=== PATIENT | female | born 1945 | race American Indian/Alaskan Native ===

== ENCOUNTER 2016-10-22 12:53 | Outpatient (CLI) | payer MEDICARE ==
[2016-10-22 14:41] LABS: Anion Gap 19 mmol/L; Blood Urea Nitrogen 12 mg/dL (7-17); Calcium 8.8 mg/dL (8.4-10.2); Carbon Dioxide 29 mmol/L (22-30); Chloride 99.4 mmol/L (98-107); Cholesterol 165 mg/dL (50-199); Glucose 81 mg/dL (65-100); HDL Cholesterol 68 mg/dL (40-59); LDL Cholesterol,Direct 81 mg/dL (50-130); Potassium 3.2 mmol/L (3.6-5.0); Sodium 144 mmol/L (137-145); Triglycerides 80 mg/dL (2-149)
--- NOTE | 2016-10-22 15:31 | XRay Report ---
PA and lateral chest: The chest is rotated to the right. The aorta is slightly tortuous. The heart is normal in size. The lungs are clear. There is mild thoracic spondylosis. Compared to a prior study of July 30, 2016 no significant changes. Impression: No acute or significant cardiopulmonary pathology.
--- NOTE | 2016-10-26 08:40 | Fluoroscopy Report ---
Double contrast upper GI series. Findings: The esophagus, stomach, and duodenum are normal. There is no gastroesophageal reflux or hiatal hernia. Impression: Normal study.
== END 2016-10-22 12:54 | disposition home or self-care (01) ==
LOC: FLUORO 12:53
PROVIDERS: ATTEND Internal Medicine
DX: J30.89 Other allergic rhinitis (principal); M47.894 Other spondylosis, thoracic region; R06.02 Shortness of breath; R05 Cough
CPT/HCPCS: 36415; 71020; 74247; 80048; 80061; 82785; 84439; 84443

== ENCOUNTER 2016-11-17 15:42 | Emergency (ER) | payer MEDICARE ==
[2016-11-17] MEDS ORDERED: TYLENOL ONE (15:53)
[2016-11-17 15:59] VITALS: BP 146/77
[2016-11-17] MEDS ORDERED: TYLENOL PO ONE (16:48)
--- NOTE | 2016-11-17 17:54 | Emergency Department Report ---
Chief Complaint: Dyspnea/Respdistress Stated Complaint: SOB/FEVER/COUGHING/VOMITING Time Seen by Provider: 11/17/16 17:41 - HPI History of Present Illness: 71-year-old female presents today with shortness of breath, chest tightness, fever and productive cough. Also admits to vomiting, headache, abdominal discomfort. Denies sick contacts. Patient was diagnosed with pneumonia and acute bronchitis in July. - ROS Review of Systems: Per HPI - Exam Vital Signs: Vital Signs 11/17/16 15:57 Temperature 100.4 F H Pulse Rate 97 H Respiratory 18 Rate Blood Pressure 146/77 O2 Sat by Pulse 99 Oximetry Physical Exam: General: 71-year-old female in no acute distress. Well-developed, well- nourished. CV: Regular rate and rhythm. Lungs: Decreased breath sounds. MSE screening note: Focused history and physical exam performed. Due to findings the following was ordered: ED Disposition for MSE Condition: Stable
[2016-11-17 18:27] LABS: Basophils % (Auto) 0.6 % (0.0-1.8); Eosinophils % (Auto) 2.6 % (0.0-4.3); Hematocrit 38.1 % (30.3-42.9); Hemoglobin 12.8 gm/dl (10.1-14.3); Mean Corpuscular HGB Conc 34 % (30-34); Mean Corpuscular Volume 77 fl (79-97); Platelet Count 215 K/mm3 (140-440); Red Blood Count 4.94 M/mm3 (3.65-5.03); Red Cell Distribution Width 15.2 % (13.2-15.2)
[2016-11-17 18:32] LABS: Mean Corpuscular Hemoglobin 26 pg (28-32)
[2016-11-17 18:55] LABS: BUN/Creatinine Ratio 16.66; Blood Urea Nitrogen 10 mg/dL (7-17); Calcium 8.9 mg/dL (8.4-10.2); Carbon Dioxide 28 mmol/L (22-30); Chloride 97.5 mmol/L (98-107); Creatine Kinase 36 units/L (30-135); Glucose 111 mg/dL (65-100); Lipase 12 units/L (13-60); Potassium 3.4 mmol/L (3.6-5.0); Sodium 139 mmol/L (137-145)
[2016-11-17 19:00] LABS: Creatine Kinase MB < 1.0 ng/mL (0.0-4.0)
[2016-11-17 19:01] LABS: Anion Gap 17 mmol/L
--- NOTE | 2016-11-18 10:45 | XRay Report ---
CHEST TWO VIEWS: 11/17/16 15:42:00 CLINICAL: Dyspnea. COMPARISON: 10/22/16 FINDINGS: Normal heart and pulmonary vasculature.Aortic tortuosity. The lungs are normally expanded and clear.Degenerative change in the spine. IMPRESSION: No acute cardiopulmonary process.
--- NOTE | 2016-11-22 15:38 | ED Elopement Review ---
ED Pt Elopement review - Results review Lab results: Laboratory Tests 11/17/16 11/17/16 17:54 17:54 WBC 10.0 RBC 4.94 Hgb 12.8 Hct 38.1 MCV 77 L MCH 26 L MCHC 34 RDW 15.2 Plt Count 215 Lymph % (Auto) 6.3 L [place] % (Auto) 10.3 H Eos % (Auto) 2.6 Baso % (Auto) 0.6 Lymph # 0.6 L [place] # 1.0 H Eos # 0.3 Baso # 0.1 Seg Neutrophils % 80.2 H Seg Neutrophils # 8.0 H Sodium 139 Potassium 3.4 L Chloride 97.5 L Carbon Dioxide 28 Anion Gap 17 BUN 10 Creatinine 0.6 L Estimated GFR > 60 BUN/Creatinine Ratio 16.66 Glucose 111 H Calcium 8.9 Total Creatine Kinase 36 CK-MB (CK-2) < 1.0 CK-MB (CK-2) Rel Index 2.7 Troponin T < 0.010 Lipase 12 L - Call Back decision Pt Call Back Decision: No action required
== END 2016-11-17 17:54 | disposition left against medical advice (07) ==
LOC: ED 15:42
DX: R06.02 Shortness of breath (principal); R07.89 Other chest pain; R50.9 Fever, unspecified; R05 Cough; R11.10 Vomiting, unspecified; R51 Headache; R10.9 Unspecified abdominal pain; Z53.21 Procedure and treatment not carried out due to patient leaving prior to being seen by health care provider
CPT/HCPCS: 36415; 71020; 80048; 82550; 82553; 83690; 84484; 85025; 93005; 93010

== ENCOUNTER 2017-02-07 23:44 | Inpatient (IN) | payer MEDICARE ==
[2017-02-08] MEDS ORDERED: PROVENTIL IH ONE ×3 (00:10→02:17)
[2017-02-08] MEDS ORDERED: ATROVENT IH ONE ×3 (00:11→02:17)
--- NOTE | 2017-02-08 02:20 | Emergency Department Report ---
ED General Adult HPI - General Chief complaint: Dyspnea/Respdistress Stated complaint: DIFFICULTY IN BREATHING Time Seen by Provider: 02/08/17 02:11 Source: patient, family, RN notes reviewed, old records reviewed Mode of arrival: Ambulatory Limitations: Physical Limitation - History of Present Illness Initial comments: This is a 71-year-old female. She is previously unknown to me. Primary care doctor is at [facility]. Has a past medical history of COPD. sHe is not on home oxygen. Patient presents to the ER complaining of shortness of breath, cough, wheezing, mucus production. There is no chest pain. There is no leg pain. No recent trips greater than 4 hours. No recent hospital admissions. Patient indicates that this is similar to prior episodes of COPD exacerbations. No recent antibiotic use. Patient incidentally complains of mild global throbbing headache. Headache is not sudden or thunderclap in nature, it did not reach maximal intensity within an hour. No extremity weakness. No extremity numbness. -: Gradual Location: head Quality: aching Consistency: constant Improves with: rest Worsens with: movement Associated Symptoms: cough, loss of appetite, shortness of breath, weakness - Related Data Previous Rx's Medication Instructions Recorded Last Taken Type ALBUTEROL Inhaler [ProAir HFA 2 puff IH QID PRN #1 inhalation 02/09/17 Unknown Rx Inhaler] Benzonatate [Tessalon Perles] 100 mg PO Q8HR #15 capsule 02/09/17 Unknown Rx Budesoni/Formotero 160-4.5(Nf) 2 puff IH BID #1 inha 02/09/17 Unknown Rx [Symbicort 160-4.5 (Nf)] Levofloxacin [Levaquin TAB] 750 mg PO QDAY #6 tablet 02/09/17 Unknown Rx Prednisone [predniSONE 10 mg 10 mg PO .TAPER #1 tab.ds.pk 02/09/17 Unknown Rx (6-Day Pack, 21 Tabs)] Tiotropium [Spiriva] 18 mcg IH QDAY #1 box 02/09/17 Unknown Rx traMADol [Ultram 50 MG tab] 50 mg PO Q6HR PRN #14 tablet 02/09/17 Unknown Rx Allergies Allergy/AdvReac Type Severity Reaction Status Date / Time No Known Allergies Allergy Unverified 01/20/14 14:46 ED Review of Systems ROS: Stated complaint: DIFFICULTY IN BREATHING Other details as noted in HPI Constitutional: malaise, weakness Eyes: denies: vision change ENT: denies: epistaxis Respiratory: cough, shortness of breath, SOB with exertion, SOB at rest, wheezing Cardiovascular: dyspnea on exertion Gastrointestinal: denies: vomiting Genitourinary: as per HPI Musculoskeletal: as per HPI Skin: as per HPI Neurological: headache Psychiatric: anxiety ED Past Medical Hx - Past Medical History Previous Medical History?: Yes Hx HIV: No Additional medical history: post-menopausal bleeding, bronchitis - Surgical History Past Surgical History?: No - Social History Smoking Status: Never Smoker Substance Use Type: None - Medications Home Medications: Home Medications Medication Instructions Recorded Confirmed Last Taken Type ALBUTEROL Inhaler [ProAir HFA 2 puff IH QID PRN #1 inhalation 02/09/17 Unknown Rx Inhaler] Benzonatate [Tessalon Perles] 100 mg PO Q8HR #15 capsule 02/09/17 Unknown Rx Budesoni/Formotero 160-4.5(Nf) 2 puff IH BID #1 inha 02/09/17 Unknown Rx [Symbicort 160-4.5 (Nf)] Levofloxacin [Levaquin TAB] 750 mg PO QDAY #6 tablet 02/09/17 Unknown Rx Prednisone [predniSONE 10 mg 10 mg PO .TAPER #1 tab.ds.pk 02/09/17 Unknown Rx (6-Day Pack, 21 Tabs)] Tiotropium [Spiriva] 18 mcg IH QDAY #1 box 02/09/17 Unknown Rx traMADol [Ultram 50 MG tab] 50 mg PO Q6HR PRN #14 tablet 02/09/17 Unknown Rx ED Physical Exam - General Limitations: Physical Limitation General appearance: alert, in no apparent distress - Head Head exam: Present: atraumatic, normocephalic - Eye Eye exam: Present: normal appearance, EOMI. Absent: nystagmus - ENT ENT exam: Present: normal exam, normal orophraynx, mucous membranes moist - Neck Neck exam: Present: normal inspection, full ROM. Absent: tenderness, meningismus - Respiratory Respiratory exam: Present: respiratory distress, wheezes, rhonchi. Absent: chest wall tenderness - Cardiovascular Cardiovascular Exam: Present: normal rhythm, tachycardia, normal heart sounds. Absent: systolic murmur, diastolic murmur, rubs, gallop - GI/Abdominal GI/Abdominal exam: Present: soft, normal bowel sounds. Absent: distended, tenderness, guarding, rebound, rigid, pulsatile mass - Extremities Exam Extremities exam: Present: normal inspection, full ROM, normal capillary refill , pedal edema, other (Extraocular movements intact. Tongue midline. No facial droop. Facial sensation intact to light touch in the V1, V2, V3 distribution bilaterally. 5 and 5 strength in 4 extremities.. Sensation is intact to light touch in 4 extremities.). Absent: tenderness, calf tenderness - Back Exam Back exam: Present: normal inspection, full ROM. Absent: tenderness, CVA tenderness (R), CVA tenderness (L), muscle spasm, paraspinal tenderness, vertebral tenderness - Neurological Exam Neurological exam: Present: alert, oriented X3. Absent: motor sensory deficit - Psychiatric Psychiatric exam: Present: normal affect, normal mood - Skin Skin exam: Present: warm, dry, intact, normal color. Absent: rash ED Course Vital Signs 02/08/17 02/08/17 02/08/17 00:03 02:02 02:15 Temperature 98.5 F Pulse Rate 115 H 113 H 87 Respiratory 22 12 20 Rate Blood Pressure 195/96 Blood Pressure 147/85 [Right] O2 Sat by Pulse 93 98 93 Oximetry 02/08/17 02/08/17 02/08/17 02:31 03:00 04:05 Temperature 98.9 F Pulse Rate 105 H 105 H Respiratory 15 20 Rate Blood Pressure 147/89 141/66 Blood Pressure [Right] O2 Sat by Pulse 92 92 Oximetry 02/08/17 02/08/17 04:07 04:31 Temperature Pulse Rate 114 H Respiratory 22 Rate Blood Pressure 141/66 159/81 Blood Pressure [Right] O2 Sat by Pulse 98 Oximetry - Reevaluation(s) Reevaluation #1: 02/08/17 05:19 differential diagnosis: COPD exacerbation, bronchitis, pneumonia , elevated blood pressure, migraine headache, tension headache, cluster headache , intracranial hemorrhage Assessment and plan: 71-year-old female with probable COPD exacerbation. Afebrile, markedly hypertensive, no pulmonary embolus or DVT risk factors, low risk by well's criteria, low risk by BRUCE score, low risk by heart score. Patient received multiple rounds of albuterol, Atrovent, as well as adjunctive therapy with magnesium sulfate, and steroids. An ABG after multiple aggressive treatments shows hypoxemic respiratory failure, and the patient is not suitable for outpatient management at this time. The patient has a GCS of 15, with an NIH score of 0, headache is nonspecific, however given his advanced age , and presence of hypertension, a noncontrast CT scan of the brain is ordered, and is interpreted as negative. X-ray the chest is essentially negative, Levaquin ordered, case was discussed with the Hospital physician, Dr. Ross, who accepted the patient to his service. ED Medical Decision Making - Lab Data Result diagrams: 02/09/17 09:50 02/09/17 10:36 Vital Signs 02/08/17 02/08/17 02/08/17 00:03 02:02 02:15 Temperature 98.5 F Pulse Rate 115 H 113 H 87 Respiratory 22 12 20 Rate Blood Pressure 195/96 Blood Pressure 147/85 [Right] O2 Sat by Pulse 93 98 93 Oximetry 02/08/17 02/08/17 02/08/17 02:31 03:00 04:05 Temperature 98.9 F Pulse Rate 105 H 105 H Respiratory 15 20 Rate Blood Pressure 147/89 141/66 Blood Pressure [Right] O2 Sat by Pulse 92 92 Oximetry 02/08/17 02/08/17 04:07 04:31 Temperature Pulse Rate 114 H Respiratory 22 Rate Blood Pressure 141/66 159/81 Blood Pressure [Right] O2 Sat by Pulse 98 Oximetry Lab Results 02/08/17 02/08/17 02/08/17 Range/Units 02:32 02:32 02:32 WBC 12.5 H (4.5-11.0) K/mm3 RBC 4.96 (3.65-5.03) M/mm3 Hgb 12.4 (10.1-14.3) gm/dl Hct 39.2 (30.3-42.9) % MCV 79 (79-97) fl MCH 25 L (28-32) pg MCHC 32 (30-34) % RDW 15.7 H (13.2-15.2) % Plt Count 223 (140-440) K/mm3 Lymph % (Auto) 10.8 L (13.4-35.0) % [place] % (Auto) 6.1 (0.0-7.3) % Eos % (Auto) 6.4 H (0.0-4.3) % Baso % (Auto) 0.6 (0.0-1.8) % Lymph # 1.4 (1.2-5.4) K/mm3 [place] # 0.8 (0.0-0.8) K/mm3 Eos # 0.8 H (0.0-0.4) K/mm3 Baso # 0.1 (0.0-0.1) K/mm3 Seg Neutrophils % 76.1 H (40.0-70.0) % Seg Neutrophils # 9.5 H (1.8-7.7) K/mm3 PT 12.8 (12.2-14.9) Sec. INR 0.97 (0.87-1.13) POC ABG pH (7.35-7.45) POC ABG pCO2 (35-45) POC ABG pO2 (80-105) POC ABG HCO3 POC ABG Total CO2 POC ABG O2 Sat POC ABG Base Excess FiO2 % Sodium 144 (137-145) mmol/L Potassium 3.1 L (3.6-5.0) mmol/L Chloride 100.3 (98-107) mmol/L Carbon Dioxide 28 (22-30) mmol/L Anion Gap 19 mmol/L BUN 12 (7-17) mg/dL Creatinine 0.7 (0.7-1.2) mg/dL Estimated GFR > 60 ml/min BUN/Creatinine Ratio 17.14 % Glucose 153 H (65-100) mg/dL Calcium 9.3 (8.4-10.2) mg/dL Magnesium 2.0 (1.7-2.3) mg/dL Troponin T < 0.010 (0.00-0.029) ng/mL NT-Pro-B Natriuret Pep (0-900) pg/mL 02/08/17 02/08/17 Range/Units 02:32 03:53 WBC (4.5-11.0) K/mm3 RBC (3.65-5.03) M/mm3 Hgb (10.1-14.3) gm/dl Hct (30.3-42.9) % MCV (79-97) fl MCH (28-32) pg MCHC (30-34) % RDW (13.2-15.2) % Plt Count (140-440) K/mm3 Lymph % (Auto) (13.4-35.0) % [place] % (Auto) (0.0-7.3) % Eos % (Auto) (0.0-4.3) % Baso % (Auto) (0.0-1.8) % Lymph # (1.2-5.4) K/mm3 [place] # (0.0-0.8) K/mm3 Eos # (0.0-0.4) K/mm3 Baso # (0.0-0.1) K/mm3 Seg Neutrophils % (40.0-70.0) % Seg Neutrophils # (1.8-7.7) K/mm3 PT (12.2-14.9) Sec. INR (0.87-1.13) POC ABG pH 7.427 (7.35-7.45) POC ABG pCO2 47.3 H (35-45) POC ABG pO2 66 L (80-105) POC ABG HCO3 31.2 POC ABG Total CO2 33 POC ABG O2 Sat 93 POC ABG Base Excess 7 FiO2 21 % Sodium (137-145) mmol/L Potassium (3.6-5.0) mmol/L Chloride (98-107) mmol/L Carbon Dioxide (22-30) mmol/L Anion Gap mmol/L BUN (7-17) mg/dL Creatinine (0.7-1.2) mg/dL Estimated GFR ml/min BUN/Creatinine Ratio % Glucose (65-100) mg/dL Calcium (8.4-10.2) mg/dL Magnesium (1.7-2.3) mg/dL Troponin T (0.00-0.029) ng/mL NT-Pro-B Natriuret Pep 22.93 (0-900) pg/mL - EKG Data -: EKG Interpreted by Me Rate: tachycardia - EKG Data 02/08/17 05:21 Sinus tachycardia, 109 beats per minute, normal axis, QTC 463 ms, not consistent with STEMI, unchanged from prior EKG from October 2016. - Radiology Data Radiology results: report reviewed, image reviewed interpreted by me: X-ray of the chest is negative. Noncontrast CT scan of the brain is negative. Critical care attestation.: If time is entered above; I have spent that time in minutes in the direct care of this critically ill patient, excluding procedure time. ED Disposition Clinical Impression: Acute exacerbation of chronic obstructive pulmonary disease (COPD) Disposition: OP ADMITTED IP TO THIS HOSP Is pt being admited?: Yes Condition: Good
[2017-02-08 03:07] LABS: Anion Gap 19 mmol/L; BUN/Creatinine Ratio 17.14; Blood Urea Nitrogen 12 mg/dL (7-17); Calcium 9.3 mg/dL (8.4-10.2); Carbon Dioxide 28 mmol/L (22-30); Chloride 100.3 mmol/L (98-107); Glucose 153 mg/dL (65-100); Potassium 3.1 mmol/L (3.6-5.0); Sodium 144 mmol/L (137-145)
[2017-02-08 03:17] LABS: Basophils % (Auto) 0.6 % (0.0-1.8); Eosinophils % (Auto) 6.4 % (0.0-4.3); Hematocrit 39.2 % (30.3-42.9); Hemoglobin 12.4 gm/dl (10.1-14.3); Mean Corpuscular HGB Conc 32 % (30-34); Mean Corpuscular Volume 79 fl (79-97); Platelet Count 223 K/mm3 (140-440); Red Blood Count 4.96 M/mm3 (3.65-5.03); Red Cell Distribution Width 15.7 % (13.2-15.2); White Blood Count 12.5 K/mm3 (4.5-11.0)
[2017-02-08] MEDS ORDERED: K-DUR PO ONE (03:17)
[2017-02-08 03:27] LABS: INR 0.97 (0.87-1.13)
[2017-02-08 03:37] LABS: Mean Corpuscular Hemoglobin 25 pg (28-32)
--- NOTE | 2017-02-08 03:55 | Cat Scan Report ---
FINAL REPORT PROCEDURE: CT HEAD/BRAIN WO CON TECHNIQUE: Computerized tomography of the head was performed without contrast material. HISTORY: headache htn COMPARISON: No prior studies are available for comparison. FINDINGS: Skull and scalp: Normal. Paranasal sinuses: Normal. Ventricles and subarachnoid spaces: Normal. Cerebrum: No evidence of hemorrhage, acute infarction or mass. Minimal atrophy is noted. . Cerebellum and brainstem: No evidence of hemorrhage, acute infarction or mass. Vasculature: Normal. Comments: None. IMPRESSION: There is no evidence of an acute intracranial process.
[2017-02-08 04:01] LABS: ISTAT Base Excess 7; ISTAT HCO3 31.2; ISTAT PCO2 47.3 (35-45); ISTAT PH 7.427 (7.35-7.45); ISTAT PO2 66 (80-105); ISTAT SO2 93; ISTAT TCO2 33
[2017-02-08] MEDS ORDERED: LEVAQUIN 750MG/150ML 750 MG/150 ML BAG IV ONE (04:11)
[2017-02-08] MEDS ORDERED: AMBIEN PO PRN (04:33)
[2017-02-08] MEDS ORDERED: MILK OF MAGNESIA PO PRN (04:33)
[2017-02-08] MEDS ORDERED: ZOFRAN IV PRN (04:33)
[2017-02-08] MEDS ORDERED: D50W (25GM) IV PRN (04:33)
[2017-02-08] MEDS ORDERED: TYLENOL PO PRN (04:33)
[2017-02-08] MEDS ORDERED: DULCOLAX PR PRN (04:33)
--- NOTE | 2017-02-08 05:23 | History and Physical Report ---
History of Present Illness Date of examination: 02/08/17 Date of admission: 02/08/17 04:33 Chief complaint: Worsening shortness of breath for 2 days History of present illness: 71-year-old -[place] female no known major medical conditions except chronic bronchitis for the past 5 months seen in the emergency room for worsening shortness of breath and admitted for COPD exacerbation management. Patient is awake and alert he is mildly short of breath with the moderate wheezing she denies any history of COPD or asthma. She was diagnosed with bronchitis in August 2016 and since then she has never been the same. Also complains of cough with greenish sputum, he denies any fever or chills [place] any sore throat dysphagia nasal congestion or headaches Denies any exertional chest pain palpitations or syncope Stated above complains of for cough with green sputum and worsening shortness of breath for 2 days She denies any nausea or vomitings diarrhea or abdominal pain hematemesis or melena Denies dysuria or hematuria Past History Past Medical History: other ( diagnosed with bronchitis in August 2016). denies: CAD, COPD, diabetes, hypertension Past Surgical History: No surgical history Social history: no significant social history Family history: no significant family history Medications and Allergies Allergies Allergy/AdvReac Type Severity Reaction Status Date / Time No Known Allergies Allergy Unverified 01/20/14 14:46 Home Medications Medication Instructions Recorded Confirmed Last Taken Type ALBUTEROL Inhaler [ProAir HFA 2 puff IH QID PRN #1 inhalation 08/01/16 Unknown Rx Inhaler] Benzonatate [Tessalon Perles] 100 mg PO Q8HR #15 capsule 08/01/16 Unknown Rx Chlorpheniramine/Phenylephrine 1 each PO BID #10 tablet 08/01/16 Unknown Rx [Ed-A-Hist 4 mg-10 mg Tablet] Levofloxacin [Levaquin] 750 mg PO QDAY #6 tablet 08/01/16 Unknown Rx Prednisone [predniSONE 10 mg 10 mg PO .TAPER #1 tab.ds.pk 08/01/16 Unknown Rx (6-Day Pack, 21 Tabs)] Tiotropium [Spiriva] 18 mcg IH QDAY #1 box 08/01/16 Unknown Rx traMADol [Ultram 50 MG tab] 50 mg PO Q6HR PRN #14 tablet 08/01/16 Unknown Rx Active Meds: Active Medications Acetaminophen (Tylenol) 650 mg PO Q4H PRN PRN Reason: Pain MILD(1-3)/Fever >100.5/YODER Albuterol/Ipratropium (Duoneb 0.5 Mg-3 Mg/3 Ml Soln) 1 ampul IH Q6HRT BELEN Bisacodyl (Dulcolax) 10 mg NE QDAY PRN PRN Reason: Constipation unrelieved by MOM Dextrose (D50w (25gm)) 50 ml IV PRN PRN PRN Reason: Hypoglycemia Heparin Sodium (Porcine) (Heparin) 5,000 unit SUB-Q Q8HR BELEN Levofloxacin/Dextrose (Levaquin 750mg/150ml) 750 mg in 150 mls @ 100 mls/hr IV ONCE ONE Stop: 02/08/17 05:40 Last Admin: 02/08/17 04:30 Dose: 100 mls/hr Sodium Chloride (Nacl 0.45% 1000 Ml) 1,000 mls @ 75 mls/hr IV DIRECT BELEN Levofloxacin/Dextrose (Levaquin 750mg/150ml) 750 mg in 150 mls @ 100 mls/hr IV Q24HR BELEN PRN Reason: Protocol Insulin Aspart (Novolog) 0 units SUB-Q ACHS BELEN PRN Reason: Protocol Magnesium Hydroxide (Milk Of Magnesia) 30 ml PO Q4H PRN PRN Reason: Constipation Methylprednisolone Sodium Succinate (Solu-Medrol) 80 mg IV Q6H BELEN Ondansetron HCl (Zofran) 4 mg IV Q8H PRN PRN Reason: N/V unrelieved by Reglan Zolpidem Tartrate (Ambien) 5 mg PO QHS PRN PRN Reason: Insomnia Review of Systems All systems: negative (as stated above in the history of present illness) Exam - Constitutional Vitals: Temp Pulse Resp BP Pulse Ox 98.9 F 114 H 22 159/81 98 02/08/17 04:05 02/08/17 04:31 02/08/17 04:31 02/08/17 04:31 02/08/17 04:31 General appearance: Present: mild distress, well-nourished - EENT Eyes: Present: PERRL, EOM intact ENT: hearing intact, clear oral mucosa, no thrush - Neck Neck: Present: supple, normal ROM. Absent: masses or JVD - Respiratory Respiratory effort: normal Respiratory: bilateral: CTA - Cardiovascular Rhythm: regular Heart Sounds: Present: S1 & S2 - Extremities Extremities: No edema - Abdominal General gastrointestinal: Present: soft, non-tender, tender, non-distended. Absent: hepatomegaly, splenomegaly - Rectal Rectal Exam: deferred - Integumentary Integumentary: Present: clear - Musculoskeletal Musculoskeletal: strength equal bilaterally - Psychiatric Psychiatric: appropriate mood/affect - Neurologic Neurologic: CNII-XII intact, no focal deficits, moves all extremities Results - Labs CBC & Chem 7: 02/08/17 02:32 02/08/17 02:32 Assessment and Plan - Patient Problems (1) Acute exacerbation of chronic obstructive pulmonary disease (COPD) Current Visit: No Status: Acute Plan to address problem: Start the patient on intravenous steroids antibiotics and aggressive nebulizer treatments His EKG shows a heart rate of 109 bpm sinus tachycardia EKG shows a heart rate of 109 bpm sinus tachycardia (2) Hypokalemia Current Visit: Yes Status: Acute Plan to address problem: Potassium supplements and monitor electrolytes (3) Hyperglycemia Current Visit: Yes Status: Acute Plan to address problem: Check A1c level
[2017-02-08] MEDS: HEPARIN SUB-Q SCH ×4 (06:14→22:57)
[2017-02-08] MEDS: NACL 0.45% 1000 ML 1,000 ML IV SCH (06:16)
--- NOTE | 2017-02-08 07:50 | XRay Report ---
AP CHEST: HISTORY: Dyspnea AP view of the chest demonstrates a normal mediastinal and cardiac contour with clear lungs and normal bony and soft tissue structures. IMPRESSION: Unremarkable AP chest. No significant change since 11/17/16.
[2017-02-08] MEDS: DUONEB 0.5 MG-3 MG/3 ML SOLN IH SCH ×3 (08:11→20:27)
--- NOTE | 2017-02-08 08:48 | Admit Criteria Form ---
Admission Criteria Documentation: COPD Clinical Indications for Admission to Inpatient Care (Place 'X' for any and all applicable criteria): Admission is indicated for ANY ONE of the following (1)(2)(3): [ ]I. Acute exacerbation by high-risk comorbidity (e.g., pneumonia, dysrhythmia, heart failure, pleural effusion, pneumothorax) or severe underlying COPD (e.g., steroid dependent) [X]II. Inpatient admission required rather than observation care (see Chronic Obstructive Pulmonary Disease: Observation Care) because of ANY ONE of the following: [X]a) New or pre-existing signs or symptoms of COPD (eg, dyspnea or Tachypnea at rest or with minimal activity) that persist despite outpatient and observation care treatment [ ]b) New-onset hypoxemia (room air SaO2 less than 90%, PO2 less than 60 mm Hg (8.0 kPa)) that persists despite outpatient and observation care treatment [X]c) Worsening of pre-existing hypoxemia (eg, new or increased requirement for supplemental oxygen to maintain oxygenation at baseline level) that persists despite outpatient and observation care treatment, with oxygen treatment needs performable only in acute inpatient setting [ ]d) Hypercarbia (PCO2 greater than 40 mm Hg (5.3 kPa))-induced respiratory acidosis (pH less than 7.35) that persists despite outpatient and observation care treatment [ ]e) Supplemental oxygen or respiratory treatments for over 24 hours that are performable only in acute inpatient setting [ ]f) Chest tube placement with active evacuation (e.g., suction, drainage) (5) [ ]g) Other condition, treatment or monitoring requiring inpatient admission [ ]III. Planned invasive surgical or diagnostic procedures requiring acute- care hospitalization [X]IV. Acute respiratory failure (e.g., uncompensated hypercarbia, severe hypoxemia) [ ]V. Severe comorbid condition (e.g., severe steroid myopathy, acute vertebral fracture) that has acutely worsened pulmonary function [ ]. Confusion state, lethargy, obtundation, stupor or coma Extended stay beyond goal length of stay may be needed for (31)(32): [ ]a ) Respiratory Failure. [ ]b) Severe or persisting hypoxemia or hypercarbia [ ]c) Severe or persistent dyspnea [ ]d) Comorbidities (e.g. chronic heart failure, atrial fibrillation with rapid response, pneumonia) [ ]e) Malnutrition The original [facility] content created by [facility] has been revised. The portions of the content which have been revised are identified through the use of italic text or in bold, and [facility] has neither reviewed nor approved the modified material. All other unmodified content is copyright [facility]. Please see references footnoted in the original [facility] edition 2016 Admission Criteria Met: Yes
[2017-02-08] MEDS: NOVOLOG SUB-Q SCH ×4 (08:54→22:09)
--- NOTE | 2017-02-08 13:58 | Progress Note ---
Assessment and Plan Assessment and plan: Acute respiratory failure secondary to bronchitis/COPD - Patient is on IV antibiotics, breathing treatments, oxygen support - Patient showed some improvement Hyperglycemia - Likely steroid-induced - On sliding scale insulin DVT prophylaxis - Heparin Disposition - Likely discharge tomorrow History Interval history: Patient was seen and evaluated this morning, patient's shortness of breath is getting better but still winded. Hospitalist Physical - Physical exam Narrative exam: Not in cardiopulmonary distress. The patient is obese. Vital signs as documented. Head exam is unremarkable. No scleral icterus . Neck is without jugular venous distension, thyromegaly, or carotid bruits. Lungs wheezing all over the chest with decreased air entry on the posterior basilar lung echols bilaterally. Cardiac exam reveals regular rate and Rhythm. First and second heart sounds normal. No murmurs, rubs or gallops. Abdominal exam reveals normal bowel sounds, no masses, no organomegaly and no aortic enlargement. Extremities are nonedematous and both femoral and pedal pulses are normal. [employer]: Alert and oriented 3. No focal weakness. - Constitutional Vitals: Temp Pulse Resp BP Pulse Ox 98.3 F 18 L 98 H 178/77 99 02/08/17 07:58 02/08/17 13:22 02/08/17 13:22 02/08/17 07:58 02/08/17 07:58 General appearance: Present: mild distress, well-nourished Results - Labs CBC & Chem 7: 02/08/17 02:32 02/08/17 02:32 Labs: Laboratory Last Values WBC 12.5 K/mm3 (4.5-11.0) H 02/08/17 02:32 RBC 4.96 M/mm3 (3.65-5.03) 02/08/17 02:32 Hgb 12.4 gm/dl (10.1-14.3) 02/08/17 02:32 Hct 39.2 % (30.3-42.9) 02/08/17 02:32 MCV 79 fl (79-97) 02/08/17 02:32 MCH 25 pg (28-32) L 02/08/17 02:32 MCHC 32 % (30-34) 02/08/17 02:32 RDW 15.7 % (13.2-15.2) H 02/08/17 02:32 Plt Count 223 K/mm3 (140-440) 02/08/17 02:32 Lymph % (Auto) 10.8 % (13.4-35.0) L 02/08/17 02:32 Weber % (Auto) 6.1 % (0.0-7.3) 02/08/17 02:32 Eos % (Auto) 6.4 % (0.0-4.3) H 02/08/17 02:32 Baso % (Auto) 0.6 % (0.0-1.8) 02/08/17 02:32 Lymph # 1.4 K/mm3 (1.2-5.4) 02/08/17 02:32 Weber # 0.8 K/mm3 (0.0-0.8) 02/08/17 02:32 Eos # 0.8 K/mm3 (0.0-0.4) H 02/08/17 02:32 Baso # 0.1 K/mm3 (0.0-0.1) 02/08/17 02:32 Seg Neutrophils % 76.1 % (40.0-70.0) H 02/08/17 02:32 Seg Neutrophils # 9.5 K/mm3 (1.8-7.7) H 02/08/17 02:32 PT 12.8 Sec. (12.2-14.9) 02/08/17 02:32 INR 0.97 (0.87-1.13) 02/08/17 02:32 POC ABG pH 7.427 (7.35-7.45) 02/08/17 03:53 POC ABG pCO2 47.3 (35-45) H 02/08/17 03:53 POC ABG pO2 66 (80-105) L 02/08/17 03:53 POC ABG HCO3 31.2 02/08/17 03:53 POC ABG Total CO2 33 02/08/17 03:53 POC ABG O2 Sat 93 02/08/17 03:53 POC ABG Base Excess 7 02/08/17 03:53 FiO2 21 % 02/08/17 03:53 Sodium 144 mmol/L (137-145) 02/08/17 02:32 Potassium 3.1 mmol/L (3.6-5.0) L 02/08/17 02:32 Chloride 100.3 mmol/L (98-107) 02/08/17 02:32 Carbon Dioxide 28 mmol/L (22-30) 02/08/17 02:32 Anion Gap 19 mmol/L 02/08/17 02:32 BUN 12 mg/dL (7-17) 02/08/17 02:32 Creatinine 0.7 mg/dL (0.7-1.2) 02/08/17 02:32 Estimated GFR > 60 ml/min 02/08/17 02:32 BUN/Creatinine Ratio 17.14 % 02/08/17 02:32 Glucose 153 mg/dL (65-100) H 02/08/17 02:32 POC Glucose 238 (70-105) H 02/08/17 10:49 Hemoglobin A1c 5.6 % (4-6) 02/08/17 04:54 Calcium 9.3 mg/dL (8.4-10.2) 02/08/17 02:32 Magnesium 2.0 mg/dL (1.7-2.3) 02/08/17 02:32 Troponin T < 0.010 ng/mL (0.00-0.029) 02/08/17 02:32 NT-Pro-B Natriuret Pep 22.93 pg/mL (0-900) 02/08/17 02:32 - Imaging and Cardiology Chest x-ray: image reviewed (no acute cardiopulmonary abnormalities)
[2017-02-08] MEDS: ROBITUSSIN DM PO SCH ×3 (14:37→22:08)
[2017-02-09] MEDS: DUONEB 0.5 MG-3 MG/3 ML SOLN IH SCH ×3 (02:19→14:00)
[2017-02-09] MEDS: NACL 0.45% 1000 ML 1,000 ML IV SCH (03:03)
[2017-02-09] MEDS: ROBITUSSIN DM PO SCH ×3 (03:06→11:34)
[2017-02-09] MEDS: HEPARIN SUB-Q SCH (05:29)
[2017-02-09] MEDS ORDERED: LEVAQUIN 750MG/150ML 750 MG/150 ML BAG IV SCH (06:00)
--- NOTE | 2017-02-09 08:14 | Discharge Summary ---
Providers - Providers Date of Admission: 02/08/17 04:33 Attending physician: ELMER FLEMING MD Hospitalization Condition: Good Hospital course: 71-year-old -French female no known major medical conditions except chronic bronchitis for the past 5 months seen in the emergency room for worsening shortness of breath and admitted for COPD exacerbation management. Patient is awake and alert he is mildly short of breath with the moderate wheezing she denies any history of COPD or asthma. She was diagnosed with bronchitis in August 2016 and since then she has never been the same. Also complains of cough with greenish sputum, he denies any fever or chills. She was treated with steroids and nebulizers and oxygen supplementation, antibiotics and chest PT. Patient clinically improved. Discharge diagnoses 1. Acute respiratory failure 2. Acute exacerbation of COPD Disposition: DISCHARGED TO HOME OR SELFCARE Time spent for discharge: 35 minutes Core Measure Documentation - Palliative Care Palliative Care/ Comfort Measures: Not Applicable - Core Measures Any of the following diagnoses?: none Exam - Constitutional Vitals: Temp Pulse Resp BP Pulse Ox 98.2 F 102 H 18 154/72 96 02/08/17 23:00 02/09/17 07:50 02/09/17 07:50 02/08/17 23:00 02/09/17 07:39 General appearance: Present: no acute distress, well-nourished - EENT Eyes: Present: PERRL ENT: hearing intact, clear oral mucosa - Neck Neck: Present: supple, normal ROM - Respiratory Respiratory effort: normal Respiratory: bilateral: CTA - Cardiovascular Heart Sounds: Present: S1 & S2. Absent: rub, click - Extremities Extremities: pulses symmetrical, No edema Peripheral Pulses: within normal limits - Abdominal General gastrointestinal: Present: soft, non-tender, non-distended, normal bowel sounds Female genitourinary: Present: normal - Integumentary Integumentary: Present: clear, warm, dry - Musculoskeletal Musculoskeletal: gait normal, strength equal bilaterally - Psychiatric Psychiatric: appropriate mood/affect, intact judgment & insight - Neurologic Neurologic: CNII-XII intact, moves all extremities Plan Follow up with: AME GARCIA MD [Referring] - 3-5 Days Forms: Work/School Release Form Prescriptions: ALBUTEROL Inhaler [ProAir HFA Inhaler] 2 puff IH QID PRN #1 inhalation PRN Reason: Shortness Of Breath Benzonatate [Tessalon Perles] 100 mg PO Q8HR #15 capsule Budesoni/Formotero 160-4.5(Nf) [Symbicort 160-4.5 (Nf)] 2 puff IH BID #1 inha Levofloxacin [Levaquin TAB] 750 mg PO QDAY #6 tablet Prednisone [predniSONE 10 mg (6-Day Pack, 21 Tabs)] 10 mg PO .TAPER #1 tab.ds.pk Tiotropium [Spiriva] 18 mcg IH QDAY #1 box traMADol [Ultram 50 MG tab] 50 mg PO Q6HR PRN #14 tablet PRN Reason: Pain
[2017-02-09] MEDS: NOVOLOG SUB-Q SCH (08:26)
[2017-02-09 08:28] VITALS: BP 129/63
[2017-02-09 10:41] LABS: Mean Corpuscular HGB Conc 31 % (30-34); Mean Corpuscular Volume 83 fl (79-97); Platelet Count 109 K/mm3 (140-440); Red Blood Count 4.76 M/mm3 (3.65-5.03); White Blood Count 18.1 K/mm3 (4.5-11.0)
[2017-02-09 10:43] LABS: Hematocrit 39.3 % (30.3-42.9); Mean Corpuscular Hemoglobin 25 pg (28-32)
[2017-02-09 11:08] LABS: Anion Gap 18 mmol/L; Blood Urea Nitrogen 14 mg/dL (7-17); Calcium 9.4 mg/dL (8.4-10.2); Carbon Dioxide 25 mmol/L (22-30); Chloride 100.3 mmol/L (98-107); Glucose 239 mg/dL (65-100); Potassium 3.1 mmol/L (3.6-5.0); Sodium 140 mmol/L (137-145)
[2017-02-09 12:42] LABS: Basophils % (Manual) 0 % (0.0-1.8); Blastocytes % (Manual) 0 %; Eosinophils % (Manual) 0 % (0.0-4.3); Hypochromasia 1+
[2017-02-09 12:43] LABS: Diff Status Complete; Platelet Estimate Appears Decreased
== END 2017-02-09 13:00 | disposition home or self-care (01) | DRG 189 ==
LOC: ED 23:44 → 3A 02-08 04:33
PROVIDERS: ADMIT Internal Medicine; ATTEND Internal Medicine
PROC: 4A033R1 Measurement of Arterial Saturation, Peripheral, Percutaneous Approach (ICD-10-PCS; principal; 2017-02-08)
DX: J96.01 Acute respiratory failure with hypoxia (principal); J44.1 Chronic obstructive pulmonary disease with (acute) exacerbation; I10 Essential (primary) hypertension; E87.6 Hypokalemia; R73.9 Hyperglycemia, unspecified
CPT/HCPCS: 36415; 70450; 71010; 80048; 82803; 82962; 83036; 83735; 83880; 84484; 85007; 85025; 85610; 93005; 93010; 94640; 94760; 96374; 96375; J1644; J1815; J1956; J2920; J2930

== ENCOUNTER 2017-04-11 08:30 | Inpatient (IN) | payer MEDICARE ==
[2017-04-11] MEDS ORDERED: PROVENTIL IH ONE (08:57)
[2017-04-11] MEDS ORDERED: ATROVENT IH ONE (08:57)
[2017-04-11] MEDS ORDERED: MAGNESIUM SULFATE 2GM/50ML 2 GM/50 ML BAG IV ONE (08:57)
[2017-04-11 09:22] LABS: Basophils % (Auto) 0.9 % (0.0-1.8); Hematocrit 36.7 % (30.3-42.9); Hemoglobin 12.1 gm/dl (10.1-14.3); Mean Corpuscular HGB Conc 33 % (30-34); Mean Corpuscular Volume 78 fl (79-97); Platelet Count 216 K/mm3 (140-440); Red Blood Count 4.69 M/mm3 (3.65-5.03); Red Cell Distribution Width 15.2 % (13.2-15.2); White Blood Count 8.6 K/mm3 (4.5-11.0)
[2017-04-11 09:23] LABS: Anion Gap 16 mmol/L; BUN/Creatinine Ratio 21.42; Blood Urea Nitrogen 15 mg/dL (7-17); Calcium 8.7 mg/dL (8.4-10.2); Carbon Dioxide 30 mmol/L (22-30); Chloride 103.5 mmol/L (98-107); Glucose 106 mg/dL (65-100); Potassium 3.1 mmol/L (3.6-5.0); Sodium 146 mmol/L (137-145)
[2017-04-11 09:33] LABS: INR 0.96 (0.87-1.13)
--- NOTE | 2017-04-11 09:52 | XRay Report ---
CHEST TWO VIEWS: 04/11/17 08:30:00 CLINICAL: Shortness of breath. COMPARISON: 03/17/17 FINDINGS: The heart is normal size. Increased central vascular congestion. Mild aortic tortuosity. The lungs are normally expanded and clear. The bones and soft tissues are normal. IMPRESSION: Increased central vascular congestion but otherwise unchanged.No pulmonary edema or pneumonia.
[2017-04-11] MEDS ORDERED: K-DUR PO ONE (10:04)
[2017-04-11] MEDS ORDERED: BABY ASPIRIN PO ONE (10:09)
[2017-04-11] MEDS ORDERED: VIBRAMYCIN PO ONE (10:09)
--- NOTE | 2017-04-11 10:09 | Emergency Department Report ---
ED Shortness of Breath HPI - General Chief Complaint: Dyspnea/Respdistress Stated Complaint: CARLITOS Time Seen by Provider: 04/11/17 10:03 Source: patient, RN notes reviewed, old records reviewed Mode of arrival: Ambulatory Limitations: No Limitations - History of Present Illness Initial Comments: This is a 71-year-old female. I have evaluated her in the past. Primary care doctor at [facility]. Past medical history includes COPD, not on home oxygen. Patient has recently had multiple hospital admissions for COPD exacerbation. Patient presents to the hospital today with her typical constellation of chest tightness, shortness of breath, wheezing, cough and mucus production. Her symptoms are constant. Worse with physical exertion. That decreased with rest. There is no leg pain. There is no leg swelling. No unintentional weight gain. Mild chronic orthopnea which is not new, worsening or different. MD Complaint: shortness of breath, cough -: Gradual Consistency: intermittent Improves With: nothing, oxygen, rest, bronchodilators, upright position Worsens With: lying flat, exertion Known History Of: COPD Context: recent URI Associated Symptoms: cough - Related Data Previous Rx's Medication Instructions Recorded Last Taken Type ALBUTEROL Inhaler [ProAir HFA 2 puff IH QID PRN #1 inhalation 03/19/17 Unknown Rx Inhaler] Azithromycin [Zithromax TAB] 250 mg PO QDAY #3 tablet 03/19/17 Unknown Rx Budesoni/Formotero 160-4.5(Nf) 2 puff IH BID #1 inha 03/19/17 Unknown Rx [Symbicort 160-4.5 (Nf)] Prednisone [predniSONE 5 mg (6-Day 5 mg PO .TAPER #1 tab.ds.pk 03/19/17 Unknown Rx Pack, 21 Tabs)] Allergies Allergy/AdvReac Type Severity Reaction Status Date / Time No Known Allergies Allergy Unverified 01/20/14 14:46 ED Review of Systems ROS: Stated complaint: CARLITOS Other details as noted in HPI Constitutional: malaise. denies: fever Eyes: denies: vision change ENT: congestion Respiratory: shortness of breath, SOB with exertion, SOB at rest, wheezing Cardiovascular: dyspnea on exertion Gastrointestinal: denies: nausea, vomiting Genitourinary: as per HPI. denies: dysuria Musculoskeletal: arthralgia Skin: as per HPI Neurological: as per HPI, weakness Psychiatric: as per HPI ED Past Medical Hx - Past Medical History Previous Medical History?: Yes Hx COPD: Yes Hx HIV: No Additional medical history: post-menopausal bleeding, bronchitis - Surgical History Past Surgical History?: No - Social History Smoking Status: Never Smoker Substance Use Type: Prescribed - Medications Home Medications: Home Medications Medication Instructions Recorded Confirmed Last Taken Type ALBUTEROL Inhaler [ProAir HFA 2 puff IH QID PRN #1 inhalation 03/19/17 Unknown Rx Inhaler] Azithromycin [Zithromax TAB] 250 mg PO QDAY #3 tablet 03/19/17 Unknown Rx Budesoni/Formotero 160-4.5(Nf) 2 puff IH BID #1 inha 03/19/17 Unknown Rx [Symbicort 160-4.5 (Nf)] Prednisone [predniSONE 5 mg (6-Day 5 mg PO .TAPER #1 tab.ds.pk 03/19/17 Unknown Rx Pack, 21 Tabs)] ED Physical Exam - General Limitations: No Limitations General appearance: alert, in distress, obese - Head Head exam: Present: atraumatic, normocephalic - Eye Eye exam: Present: normal appearance, EOMI. Absent: nystagmus - ENT ENT exam: Present: normal exam, normal orophraynx, mucous membranes moist, normal external ear exam - Neck Neck exam: Present: normal inspection, full ROM. Absent: tenderness, meningismus - Respiratory Respiratory exam: Present: respiratory distress, wheezes, rhonchi - Cardiovascular Cardiovascular Exam: Present: normal rhythm, tachycardia, normal heart sounds. Absent: systolic murmur, diastolic murmur, rubs, gallop - GI/Abdominal GI/Abdominal exam: Present: soft, normal bowel sounds. Absent: distended, tenderness, guarding, rebound, rigid, pulsatile mass - Extremities Exam Extremities exam: Present: normal inspection, full ROM, normal capillary refill. Absent: tenderness, pedal edema, joint swelling, calf tenderness - Back Exam Back exam: Present: normal inspection, full ROM. Absent: tenderness, CVA tenderness (R), CVA tenderness (L), muscle spasm, paraspinal tenderness, vertebral tenderness - Neurological Exam Neurological exam: Present: alert, oriented X3, other (Extraocular movements intact. Tongue midline. No facial droop. Facial sensation intact to light touch in the V1, V2, V3 distribution bilaterally. 5 and 5 strength in 4 extremities.. Sensation is intact to light touch in 4 extremities.). Absent: motor sensory deficit - Psychiatric Psychiatric exam: Present: anxious - Skin Skin exam: Present: warm, dry, intact, normal color. Absent: rash ED Course Vital Signs 04/11/17 04/11/17 04/11/17 08:41 09:04 09:10 Temperature 98.5 F 98.2 F Pulse Rate 113 H 100 H Pulse Rate [ Anterior Bilateral Throughout] Respiratory 20 16 Rate Respiratory Rate [Anterior Bilateral Throughout] Blood Pressure 156/84 131/76 Blood Pressure 131/76 [Left] O2 Sat by Pulse 95 95 95 Oximetry 04/11/17 04/11/17 04/11/17:17 09:20 09:30 Temperature Pulse Rate 97 H 99 H Pulse Rate [ 97 H Anterior Bilateral Throughout] Respiratory 14 16 Rate Respiratory 20 Rate [Anterior Bilateral Throughout] Blood Pressure 124/63 119/65 Blood Pressure [Left] O2 Sat by Pulse 97 96 Oximetry 04/11/17 04/11/17 04/11/17 09:40 10:33 12:48 Temperature 98.0 F Pulse Rate 101 H 99 H Pulse Rate [ 105 H Anterior Bilateral Throughout] Respiratory 16 20 Rate Respiratory 20 Rate [Anterior Bilateral Throughout] Blood Pressure 119/65 Blood Pressure 153/84 [Left] O2 Sat by Pulse 94 97 Oximetry 04/11/17 13:09 Temperature Pulse Rate Pulse Rate [ Anterior Bilateral Throughout] Respiratory Rate Respiratory Rate [Anterior Bilateral Throughout] Blood Pressure Blood Pressure [Left] O2 Sat by Pulse 95 Oximetry ED Medical Decision Making - Lab Data Result diagrams: 04/11/17 08:49 04/11/17 08:49 Vital Signs 04/11/17 04/11/17 04/11/17 08:41 09:04 09:10 Temperature 98.5 F 98.2 F Pulse Rate 113 H 100 H Pulse Rate [ Anterior Bilateral Throughout] Respiratory 20 16 Rate Respiratory Rate [Anterior Bilateral Throughout] Blood Pressure 156/84 131/76 Blood Pressure 131/76 [Left] O2 Sat by Pulse 95 95 95 Oximetry 04/11/17 04/11/17 04/11/17 09:17 09:20 09:30 Temperature Pulse Rate 97 H 99 H Pulse Rate [ 97 H Anterior Bilateral Throughout] Respiratory 14 16 Rate Respiratory 20 Rate [Anterior Bilateral Throughout] Blood Pressure 124/63 119/65 Blood Pressure [Left] O2 Sat by Pulse 97 96 Oximetry 04/11/17 04/11/17 09:40 10:33 Temperature Pulse Rate 101 H Pulse Rate [ 105 H Anterior Bilateral Throughout] Respiratory 16 Rate Respiratory 20 Rate [Anterior Bilateral Throughout] Blood Pressure 119/65 Blood Pressure [Left] O2 Sat by Pulse 94 Oximetry Lab Results 04/11/17 04/11/17 04/11/17 Range/Units 08:49 08:49 08:49 WBC 8.6 (4.5-11.0) K/mm3 RBC 4.69 (3.65-5.03) M/mm3 Hgb 12.1 (10.1-14.3) gm/dl Hct 36.7 (30.3-42.9) % MCV 78 L (79-97) fl MCH 26 L (28-32) pg MCHC 33 (30-34) % RDW 15.2 (13.2-15.2) % Plt Count 216 (140-440) K/mm3 Lymph % (Auto) 16.8 (13.4-35.0) % Mcduffie % (Auto) 8.2 H (0.0-7.3) % Eos % (Auto) 11.0 H (0.0-4.3) % Baso % (Auto) 0.9 (0.0-1.8) % Lymph # 1.4 (1.2-5.4) K/mm3 Mcduffie # 0.7 (0.0-0.8) K/mm3 Eos # 0.9 H (0.0-0.4) K/mm3 Baso # 0.1 (0.0-0.1) K/mm3 Seg Neutrophils % 63.1 (40.0-70.0) % Seg Neutrophils # 5.4 (1.8-7.7) K/mm3 PT (12.2-14.9) Sec. INR (0.87-1.13) Sodium 146 H (137-145) mmol/L Potassium 3.1 L (3.6-5.0) mmol/L Chloride 103.5 (98-107) mmol/L Carbon Dioxide 30 (22-30) mmol/L Anion Gap 16 mmol/L BUN 15 (7-17) mg/dL Creatinine 0.7 (0.7-1.2) mg/dL Estimated GFR > 60 ml/min BUN/Creatinine Ratio 21.42 % Glucose 106 H (65-100) mg/dL Calcium 8.7 (8.4-10.2) mg/dL Magnesium (1.7-2.3) mg/dL Troponin T < 0.010 (0.00-0.029) ng/mL NT-Pro-B Natriuret Pep 7.00 (0-900) pg/mL 04/11/17 04/11/17 Range/Units 08:49 09:00 WBC (4.5-11.0) K/mm3 RBC (3.65-5.03) M/mm3 Hgb (10.1-14.3) gm/dl Hct (30.3-42.9) % MCV (79-97) fl MCH (28-32) pg MCHC (30-34) % RDW (13.2-15.2) % Plt Count (140-440) K/mm3 Lymph % (Auto) (13.4-35.0) % Mcduffie % (Auto) (0.0-7.3) % Eos % (Auto) (0.0-4.3) % Baso % (Auto) (0.0-1.8) % Lymph # (1.2-5.4) K/mm3 Mcduffie # (0.0-0.8) K/mm3 Eos # (0.0-0.4) K/mm3 Baso # (0.0-0.1) K/mm3 Seg Neutrophils % (40.0-70.0) % Seg Neutrophils # (1.8-7.7) K/mm3 PT 13.3 (12.2-14.9) Sec. INR 0.96 (0.87-1.13) Sodium (137-145) mmol/L Potassium (3.6-5.0) mmol/L Chloride (98-107) mmol/L Carbon Dioxide (22-30) mmol/L Anion Gap mmol/L BUN (7-17) mg/dL Creatinine (0.7-1.2) mg/dL Estimated GFR ml/min BUN/Creatinine Ratio % Glucose (65-100) mg/dL Calcium (8.4-10.2) mg/dL Magnesium 1.90 (1.7-2.3) mg/dL Troponin T (0.00-0.029) ng/mL NT-Pro-B Natriuret Pep (0-900) pg/mL - EKG Data -: EKG Interpreted by Me Rate: tachycardia - EKG Data Interpretation: unchanged when compared t 04/11/17 10:59 sinus tachycardia, 112 beats per minute, QTC 453 ms, motion artifact, not morphologically consistent with STEMI, appears unchanged when compared to prior EKG from February 2017 - Radiology Data Radiology results: report reviewed, image reviewed No pneumonia, no CHF, chronic findings noted on chest x-ray. Possible mild pulmonary vascular congestion - Medical Decision Making Differential diagnosis: COPD, bronchitis, pneumonia, acute coronary syndrome Assessment and plan: 71-year-old female with cough, wheezing, rhonchi, shortness of breath, normal troponin, EKG unchanged from prior, incidental hypokalemia. She is treated with albuterol, Atrovent, steroids, magnesium and potassium supplementation. She is still wheezing after aggressive medical therapy. She is protecting her airway, does not have any stridor or obtundation at this time. The patient will be admitted to the hospital for COPD exacerbation. The case is presented to the hospital nurse practitioner, Bennie Hancock, who accepts the patient to the medical service for COPD exacerbation. Critical care attestation.: If time is entered above; I have spent that time in minutes in the direct care of this critically ill patient, excluding procedure time. ED Disposition Clinical Impression: Acute exacerbation of chronic obstructive pulmonary disease (COPD), Hypokalemia Disposition: OP ADMIT IP TO THIS HOSP Is pt being admited?: Yes Does the pt Need Aspirin: Yes Condition: Good
[2017-04-11 10:14] LABS: Mean Corpuscular Hemoglobin 26 pg (28-32)
[2017-04-11] MEDS ORDERED: ZOFRAN IV PRN (10:20)
[2017-04-11] MEDS ORDERED: MILK OF MAGNESIA PO PRN (10:20)
[2017-04-11] MEDS ORDERED: DULCOLAX PR PRN (10:20)
--- NOTE | 2017-04-11 10:47 | History and Physical Report ---
History of Present Illness Date of examination: 04/11/17 Date of admission: 04/11/2017 Chief complaint: shortness of breath, Cough, wheezing History of present illness: Patient is a 71 years old female with multiple past medical history include COPD who presents to the Ed with complaints of shortness of breath, cough, fatigue wheezing and dyspnea with exertion, also patient complain chronic right shoulder pain. Patient complains chest tightness and an increase in heart rate when she coughs a lot and short of breath, but denies chest pain. The patient believes the fatigue and dry cough began just over one week ago.Shortly thereafter the cough became productive of vallecillo sputum and she developed a mild fever, but did not take her temperature at home. After experiencing significant shortness of breath with minor exertion from simply walking around the house; she decided it was time to come to the hospital. she recalls developing cold- like symptoms about a week prior to developing the fatigue and cough.The productivity of her cough has progressively increased over the past two days. Her shortness of breath is exacerbated by exertion and alleviated by rest. She has been using her inhalers that is prescribed for four times a day and her emergency inhaler but it is helping only minimally. She denies any known sick contacts recently. She denies any recent weight changes or lower extremity pain or swelling. She denies any recent travel. Patient is a non-smoker. Past History Past Medical History: COPD Past Surgical History: , Other (D&C X3 ) Social history: lives with family Family history: hypertension Medications and Allergies Allergies Allergy/AdvReac Type Severity Reaction Status Date / Time No Known Allergies Allergy Unverified 01/20/14 14:46 Home Medications Medication Instructions Recorded Confirmed Last Taken Type ALBUTEROL Inhaler [ProAir HFA 2 puff IH QID PRN #1 inhalation 03/19/17 Unknown Rx Inhaler] Azithromycin [Zithromax TAB] 250 mg PO QDAY #3 tablet 03/19/17 Unknown Rx Budesoni/Formotero 160-4.5(Nf) 2 puff IH BID #1 inha 03/19/17 Unknown Rx [Symbicort 160-4.5 (Nf)] Prednisone [predniSONE 5 mg (6-Day 5 mg PO .TAPER #1 tab.ds.pk 03/19/17 Unknown Rx Pack, 21 Tabs)] Active Meds: Active Medications Acetaminophen (Tylenol) 650 mg PO Q4H PRN PRN Reason: Pain MILD(1-3)/Fever >100.5/YODER Albuterol/Ipratropium (Duoneb 0.5 Mg-3 Mg/3 Ml Soln) 1 ampul IH Q6HRT [facility] Bisacodyl (Dulcolax) 10 mg TX QDAY PRN PRN Reason: Constipation unrelieved by MOM Potassium Chloride (Kcl 10meq/100ml) 10 meq in 100 mls @ 100 mls/hr IV Q1H [facility] Stop: 04/11/17 12:59 Magnesium Hydroxide (Milk Of Magnesia) 30 ml PO Q4H PRN PRN Reason: Constipation Methylprednisolone Sodium Succinate (Solu-Medrol) 40 mg IV Q4HR [facility] Ondansetron HCl (Zofran) 4 mg IV Q8H PRN PRN Reason: N/V unrelieved by Reglan Review of Systems Constitutional: no weight loss, no weight gain, no sweats, no night sweats Ears, nose, mouth and throat: no ear pain, no ear discharge, no tinnitis, no decreased hearing Breasts: normal Cardiovascular: no chest pain (chest tightness ) Respiratory: cough, cough with sputum (vallecillo sputum), excessive sputum (vallecillo), shortness of breath, wheezing Gastrointestinal: no abdominal pain, no nausea, no vomiting, no diarrhea Genitourinary Female: no dyspareunia, no dysmenorrhea, no pelvic pain, no flank pain Menstruation: no currently menstrual, no premenarcheal, no post hysterectomy, no ammenorrhea Rectal: no pain, no incontinence Musculoskeletal: no neck stiffness, no neck pain, no shooting arm pain Integumentary: no deferred, no rash, no pruritis Neurological: no head injury, no transient paralysis, no paralysis Psychiatric: no anxiety, no memory loss, no change in sleep habits Endocrine: no cold intolerance, no heat intolerance, no polyphagia Hematologic/Lymphatic: no easy bruising, no easy bleeding Exam - Constitutional Vitals: Temp Pulse Resp BP Pulse Ox 98.2 F 105 H 20 119/65 94 04/11/17 09:10 04/11/17 10:33 04/11/17 10:33 04/11/17 09:40 04/11/17 09:40 General appearance: Present: mild distress - EENT Eyes: Present: PERRL, EOM intact ENT: hearing intact, clear oral mucosa - Neck Neck: Present: normal ROM - Respiratory Respiratory effort: labored Respiratory: bilateral: rhonchi, wheezing - Cardiovascular Heart rate: 103 (tachycardia) Heart Sounds: Present: S1 & S2. Absent: rub, click - Extremities Extremities: no ischemia Peripheral Pulses: within normal limits - Abdominal General gastrointestinal: Present: soft, non-tender Female genitourinary: Present: deferred - Rectal Rectal Exam: deferred - Integumentary Integumentary: Present: clear, warm, dry - Musculoskeletal Musculoskeletal: strength equal bilaterally - Psychiatric Psychiatric: appropriate mood/affect - Neurologic Neurologic: CNII-XII intact - Allied Health Allied health notes reviewed: nursing Results - Labs CBC & Chem 7: 04/11/17 08:49 04/11/17 08:49 Labs: Laboratory Last Values WBC 8.6 K/mm3 (4.5-11.0) 04/11/17 08:49 RBC 4.69 M/mm3 (3.65-5.03) 04/11/17 08:49 Hgb 12.1 gm/dl (10.1-14.3) 04/11/17 08:49 Hct 36.7 % (30.3-42.9) 04/11/17 08:49 MCV 78 fl (79-97) L 04/11/17 08:49 MCH 26 pg (28-32) L 04/11/17 08:49 MCHC 33 % (30-34) 04/11/17 08:49 RDW 15.2 % (13.2-15.2) 04/11/17 08:49 Plt Count 216 K/mm3 (140-440) 04/11/17 08:49 Lymph % (Auto) 16.8 % (13.4-35.0) 04/11/17 08:49 [place] % (Auto) 8.2 % (0.0-7.3) H 04/11/17 08:49 Eos % (Auto) 11.0 % (0.0-4.3) H 04/11/17 08:49 Baso % (Auto) 0.9 % (0.0-1.8) 04/11/17 08:49 Lymph # 1.4 K/mm3 (1.2-5.4) 04/11/17 08:49 [place] # 0.7 K/mm3 (0.0-0.8) 04/11/17 08:49 Eos # 0.9 K/mm3 (0.0-0.4) H 04/11/17 08:49 Baso # 0.1 K/mm3 (0.0-0.1) 04/11/17 08:49 Seg Neutrophils % 63.1 % (40.0-70.0) 04/11/17 08:49 Seg Neutrophils # 5.4 K/mm3 (1.8-7.7) 04/11/17 08:49 PT 13.3 Sec. (12.2-14.9) 04/11/17 09:00 INR 0.96 (0.87-1.13) 04/11/17 09:00 Sodium 146 mmol/L (137-145) H 04/11/17 08:49 Potassium 3.1 mmol/L (3.6-5.0) L 04/11/17 08:49 Chloride 103.5 mmol/L (98-107) 04/11/17 08:49 Carbon Dioxide 30 mmol/L (22-30) 04/11/17 08:49 Anion Gap 16 mmol/L 04/11/17 08:49 BUN 15 mg/dL (7-17) 04/11/17 08:49 Creatinine 0.7 mg/dL (0.7-1.2) 04/11/17 08:49 Estimated GFR > 60 ml/min 04/11/17 08:49 BUN/Creatinine Ratio 21.42 % 04/11/17 08:49 Glucose 106 mg/dL (65-100) H 04/11/17 08:49 Calcium 8.7 mg/dL (8.4-10.2) 04/11/17 08:49 Troponin T < 0.010 ng/mL (0.00-0.029) 04/11/17 08:49 - Imaging and Cardiology Chest x-ray: image reviewed (increased centeral DrFaviola is a cough. She will 001 muscular congestion but otherwise unchanged) Assessment and Plan Assessment and plan: . 1. Acute exacerbation COPD- EKG and chest x-ray obtained in the ED resulted normal findings. Duoneb Q6hrs ordred IV steroid Solu-Medrol 40 mg every 6 hours Initiated PO antibiotic Oxygen as needed 2. Acute Hypoxic respiratory failure - Patient upon arrival low oxygen saturation 85%-88% and patient improved on 5 L nasal cannula Frequent respiratory assessment 3. Hypokalemia Potassium replaced with 40meq in the ED Closely monitor electrolytes 3. Hypernatremia- gentle hydration of D5W at 75 ml/hr x 1L ordered We will repeat BMP 4. Chronic Right shoulder pain Morphine every 4 hours as needed
[2017-04-11] MEDS ORDERED: D5W (50 ML) IV ONE (11:27)
[2017-04-11] MEDS: DUONEB 0.5 MG-3 MG/3 ML SOLN IH SCH ×2 (14:40→20:58)
[2017-04-11] MEDS: KCL 10MEQ/100ML 10 MEQ/100 ML BAG IV SCH (14:58)
[2017-04-11] MEDS: TYLENOL PO PRN (19:06)
[2017-04-11] MEDS ORDERED: PROVENTIL IH PRN (21:41)
[2017-04-11] MEDS: VIBRAMYCIN PO SCH (21:50)
[2017-04-12] MEDS: TESSALON PERLES PO PRN ×3 (00:06→20:05)
[2017-04-12] MEDS ORDERED: DUONEB 0.5 MG-3 MG/3 ML SOLN IH SCH (08:00)
[2017-04-12] MEDS: BABY ASPIRIN PO SCH (09:48)
[2017-04-12] MEDS: VIBRAMYCIN PO SCH ×2 (09:48→21:34)
[2017-04-12] MEDS ORDERED: VITAMIN B-1 PO SCH (10:00)
[2017-04-12] MEDS ORDERED: DUONEB 0.5 MG-3 MG/3 ML SOLN IH ONE (10:21)
[2017-04-12] MEDS: DUONEB 0.5 MG-3 MG/3 ML SOLN IH SCH ×3 (10:25→22:00)
--- NOTE | 2017-04-12 14:18 | Admit Criteria Form ---
Admission Criteria Documentation: COPD Clinical Indications for Admission to Inpatient Care (Place 'X' for any and all applicable criteria): Admission is indicated for ANY ONE of the following (1)(2)(3): [ ]I. Acute exacerbation by high-risk comorbidity (e.g., pneumonia, dysrhythmia, heart failure, pleural effusion, pneumothorax) or severe underlying COPD (e.g., steroid dependent) [X]II. Inpatient admission required rather than observation care (see Chronic Obstructive Pulmonary Disease: Observation Care) because of ANY ONE of the following: [X]a) New or pre-existing signs or symptoms of COPD (eg, dyspnea or Tachypnea at rest or with minimal activity) that persist despite outpatient and observation care treatment [ ]b) New-onset hypoxemia (room air SaO2 less than 90%, PO2 less than 60 mm Hg (8.0 kPa)) that persists despite outpatient and observation care treatment [ ]c) Worsening of pre-existing hypoxemia (eg, new or increased requirement for supplemental oxygen to maintain oxygenation at baseline level) that persists despite outpatient and observation care treatment, with oxygen treatment needs performable only in acute inpatient setting [ ]d) Hypercarbia (PCO2 greater than 40 mm Hg (5.3 kPa))-induced respiratory acidosis (pH less than 7.35) that persists despite outpatient and observation care treatment [ ]e) Supplemental oxygen or respiratory treatments for over 24 hours that are performable only in acute inpatient setting [ ]f) Chest tube placement with active evacuation (e.g., suction, drainage) (5) [ ]g) Other condition, treatment or monitoring requiring inpatient admission [ ]III. Planned invasive surgical or diagnostic procedures requiring acute- care hospitalization [ ]IV. Acute respiratory failure (e.g., uncompensated hypercarbia, severe hypoxemia) [ ]V. Severe comorbid condition (e.g., severe steroid myopathy, acute vertebral fracture) that has acutely worsened pulmonary function [ ]. Confusion state, lethargy, obtundation, stupor or coma Extended stay beyond goal length of stay may be needed for (31)(32): [ ]a ) Respiratory Failure. [ ]b) Severe or persisting hypoxemia or hypercarbia [ ]c) Severe or persistent dyspnea [ ]d) Comorbidities (e.g. chronic heart failure, atrial fibrillation with rapid response, pneumonia) [ ]e) Malnutrition The original [facility] content created by [facility] has been revised. The portions of the content which have been revised are identified through the use of italic text or in bold, and [facility] has neither reviewed nor approved the modified material. All other unmodified content is copyright [facility]. Please see references footnoted in the original [facility] edition 2016 Admission Criteria Met: Yes
--- NOTE | 2017-04-12 17:10 | Progress Note ---
Assessment and Plan Assessment and plan: 1. Acute exacerbation COPD- EKG and chest x-ray obtained in the ED resulted normal findings. Duoneb Q6hrs ordred continue IV steroid Solu-Medrol 60 mg every 8 hours Started on empiric PO antibiotic Oxygen as needed 2. Acute Hypoxic respiratory failure - Patient upon arrival low oxygen saturation 85%-88% and patient improved, currently on 2 L nasal cannula Frequent respiratory assessment 3. Hypokalemia Potassium replaced with 40meq in the ED, awaiting on BMP labs Closely monitor electrolytes 3. Hypernatremia- gentle hydration of D5W at 75 ml/hr x 1L ordered We will repeat BMP 4. Chronic Right shoulder pain tylenol prn 5. Sleep Apnea spoke with case management about getting CPAP for home 6. noncompliance Discussed with the patient the importance of adherence to treatment and plan patient agreed up with course of action. History Interval history: Patient alert oriented and eventful overnight, patient verbalized feeling better. Hospitalist Physical - Constitutional Vitals: Temp Pulse Resp BP Pulse Ox 97.8 F 74 16 139/66 100 04/12/17 10:00 04/12/17 10:33 04/12/17 10:33 04/12/17 10:00 04/12/17 10:28 General appearance: Present: mild distress - EENT Eyes: Present: PERRL ENT: hearing intact - Respiratory Respiratory: bilateral: wheezing - Cardiovascular Heart rate: 74 Rhythm: regular - Extremities Extremities: no ischemia Peripheral Pulses: within normal limits - Abdominal General gastrointestinal: soft, non-tender - Integumentary Integumentary: Present: clear, warm, dry - Psychiatric Psychiatric: appropriate mood/affect - Neurologic Neurologic: CNII-XII intact - Allied Health Allied health notes reviewed: nursing Results - Labs CBC & Chem 7: 04/11/17 08:49 04/11/17 08:49 Labs: Laboratory Last Values WBC 8.6 K/mm3 (4.5-11.0) 04/11/17 08:49 RBC 4.69 M/mm3 (3.65-5.03) 04/11/17 08:49 Hgb 12.1 gm/dl (10.1-14.3) 04/11/17 08:49 Hct 36.7 % (30.3-42.9) 04/11/17 08:49 MCV 78 fl (79-97) L 04/11/17 08:49 MCH 26 pg (28-32) L 04/11/17 08:49 MCHC 33 % (30-34) 04/11/17 08:49 RDW 15.2 % (13.2-15.2) 04/11/17 08:49 Plt Count 216 K/mm3 (140-440) 04/11/17 08:49 Lymph % (Auto) 16.8 % (13.4-35.0) 04/11/17 08:49 [place] % (Auto) 8.2 % (0.0-7.3) H 04/11/17 08:49 Eos % (Auto) 11.0 % (0.0-4.3) H 04/11/17 08:49 Baso % (Auto) 0.9 % (0.0-1.8) 04/11/17 08:49 Lymph # 1.4 K/mm3 (1.2-5.4) 04/11/17 08:49 [place] # 0.7 K/mm3 (0.0-0.8) 04/11/17 08:49 Eos # 0.9 K/mm3 (0.0-0.4) H 04/11/17 08:49 Baso # 0.1 K/mm3 (0.0-0.1) 04/11/17 08:49 Seg Neutrophils % 63.1 % (40.0-70.0) 04/11/17 08:49 Seg Neutrophils # 5.4 K/mm3 (1.8-7.7) 04/11/17 08:49 PT 13.3 Sec. (12.2-14.9) 04/11/17 09:00 INR 0.96 (0.87-1.13) 04/11/17 09:00 Sodium 146 mmol/L (137-145) H 04/11/17 08:49 Potassium 3.1 mmol/L (3.6-5.0) L 04/11/17 08:49 Chloride 103.5 mmol/L (98-107) 04/11/17 08:49 Carbon Dioxide 30 mmol/L (22-30) 04/11/17 08:49 Anion Gap 16 mmol/L 04/11/17 08:49 BUN 15 mg/dL (7-17) 04/11/17 08:49 Creatinine 0.7 mg/dL (0.7-1.2) 04/11/17 08:49 Estimated GFR > 60 ml/min 04/11/17 08:49 BUN/Creatinine Ratio 21.42 % 04/11/17 08:49 Glucose 106 mg/dL (65-100) H 04/11/17 08:49 Calcium 8.7 mg/dL (8.4-10.2) 04/11/17 08:49 Magnesium 1.90 mg/dL (1.7-2.3) 04/11/17 08:49 Troponin T < 0.010 ng/mL (0.00-0.029) 04/11/17 08:49 NT-Pro-B Natriuret Pep 7.00 pg/mL (0-900) 04/11/17 08:49
[2017-04-12] MEDS: TYLENOL PO PRN (17:25)
[2017-04-12 20:27] LABS: Anion Gap 18 mmol/L; BUN/Creatinine Ratio 25.71; Blood Urea Nitrogen 18 mg/dL (7-17); Calcium 9.3 mg/dL (8.4-10.2); Carbon Dioxide 25 mmol/L (22-30); Chloride 100.7 mmol/L (98-107); Glucose 223 mg/dL (65-100); Potassium 3.3 mmol/L (3.6-5.0); Sodium 140 mmol/L (137-145)
[2017-04-13] MEDS: DUONEB 0.5 MG-3 MG/3 ML SOLN IH SCH ×3 (03:46→13:47)
[2017-04-13] MEDS: VIBRAMYCIN PO SCH (09:39)
[2017-04-13] MEDS: BABY ASPIRIN PO SCH (09:39)
[2017-04-13 10:35] VITALS: BP 134/66
--- NOTE | 2017-04-13 10:54 | Discharge Summary ---
Providers - Providers Date of Admission: 04/11/17 11:21 Attending physician: ELMER FLEMING MD Primary care physician: TAB BUILDER Hospitalization Condition: Good Hospital course: 1. Acute exacerbation COPD- recurrent copd exacerbation due to non adherence with maintenance medications, EKG and chest x-ray obtained in the ED resulted normal findings. Duoneb Q6hrs ordred continue IV steroid Solu-Medrol 60 mg every 8 hours Started on empiric PO antibiotic Oxygen as needed 2. Acute Hypoxic respiratory failure - Patient upon arrival low oxygen saturation 85%-88% and patient improved, currently on 2 L nasal cannula Frequent respiratory assessment 3. Hypokalemia Potassium replaced with 40meq in the ED, awaiting on BMP labs Closely monitor electrolytes 3. Hypernatremia- gentle hydration of D5W at 75 ml/hr x 1L ordered We will repeat BMP 4. Chronic Right shoulder pain tylenol prn 5. Obstructive Sleep Apnea spoke with case management about getting CPAP for home 6. noncompliance Discussed with the patient the importance of adherence to treatment and plan patient agreed up with course of action. Disposition: DC-01 TO HOME OR SELFCARE Time spent for discharge: 32 minutes Core Measure Documentation - Palliative Care Palliative Care/ Comfort Measures: Not Applicable - Core Measures Any of the following diagnoses?: none Exam - Constitutional Vitals: Temp Pulse Resp BP Pulse Ox 97.9 F 69 20 134/66 97 04/13/17 10:00 04/13/17 10:00 04/13/17 10:00 04/13/17 10:00 04/13/17 10:00 General appearance: Present: no acute distress, well-nourished - EENT Eyes: Present: PERRL ENT: hearing intact, clear oral mucosa - Neck Neck: Present: supple, normal ROM - Respiratory Respiratory effort: normal Respiratory: bilateral: CTA - Cardiovascular Heart Sounds: Present: S1 & S2. Absent: rub, click - Extremities Extremities: pulses symmetrical, No edema Peripheral Pulses: within normal limits - Abdominal General gastrointestinal: Present: soft, non-tender, non-distended, normal bowel sounds Female genitourinary: Present: normal - Integumentary Integumentary: Present: clear, warm, dry - Musculoskeletal Musculoskeletal: gait normal, strength equal bilaterally - Psychiatric Psychiatric: appropriate mood/affect, intact judgment & insight - Neurologic Neurologic: CNII-XII intact, moves all extremities Plan Follow up with: PRIMARY CARE,MD [Primary Care Provider] - 3-5 Days Prescriptions: ALBUTEROL Inhaler [ProAir HFA Inhaler] 2 puff IH QID PRN #1 inhalation PRN Reason: Shortness Of Breath Budesoni/Formotero 160-4.5(Nf) [Symbicort 160-4.5 (Nf)] 2 puff IH BID #1 inha Doxycycline [Vibramycin CAP] 100 mg PO BID #10 capsule Ipratropium/Albuterol Sulfate [Duoneb 0.5 mg-3 mg/3 ml Soln] 1 ampul IH Q4HR # 180 ampul.neb Prednisone [predniSONE 10 mg (6-Day Pack, 21 Tabs)] 10 mg PO .TAPER #1 tab.ds.pk
[2017-04-13] MEDS ORDERED: K-DUR PO NR (11:00)
== END 2017-04-13 16:15 | disposition home or self-care (01) | DRG 189 ==
LOC: ED 08:30 → CC2 11:21
PROVIDERS: ADMIT Internal Medicine; ATTEND Internal Medicine
DX: J96.01 Acute respiratory failure with hypoxia (principal); J44.1 Chronic obstructive pulmonary disease with (acute) exacerbation; E87.0 Hyperosmolality and hypernatremia; E87.6 Hypokalemia; M25.511 Pain in right shoulder; G89.29 Other chronic pain; G47.30 Sleep apnea, unspecified; Z82.49 Family history of ischemic heart disease and other diseases of the circulatory system; Z91.19 Patient's noncompliance with other medical treatment and regimen
CPT/HCPCS: 36415; 71020; 80048; 83735; 83880; 84484; 85025; 85610; 93005; 93010; 94640; 94644; 96365; 96375; J2920; J2930; J3475; J3480

== ENCOUNTER 2017-06-20 10:39 | Emergency (ER) | payer MEDICARE ==
[2017-06-20] MEDS ORDERED: TORADOL IV ONE (11:15)
[2017-06-20] MEDS ORDERED: TESSALON PERLES PO ONE (11:15)
[2017-06-20] MEDS ORDERED: ZITHROMAX PO ONE (11:15)
[2017-06-20] MEDS ORDERED: ATROVENT IH ONE (11:15)
[2017-06-20] MEDS ORDERED: MAGNESIUM SULFATE 2GM/50ML 2 GM/50 ML BAG IV ONE (11:15)
[2017-06-20] MEDS ORDERED: PROVENTIL IH ONE ×2 (11:15→14:04)
--- NOTE | 2017-06-20 11:36 | XRay Report ---
ROUTINE CHEST, TWO VIEWS: HISTORY: Shortness of breath. The trachea, heart, mediastinal contour, lung echols and bony thorax are unremarkable. IMPRESSION: Unremarkable chest x-ray.
[2017-06-20 11:39] LABS: Basophils % (Auto) 0.8 % (0.0-1.8); Eosinophils % (Auto) 8.7 % (0.0-4.3); Hemoglobin 12.8 gm/dl (10.1-14.3); Mean Corpuscular HGB Conc 34 % (30-34); Mean Corpuscular Hemoglobin 26 pg (28-32); Mean Corpuscular Volume 78 fl (79-97); Platelet Count 240 K/mm3 (140-440); Red Cell Distribution Width 15.2 % (13.2-15.2); White Blood Count 10.9 K/mm3 (4.5-11.0)
[2017-06-20 11:49] LABS: Anion Gap 17 mmol/L; Blood Urea Nitrogen 9 mg/dL (7-17); Carbon Dioxide 30 mmol/L (22-30); Chloride 101.1 mmol/L (98-107); Glucose 100 mg/dL (65-100); Potassium 3.2 mmol/L (3.6-5.0); Sodium 145 mmol/L (137-145)
[2017-06-20] MEDS ORDERED: K-DUR PO ONE (12:52)
--- NOTE | 2017-06-20 13:22 | Emergency Department Report ---
ED Shortness of Breath HPI - General Chief Complaint: Dyspnea/Respdistress Stated Complaint: CARLITOS Time Seen by Provider: 06/20/17 11:09 Source: patient Mode of arrival: Ambulatory Limitations: No Limitations - History of Present Illness Initial Comments: 2-year-old female with a past medical history of COPD presents to the hospital with complaints of cough, wheezing, and shortness breath 3 days. Cough productive of white and brown sputum. Patient states she has never smoked cigarettes. No home oxygen use or previous intubation reported. Patient uses CPAP at night. She denies chest pain, nausea, vomiting, Tenderness or edema. No tactile afebrile but patient states she is having intermittent sweating episodes. D [facility]. The patient also has a auto service representative but can't recall the name. Patient complains of chronic ongoing right shoulder pain she has not told her doctor - Related Data Previous Rx's Medication Instructions Recorded Last Taken Type ALBUTEROL Inhaler [ProAir HFA 2 puff IH QID PRN #1 inhalation 04/13/17 Unknown Rx Inhaler] Budesoni/Formotero 160-4.5(Nf) 2 puff IH BID #1 inha 04/13/17 Unknown Rx [Symbicort 160-4.5 (Nf)] Doxycycline [Vibramycin CAP] 100 mg PO BID #10 capsule 04/13/17 Unknown Rx Ipratropium/Albuterol Sulfate 1 ampul IH Q4HR #180 ampul.neb 04/13/17 Unknown Rx [Duoneb 0.5 mg-3 mg/3 ml Soln] Potassium Chloride [K-Dur] 20 meq PO QDAY #7 tablet 04/13/17 Unknown Rx Tiotropium [place] [Spiriva 4 gm IH DAILY #1 mist.inhal 04/13/17 Unknown Rx Respimat] Azithromycin [Zithromax Z-TIFFANIE] 1 dose PO DAILY 5 Days 06/20/17 Unknown Rx Benzonatate [Tessalon Perles] 100 mg PO Q8HR PRN #30 capsule 06/20/17 Unknown Rx Prednisone [predniSONE 10 mg 10 mg PO .TAPER #1 tab.ds.pk 06/20/17 Unknown Rx (6-Day Pack, 21 Tabs)] Allergies Allergy/AdvReac Type Severity Reaction Status Date / Time No Known Allergies Allergy Unverified 01/20/14 14:46 ED Review of Systems ROS: Stated complaint: CARLITOS Other details as noted in HPI Comment: All other systems reviewed and negative Other: Constitutional: As per HPI Eyes: No eye pain visual changes ENT: No ear pain or throat pain Neck: Denies pain Respiratory: As per HPI Cardiovascular: Denies chest pain, palpitations, syncope GI: Denies abdominal pain, nausea, vomiting, diarrhea : Denies dysuria Musculoskeletal: As per HPI Skin: Denies rash, lesions, erythema Neurologic: Denies headache, numbness, weakness Psychiatric: Denies suicidal ideation, hallucinations ED Past Medical Hx - Past Medical History Previous Medical History?: Yes Hx COPD: Yes Hx HIV: No Additional medical history: post-menopausal bleeding, bronchitis - Surgical History Past Surgical History?: No - Social History Smoking Status: Never Smoker Substance Use Type: None - Medications Home Medications: Home Medications Medication Instructions Recorded Confirmed Last Taken Type ALBUTEROL Inhaler [ProAir HFA 2 puff IH QID PRN #1 inhalation 04/13/17 Unknown Rx Inhaler] Budesoni/Formotero 160-4.5(Nf) 2 puff IH BID #1 inha 04/13/17 Unknown Rx [Symbicort 160-4.5 (Nf)] Doxycycline [Vibramycin CAP] 100 mg PO BID #10 capsule 04/13/17 Unknown Rx Ipratropium/Albuterol Sulfate 1 ampul IH Q4HR #180 ampul.neb 04/13/17 Unknown Rx [Duoneb 0.5 mg-3 mg/3 ml Soln] Potassium Chloride [K-Dur] 20 meq PO QDAY #7 tablet 04/13/17 Unknown Rx Tiotropium [place] [Spiriva 4 gm IH DAILY #1 mist.inhal 04/13/17 Unknown Rx Respimat] Azithromycin [Zithromax Z-TIFFANIE] 1 dose PO DAILY 5 Days 06/20/17 Unknown Rx Benzonatate [Tessalon Perles] 100 mg PO Q8HR PRN #30 capsule 06/20/17 Unknown Rx Prednisone [predniSONE 10 mg 10 mg PO .TAPER #1 tab.ds.pk 06/20/17 Unknown Rx (6-Day Pack, 21 Tabs)] ED Physical Exam - General Limitations: No Limitations - Other Other exam information: General: No limitations, patient is alert in no acute distress Head exam: Atraumatic, normocephalic Eyes exam: Normal appearance ENT: Moist mucous membrane, normal oropharynx Neck exam: Normal inspection, full range of motion Respiratory exam: Bilateral expiratory wheezing, coarse breath sounds, mild tachypnea and no accessory mostly Cardiovascular: Tachycardic regular rhythm Abdomen: Soft, nondistended, and nontender, with normal bowel sounds, no rebound, or guarding Extremity: Full range of motion normal inspection no deformity Back: Normal Inspection, full range of motion, no tenderness Neurologic: Alert, oriented x3, cranial nerves intact, no motor or sensory deficit Psychiatric: normal affect, normal mood Skin: Warm, dry, intact ED Course Vital Signs 06/20/17 06/20/17 06/20/17 10:45 11:29 11:49 Temperature 98.1 F Pulse Rate 109 H Pulse Rate [ 85 Anterior Bilateral Throughout] Respiratory 20 22 Rate Respiratory 15 Rate [Anterior Bilateral Throughout] Blood Pressure 158/101 Blood Pressure [Left] O2 Sat by Pulse 94 96 Oximetry 06/20/17 06/20/17 06/20/17 14:33 14:34 15:20 Temperature 98.5 F Pulse Rate 100 H Pulse Rate [ 82 82 Anterior Bilateral Throughout] Respiratory 17 Rate Respiratory 18 20 Rate [Anterior Bilateral Throughout] Blood Pressure Blood Pressure 128/51 [Left] O2 Sat by Pulse 95 Oximetry 06/20/17 16:29 Temperature Pulse Rate 98 H Pulse Rate [ Anterior Bilateral Throughout] Respiratory 18 Rate Respiratory Rate [Anterior Bilateral Throughout] Blood Pressure Blood Pressure [Left] O2 Sat by Pulse 98 Oximetry - Reevaluation(s) Reevaluation #1: 06/20/17 13:21 meds: Albuterol, Atrovent, saline measure, magnesium, po potassium. Azithromycin for bronchitis. Tessalon Perles for cough, Toradol for pain Reevaluation #2: 06/20/17 17:32 Patient required a second round of albuterol. Positive significant improvement. Only faint end expiratory wheezing. Patient tolerating exertion without difficulty. Stable for discharge ED Medical Decision Making - Lab Data Result diagrams: 06/20/17 10:59 06/20/17 10:59 Lab Results 06/20/17 06/20/17 06/20/17 Range/Units 10:59 10:59 11:15 WBC 10.9 (4.5-11.0) K/mm3 RBC 4.90 (3.65-5.03) M/mm3 Hgb 12.8 (10.1-14.3) gm/dl Hct 38.0 (30.3-42.9) % MCV 78 L (79-97) fl MCH 26 L (28-32) pg MCHC 34 (30-34) % RDW 15.2 (13.2-15.2) % Plt Count 240 (140-440) K/mm3 Lymph % (Auto) 14.6 (13.4-35.0) % Phelps % (Auto) 8.0 H (0.0-7.3) % Eos % (Auto) 8.7 H (0.0-4.3) % Baso % (Auto) 0.8 (0.0-1.8) % Lymph # 1.6 (1.2-5.4) K/mm3 Phelps # 0.9 H (0.0-0.8) K/mm3 Eos # 1.0 H (0.0-0.4) K/mm3 Baso # 0.1 (0.0-0.1) K/mm3 Seg Neutrophils % 67.9 (40.0-70.0) % Seg Neutrophils # 7.4 (1.8-7.7) K/mm3 Sodium 145 (137-145) mmol/L Potassium 3.2 L (3.6-5.0) mmol/L Chloride 101.1 (98-107) mmol/L Carbon Dioxide 30 (22-30) mmol/L Anion Gap 17 mmol/L BUN 9 (7-17) mg/dL Creatinine 0.5 L (0.7-1.2) mg/dL Estimated GFR > 60 ml/min BUN/Creatinine Ratio 18.00 % Glucose 100 (65-100) mg/dL Calcium 9.0 (8.4-10.2) mg/dL Troponin T < 0.010 (0.00-0.029) ng/mL NT-Pro-B Natriuret Pep 41.52 (0-900) pg/mL - EKG Data -: EKG Interpreted by Me (sinus rhythm rate [address] and T-wave abnormalities) - EKG Data When compared to previous EKG there are: no significant change (compared to ) - Medical Decision Making Patient be discharged home since respiratory symptoms have greatly improved. Previous treatment for acute bronchitis will be provided. - Differential Diagnosis COPD, asthma, pneumonia, bronchitis Critical Care Time: No Critical care attestation.: If time is entered above; I have spent that time in minutes in the direct care of this critically ill patient, excluding procedure time. ED Disposition Clinical Impression: Acute exacerbation of chronic obstructive pulmonary disease (COPD), Hypokalemia , Bronchitis Disposition: TO HOME OR SELFCARE Is pt being admited?: No Does the pt Need Aspirin: No Condition: Stable Instructions: Chronic Obstructive Pulmonary Disease (ED), Hypokalemia (ED) Additional Instructions: Take the Medication as prescribed. Return if symptoms worsen. Follow-up with your doctor and auto service representative. Prescriptions: Azithromycin [Zithromax Z-TIFFANIE] 1 dose PO DAILY 5 Days Benzonatate [Tessalon Perles] 100 mg PO Q8HR PRN #30 capsule PRN Reason: Cough Prednisone [predniSONE 10 mg (6-Day Pack, 21 Tabs)] 10 mg PO .TAPER #1 tab.ds.pk Referrals: PRIMARY CARE, [Primary Care Provider] - 3-5 Days Time of Disposition: 17:35
[2017-06-20 18:07] VITALS: BP 146/64
== END 2017-06-20 18:08 | disposition home or self-care (01) ==
LOC: ED 10:39
DX: J44.1 Chronic obstructive pulmonary disease with (acute) exacerbation (principal); E87.6 Hypokalemia; J40 Bronchitis, not specified as acute or chronic
CPT/HCPCS: 36415; 71020; 80048; 83880; 84484; 85025; 93005; 93010; 94640; 96365; 96375; 99284; J1885; J2930; J3475

== ENCOUNTER 2017-09-10 23:31 | Emergency (ER) | payer MEDICARE ==
[2017-09-10 23:38] VITALS: BP 128/92
[2017-09-10] MEDS ORDERED: PROVENTIL IH ONE ×2 (23:42→23:44)
[2017-09-11] MEDS ORDERED: ATROVENT IH ONE (00:22)
[2017-09-11] MEDS ORDERED: PROVENTIL IH ONE (00:22)
[2017-09-11] MEDS ORDERED: DECADRON 20 MG in NACL 0.9% 50 ML IV ONE (00:23)
--- NOTE | 2017-09-11 00:28 | Emergency Department Report ---
ED Shortness of Breath HPI - General Chief Complaint: Dyspnea/Respdistress Stated Complaint: CARLITOS Time Seen by Provider: 09/11/17 00:21 Source: patient Mode of arrival: Ambulatory Limitations: No Limitations - History of Present Illness Initial Comments: 73 YO FEMALE WITH H/O COPD/BRONCHITIS HAS BEEN SOB FOR 3 DAYS. SHE HAS A NEBULIZER AT HOME AND TRIED GIVING HERSELF BREATHING TREATMENTS BUT THESE DID NOT IMPROVE HER SOB. SHE IS WHEEZING AND COUGHING. MD Complaint: shortness of breath, cough, "asthma attack" -: days(s) (FEW) Pain Scale: 0 Known History Of: COPD, asthma Associated Symptoms: denies other symptoms Treatments Prior to Arrival: bronchodilator - Related Data Home Oxygen Therapy: No Previous Rx's Medication Instructions Recorded Last Taken Type Budesoni/Formotero 160-4.5(Nf) 2 puff IH BID #1 inha MDD 07/31/17 Unknown Rx [Symbicort 160-4.5 (Nf)] Budesoni/Formotero 80-4.5(Nf) Levofloxacin [Levaquin] 750 mg PO QDAY #6 tablet 07/31/17 Unknown Rx Prednisone [predniSONE 10 mg 10 mg PO .TAPER #1 tab.ds.pk 07/31/17 Unknown Rx (6-Day Pack, 21 Tabs)] guaiFENesin DM [Robitussin Dm] 20 ml PO Q6HR #1 bottle 07/31/17 Unknown Rx Ipratropium/Albuterol Sulfate 1 ampul IH Q4HR #180 ampul.neb 08/21/17 Unknown Rx [DUONEB *Not for PRN Use*] predniSONE [Deltasone] 20 mg PO QDAY #10 tab 08/21/17 Unknown Rx ALBUTEROL Inhaler [ProAir HFA 2 puff IH QID PRN #1 inhalation 09/11/17 Unknown Rx Inhaler] ALBUTEROL NEB's [Proventil 0.083% 2.5 mg IH Q4HRT PRN #60 nebu 09/11/17 Unknown Rx NEBS] Dexamethasone [Decadron] 20 mg PO ONCE #1 tablet 09/11/17 Unknown Rx Allergies Allergy/AdvReac Type Severity Reaction Status Date / Time No Known Allergies Allergy Verified 08/21/17 10:38 ED Review of Systems ROS: Stated complaint: CARLITOS Other details as noted in HPI Constitutional: denies: chills, fever Eyes: denies: eye pain, eye discharge, vision change ENT: denies: ear pain, throat pain Respiratory: cough, shortness of breath, SOB at rest. denies: wheezing Cardiovascular: denies: chest pain, palpitations Endocrine: no symptoms reported Gastrointestinal: denies: abdominal pain, nausea, diarrhea Genitourinary: denies: urgency, dysuria, discharge Musculoskeletal: denies: back pain, joint swelling, arthralgia Skin: denies: rash, lesions Neurological: denies: headache, weakness, paresthesias Psychiatric: denies: anxiety, depression Hematological/Lymphatic: denies: easy bleeding, easy bruising ED Past Medical Hx - Past Medical History Previous Medical History?: Yes Hx Asthma: No Hx COPD: Yes Hx HIV: No Additional medical history: post-menopausal bleeding, bronchitis - Surgical History Past Surgical History?: No - Social History Smoking Status: Never Smoker Substance Use Type: None - Medications Home Medications: Home Medications Medication Instructions Recorded Confirmed Last Taken Type Budesoni/Formotero 160-4.5(Nf) 2 puff IH BID #1 inha MDD 07/31/17 Unknown Rx [Symbicort 160-4.5 (Nf)] Budesoni/Formotero 80-4.5(Nf) Levofloxacin [Levaquin] 750 mg PO QDAY #6 tablet 07/31/17 Unknown Rx Prednisone [predniSONE 10 mg 10 mg PO .TAPER #1 tab.ds.pk 07/31/17 Unknown Rx (6-Day Pack, 21 Tabs)] guaiFENesin DM [Robitussin Dm] 20 ml PO Q6HR #1 bottle 07/31/17 Unknown Rx Ipratropium/Albuterol Sulfate 1 ampul IH Q4HR #180 ampul.neb 08/21/17 Unknown Rx [DUONEB *Not for PRN Use*] predniSONE [Deltasone] 20 mg PO QDAY #10 tab 08/21/17 Unknown Rx ALBUTEROL Inhaler [ProAir HFA 2 puff IH QID PRN #1 inhalation 09/11/17 Unknown Rx Inhaler] ALBUTEROL NEB's [Proventil 0.083% 2.5 mg IH Q4HRT PRN #60 nebu 09/11/17 Unknown Rx NEBS] Dexamethasone [Decadron] 20 mg PO ONCE #1 tablet 09/11/17 Unknown Rx ED Physical Exam - General Limitations: No Limitations General appearance: alert, in distress, obese - Head Head exam: Present: atraumatic, normocephalic - Eye Eye exam: Present: normal appearance, EOMI. Absent: scleral icterus - ENT ENT exam: Present: mucous membranes moist - Neck Neck exam: Present: normal inspection, full ROM - Respiratory Respiratory exam: Present: normal lung sounds bilaterally, wheezes, rhonchi. Absent: respiratory distress - Cardiovascular Cardiovascular Exam: Present: normal rhythm, tachycardia. Absent: systolic murmur, diastolic murmur, rubs, gallop - GI/Abdominal GI/Abdominal exam: Present: soft, normal bowel sounds. Absent: distended, tenderness - Rectal Rectal exam: Present: deferred - Extremities Exam Extremities exam: Present: normal inspection, full ROM - Back Exam Back exam: Present: normal inspection, full ROM - Neurological Exam Neurological exam: Present: alert, oriented X3, CN II-XII intact - Psychiatric Psychiatric exam: Present: normal affect, normal mood - Skin Skin exam: Present: warm, dry, intact, normal color. Absent: rash ED Course Vital Signs 09/10/17 09/10/17 09/11/17 23:33 23:46 00:07 Temperature 98.2 F Pulse Rate 110 H Pulse Rate [ 96 H 99 H Anterior Bilateral Throughout] Respiratory 22 Rate Respiratory 20 20 Rate [Anterior Bilateral Throughout] Blood Pressure 128/92 O2 Sat by Pulse 97 Oximetry 09/11/17 09/11/17 09/11/17 00:50 01:46 03:05 Temperature Pulse Rate Pulse Rate [ 98 H 113 H Anterior Bilateral Throughout] Respiratory 24 Rate Respiratory 20 22 Rate [Anterior Bilateral Throughout] Blood Pressure O2 Sat by Pulse 98 Oximetry - Reevaluation(s) Reevaluation #1: 09/11/17 04:28 PT NOT SOB, MILD RHONCHI IN CHEST BUT NO WHEEZING. ED Medical Decision Making - Lab Data Result diagrams: 09/11/17 00:21 09/11/17 00:21 Critical care attestation.: If time is entered above; I have spent that time in minutes in the direct care of this critically ill patient, excluding procedure time. ED Disposition Clinical Impression: COPD with exacerbation Disposition: DC-01 TO HOME OR SELFCARE Is pt being admited?: No Does the pt Need Aspirin: No Condition: Stable Instructions: Chronic Bronchitis (ED), Acute Bronchitis (ED), Chronic Obstructive Pulmonary Disease (ED) Prescriptions: ALBUTEROL Inhaler [ProAir HFA Inhaler] 2 puff IH QID PRN #1 inhalation PRN Reason: Shortness Of Breath ALBUTEROL NEB's [Proventil 0.083% NEBS] 2.5 mg IH Q4HRT PRN #60 nebu PRN Reason: Shortness Of Breath Dexamethasone [Decadron] 20 mg PO ONCE #1 tablet Referrals: PRIMARY CARE, [Primary Care Provider] - 3-5 Days [facility] [Outside] - 3-5 Days Time of Disposition: 04:29
[2017-09-11 00:40] LABS: Basophils % (Auto) 0.8 % (0.0-1.8); Hematocrit 39.4 % (30.3-42.9); Hemoglobin 12.7 gm/dl (10.1-14.3); Mean Corpuscular HGB Conc 32 % (30-34); Mean Corpuscular Volume 80 fl (79-97); Platelet Count 221 K/mm3 (140-440); Red Blood Count 4.92 M/mm3 (3.65-5.03); Red Cell Distribution Width 16.3 % (13.2-15.2); White Blood Count 11.6 K/mm3 (4.5-11.0)
[2017-09-11 00:45] LABS: Mean Corpuscular Hemoglobin 26 pg (28-32)
[2017-09-11 00:48] LABS: Anion Gap 14 mmol/L; BUN/Creatinine Ratio 16; Blood Urea Nitrogen 13 mg/dL (7-17); Calcium 9.3 mg/dL (8.4-10.2); Carbon Dioxide 30 mmol/L (22-30); Glucose 107 mg/dL (65-100); Sodium 144 mmol/L (137-145)
[2017-09-11 01:03] LABS: Creatine Kinase MB 1.3 ng/mL (0.0-4.0)
--- NOTE | 2017-09-11 01:18 | XRay Report ---
FINAL REPORT EXAM: XR CHEST ROUTINE 2V HISTORY: Shortness of breath TECHNIQUE: PA and lateral views of the chest were submitted. FINDINGS: Heart size and mediastinum appear normal. The lungs are clear. Pleural fluid is not seen. There is no evidence of congestion. 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 IMPRESSION: No active chest disease.
[2017-09-11 03:10] LABS: ISTAT Base Excess 7; ISTAT HCO3 31.3; ISTAT PCO2 45.2 (35-45); ISTAT PH 7.448 (7.35-7.45); ISTAT PO2 110 (80-105); ISTAT SO2 98; ISTAT TCO2 33
== END 2017-09-11 05:19 | disposition home or self-care (01) ==
LOC: ED 23:31
DX: J44.1 Chronic obstructive pulmonary disease with (acute) exacerbation (principal)
CPT/HCPCS: 36415; 71020; 80048; 82550; 82553; 82803; 83880; 84484; 85025; 93005; 93010; 94640; 96365; 99284; J1100

== ENCOUNTER 2017-09-17 10:25 | Inpatient (IN) | payer MEDICARE ==
[2017-09-17 11:14] LABS: Basophils % (Auto) 0.5 % (0.0-1.8); Eosinophils % (Auto) 8.6 % (0.0-4.3); Hematocrit 39.8 % (30.3-42.9); Hemoglobin 12.7 gm/dl (10.1-14.3); Mean Corpuscular HGB Conc 32 % (30-34); Mean Corpuscular Volume 80 fl (79-97); Platelet Count 228 K/mm3 (140-440); Red Blood Count 5.01 M/mm3 (3.65-5.03); Red Cell Distribution Width 16.8 % (13.2-15.2); White Blood Count 14.3 K/mm3 (4.5-11.0)
--- NOTE | 2017-09-17 11:17 | XRay Report ---
ROUTINE CHEST, TWO VIEWS: HISTORY: Shortness of breath. The trachea, heart, mediastinal contour, lung echols and bony thorax are unremarkable. IMPRESSION: Unremarkable chest x-ray.
[2017-09-17 11:18] LABS: Mean Corpuscular Hemoglobin 25 pg (28-32)
[2017-09-17 11:31] LABS: Anion Gap 16 mmol/L; BUN/Creatinine Ratio 26; Blood Urea Nitrogen 13 mg/dL (7-17); Calcium 8.7 mg/dL (8.4-10.2); Carbon Dioxide 28 mmol/L (22-30); Chloride 101.1 mmol/L (98-107); Glucose 128 mg/dL (65-100); Potassium 3.5 mmol/L (3.6-5.0); Sodium 142 mmol/L (137-145)
[2017-09-17] MEDS ORDERED: DUONEB *Not for PRN Use IH ONE ×2 (11:35→14:25)
[2017-09-17 14:17] LABS: ISTAT Base Excess 5; ISTAT DEVICE 0; ISTAT HCO3 29.6; ISTAT PCO2 43.9 (35-45); ISTAT PH 7.437 (7.35-7.45); ISTAT PO2 65 (80-105); ISTAT SO2 93; ISTAT TCO2 31
[2017-09-17] MEDS ORDERED: BABY ASPIRIN PO ONE (14:58)
--- NOTE | 2017-09-17 14:58 | Emergency Department Report ---
HPI - General Chief Complaint: Dyspnea/Respdistress Time Seen by Provider: 09/17/17 11:34 - HPI HPI: The patient is a 72-year-old female who presents for evaluation of dyspnea. Patient has history COPD. The patient reports constant and severe wheezing for the past one to 2 days, exacerbated with exertion or activity, improved by uyjhbreathing treatment. The patient denies fever, trauma to the chest, syncope , chest pain, hemoptysis, unilateral leg swelling, oral contraceptive use, recent immobilization, history of DVT or PE. ED Past Medical Hx - Past Medical History Previous Medical History?: Yes Hx Asthma: No Hx COPD: Yes Hx HIV: No Additional medical history: post-menopausal bleeding, bronchitis - Surgical History Past Surgical History?: No - Social History Smoking Status: Never Smoker Substance Use Type: None - Medications Home Medications: Home Medications Medication Instructions Recorded Confirmed Last Taken Type Budesoni/Formotero 160-4.5(Nf) 2 puff IH BID #1 inha MDD 07/31/17 Unknown Rx [Symbicort 160-4.5 (Nf)] Budesoni/Formotero 80-4.5(Nf) Levofloxacin [Levaquin] 750 mg PO QDAY #6 tablet 07/31/17 Unknown Rx Prednisone [predniSONE 10 mg 10 mg PO .TAPER #1 tab.ds.pk 07/31/17 Unknown Rx (6-Day Pack, 21 Tabs)] guaiFENesin DM [Robitussin Dm] 20 ml PO Q6HR #1 bottle 07/31/17 Unknown Rx Ipratropium/Albuterol Sulfate 1 ampul IH Q4HR #180 ampul.neb 08/21/17 Unknown Rx [DUONEB *Not for PRN Use*] predniSONE [Deltasone] 20 mg PO QDAY #10 tab 08/21/17 Unknown Rx ALBUTEROL Inhaler [ProAir HFA 2 puff IH QID PRN #1 inhalation 09/11/17 Unknown Rx Inhaler] ALBUTEROL NEB's [Proventil 0.083% 2.5 mg IH Q4HRT PRN #60 nebu 09/11/17 Unknown Rx NEBS] Dexamethasone [Decadron] 20 mg PO ONCE #1 tablet 09/11/17 Unknown Rx ED Review of Systems ROS: Stated complaint: CARLITOS Other details as noted in HPI Constitutional: denies: fever ENT: denies: throat or neck pain Respiratory: reports cough, shortness of breath Cardiovascular: denies: chest pain Endocrine: denies unexplained weight loss or gain Gastrointestinal: denies: abdominal pain, nausea Genitourinary: denies: dysuria Musculoskeletal: denies: leg swelling Skin: denies: rash Neurological: denies: headache Hematological/Lymphatic: denies: easy bleeding or easy bruising Psych: denies sadness or hopelessness Physical Exam - Physical Exam Vital Signs: Vital Signs 09/17/17 09/17/17 09/17/17 10:44 10:45 12:01 Pulse Rate 95 H 100 H Respiratory 23 22 Rate Blood Pressure O2 Sat by Pulse 100 100 94 Oximetry 09/17/17 09/17/17 09/17/17 12:15 12:45 13:01 Pulse Rate Respiratory Rate Blood Pressure 149/85 162/73 154/61 O2 Sat by Pulse 99 98 99 Oximetry Physical Exam: General: well-nourished, well-developed, no acute distress Head: Normocephalic, atraumatic Eyes: normal sclera ENT: Mucous membranes are pink and moist Neck: trachea midline, neck supple, No neck stiffness, no cervical adenopathy Respiratory: Diminished breath sounds and diffuse inspiratory and expiratory wheezing present, intercostal retractions are present, mild respiratory distress Cardio: S1 and S2 present, no murmurs, rubs, gallops, capillary refill is brisk Abdomen: Normoactive bowel sounds, soft abdomen, no rigidity, no guarding or rebound tenderness Chest WALL/Back: No tenderness to palpation of the chest wall, no CVA tenderness with percussion Musc: No pitting edema Skin: No rash Neuro: no facial drooping, normal speech Psych: Normal affect ED Course Vital Signs 09/17/17 09/17/17 09/17/17 10:44 10:45 12:01 Pulse Rate 95 H 100 H Respiratory 23 22 Rate Blood Pressure O2 Sat by Pulse 100 100 94 Oximetry 09/17/17 09/17/17 12 12:15 12:45 13:01 Pulse Rate Respiratory Rate Blood Pressure 149/85 162/73 154/61 O2 Sat by Pulse 99 98 99 Oximetry ED Medical Decision Making - Lab Data Result diagrams: 09/17/17 10:39 09/17/17 10:39 - Medical Decision Making The patient was seen and examined by myself. The patient is placed on a bus driver/monitor and continuous pulse ox. On initial evaluation, the patient was found to be in no distress. Evaluation orders were placed. The patient is given a breathing treatment and steroids for txt of COPD in route via EMS. On arrival the patient remains with wheezing and diminishment of breath sounds. She is given additional breathing treatments. Chest x-ray negative for focal consolidation, pleural effusions, pulmonary congestion, pneumothorax, or other acute cardio pulmonary disease process. Lab results are grossly not concerning.The patient was reevaluated and reported that their symptoms persisted. On reexamination she remains with significant wheezing and increased work of breathing. The on-call hospitalist service was contacted. They agreed to admit the patient for further treatment and close monitoring. The ED admit order was placed. The patient was admitted in guarded condition. Critical care attestation.: If time is entered above; I have spent that time in minutes in the direct care of this critically ill patient, excluding procedure time. ED Disposition Clinical Impression: Acute exacerbation of chronic obstructive pulmonary disease (COPD), Acute hypoxemic respiratory failure Disposition: -09 OP ADMIT IP TO THIS HOSP Is pt being admited?: Yes Does the pt Need Aspirin: Yes Condition: Serious Instructions: Chronic Obstructive Pulmonary Disease (ED) Referrals: PRIMARY CAREMD [Primary Care Provider] - 3-5 Days Time of Disposition: 14:57
[2017-09-17] MEDS ORDERED: PROAIR IH PRN (19:31)
--- NOTE | 2017-09-17 19:31 | History and Physical Report ---
History of Present Illness Date of examination: 09/17/17 Date of admission: 09/17/17 Chief complaint: CC Increasing SOB for 2 days. History of present illness: [place]:72 y/o AAF with Pmh of COPD on Neb treatments at home comes in for increasing Sob and wheezing for last 48 hrs.Cough productive of mucoid sputum.Not relieved by home Neb treatments.No fever/chills.No exacerbating factors except second hand smoke.Relieved to some extent by Neb treatments.No chest pain.No diaphoresis.No recent travel. Follows with Dr Gerald alvarenga. Past History Past Medical History: COPD, hypertension Past Surgical History: No surgical history Social history: lives with family, smoking (in the past), full code Family history: hypertension Medications and Allergies Allergies Allergy/AdvReac Type Severity Reaction Status Date / Time No Known Allergies Allergy Verified 08/21/17 10:38 Home Medications Medication Instructions Recorded Confirmed Last Taken Type Budesoni/Formotero 160-4.5(Nf) 2 puff IH BID #1 inha MDD 07/31/17 09/17/17 Unknown Rx [Symbicort 160-4.5 (Nf)] Budesoni/Formotero 80-4.5(Nf) Ipratropium/Albuterol Sulfate 1 ampul IH Q4HR #180 ampul.neb 08/21/17 09/17/17 Unknown Rx [DUONEB *Not for PRN Use*] ALBUTEROL Inhaler [ProAir HFA 2 puff IH QID PRN #1 inhalation 09/11/17 09/17/17 Unknown Rx Inhaler] Review of Systems All systems: negative Constitutional: no weight loss, no weight gain, no fever, no chills, no sweats, no night sweats Ears, nose, mouth and throat: no dysphagia, no hoarseness, no sore throat, no swelling in mouth Breasts: deferred Cardiovascular: shortness of breath, dyspnea on exertion, no chest pain, no orthopnea, no palpitations, no rapid/irregular heart beat, no edema, no syncope , no lightheadedness Respiratory: cough with sputum, shortness of breath, dyspnea on exertion, congestion, wheezing Gastrointestinal: no abdominal pain, no nausea, no vomiting, no diarrhea, no constipation, no change in bowel habits, no hematemesis, no coffee ground emesis Genitourinary Female: no pelvic pain, no flank pain, no menorrhagia, no dysuria , no urinary frequency, no urgency Menstruation: ammenorrhea Musculoskeletal: no neck stiffness, no neck pain, no shooting arm pain, no arm numbness/tingling, no low back pain Integumentary: no rash, no pruritis, no redness, no sores, no wounds Neurological: no head injury, no transient paralysis, no paralysis, no weakness , no parathesias, no seizures, no syncope Psychiatric: no anxiety, no memory loss, no change in sleep habits, no sleep disturbances, no insomnia, no hypersomnia, no change in appetite, no change in libido Endocrine: no cold intolerance, no heat intolerance, no polyphagia, no excessive thirst, no polydipsia, no polyuria, no nocturia, no excessive sweating , no flushing, no weight change Hematologic/Lymphatic: no easy bruising, no easy bleeding Allergic/Immunologic: wheezing, no urticaria, no allergic rhinitis Exam - Constitutional Vitals: Temp Pulse Resp BP Pulse Ox 82 20 154/70 98 09/17/17 18:07 09/17/17 18:07 09/17/17 18:15 09/17/17 18:15 General appearance: Present: severe distress, well-nourished - EENT Eyes: Present: PERRL ENT: hearing intact, clear oral mucosa - Neck Neck: Present: supple, normal ROM - Respiratory Respiratory effort: normal Respiratory: bilateral: diminished, rhonchi, wheezing - Cardiovascular Heart rate: 80 Rhythm: regular Heart Sounds: Present: S1 & S2. Absent: rub, click - Extremities Extremities: pulses symmetrical, No edema Peripheral Pulses: within normal limits - Abdominal General gastrointestinal: Present: soft, non-tender, non-distended, normal bowel sounds Female genitourinary: Present: normal - Rectal Rectal Exam: deferred - Integumentary Integumentary: Present: clear, warm, dry - Musculoskeletal Musculoskeletal: gait normal, strength equal bilaterally - Psychiatric Psychiatric: appropriate mood/affect, intact judgment & insight - Neurologic Neurologic: CNII-XII intact, moves all extremities - Allied Health Allied health notes reviewed: nursing, case management Results - Labs CBC & Chem 7: 09/18/17 05:07 09/18/17 05:07 Labs: Laboratory Last Values WBC 14.3 K/mm3 (4.5-11.0) H 09/17/17 10:39 RBC 5.01 M/mm3 (3.65-5.03) 09/17/17 10:39 Hgb 12.7 gm/dl (10.1-14.3) 09/17/17 10:39 Hct 39.8 % (30.3-42.9) 09/17/17 10:39 MCV 80 fl (79-97) 09/17/17 10:39 MCH 25 pg (28-32) L 09/17/17 10:39 MCHC 32 % (30-34) 09/17/17 10:39 RDW 16.8 % (13.2-15.2) H 09/17/17 10:39 Plt Count 228 K/mm3 (140-440) 09/17/17 10:39 Lymph % (Auto) 13.4 % (13.4-35.0) 09/17/17 10:39 [place] % (Auto) 4.6 % (0.0-7.3) 09/17/17 10:39 Eos % (Auto) 8.6 % (0.0-4.3) H 09/17/17 10:39 Baso % (Auto) 0.5 % (0.0-1.8) 09/17/17 10:39 Lymph # 1.9 K/mm3 (1.2-5.4) 09/17/17 10:39 [place] # 0.7 K/mm3 (0.0-0.8) 09/17/17 10:39 Eos # 1.2 K/mm3 (0.0-0.4) H 09/17/17 10:39 Baso # 0.1 K/mm3 (0.0-0.1) 09/17/17 10:39 Seg Neutrophils % 72.9 % (40.0-70.0) H 09/17/17 10:39 Seg Neutrophils # 10.4 K/mm3 (1.8-7.7) H 09/17/17 10:39 POC ABG pH 7.437 (7.35-7.45) 09/17/17 14:17 POC ABG pCO2 43.9 (35-45) 09/17/17 14:17 POC ABG pO2 65 (80-105) L 09/17/17 14:17 POC ABG HCO3 29.6 09/17/17 14:17 POC ABG Total CO2 31 09/17/17 14:17 POC ABG O2 Sat 93 09/17/17 14:17 POC ABG Base Excess 5 09/17/17 14:17 FiO2 21 % 09/17/17 14:17 Sodium 142 mmol/L (137-145) 09/17/17 10:39 Potassium 3.5 mmol/L (3.6-5.0) L 09/17/17 10:39 Chloride 101.1 mmol/L (98-107) 09/17/17 10:39 Carbon Dioxide 28 mmol/L (22-30) 09/17/17 10:39 Anion Gap 16 mmol/L 09/17/17 10:39 BUN 13 mg/dL (7-17) 09/17/17 10:39 Creatinine 0.5 mg/dL (0.7-1.2) L 09/17/17 10:39 Estimated GFR > 60 ml/min 09/17/17 10:39 BUN/Creatinine Ratio 26 % 09/17/17 10:39 Glucose 128 mg/dL (65-100) H 09/17/17 10:39 Calcium 8.7 mg/dL (8.4-10.2) 09/17/17 10:39 Troponin T < 0.010 ng/mL (0.00-0.029) 09/17/17 12:49 NT-Pro-B Natriuret Pep 22.43 pg/mL (0-900) 09/17/17 12:49 Short CBC 09/17/17 09/18/17 Range/Units 10:39 05:07 WBC 14.3 H 16.7 H (4.5-11.0) K/mm3 Hgb 12.7 12.6 (10.1-14.3) gm/dl Hct 39.8 38.0 (30.3-42.9) % Plt Count 228 257 (140-440) K/mm3 BMP 09/17/17 09/18/17 10:39 05:07 Sodium 142 141 Potassium 3.5 L 3.8 Chloride 101.1 101.0 Carbon Dioxide 28 27 BUN 13 15 Creatinine 0.5 L 0.5 L Glucose 128 H 134 H Calcium 8.7 8.8 Cardiac Enzymes 09/17/17 09/17/17 Range/Units 10:39 12:49 Troponin T < 0.010 < 0.010 (0.00-0.029) ng/mL Liver Function 09/18/17 Range/Units 05:07 Total Bilirubin 0.30 (0.1-1.2) mg/dL AST 12 (5-40) units/L ALT 11 (7-56) units/L Alkaline Phosphatase 84 (35-129) units/L Albumin 3.7 L (3.9-5) g/dL - Imaging and Cardiology EKG: report reviewed (NSR ) Chest x-ray: report reviewed (NAF) Assessment and Plan Assessment and plan: Full code Advance Directives: Yes VTE prophylaxis?: Chemical Plan of care discussed with patient/family: Yes - Patient Problems (1) Acute hypoxemic respiratory failure Current Visit: Yes Status: Acute Plan to address problem: Her sats were in 89 initially.On ABG Po2 65 Neb treatments SOlumedrol and iv Abx.Bipap as necessary.Patient improved to some extent n ER.Intubation if necessary (2) Acute exacerbation of chronic obstructive pulmonary disease (COPD) Current Visit: No Status: Acute Plan to address problem: Iv solu medrol Iv abx and Nebulizer treatments. (3) HTN (hypertension) Current Visit: Yes Status: Chronic Qualifiers: Hypertension type: essential hypertension Qualified Code(s): I10 - Essential (primary) hypertension Plan to address problem: Borderline Initiate antihypertensives if necessary (4) Malnutrition compromising bodily function Current Visit: Yes Status: Chronic Plan to address problem: Sec to morbid obesity Counselled (5) DVT prophylaxis Current Visit: Yes Status: Acute Plan to address problem: ON Lovenox
[2017-09-17] MEDS ORDERED: ZOFRAN IV PRN (19:32)
[2017-09-17] MEDS ORDERED: DULCOLAX PR PRN (19:32)
[2017-09-17] MEDS ORDERED: TYLENOL PO PRN (19:32)
[2017-09-17] MEDS ORDERED: MILK OF MAGNESIA PO PRN (19:32)
[2017-09-17] MEDS ORDERED: PERCOCET 5/325 PO PRN (19:32)
[2017-09-17] MEDS ORDERED: MORPHINE IV PRN (19:32)
[2017-09-17] MEDS ORDERED: PROVENTIL IH PRN (19:39)
[2017-09-17] MEDS ORDERED: DUONEB *Not for PRN Use IH SCH (19:45)
[2017-09-17] MEDS ORDERED: ZITHROMAX 500 MG in NACL 0.9% 250ML 250 ML IV SCH (20:00)
[2017-09-17] MEDS ORDERED: ROCEPHIN/NS 2 GM/100 ML 2 GM/100 ML BAG IV SCH (20:00)
[2017-09-17] MEDS ORDERED: cefTRIAXone 2 GM in NACL 0.9% 20 ML IV SCH (20:00)
[2017-09-17] MEDS: BROVANA NEBU IH SCH (21:16)
[2017-09-17] MEDS: PULMICORT IH SCH (21:16)
[2017-09-17] MEDS: DUONEB *Not for PRN Use IH SCH (21:17)
[2017-09-17] MEDS ORDERED: NON-FORMULARY (Budesoni/Formotero 160-4.5(Nf) 2 PUFF) IH SCH (22:00)
[2017-09-18] MEDS: DUONEB *Not for PRN Use IH SCH ×4 (01:39→20:01)
[2017-09-18 05:35] LABS: Basophils % (Auto) 0.2 % (0.0-1.8); Hemoglobin 12.6 gm/dl (10.1-14.3); Mean Corpuscular HGB Conc 33 % (30-34); Mean Corpuscular Hemoglobin 26 pg (28-32); Mean Corpuscular Volume 79 fl (79-97); Platelet Count 257 K/mm3 (140-440); Red Blood Count 4.82 M/mm3 (3.65-5.03); Red Cell Distribution Width 16.3 % (13.2-15.2); White Blood Count 16.7 K/mm3 (4.5-11.0)
[2017-09-18 06:01] LABS: Alanine Aminotransferase 11 units/L (7-56); Albumin 3.7 g/dL (3.9-5); Albumin/Globulin Ratio 1.3 %; Alkaline Phosphatase 84 units/L (35-129); Anion Gap 17 mmol/L; BUN/Creatinine Ratio 30; Blood Urea Nitrogen 15 mg/dL (7-17); Calcium 8.8 mg/dL (8.4-10.2); Carbon Dioxide 27 mmol/L (22-30); Glucose 134 mg/dL (65-100); Potassium 3.8 mmol/L (3.6-5.0); Sodium 141 mmol/L (137-145); Total Protein 6.5 g/dL (6.3-8.2)
--- NOTE | 2017-09-18 08:08 | Progress Note ---
Assessment and Plan Assessment and plan: Patient is a 72 y/o AAF with Pmh of COPD, Asthma, Chronic Hypoxia on Home O2 and ?PETER on Neb treatments at home comes in for increasing Sob and wheezing for last 48 hrs. Patient reports Cough productive of mucoid sputum. Not relieved by home Neb treatments. No fever/chills. No exacerbating factors except second hand smoke. Relieved to some extent by Neb treatments. No chest pain. No diaphoresis. No recent travel. She was recently admitted for COPD exacerbation in July. Acute on Chronic Hypoxic Respiratory failure * Possible Underlying Bronchitis vs Bronchiectasis * Pulmonary consult * Continue steroid taper * Will change to Levaquin To also cover incase slient Aspiration Pneumonitis exisit SIRS- At this time. Secondary to non infectious etiology * Continue abx as described above COPD exacerbation * Continue nebulizer treatment as noted above, to steroids. Hypokalemia * Resolved Possible PETER- Per hx. * CPAP qhs. Morbid Obesity- BMI 46.8 * Weight loss counselling discussed in detail 15 mins. DVT/GI prophy Plan of care discussed with the patient in detail. History Interval history: Patient seen and examined this morning reports some improvement but still with wheezing and some mild shortness of breath with exertion. She denies any chest pain, fever, nausea, vomiting, diarrhea. She denies any musculoskeletal skeletal pain. She reports that she has not been using her Symbicort daily and unfortunately could not afford oral medications due to insurance issues. Hospitalist Physical - Physical exam Narrative exam: VITAL SIGNS: Reviewed. GENERAL: The patient appeared well nourished and normally developed. Vital signs as documented. HEAD: No signs of head trauma. EYES: Pupils are equal. Extraocular motions intact. EARS: Hearing grossly intact. MOUTH: Oropharynx is normal except some missing dentition. NECK: No adenopathy, no JVD. CHEST: Chest with exertional wheeze breath sounds bilaterally. No rales, or rhonchi. CARDIAC: Regular rate and rhythm. S1 and S2, without murmurs, gallops, or rubs. VASCULAR: No Edema. Peripheral pulses normal and equal in all extremities. ABDOMEN: Soft, without detectable tenderness. No sign of distention. No rebound or guarding, and no masses palpated. Bowel Sounds normal. MUSCULOSKELETAL: Good range of motion of all major joints. Extremities without clubbing, cyanosis or edema. NEUROLOGIC EXAM: Alert and oriented x 3. No focal sensory or strength deficits. Speech normal. Follows commands. PSYCHIATRIC: Mood normal. SKIN: No rash or lesions. - Constitutional Vitals: Temp Pulse Resp BP Pulse Ox 97.5 F L 87 20 143/68 96 09/17/17 21:56 09/17/17 21:56 09/18/17 05:40 09/17/17 21:56 09/17/17 21:57 General appearance: Present: severe distress, well-nourished Results - Labs CBC & Chem 7: 09/18/17 05:07 09/18/17 05:07 Labs: Laboratory Last Values WBC 16.7 K/mm3 (4.5-11.0) H 09/18/17 05:07 RBC 4.82 M/mm3 (3.65-5.03) 09/18/17 05:07 Hgb 12.6 gm/dl (10.1-14.3) 09/18/17 05:07 Hct 38.0 % (30.3-42.9) 09/18/17 05:07 MCV 79 fl (79-97) 09/18/17 05:07 MCH 26 pg (28-32) L 09/18/17 05:07 MCHC 33 % (30-34) 09/18/17 05:07 RDW 16.3 % (13.2-15.2) H 09/18/17 05:07 Plt Count 257 K/mm3 (140-440) 09/18/17 05:07 Lymph % (Auto) 7.3 % (13.4-35.0) L 09/18/17 05:07 [place] % (Auto) 3.2 % (0.0-7.3) 09/18/17 05:07 Eos % (Auto) 0.0 % (0.0-4.3) 09/18/17 05:07 Baso % (Auto) 0.2 % (0.0-1.8) 09/18/17 05:07 Lymph # 1.2 K/mm3 (1.2-5.4) 09/18/17 05:07 [place] # 0.5 K/mm3 (0.0-0.8) 09/18/17 05:07 Eos # 0.0 K/mm3 (0.0-0.4) 09/18/17 05:07 Baso # 0.0 K/mm3 (0.0-0.1) 09/18/17 05:07 Seg Neutrophils % 89.3 % (40.0-70.0) H 09/18/17 05:07 Seg Neutrophils # 14.9 K/mm3 (1.8-7.7) H 09/18/17 05:07 POC ABG pH 7.437 (7.35-7.45) 09/17/17 14:17 POC ABG pCO2 43.9 (35-45) 09/17/17 14:17 POC ABG pO2 65 (80-105) L 09/17/17 14:17 POC ABG HCO3 29.6 09/17/17 14: POC ABG Total CO2 31 09/17/17 14:17 POC ABG O2 Sat 93 09/17/17 14:17 POC ABG Base Excess 5 09/17/17 14:17 FiO2 21 % 09/17/17 14:17 Sodium 141 mmol/L (137-145) 09/18/17 05:07 Potassium 3.8 mmol/L (3.6-5.0) 09/18/17 05:07 Chloride 101.0 mmol/L (98-107) 09/18/17 05:07 Carbon Dioxide 27 mmol/L (22-30) 09/18/17 05:07 Anion Gap 17 mmol/L 09/18/17 05:07 BUN 15 mg/dL (7-17) 09/18/17 05:07 Creatinine 0.5 mg/dL (0.7-1.2) L 09/18/17 05:07 Estimated GFR > 60 ml/min 09/18/17 05:07 BUN/Creatinine Ratio 30 % 09/18/17 05:07 Glucose 134 mg/dL (65-100) H 09/18/17 05:07 Hemoglobin A1c 6.1 % (4-6) H 09/17/17 19:40 Calcium 8.8 mg/dL (8.4-10.2) 09/18/17 05:07 Total Bilirubin 0.30 mg/dL (0.1-1.2) 09/18/17 05:07 AST 12 units/L (5-40) 09/18/17 05:07 ALT 11 units/L (7-56) 09/18/17 05:07 Alkaline Phosphatase 84 units/L (35-129) 09/18/17 05:07 Troponin T < 0.010 ng/mL (0.00-0.029) 09/17/17 12:49 NT-Pro-B Natriuret Pep 22.43 pg/mL (0-900) 09/17/17 12:49 Total Protein 6.5 g/dL (6.3-8.2) 09/18/17 05:07 Albumin 3.7 g/dL (3.9-5) L 09/18/17 05:07 Albumin/Globulin Ratio 1.3 % 09/18/17 05:07 - Imaging and Cardiology Chest x-ray: image reviewed (no acute pathology noted)
[2017-09-18] MEDS: BROVANA NEBU IH SCH ×2 (09:52→20:01)
[2017-09-18] MEDS: PULMICORT IH SCH ×2 (09:56→20:01)
[2017-09-18] MEDS ORDERED: LOVENOX SUB-Q SCH (10:00)
[2017-09-18] MEDS ORDERED: LEVAQUIN 750MG/150ML 750 MG/150 ML BAG IV SCH (10:00)
[2017-09-18] MEDS: LEVAQUIN PO SCH (10:27)
[2017-09-18] MEDS: DELTASONE PO SCH (10:27)
[2017-09-18] MEDS: LOVENOX SUB-Q SCH (10:27)
--- NOTE | 2017-09-18 11:47 | Consultation ---
History of Present Illness Reason for consult: dyspnea, cough, COPD History of present illness: this is a female with copd, she id=s unable to afford her meds so she has been using neb tx only. She abegan having increase in sob and worsening wheezing and sob w minimal excertion which prompting her to come to the er. She recd multipletreatment w improvement. She is feeling better today but still sob w excertion Past History Past Medical History: COPD, hypertension Past Surgical History: No surgical history Social history: lives with family, smoking (in the past), full code Family history: hypertension Medications and Allergies Allergies Allergy/AdvReac Type Severity Reaction Status Date / Time No Known Allergies Allergy Verified 08/21/17 10:38 Home Medications Medication Instructions Recorded Confirmed Last Taken Type Budesoni/Formotero 160-4.5(Nf) 2 puff IH BID #1 inha MDD 07/31/17 09/17/17 Unknown Rx [Symbicort 160-4.5 (Nf)] Budesoni/Formotero 80-4.5(Nf) Ipratropium/Albuterol Sulfate 1 ampul IH Q4HR #180 ampul.neb 08/21/17 09/17/17 Unknown Rx [DUONEB *Not for PRN Use*] ALBUTEROL Inhaler [ProAir HFA 2 puff IH QID PRN #1 inhalation 09/11/17 09/17/17 Unknown Rx Inhaler] Active Meds: Active Medications Acetaminophen (Tylenol) 650 mg PO Q4H PRN PRN Reason: Pain MILD(1-3)/Fever >100.5/YODER Albuterol (Proventil) 2.5 mg IH Q4HRT PRN PRN Reason: Shortness Of Breath Albuterol/Ipratropium (Duoneb *Not For Prn Use*) 1 ampul IH Q6HRT [facility] Last Admin: 09/18/17 09:51 Dose: 1 ampul Arformoterol Tartrate (Brovana Nebu) 15 mcg IH Q12HRT [facility] Last Admin: 09/18/17 09:52 Dose: 15 mcg Bisacodyl (Dulcolax) 10 mg HI QDAY PRN PRN Reason: Constipation unrelieved by MOM Budesonide (Pulmicort) 1 mg IH Q12HRT [facility] Last Admin: 09/18/17 09:56 Dose: 0.5 mg Enoxaparin Sodium (Lovenox) 40 mg SUB-Q QDAY@1000 [facility] Last Admin: 09/18/17 10:27 Dose: Not Given Levofloxacin (Levaquin) 750 mg PO Q24HR [facility] Last Admin: 09/18/17 10:27 Dose: 750 mg Magnesium Hydroxide (Milk Of Magnesia) 30 ml PO Q4H PRN PRN Reason: Constipation Morphine Sulfate (Morphine) 2 mg IV Q4H PRN PRN Reason: Pain, Moderate (4-6) Ondansetron HCl (Zofran) 4 mg IV Q8H PRN PRN Reason: N/V unrelieved by Reglan Oxycodone/Acetaminophen (Percocet 5/325) 1 tab PO Q6H PRN PRN Reason: Pain, Moderate (4-6) Prednisone (Deltasone) 40 mg PO QDAY [facility] Last Admin: 09/18/17 10:27 Dose: 40 mg Review of Systems Constitutional: weakness, chronic pain Ears, nose, mouth and throat: nasal congestion, post-nasal drip Breasts: deferred Respiratory: cough with sputum, shortness of breath, dyspnea on exertion, wheezing, respiratory infections Musculoskeletal: morning stiffness Psychiatric: anxiety Physical Examination Vital signs: Vital Signs Pulse Resp Pulse Ox 95 H 23 100 09/17/17 10:44 09/17/17 10:44 09/17/17 10:44 General appearance: alert, other (mild distress) Eyes: non-icteric ENT: oropharynx moist Neck: supple Effort: mildly labored Ascultation: Bilateral: wheezes Percussion: Bilateral: not dull Tactile fremitus: Bilateral: normal Cardiovascular: regular rate and rhythm Gastrointestinal: normoactive bowel sounds Integumentary: normal Extremities: no cyanosis, no edema Musculoskeletal: no deformities normal mental status mood appropriate, affect normal Results - Laboratory Findings CBC and BMP: 09/18/17 05:07 09/18/17 05:07 ABG POC ABG pH 7.437 (7.35-7.45) 09/17/17 14: POC ABG pCO2 43.9 (35-45) 09/17/17 14: POC ABG pO2 65 (80-105) L 09/17/17 14: POC ABG HCO3 29.6 09/17/17 14:17 POC ABG Total CO2 31 09/17/17 14:17 POC ABG O2 Sat 93 09/17/17 14:17 Abnormal lab findings: Abnormal Labs 09/17/17 09/17/17 09/17/17 10:39 10:39 14:17 WBC 14.3 H MCH 25 L RDW 16.8 H Lymph % (Auto) Eos % (Auto) 8.6 H Eos # 1.2 H Seg Neutrophils % 72.9 H Seg Neutrophils # 10.4 H POC ABG pO2 65 L Potassium 3.5 L Creatinine 0.5 L Glucose 128 H Hemoglobin A1c Albumin 09/17/17 09/18/17 09/18/17 19:40 05:07 05:07 WBC 16.7 H MCH 26 L RDW 16.3 H Lymph % (Auto) 7.3 L Eos % (Auto) Eos # Seg Neutrophils % 89.3 H Seg Neutrophils # 14.9 H POC ABG pO2 Potassium Creatinine 0.5 L Glucose 134 H Hemoglobin A1c 6.1 H Albumin 3.7 L - Diagnostic Findings Chest x-ray: report reviewed, image reviewed Assessment and Plan - Patient Problems (1) Acute hypoxemic respiratory failure Current Visit: Yes Status: Acute (2) HTN (hypertension) Current Visit: Yes Status: Chronic Qualifiers: Hypertension type: essential hypertension Qualified Code(s): I10 - Essential (primary) hypertension (3) Acute exacerbation of chronic obstructive pulmonary disease (COPD) Current Visit: No Status: Acute (4) Bronchitis Current Visit: No Status: Acute (5) COPD (chronic obstructive pulmonary disease) Current Visit: No Status: Acute Qualifiers: COPD type: unspecified COPD Qualified Code(s): J44.9 - Chronic obstructive pulmonary disease, unspecified (6) Wheezing Current Visit: No Status: Acute
[2017-09-19] MEDS: DUONEB *Not for PRN Use IH SCH ×4 (02:29→20:41)
[2017-09-19] MEDS: PULMICORT IH SCH ×2 (07:09→20:41)
[2017-09-19] MEDS: BROVANA NEBU IH SCH ×2 (07:09→20:41)
[2017-09-19] MEDS: DELTASONE PO SCH (09:24)
[2017-09-19] MEDS: LEVAQUIN PO SCH (09:24)
[2017-09-19] MEDS: LOVENOX SUB-Q SCH (09:24)
--- NOTE | 2017-09-19 14:16 | Progress Note ---
Assessment and Plan - Patient Problems (1) Acute hypoxemic respiratory failure Current Visit: Yes Status: Acute (2) HTN (hypertension) Current Visit: Yes Status: Chronic Qualifiers: Hypertension type: essential hypertension Qualified Code(s): I10 - Essential (primary) hypertension (3) Acute exacerbation of chronic obstructive pulmonary disease (COPD) Current Visit: No Status: Acute (4) Bronchitis Current Visit: No Status: Acute (5) COPD (chronic obstructive pulmonary disease) Current Visit: No Status: Acute Qualifiers: COPD type: unspecified COPD Qualified Code(s): J44.9 - Chronic obstructive pulmonary disease, unspecified (6) Wheezing Current Visit: No Status: Acute Subjective Interval history: feels better Objective Vital Signs - 12hr 09/19/17 09/19/17 09/19/17 02:40 07:09 07:15 Temperature 98.1 F Pulse Rate 74 Pulse Rate [ 105 H 83 Anterior Bilateral Throughout] Respiratory 16 Rate Respiratory 19 18 Rate [Anterior Bilateral Throughout] Blood Pressure 135/63 [Right] O2 Sat by Pulse 97 96 Oximetry 09/19/17 07:19 Temperature Pulse Rate Pulse Rate [ 74 Anterior Bilateral Throughout] Respiratory Rate Respiratory 20 Rate [Anterior Bilateral Throughout] Blood Pressure [Right] O2 Sat by Pulse Oximetry Constitutional: alert, other (mild distress) Eyes: non-icteric ENT: oropharynx moist Neck: supple Effort: mildly labored Ascultation: Bilateral: clear Percussion: Bilateral: not dull Tactile fremitus: Bilateral: normal Cardiovascular: regular rate and rhythm Gastrointestinal: normoactive bowel sounds Integumentary: normal Extremities: no cyanosis, no edema Neurologic: normal mental status Psychiatric: mood appropriate, affect normal CBC and BMP: 09/18/17 05:07 09/18/17 05:07 ABG, PT/INR, D-dimer: ABG POC ABG pH 7.437 (7.35-7.45) 09/17/17 14:17 POC ABG pCO2 43.9 (35-45) 09/17/17 14:17 POC ABG pO2 65 (80-105) L 09/17/17 14:17 POC ABG HCO3 29.6 09/17/17 14:17 POC ABG Total CO2 31 09/17/17 14:17 POC ABG O2 Sat 93 09/17/17 14:17 Abnormal lab findings: Abnormal Labs 09/17/17 09/17/17 09/17/17 10:39 10:39 14:17 WBC 14.3 H MCH 25 L RDW 16.8 H Lymph % (Auto) Eos % (Auto) 8.6 H Eos # 1.2 H Seg Neutrophils % 72.9 H Seg Neutrophils # 10.4 H POC ABG pO2 65 L Potassium 3.5 L Creatinine 0.5 L Glucose 128 H Hemoglobin A1c Albumin 09/17/17 09/18/17 09/18/17 19:40 05:07 05:07 WBC 16.7 H MCH 26 L RDW 16.3 H Lymph % (Auto) 7.3 L Eos % (Auto) Eos # Seg Neutrophils % 89.3 H Seg Neutrophils # 14.9 H POC ABG pO2 Potassium Creatinine 0.5 L Glucose 134 H Hemoglobin A1c 6.1 H Albumin 3.7 L
[2017-09-19 17:57] VITALS: BP 150/67
--- NOTE | 2017-09-19 18:23 | Progress Note ---
Assessment and Plan Full code - Patient Problems (1) Acute hypoxemic respiratory failure Current Visit: Yes Status: Acute Plan to address problem: Her sats were in 89 initially.On ABG Po2 65 Neb treatments SOlumedrol and iv Abx.Bipap as necessary.Patient improved to some extent n ER.Intubation if necessary (2) Acute exacerbation of chronic obstructive pulmonary disease (COPD) Current Visit: No Status: Acute Plan to address problem: Iv solu medrol Iv abx and Nebulizer treatments. (3) HTN (hypertension) Current Visit: Yes Status: Chronic Qualifiers: Hypertension type: essential hypertension Qualified Code(s): I10 - Essential (primary) hypertension Plan to address problem: Borderline Initiate antihypertensives if necessary (4) Malnutrition compromising bodily function Current Visit: Yes Status: Chronic Plan to address problem: Sec to morbid obesity Counselled (5) DVT prophylaxis Current Visit: Yes Status: Acute Plan to address problem: ON Lovenox Subjective Date of service: 09/19/17 Principal diagnosis: Resp failure Copd exacerbation Interval history: Improved Objective - Constitutional Vitals: Vital Signs - 12hr 09/19/17 09/19/17 09/19/17 07:09 07:15 07:19 Temperature 98.1 F Pulse Rate 74 Pulse Rate [ 83 74 Anterior Bilateral Throughout] Respiratory 16 Rate Respiratory 18 20 Rate [Anterior Bilateral Throughout] Blood Pressure 135/63 [Right] O2 Sat by Pulse 97 96 Oximetry 09/19/17 09/19/17 09/19/17 13:08 13:18 17:10 Temperature 97.5 F L Pulse Rate 78 Pulse Rate [ 76 79 Anterior Bilateral Throughout] Respiratory 16 Rate Respiratory 18 18 Rate [Anterior Bilateral Throughout] Blood Pressure 150/67 [Right] O2 Sat by Pulse 96 Oximetry General appearance: Present: no acute distress, well-nourished - EENT Eyes: PERRL, EOM intact ENT: hearing intact, clear oral mucosa Ears: bilateral: normal - Neck Neck: supple, normal ROM - Respiratory Respiratory effort: normal Respiratory: bilateral: CTA, rhonchi, wheezing - Breasts Breasts: normal - Cardiovascular Heart rate: 70 Rhythm: regular Heart Sounds: Present: S1 & S2. Absent: gallop, rub Extremities: no ischemia, pulses intact, No edema, normal color, Full ROM - Gastrointestinal General gastrointestinal: Present: soft, non-tender, non-distended, normal bowel sounds - Genitourinary Female genitourinary: normal - Integumentary Integumentary: clear, warm, dry - Musculoskeletal Musculoskeletal: 1, strength equal bilaterally - Neurologic Neurologic: CNII-XII intact, moves all extremities - Psychiatric Psychiatric: memory intact, appropriate mood/affect, intact judgment & insight - Allied health notes Allied health notes reviewed: nursing, case management - Labs CBC & Chem 7: 09/18/17 05:07 09/18/17 05:07
--- NOTE | 2017-09-19 19:00 | Discharge Summary ---
Providers - Providers Date of Admission: 09/17/17 19:32 Date of discharge: 09/19/17 Attending physician: JCARLOS GAN MD 09/17/17 19:48 Consult to Physician [CONS] Routine Consulting Provider: TOMMIE TIM Reason For Exam: Ac Resp failure Place consult to:: Office Notified:: yes Phone number called:: [phone] Was contact made?: Yes If yes, spoke with:: Majrorie(answering service) Time called:: 09:00 Primary care physician: DEVIL DOG Hospitalization Condition: Serious Procedures: (1) Acute hypoxemic respiratory failure Current Visit: Yes Status: Acute Plan to address problem: Her sats were in 89 initially.On ABG Po2 65 Neb treatments SOlumedrol and iv Abx.Bipap as necessary.Patient improved (2) Acute exacerbation of chronic obstructive pulmonary disease (COPD) Current Visit: No Status: Acute Plan to address problem: Iv solu medrol Iv abx and Nebulizer treatments. Improved (3) HTN (hypertension) Current Visit: Yes Status: Chronic Qualifiers: Hypertension type: essential hypertension Qualified Code(s): I10 - Essential (primary) hypertension Plan to address problem: Borderline (4) Malnutrition compromising bodily function Current Visit: Yes Status: Chronic Plan to address problem: Sec to morbid obesity Counselled (5) DVT prophylaxis Current Visit: Yes Status: Acute Plan to address problem: ON Lovenox Disposition: DC-01 TO HOME OR SELFCARE Time spent for discharge: 33 minutes - Discharge Diagnoses (1) Acute hypoxemic respiratory failure Status: Acute (2) Acute exacerbation of chronic obstructive pulmonary disease (COPD) Status: Acute (3) HTN (hypertension) Status: Chronic Qualifiers: Hypertension type: essential hypertension Qualified Code(s): I10 - Essential (primary) hypertension (4) Malnutrition compromising bodily function Status: Chronic (5) DVT prophylaxis Status: Acute Core Measure Documentation - Palliative Care Palliative Care/ Comfort Measures: Not Applicable - Core Measures Any of the following diagnoses?: none Exam - Constitutional Vitals: Temp Pulse Resp BP Pulse Ox 97.5 F L 78 16 150/67 96 09/19/17 17:10 09/19/17 17:10 09/19/17 17:10 09/19/17 17:10 09/19/17 17:10 General appearance: Present: no acute distress, well-nourished - EENT Eyes: Present: PERRL ENT: hearing intact, clear oral mucosa - Neck Neck: Present: supple, normal ROM - Respiratory Respiratory effort: normal Respiratory: bilateral: CTA - Cardiovascular Heart rate: 70 Rhythm: regular Heart Sounds: Present: S1 & S2. Absent: rub, click - Extremities Extremities: no ischemia, pulses intact, pulses symmetrical, No edema Peripheral Pulses: within normal limits - Abdominal General gastrointestinal: Present: soft, non-tender, non-distended, normal bowel sounds Female genitourinary: Present: normal - Integumentary Integumentary: Present: clear, warm, dry - Musculoskeletal Musculoskeletal: gait normal, strength equal bilaterally - Psychiatric Psychiatric: appropriate mood/affect, intact judgment & insight - Neurologic Neurologic: CNII-XII intact, moves all extremities - Allied Health Allied health notes reviewed: nursing, case management Plan Activity: no restrictions Diet: low cholesterol, low salt, low carbohydrate Follow up with: PRIMARY CARE, [Primary Care Provider] - 3-5 Days
== END 2017-09-19 21:10 | disposition home or self-care (01) | DRG 189 ==
LOC: ED 10:25 → 3A 19:32
PROVIDERS: ADMIT Internal Medicine; ATTEND Internal Medicine
PROC: 4A033R1 Measurement of Arterial Saturation, Peripheral, Percutaneous Approach (ICD-10-PCS; principal; 2017-09-17)
DX: J96.01 Acute respiratory failure with hypoxia (principal); J44.1 Chronic obstructive pulmonary disease with (acute) exacerbation; E46 Unspecified protein-calorie malnutrition; R65.10 Systemic inflammatory response syndrome (SIRS) of non-infectious origin without acute organ dysfunction; Z68.42 Body mass index [BMI] 45.0-49.9, adult; I10 Essential (primary) hypertension; E87.6 Hypokalemia; J40 Bronchitis, not specified as acute or chronic; E66.01 Morbid (severe) obesity due to excess calories; Z71.3 Dietary counseling and surveillance; Z79.899 Other long term (current) drug therapy; Z82.49 Family history of ischemic heart disease and other diseases of the circulatory system; Z99.81 Dependence on supplemental oxygen; Z86.718 Personal history of other venous thrombosis and embolism
CPT/HCPCS: 36415; 71020; 80048; 80053; 82803; 83036; 83880; 84484; 85025; 93005; 93010; 94640; 96374; 96375; J0456; J0696; J1650; J2920; J7050; J7512

== ENCOUNTER 2017-10-07 02:30 | Inpatient (IN) | payer MEDICARE ==
[2017-10-07] MEDS ORDERED: DUONEB *Not for PRN Use IH ONE ×3 (03:11→08:44)
--- NOTE | 2017-10-07 03:22 | XRay Report ---
FINAL REPORT EXAM: XR CHEST ROUTINE 2V HISTORY: Shortness of breath COMPARISON: None available. FINDINGS:: Frontal and lateral views of the chest obtained. Heart normal in size. Stable prominence of the main pulmonary arteries. Minimal prominence of the interstitium which may relate to mild atelectasis or edema. No dense consolidation or effusion. No pneumothorax. IMPRESSION:: Mild prominence of the interstitium which may relate to mild atelectasis or edema. No dense consolidation or effusion.
[2017-10-07 03:26] LABS: Basophils % (Auto) 0.4 % (0.0-1.8); Eosinophils % (Auto) 9.5 % (0.0-4.3); Hematocrit 38.7 % (30.3-42.9); Hemoglobin 12.5 gm/dl (10.1-14.3); Mean Corpuscular HGB Conc 32 % (30-34); Mean Corpuscular Hemoglobin 26 pg (28-32); Mean Corpuscular Volume 82 fl (79-97); Platelet Count 169 K/mm3 (140-440); Red Blood Count 4.75 M/mm3 (3.65-5.03); Red Cell Distribution Width 15.5 % (13.2-15.2)
[2017-10-07 03:56] LABS: Alanine Aminotransferase 14 units/L (7-56); Albumin 3.1 g/dL (3.9-5); Albumin/Globulin Ratio 0.9 %; Alkaline Phosphatase 79 units/L (35-129); Anion Gap 22 mmol/L; BUN/Creatinine Ratio 30; Blood Urea Nitrogen 18 mg/dL (7-17); Calcium 8.9 mg/dL (8.4-10.2); Carbon Dioxide 20 mmol/L (22-30); Chloride 100.6 mmol/L (98-107); Glucose 138 mg/dL (65-100); Potassium 3.6 mmol/L (3.6-5.0); Sodium 139 mmol/L (137-145); Total Protein 6.5 g/dL (6.3-8.2)
[2017-10-07] MEDS ORDERED: XOPENEX IH ONE (04:11)
[2017-10-07] MEDS ORDERED: ATROVENT IH ONE (04:11)
[2017-10-07] MEDS ORDERED: MAGNESIUM SULFATE 2GM/50ML 2 GM/50 ML BAG IV ONE (04:11)
[2017-10-07] MEDS ORDERED: ZITHROMAX 500 MG in NACL 0.9% 250ML 250 ML IV ONE (04:12)
--- NOTE | 2017-10-07 05:07 | Emergency Department Report ---
ED Shortness of Breath HPI - General Chief Complaint: Dyspnea/Respdistress Stated Complaint: SOB Time Seen by Provider: 10/07/17 03:42 Source: patient Mode of arrival: Ambulatory Limitations: No Limitations - History of Present Illness Initial Comments: 72-year-old female with a past medical history of COPD (no previous intubations ) presents to the hospital with complaints of shortness of breath with cough 2 days. Cough productive of green and brown sputum. She denies pain or fever. Using home nebs without improvement. Patient does not use home oxygen. - Related Data Previous Rx's Medication Instructions Recorded Last Taken Type ALBUTEROL Inhaler [ProAir HFA 2 puff IH QID PRN #1 inhalation 09/19/17 Unknown Rx Inhaler] Budesoni/Formotero 160-4.5(Nf) 2 puff IH BID #1 inha MDD 09/19/17 Unknown Rx [Symbicort 160-4.5 (Nf)] Budesoni/Formotero 80-4.5(Nf) Ipratropium/Albuterol Sulfate 1 ampul IH Q4HR 30 Days #100 09/19/17 Unknown Rx [DUONEB *Not for PRN Use*] ampul.neb Levofloxacin [Levaquin TAB] 750 mg PO Q24HR #7 tablet 09/19/17 Unknown Rx oxyCODONE /ACETAMINOPHEN [Percocet 1 tab PO Q6H PRN #40 tablet 09/19/17 Unknown Rx 5/325 mg] predniSONE [Deltasone] 20 mg PO QDAY #6 tablet 09/19/17 Unknown Rx Allergies Allergy/AdvReac Type Severity Reaction Status Date / Time No Known Allergies Allergy Verified 08/21/17 10:38 ED Review of Systems ROS: Stated complaint: SOB Other details as noted in HPI Comment: All other systems reviewed and negative Other: Constitutional: No fevers chills Eyes: No eye pain visual changes ENT: No ear pain or throat pain Neck: Denies pain Respiratory: As per HPI Cardiovascular: Denies chest pain, palpitations, syncope GI: Denies abdominal pain, nausea, vomiting, diarrhea : Denies dysuria Musculoskeletal: Denies back pain Skin: Denies rash, lesions, erythema Neurologic: Denies headache, numbness, weakness Psychiatric: Denies suicidal ideation, hallucinations ED Past Medical Hx - Past Medical History Previous Medical History?: Yes Hx Asthma: No Hx COPD: Yes Hx HIV: No Additional medical history: post-menopausal bleeding, bronchitis. Obesity - Surgical History Past Surgical History?: No - Social History Smoking Status: Never Smoker Substance Use Type: None - Medications Home Medications: Home Medications Medication Instructions Recorded Confirmed Last Taken Type ALBUTEROL Inhaler [ProAir HFA 2 puff IH QID PRN #1 inhalation 09/19/17 Unknown Rx Inhaler] Budesoni/Formotero 160-4.5(Nf) 2 puff IH BID #1 inha MDD 09/19/17 Unknown Rx [Symbicort 160-4.5 (Nf)] Budesoni/Formotero 80-4.5(Nf) Ipratropium/Albuterol Sulfate 1 ampul IH Q4HR 30 Days #100 09/19/17 Unknown Rx [DUONEB *Not for PRN Use*] ampul.neb Levofloxacin [Levaquin TAB] 750 mg PO Q24HR #7 tablet 09/19/17 Unknown Rx oxyCODONE /ACETAMINOPHEN [Percocet 1 tab PO Q6H PRN #40 tablet 09/19/17 Unknown Rx 5/325 mg] predniSONE [Deltasone] 20 mg PO QDAY #6 tablet 09/19/17 Unknown Rx ED Physical Exam - General Limitations: No Limitations - Other Other exam information: General: No limitations, patient is alert in no acute distress Head exam: Atraumatic, normocephalic Eyes exam: Normal appearance ENT: Moist mucous membrane, normal oropharynx Neck exam: Normal inspection, full range of motion, no meningismus nontender Respiratory exam: Accessory muscle use, pursed lip breathing, wheezing, tachypnea Cardiovascular: Tachycardia regular rhythm Abdomen: Soft, nondistended, and nontender, with normal bowel sounds, no rebound, or guarding Extremity: Full range of motion normal inspection no deformity Back: Normal Inspection, full range of motion, no tenderness Neurologic: Alert, oriented x3, cranial nerves intact, no motor or sensory deficit Psychiatric: normal affect, normal mood Skin: Warm, dry, intact ED Course Vital Signs 10/07/17 10/07/17 10/07/17 02:37 04:20 04:40 Temperature 98.3 F Pulse Rate 120 H Pulse Rate [ 126 H 135 H Anterior Bilateral Throughout] Respiratory 26 H Rate Respiratory 24 29 H Rate [Anterior Bilateral Throughout] Blood Pressure Blood Pressure 131/66 [Right] O2 Sat by Pulse 96 Oximetry 10/07/17 04:45 Temperature Pulse Rate 126 H Pulse Rate [ Anterior Bilateral Throughout] Respiratory 24 Rate Respiratory Rate [Anterior Bilateral Throughout] Blood Pressure 148/70 Blood Pressure [Right] O2 Sat by Pulse 100 Oximetry - Reevaluation(s) Reevaluation #1: 10/07/17 05:33 Patient received a DuoNeb without improvement. Will receive a second nebulized treatment and has been continued to have some respiratory distress therefore BiPAP initiated ED Medical Decision Making - Lab Data Result diagrams: 10/07/17 02:53 10/07/17 02:53 Lab Results 10/07/17 10/07/17 10/07/17 Range/Units 02:53 02:53 02:53 WBC 11.0 (4.5-11.0) K/mm3 RBC 4.75 (3.65-5.03) M/mm3 Hgb 12.5 (10.1-14.3) gm/dl Hct 38.7 (30.3-42.9) % MCV 82 (79-97) fl MCH 26 L (28-32) pg MCHC 32 (30-34) % RDW 15.5 H (13.2-15.2) % Plt Count 169 (140-440) K/mm3 Lymph % (Auto) 8.6 L (13.4-35.0) % [place] % (Auto) 5.1 (0.0-7.3) % Eos % (Auto) 9.5 H (0.0-4.3) % Baso % (Auto) 0.4 (0.0-1.8) % Lymph # 0.9 L (1.2-5.4) K/mm3 [place] # 0.6 (0.0-0.8) K/mm3 Eos # 1.0 H (0.0-0.4) K/mm3 Baso # 0.0 (0.0-0.1) K/mm3 Seg Neutrophils % 76.4 H (40.0-70.0) % Seg Neutrophils # 8.4 H (1.8-7.7) K/mm3 VBG pH (7.320-7.420) Sodium (137-145) mmol/L Potassium (3.6-5.0) mmol/L Chloride (98-107) mmol/L Carbon Dioxide (22-30) mmol/L Anion Gap mmol/L BUN (7-17) mg/dL Creatinine (0.7-1.2) mg/dL Estimated GFR ml/min BUN/Creatinine Ratio % Glucose (65-100) mg/dL Lactic Acid 1.30 (0.7-2.0) mmol/L Calcium (8.4-10.2) mg/dL Total Bilirubin (0.1-1.2) mg/dL AST (5-40) units/L ALT (7-56) units/L Alkaline Phosphatase (35-129) units/L Troponin T < 0.010 (0.00-0.029) ng/mL NT-Pro-B Natriuret Pep (0-900) pg/mL Total Protein (6.3-8.2) g/dL Albumin (3.9-5) g/dL Albumin/Globulin Ratio % 10/07/17 10/07/17 10/07/17 Range/Units 02:53 02:53 04:09 WBC (4.5-11.0) K/mm3 RBC (3.65-5.03) M/mm3 Hgb (10.1-14.3) gm/dl Hct (30.3-42.9) % MCV (79-97) fl MCH (28-32) pg MCHC (30-34) % RDW (13.2-15.2) % Plt Count (140-440) K/mm3 Lymph % (Auto) (13.4-35.0) % [place] % (Auto) (0.0-7.3) % Eos % (Auto) (0.0-4.3) % Baso % (Auto) (0.0-1.8) % Lymph # (1.2-5.4) K/mm3 [place] # (0.0-0.8) K/mm3 Eos # (0.0-0.4) K/mm3 Baso # (0.0-0.1) K/mm3 Seg Neutrophils % (40.0-70.0) % Seg Neutrophils # (1.8-7.7) K/mm3 VBG pH 7.337 (7.320-7.420) Sodium 139 (137-145) mmol/L Potassium 3.6 (3.6-5.0) mmol/L Chloride 100.6 (98-107) mmol/L Carbon Dioxide 20 L (22-30) mmol/L Anion Gap 22 mmol/L BUN 18 H (7-17) mg/dL Creatinine 0.6 L (0.7-1.2) mg/dL Estimated GFR > 60 ml/min BUN/Creatinine Ratio 30 % Glucose 138 H (65-100) mg/dL Lactic Acid (0.7-2.0) mmol/L Calcium 8.9 (8.4-10.2) mg/dL Total Bilirubin 0.60 (0.1-1.2) mg/dL AST 15 (5-40) units/L ALT 14 (7-56) units/L Alkaline Phosphatase 79 (35-129) units/L Troponin T (0.00-0.029) ng/mL NT-Pro-B Natriuret Pep 12.66 (0-900) pg/mL Total Protein 6.5 (6.3-8.2) g/dL Albumin 3.1 L (3.9-5) g/dL Albumin/Globulin Ratio 0.9 % - EKG Data -: EKG Interpreted by Ar EKG shows normal: sinus rhythm, axis (5), QRS complexes (83), ST-T waves (no stemi/t inv) Rate: tachycardia (117) - EKG Data When compared to previous EKG there are: no significant change (compared to 09/17) - Radiology Data Radiology results: report reviewed Chest x-ray: Mild prominence of the interstitium which may be mild atelectasis or edema. No consolidation or effusion - Medical Decision Making BiPAP was initiated due to continued respiratory distress. Nebulized treatments , Solu-Medrol, and magnesium provided. Azithromycin also provided to cover for atypical pneumonia - Differential Diagnosis CHF, bronchitis, asthma, pneumonia Critical Care Time: No Critical care attestation.: If time is entered above; I have spent that time in minutes in the direct care of this critically ill patient, excluding procedure time. ED Disposition Clinical Impression: Acute exacerbation of chronic obstructive pulmonary disease (COPD) Disposition: OP ADMIT IP TO THIS HOSP Is pt being admited?: Yes Condition: Stable Time of Disposition: 05:07 (Dr barrow/hosp)
[2017-10-07] MEDS ORDERED: TYLENOL PO PRN (05:41)
[2017-10-07] MEDS ORDERED: ZOFRAN IV PRN (05:41)
[2017-10-07] MEDS ORDERED: DULCOLAX PR PRN (05:41)
[2017-10-07] MEDS ORDERED: MILK OF MAGNESIA PO PRN (05:41)
--- NOTE | 2017-10-07 05:43 | History and Physical Report ---
History of Present Illness Date of examination: 10/07/17 History of present illness: 72-year-old woman with a history of COPD comes emergency room with complaints of worsening shortness of breath for 4 days, not relieved with nebulizer treatments. She also complained of cough productive of green-brown phlegm, no fever, chills. BiPAP was started in the emergency room Review Of Systems: Constitutional: no weight loss Ears, eyes, nose, mouth and throat: no nasal congestion, no nasal discharge, no sinus pressure, blurry vision, diplopia Neck: No neck pain or rigidity. Cardiovascular: chest pain, orthopnea, palpitations Respiratory: + shortness of breath, cough Gastrointestinal: abdominal pain, hematochezia Genitourinary : no dysuria, frequency , hematuria Musculoskeletal: no muscle ache Integumentary: no rash, no pruritis Neurological: no parathesias, focal weakness Endocrine: no cold or heat intolerance, no polyuria or polydipsia Hematologic/Lymphatic: no easy bruising, no easy bleeding, no gland swelling Allergic/Immunologic: no urticaria, no angioedema. PAST MEDICAL HISTORY:COPD PAST SURGICAL HISTORY:none FAMILY HISTORY: Hypertension SOCIAL HISTORY: Denies alcohol, tobacco, drugs Medications and Allergies Allergies Allergy/AdvReac Type Severity Reaction Status Date / Time No Known Allergies Allergy Verified 08/21/17 10:38 Home Medications Medication Instructions Recorded Confirmed Last Taken Type ALBUTEROL Inhaler [ProAir HFA 2 puff IH QID PRN #1 inhalation 09/19/17 Unknown Rx Inhaler] Budesoni/Formotero 160-4.5(Nf) 2 puff IH BID #1 inha MDD 09/19/17 Unknown Rx [Symbicort 160-4.5 (Nf)] Budesoni/Formotero 80-4.5(Nf) Ipratropium/Albuterol Sulfate 1 ampul IH Q4HR 30 Days #100 09/19/17 Unknown Rx [DUONEB *Not for PRN Use*] ampul.neb Levofloxacin [Levaquin TAB] 750 mg PO Q24HR #7 tablet 09/19/17 Unknown Rx oxyCODONE /ACETAMINOPHEN [Percocet 1 tab PO Q6H PRN #40 tablet 09/19/17 Unknown Rx 5/325 mg] predniSONE [Deltasone] 20 mg PO QDAY #6 tablet 09/19/17 Unknown Rx Exam - Physical Exam Narrative exam: Gen. appearance: Patient lying in bed in no acute distress HEENT: Normocephalic/atraumatic, pupils equal round reactive to light, extra alkaline movement intact, no scleral icterus, no JVD or thyromegaly or nodule, neck is supple, mucous membrane moist, no erythema or exudate Heart: S1-S2, regular rate and rhythm Lungs: Diffuse wheezing, decrease air entry bilateral breathing comfortable Abdomen: Positive bowel sounds, nontender, nondistended, no organomegaly Extremities: No edema, cyanosis, clubbing Neuro:: Oriented 3 , cranial nerves II-12 intact, speech, motor intact Skin: No rash, nodules, warm dry - Constitutional Vitals: Temp Pulse Resp BP Pulse Ox 98.3 F 126 H 24 148/70 100 10/07/17 02:37 10/07/17 04:45 10/07/17 04:45 10/07/17 04:45 10/07/17 04:45 Results - Labs CBC & Chem 7: 10/07/17 02:53 10/07/17 02:53 Labs: Abnormal lab results 10/07/17 10/07/17 Range/Units 02:53 02:53 MCH 26 L (28-32) pg RDW 15.5 H (13.2-15.2) % Lymph % (Auto) 8.6 L (13.4-35.0) % Eos % (Auto) 9.5 H (0.0-4.3) % Lymph # 0.9 L (1.2-5.4) K/mm3 Eos # 1.0 H (0.0-0.4) K/mm3 Seg Neutrophils % 76.4 H (40.0-70.0) % Seg Neutrophils # 8.4 H (1.8-7.7) K/mm3 Carbon Dioxide 20 L (22-30) mmol/L BUN 18 H (7-17) mg/dL Creatinine 0.6 L (0.7-1.2) mg/dL Glucose 138 H (65-100) mg/dL Albumin 3.1 L (3.9-5) g/dL Assessment and Plan Assessment Acute respiratory failure, hypoxic Acute COPD exacerbation with bronchitis Plan Admit to medicine Start high-dose IV steroids, nebulizer treatments, antibiotics Continue BiPAP, DVT prophylaxis
[2017-10-07] MEDS: DUONEB *Not for PRN Use IH SCH ×3 (09:19→20:44)
[2017-10-07] MEDS: LOVENOX SUB-Q SCH (10:34)
--- NOTE | 2017-10-07 15:08 | Event Note ---
Date: 10/07/17 Pt seen and examined. Was admitted today with a history of acute respiratory failure from COPD exerceation. On Bronchiodilator and iv solumedtol. Will continue with the same treatment regimen and f/u with ordered laboratory test.
[2017-10-07 23:26] LABS: Bilirubin,Urine NEG (Negative); Blood,Urine MOD (Negative); Ketones,Urine NEG (Negative); Leukocyte Esterase,Urine NEG (Negative); Mucus,Urine FEW /HPF; Nitrite,Urine NEG (Negative); Protein,Urine <15 mg/dL mg/dL (Negative); Urobilinogen,Urine < 2.0 mg/dL (<2.0)
[2017-10-08] MEDS: DUONEB *Not for PRN Use IH SCH ×4 (01:54→20:49)
[2017-10-08 05:53] LABS: Hematocrit 35.4 % (30.3-42.9); Hemoglobin 11.6 gm/dl (10.1-14.3); Mean Corpuscular HGB Conc 33 % (30-34); Mean Corpuscular Hemoglobin 26 pg (28-32); Mean Corpuscular Volume 80 fl (79-97); Platelet Count 191 K/mm3 (140-440); Red Blood Count 4.43 M/mm3 (3.65-5.03); Red Cell Distribution Width 15.3 % (13.2-15.2); White Blood Count 12.4 K/mm3 (4.5-11.0)
[2017-10-08] MEDS ORDERED: ZITHROMAX 500 MG in NACL 0.9% 250ML 250 ML IV SCH (06:00)
[2017-10-08 06:09] LABS: Anion Gap 17 mmol/L; BUN/Creatinine Ratio 32; Blood Urea Nitrogen 16 mg/dL (7-17); Carbon Dioxide 25 mmol/L (22-30); Chloride 101.9 mmol/L (98-107); Glucose 207 mg/dL (65-100); Potassium 3.5 mmol/L (3.6-5.0); Sodium 140 mmol/L (137-145)
[2017-10-08 09:05] LABS: Basophils % (Manual) 0 % (0.0-1.8); Blastocytes % (Manual) 0 %; Eosinophils % (Manual) 0 % (0.0-4.3)
[2017-10-08 09:06] LABS: Diff Status Complete; RBC Morphology Normal
[2017-10-08] MEDS ORDERED: PROVENTIL IH PRN (09:24)
[2017-10-08] MEDS: LOVENOX SUB-Q SCH (10:46)
--- NOTE | 2017-10-08 14:48 | Progress Note ---
Assessment and Plan Assessment and plan: Acute hypoxic respiratory failure COPD exacerbation Pneumonitis Obesity Hypertension - Patient is on IV Solu-Medrol, nebulizer, IV Levaquin - CTA ordered - Blood pressure is well controlled - Patient is counseled about weight loss DVT prophylaxis - Lovenox Disposition - Continue inpatient care. Possible discharge tomorrow. History Interval history: Patient was seen and evaluated this morning, she still complains wheezing and shortness of breath. Hospitalist Physical - Physical exam Narrative exam: Not in cardiopulmonary distress. The patient is morbidly obese. Vital signs as documented. Head exam is unremarkable. No scleral icterus . Neck is without jugular venous distension, thyromegaly, or carotid bruits. Lungs wheezing all over the chest. Cardiac exam reveals regular rate and Rhythm. First and second heart sounds normal. No murmurs, rubs or gallops. Abdominal exam reveals normal bowel sounds, no masses, no organomegaly and no aortic enlargement. Extremities are nonedematous and both femoral and pedal pulses are normal. AUDIO TAPE LIBRARIAN: Alert and oriented 3. No focal weakness. - Constitutional Vitals: Temp Pulse Resp BP Pulse Ox 97.7 F 90 20 123/52 100 10/08/17 13:01 10/08/17 14:36 10/08/17 14:36 10/08/17 13:01 10/08/17 14:18 Results - Labs CBC & Chem 7: 10/08/17 05:12 10/08/17 05:12 Labs: Laboratory Last Values WBC 12.4 K/mm3 (4.5-11.0) H 10/08/17 05:12 RBC 4.43 M/mm3 (3.65-5.03) 10/08/17 05:12 Hgb 11.6 gm/dl (10.1-14.3) 10/08/17 05:12 Hct 35.4 % (30.3-42.9) 10/08/17 05:12 MCV 80 fl (79-97) 10/08/17 05:12 MCH 26 pg (28-32) L 10/08/17 05:12 MCHC 33 % (30-34) 10/08/17 05:12 RDW 15.3 % (13.2-15.2) H 10/08/17 05:12 Plt Count 191 K/mm3 (140-440) 10/08/17 05:12 Lymph % (Auto) 8.6 % (13.4-35.0) L 10/07/17 02:53 [place] % (Auto) 5.1 % (0.0-7.3) 10/07/17 02:53 Eos % (Auto) 9.5 % (0.0-4.3) H 10/07/17 02:53 Baso % (Auto) 0.4 % (0.0-1.8) 10/07/17 02:53 Lymph # 0.9 K/mm3 (1.2-5.4) L 10/07/17 02:53 [place] # 0.6 K/mm3 (0.0-0.8) 10/07/17 02:53 Eos # 1.0 K/mm3 (0.0-0.4) H 10/07/17 02:53 Baso # 0.0 K/mm3 (0.0-0.1) 10/07/17 02:53 Add Manual Diff Complete 10/08/17 05:12 Total Counted 100 10/08/17 05:12 Seg Neutrophils % Asbestos Microscopist 10/08/17 05:12 Seg Neuts % (Manual) 88.0 % (40.0-70.0) H 10/08/17 05:12 Band Neutrophils % 6.0 % 10/08/17 05:12 Lymphocytes % (Manual) 3.0 % (13.4-35.0) L 10/08/17 05:12 Reactive Lymphs % (Man) 0 % 10/08/17 05:12 Monocytes % (Manual) 3.0 % (0.0-7.3) 10/08/17 05:12 Eosinophils % (Manual) 0 % (0.0-4.3) 10/08/17 05:12 Basophils % (Manual) 0 % (0.0-1.8) 10/08/17 05:12 Metamyelocytes % 0 % 10/08/17 05:12 Myelocytes % 0 % 10/08/17 05:12 Promyelocytes % 0 % 10/08/17 05:12 Blast Cells % 0 % 10/08/17 05:12 Nucleated RBC % Not Reportable 10/08/17 05:12 Seg Neutrophils # 8.4 K/mm3 (1.8-7.7) H 10/07/17 02:53 Seg Neutrophils # Man 10.9 K/mm3 (1.8-7.7) H 10/08/17 05:12 Band Neutrophils # 0.7 K/mm3 10/08/17 05:12 Lymphocytes # (Manual) 0.4 K/mm3 (1.2-5.4) L 10/08/17 05:12 Abs React Lymphs (Man) 0.0 K/mm3 10/08/17 05:12 Monocytes # (Manual) 0.4 K/mm3 (0.0-0.8) 10/08/17 05:12 Eosinophils # (Manual) 0.0 K/mm3 (0.0-0.4) 10/08/17 05:12 Basophils # (Manual) 0.0 K/mm3 (0.0-0.1) 10/08/17 05:12 Metamyelocytes # 0.0 K/mm3 10/08/17 05:12 Myelocytes # 0.0 K/mm3 10/08/17 05:12 Promyelocytes # 0.0 K/mm3 10/08/17 05:12 Blast Cells # 0.0 K/mm3 10/08/17 05:12 WBC Morphology Not Reportable 10/08/17 05:12 Hypersegmented Neuts Not Reportable 10/08/17 05:12 Hyposegmented Neuts Not Reportable 10/08/17 05:12 Hypogranular Neuts Not Reportable 10/08/17 05:12 Smudge Cells Not Reportable 10/08/17 05:12 Toxic Granulation Not Reportable 10/08/17 05:12 Toxic Vacuolation Not Reportable 10/08/17 05:12 Dohle Bodies Not Reportable 10/08/17 05:12 Pelger-Huet Anomaly Not Reportable 10/08/17 05:12 Christopher Rods Not Reportable 10/08/17 05:12 Platelet Estimate Not Reportable 10/08/17 05:12 Clumped Platelets Not Reportable 10/08/17 05:12 Plt Clumps, EDTA Not Reportable 10/08/17 05:12 Large Platelets Not Reportable 10/08/17 05:12 Giant Platelets Not Reportable 10/08/17 05:12 Platelet Satelliting Not Reportable 10/08/17 05:12 Plt Morphology Comment Not Reportable 10/08/17 05:12 RBC Morphology Normal 10/08/17 05:12 Dimorphic RBCs Not Reportable 10/08/17 05:12 Polychromasia Not Reportable 10/08/17 05:12 Hypochromasia Not Reportable 10/08/17 05:12 Poikilocytosis Not Reportable 10/08/17 05:12 Anisocytosis Not Reportable 10/08/17 05:12 Microcytosis Not Reportable 10/08/17 05:12 Macrocytosis Not Reportable 10/08/17 05:12 Spherocytes Not Reportable 10/08/17 05:12 Pappenheimer Bodies Not Reportable 10/08/17 05:12 Sickle Cells Not Reportable 10/08/17 05:12 Target Cells Not Reportable 10/08/17 05:12 Tear Drop Cells Not Reportable 10/08/17 05:12 Ovalocytes Not Reportable 10/08/17 05:12 Helmet Cells Not Reportable 10/08/17 05:12 Simms-Jennings Bodies Not Reportable 10/08/17 05:12 [place] Rings Not Reportable 10/08/17 05:12 Tomás Cells Not Reportable 10/08/17 05:12 Bite Cells Not Reportable 10/08/17 05:12 Crenated Cell Not Reportable 10/08/17 05:12 Elliptocytes Not Reportable 10/08/17 05:12 Acanthocytes (Spur) Not Reportable 10/08/17 05:12 Rouleaux Not Reportable 10/08/17 05:12 Hemoglobin C Crystals Not Reportable 10/08/17 05:12 Schistocytes Not Reportable 10/08/17 05:12 Malaria parasites Not Reportable 10/08/17 05:12 Abdias Bodies Not Reportable 10/08/17 05:12 Hem Pathologist Commnt No 10/08/17 05:12 VBG pH 7.337 (7.320-7.420) 10/07/17 02:53 Sodium 140 mmol/L (137-145) 10/08/17 05:12 Potassium 3.5 mmol/L (3.6-5.0) L 10/08/17 05:12 Chloride 101.9 mmol/L (98-107) 10/08/17 05:12 Carbon Dioxide 25 mmol/L (22-30) 10/08/17 05:12 Anion Gap 17 mmol/L 10/08/17 05:12 BUN 16 mg/dL (7-17) 10/08/17 05:12 Creatinine 0.5 mg/dL (0.7-1.2) L 10/08/17 05:12 Estimated GFR > 60 ml/min 10/08/17 05:12 BUN/Creatinine Ratio 32 % 10/08/17 05:12 Glucose 207 mg/dL (65-100) H 10/08/17 05:12 Lactic Acid 1.30 mmol/L (0.7-2.0) 10/07/17 02:53 Calcium 9.0 mg/dL (8.4-10.2) 10/08/17 05:12 Total Bilirubin 0.60 mg/dL (0.1-1.2) 10/07/17 02:53 AST 15 units/L (5-40) 10/07/17 02:53 ALT 14 units/L (7-56) 10/07/17 02:53 Alkaline Phosphatase 79 units/L (35-129) 10/07/17 02:53 Troponin T < 0.010 ng/mL (0.00-0.029) 10/07/17 02:53 NT-Pro-B Natriuret Pep 12.66 pg/mL (0-900) 10/07/17 04:09 Total Protein 6.5 g/dL (6.3-8.2) 10/07/17 02:53 Albumin 3.1 g/dL (3.9-5) L 10/07/17 02:53 Albumin/Globulin Ratio 0.9 % 10/07/17 02:53 Urine Color Yellow (Yellow) 10/07/17 Unknown Urine Turbidity Clear (Clear) 10/07/17 Unknown Urine pH 5.0 (5.0-7.0) 10/07/17 Unknown Ur Specific [place] 1.027 (1.003-1.030) 10/07/17 Unknown Urine Protein <15 mg/dl mg/dL (Negative) 10/07/17 Unknown Urine Glucose (UA) >=500 mg/dL (Negative) 10/07/17 Unknown Urine Ketones Neg mg/dL (Negative) 10/07/17 Unknown Urine Blood Mod (Negative) 10/07/17 Unknown Urine Nitrite Neg (Negative) 10/07/17 Unknown Urine Bilirubin Neg (Negative) 10/07/17 Unknown Urine Urobilinogen < 2.0 mg/dL (<2.0) 10/07/17 Unknown Ur Leukocyte Esterase Neg (Negative) 10/07/17 Unknown Urine WBC (Auto) 1.0 /HPF (0.0-6.0) 10/07/17 Unknown Urine RBC (Auto) 3.0 /HPF (0.0-6.0) 10/07/17 Unknown U Epithel Cells (Auto) < 1.0 /HPF (0-13.0) 10/07/17 Unknown Hyaline Casts 1 /LPF 10/07/17 Unknown Urine Mucus Few /HPF 10/07/17 Unknown
[2017-10-08] MEDS ORDERED: NACL ONE ×2 (14:53→21:13)
[2017-10-08] MEDS: LEVAQUIN 750MG/150ML 750 MG/150 ML BAG IV SCH (17:20)
[2017-10-08] MEDS: GUAIFENESIN DM SYRUP PO PRN (17:21)
[2017-10-08] MEDS: PULMICORT IH SCH (20:48)
--- NOTE | 2017-10-08 22:54 | Cat Scan Report ---
FINAL REPORT PROCEDURE: CT ANGIO CHEST TECHNIQUE: Computerized tomographic angiography of the chest was performed after the IV injection of iodinated nonionic contrast including image processing. The image data was postprocessed using 2-dimensional multiplanar reformatted (MPR) and 3-dimensional (MIP and/or volume rendered) techniques. HISTORY: sob COMPARISON: No prior studies are available for comparison. FINDINGS: Thyroid: Heterogeneous thyroid gland with low attenuated lesions in the left greater than right lobe may warrant further workup with thyroid ultrasound. Heart and pericardium: Normal. Thoracic aorta: Mild atherosclerosis Pulmonary vasculature: No large or central PE seen. Main pulmonary artery trunk right left main pulmonary arteries opacified. There is some attenuation of distal branch vessels at the secondary tertiary branches including the lower lungs and right upper lobe area likely phase of IV contrast flow. Attenuation pulmonary artery 170 HU and aorta 190 HU Lymph nodes: Pretracheal adenopathy in the 1 x 1.5 centimeter range with 1.5 x 1.5 centimeter and 1 centimeter lymph nodes AP window periaortic area 1 x 1 centimeter in the right greater than left hilar areas Lungs: Normal. Mild diffuse pulmonary emphysema with spiculated scar-like densities in the upper lung zones right greater than left apices slight patchy atelectasis in the anterior sulcus lower lung zones right greater than left Musculoskeletal: Diffuse degenerative changes of the thoracic spine with prominent flowing anterior osteophytes Upper abdomen: Low attenuated lesion anterior pole of the spleen measuring 3.2 centimeters possible cyst or hemangioma indeterminate. Fatty infiltration of enlarged liver. Mildly heterogeneous gallbladder. Consider ultrasound. Small cyst suspected in the right posterior kidney IMPRESSION: No evidence of large or central PE seen. Scattered mild adenopathy Details above Followup advised as warranted
[2017-10-09] MEDS: DUONEB *Not for PRN Use IH SCH ×5 (01:34→20:01)
[2017-10-09] MEDS: GUAIFENESIN DM SYRUP PO PRN ×4 (01:55→21:48)
[2017-10-09] MEDS: LEVAQUIN 750MG/150ML 750 MG/150 ML BAG IV SCH (09:14)
[2017-10-09] MEDS: LOVENOX SUB-Q SCH ×2 (09:15→09:19)
[2017-10-09] MEDS: PULMICORT IH SCH ×2 (10:36→20:01)
[2017-10-09] MEDS ORDERED: K-DUR PO ONE (13:27)
--- NOTE | 2017-10-09 13:29 | Progress Note ---
Assessment and Plan Assessment and plan: Acute hypoxic respiratory failure COPD exacerbation Pneumonitis Obesity Hypertension - Patient is on IV Solu-Medrol, nebulizer, IV Levaquin - CTA is negative for PE - Blood pressure is well controlled - Patient is counseled about weight loss DVT prophylaxis - Lovenox Disposition - Continue inpatient care. Possible discharge tomorrow. History Interval history: Patient was seen and evaluated this morning, she still complains wheezing and shortness of breath. Hospitalist Physical - Physical exam Narrative exam: Not in cardiopulmonary distress. The patient is morbidly obese. Vital signs as documented. Head exam is unremarkable. No scleral icterus . Neck is without jugular venous distension, thyromegaly, or carotid bruits. Lungs wheezing all over the chest. Cardiac exam reveals regular rate and Rhythm. First and second heart sounds normal. No murmurs, rubs or gallops. Abdominal exam reveals normal bowel sounds, no masses, no organomegaly and no aortic enlargement. Extremities are nonedematous and both femoral and pedal pulses are normal. SOFTWARE ENGINEERING SPECIALIST: Alert and oriented 3. No focal weakness. - Constitutional Vitals: Temp Pulse Resp BP Pulse Ox 97.8 F 100 H 20 147/65 100 10/09/17 11:22 10/09/17 11:22 10/09/17 11:22 10/09/17 11:22 10/09/17 11:22 Results - Labs CBC & Chem 7: 10/08/17 05:12 10/08/17 05:12 Labs: Laboratory Last Values WBC 12.4 K/mm3 (4.5-11.0) H 10/08/17 05:12 RBC 4.43 M/mm3 (3.65-5.03) 10/08/17 05:12 Hgb 11.6 gm/dl (10.1-14.3) 10/08/17 05:12 Hct 35.4 % (30.3-42.9) 10/08/17 05:12 MCV 80 fl (79-97) 10/08/17 05:12 MCH 26 pg (28-32) L 10/08/17 05:12 MCHC 33 % (30-34) 10/08/17 05:12 RDW 15.3 % (13.2-15.2) H 10/08/17 05:12 Plt Count 191 K/mm3 (140-440) 10/08/17 05:12 Lymph % (Auto) 8.6 % (13.4-35.0) L 10/07/17 02:53 [place] % (Auto) 5.1 % (0.0-7.3) 10/07/17 02:53 Eos % (Auto) 9.5 % (0.0-4.3) H 10/07/17 02:53 Baso % (Auto) 0.4 % (0.0-1.8) 10/07/17 02:53 Lymph # 0.9 K/mm3 (1.2-5.4) L 10/07/17 02:53 [place] # 0.6 K/mm3 (0.0-0.8) 10/07/17 02:53 Eos # 1.0 K/mm3 (0.0-0.4) H 10/07/17 02:53 Baso # 0.0 K/mm3 (0.0-0.1) 10/07/17 02:53 Add Manual Diff Complete 10/08/17 05:12 Total Counted 100 10/08/17 05:12 Seg Neutrophils % [place] 10/08/17 05:12 Seg Neuts % (Manual) 88.0 % (40.0-70.0) H 10/08/17 05:12 Band Neutrophils % 6.0 % 10/08/17 05:12 Lymphocytes % (Manual) 3.0 % (13.4-35.0) L 10/08/17 05:12 Reactive Lymphs % (Man) 0 % 10/08/17 05:12 Monocytes % (Manual) 3.0 % (0.0-7.3) 10/08/17 05:12 Eosinophils % (Manual) 0 % (0.0-4.3) 10/08/17 05:12 Basophils % (Manual) 0 % (0.0-1.8) 10/08/17 05:12 Metamyelocytes % 0 % 10/08/17 05:12 Myelocytes % 0 % 10/08/17 05:12 Promyelocytes % 0 % 10/08/17 05:12 Blast Cells % 0 % 10/08/17 05:12 Nucleated RBC % Not Reportable 10/08/17 05:12 Seg Neutrophils # 8.4 K/mm3 (1.8-7.7) H 10/07/17 02:53 Seg Neutrophils # Man 10.9 K/mm3 (1.8-7.7) H 10/08/17 05:12 Band Neutrophils # 0.7 K/mm3 10/08/17 05:12 Lymphocytes # (Manual) 0.4 K/mm3 (1.2-5.4) L 10/08/17 05:12 Abs React Lymphs (Man) 0.0 K/mm3 10/08/17 05:12 Monocytes # (Manual) 0.4 K/mm3 (0.0-0.8) 10/08/17 05:12 Eosinophils # (Manual) 0.0 K/mm3 (0.0-0.4) 10/08/17 05:12 Basophils # (Manual) 0.0 K/mm3 (0.0-0.1) 10/08/17 05:12 Metamyelocytes # 0.0 K/mm3 10/08/17 05:12 Myelocytes # 0.0 K/mm3 10/08/17 05:12 Promyelocytes # 0.0 K/mm3 10/08/17 05:12 Blast Cells # 0.0 K/mm3 10/08/17 05:12 WBC Morphology Not Reportable 10/08/17 05:12 Hypersegmented Neuts Not Reportable 10/08/17 05:12 Hyposegmented Neuts Not Reportable 10/08/17 05:12 Hypogranular Neuts Not Reportable 10/08/17 05:12 Smudge Cells Not Reportable 10/08/17 05:12 Toxic Granulation Not Reportable 10/08/17 05:12 Toxic Vacuolation Not Reportable 10/08/17 05:12 Dohle Bodies Not Reportable 10/08/17 05:12 Pelger-Huet Anomaly Not Reportable 10/08/17 05:12 Christopher Rods Not Reportable 10/08/17 05:12 Platelet Estimate Not Reportable 10/08/17 05:12 Clumped Platelets Not Reportable 10/08/17 05:12 Plt Clumps, EDTA Not Reportable 10/08/17 05:12 Large Platelets Not Reportable 10/08/17 05:12 Giant Platelets Not Reportable 10/08/17 05:12 Platelet Satelliting Not Reportable 10/08/17 05:12 Plt Morphology Comment Not Reportable 10/08/17 05:12 RBC Morphology Normal 10/08/17 05:12 Dimorphic RBCs Not Reportable 10/08/17 05:12 Polychromasia Not Reportable 10/08/17 05:12 Hypochromasia Not Reportable 10/08/17 05:12 Poikilocytosis Not Reportable 10/08/17 05:12 Anisocytosis Not Reportable 10/08/17 05:12 Microcytosis Not Reportable 10/08/17 05:12 Macrocytosis Not Reportable 10/08/17 05:12 Spherocytes Not Reportable 10/08/17 05:12 Pappenheimer Bodies Not Reportable 10/08/17 05:12 Sickle Cells Not Reportable 10/08/17 05:12 Target Cells Not Reportable 10/08/17 05:12 Tear Drop Cells Not Reportable 10/08/17 05:12 Ovalocytes Not Reportable 10/08/17 05:12 Helmet Cells Not Reportable 10/08/17 05:12 [place] Bodies Not Reportable 10/08/17 05:12 Peak Rings Not Reportable 10/08/17 05:12 [place] Cells Not Reportable 10/08/17 05:12 Bite Cells Not Reportable 10/08/17 05:12 Crenated Cell Not Reportable 10/08/17 05:12 Elliptocytes Not Reportable 10/08/17 05:12 Acanthocytes (Spur) Not Reportable 10/08/17 05:12 Rouleaux Not Reportable 10/08/17 05:12 Hemoglobin C Crystals Not Reportable 10/08/17 05:12 Schistocytes Not Reportable 10/08/17 05:12 Malaria parasites Not Reportable 10/08/17 05:12 Abdias Bodies Not Reportable 10/08/17 05:12 Hem Pathologist Commnt No 10/08/17 05:12 VBG pH 7.337 (7.320-7.420) 10/07/17 02:53 Sodium 140 mmol/L (137-145) 10/08/17 05:12 Potassium 3.5 mmol/L (3.6-5.0) L 10/08/17 05:12 Chloride 101.9 mmol/L (98-107) 10/08/17 05:12 Carbon Dioxide 25 mmol/L (22-30) 10/08/17 05:12 Anion Gap 17 mmol/L 10/08/17 05:12 BUN 16 mg/dL (7-17) 10/08/17 05:12 Creatinine 0.5 mg/dL (0.7-1.2) L 10/08/17 05:12 Estimated GFR > 60 ml/min 10/08/17 05:12 BUN/Creatinine Ratio 32 % 10/08/17 05:12 Glucose 207 mg/dL (65-100) H 10/08/17 05:12 POC Glucose 196 (70-105) H 10/09/17 08:13 Lactic Acid 1.30 mmol/L (0.7-2.0) 10/07/17 02:53 Calcium 9.0 mg/dL (8.4-10.2) 10/08/17 05:12 Total Bilirubin 0.60 mg/dL (0.1-1.2) 10/07/17 02:53 AST 15 units/L (5-40) 10/07/17 02:53 ALT 14 units/L (7-56) 10/07/17 02:53 Alkaline Phosphatase 79 units/L (35-129) 10/07/17 02:53 Troponin T < 0.010 ng/mL (0.00-0.029) 10/07/17 02:53 NT-Pro-B Natriuret Pep 12.66 pg/mL (0-900) 10/07/17 04:09 Total Protein 6.5 g/dL (6.3-8.2) 10/07/17 02:53 Albumin 3.1 g/dL (3.9-5) L 10/07/17 02:53 Albumin/Globulin Ratio 0.9 % 10/07/17 02:53 Urine Color Yellow (Yellow) 10/07/17 Unknown Urine Turbidity Clear (Clear) 10/07/17 Unknown Urine pH 5.0 (5.0-7.0) 10/07/17 Unknown Ur Specific [place] 1.027 (1.003-1.030) 10/07/17 Unknown Urine Protein <15 mg/dl mg/dL (Negative) 10/07/17 Unknown Urine Glucose (UA) >=500 mg/dL (Negative) 10/07/17 Unknown Urine Ketones Neg mg/dL (Negative) 10/07/17 Unknown Urine Blood Mod (Negative) 10/07/17 Unknown Urine Nitrite Neg (Negative) 10/07/17 Unknown Urine Bilirubin Neg (Negative) 10/07/17 Unknown Urine Urobilinogen < 2.0 mg/dL (<2.0) 10/07/17 Unknown Ur Leukocyte Esterase Neg (Negative) 10/07/17 Unknown Urine WBC (Auto) 1.0 /HPF (0.0-6.0) 10/07/17 Unknown Urine RBC (Auto) 3.0 /HPF (0.0-6.0) 10/07/17 Unknown U Epithel Cells (Auto) < 1.0 /HPF (0-13.0) 10/07/17 Unknown Hyaline Casts 1 /LPF 10/07/17 Unknown Urine Mucus Few /HPF 10/07/17 Unknown
[2017-10-09 15:55] LABS: Hematocrit 35.6 % (30.3-42.9); Hemoglobin 11.3 gm/dl (10.1-14.3); Mean Corpuscular HGB Conc 32 % (30-34); Mean Corpuscular Volume 80 fl (79-97); Platelet Count 231 K/mm3 (140-440); Red Blood Count 4.43 M/mm3 (3.65-5.03); Red Cell Distribution Width 15.7 % (13.2-15.2); White Blood Count 17.3 K/mm3 (4.5-11.0)
[2017-10-09 15:59] LABS: Anion Gap 18 mmol/L; BUN/Creatinine Ratio 30; Blood Urea Nitrogen 21 mg/dL (7-17); Calcium 9.2 mg/dL (8.4-10.2); Carbon Dioxide 27 mmol/L (22-30); Chloride 101.7 mmol/L (98-107); Glucose 248 mg/dL (65-100); Potassium 3.7 mmol/L (3.6-5.0); Sodium 143 mmol/L (137-145)
[2017-10-09 16:10] LABS: Mean Corpuscular Hemoglobin 26 pg (28-32)
[2017-10-09 17:15] LABS: Basophils % (Manual) 0 % (0.0-1.8); Blastocytes % (Manual) 0 %; Eosinophils % (Manual) 0 % (0.0-4.3)
[2017-10-09 17:16] LABS: Giant Platelets Few; Hypochromasia 1+; Ovalocytes Few
[2017-10-09 17:17] LABS: Diff Status Complete
[2017-10-10] MEDS: DUONEB *Not for PRN Use IH SCH ×3 (02:28→13:39)
[2017-10-10 04:14] VITALS: BP 100/73
[2017-10-10] MEDS: PULMICORT IH SCH (07:15)
[2017-10-10] MEDS: LEVAQUIN 750MG/150ML 750 MG/150 ML BAG IV SCH (09:22)
[2017-10-10] MEDS: LOVENOX SUB-Q SCH ×2 (09:22→09:31)
--- NOTE | 2017-10-10 11:55 | Discharge Summary ---
Providers - Providers Date of Admission: 10/07/17 05:41 Attending physician: JCARLOS GAN MD 10/09/17 13:41 Consult to Dietitian/Nutrition [CONS] Routine Physician Instructions: Reason For Exam: Reason for Consult: Malnutrition Primary care physician: NATASHA ARIAS Hospitalization Reason for admission: acute respiratory failure Condition: Stable Hospital course: Patient is a 72-year-old female who presented to the hospital with known history of COPD presented to wish subjective breath 4 days and resolving with nebulizer. Images studies were unremarkable except for possible pneumonitis leading to exacerbation of COPD. A CTA did not reveal any pulmonary embolism but did reveal scattered small adenopathy for which I discussed with the patient personally about follow-up with primary care physician for repeat study. The patient verbalized understanding she was treated with steroids which led to much normalization and increased leukocytosis. Blood sugar was mildly elevated but this improved. Patient currently today stable for discharge and will continue nebulizer treatment and complete antibiotic therapy condition stable. Consult was provided on malnutrition patient verbalized understanding. Discharge Diagnosis Acute hypoxic respiratory failure COPD exacerbation with acute exacerbation Pneumonitis Obesity Hypertension Malnutrition Scattered mild adenopathy in the chest by radiologist-patient reviewed noted were reported. - Disposition: DC-01 TO HOME OR SELFCARE Time spent for discharge: 35 mins Core Measure Documentation - Palliative Care Palliative Care/ Comfort Measures: Not Applicable - Core Measures Any of the following diagnoses?: none - VTE Discharge Requirements Deep Vein Thrombosis/Pulmonary Embolism Present on Admission: No Exam - Physical Exam Narrative exam: VITAL SIGNS: Reviewed. GENERAL: The patient appeared well nourished and normally developed. Vital signs as documented. HEAD: No signs of head trauma. EYES: Pupils are equal. Extraocular motions intact. EARS: Hearing grossly intact. MOUTH: Oropharynx is normal. NECK: No adenopathy, no JVD. CHEST: Chest with clear breath sounds bilaterally. No wheezes, rales, or rhonchi. CARDIAC: Regular rate and rhythm. S1 and S2, without murmurs, gallops, or rubs. VASCULAR: No Edema. Peripheral pulses normal and equal in all extremities. ABDOMEN: Soft, without detectable tenderness. No sign of distention. No rebound or guarding, and no masses palpated. Bowel Sounds normal. MUSCULOSKELETAL: Good range of motion of all major joints. Extremities without clubbing, cyanosis or edema. NEUROLOGIC EXAM: Alert and oriented x 3. No focal sensory or strength deficits. Speech normal. Follows commands. PSYCHIATRIC: Mood normal. SKIN: No rash or lesions. - Constitutional Vitals: Temp Pulse Resp BP Pulse Ox 97.9 F 77 20 100/73 98 10/10/17 04:10 10/10/17 07:25 10/10/17 10:00 10/10/17 04:10 10/10/17 07:15 Plan Activity: advance as tolerated, fall precautions Diet: low cholesterol, low salt Special Instructions: record daily BP diary, follow up in rehab (pulmonary rehab ) Durable Medical Equipment Needed Upon Discharge: Oxygen (continue with home cpap ), other (incentive spirometer, flutter valve) Follow up with: NATASHA ARIAS MD [Primary Care Provider] - 3-5 Days TOMMIE TIM MD [Staff Physician] - 7 Days Forms: Work/School Release Form Prescriptions: Budesoni/Formotero 160-4.5(Nf) [Symbicort 160-4.5 (Nf)] 2 puff IH BID #1 inha MDD Budesoni/Formotero 80-4.5(Nf) guaiFENesin DM [Guaifenesin Dm Syrup] 10 ml PO Q4H PRN #14 oral.liqd PRN Reason: Cough Hydrocodone Bit/Homatrop Me-Br [Hydrocodone-Homatropine Syrup] 473 ml PO Q8HR PRN 12 Days syrup PRN Reason: Cough Levofloxacin [Levaquin] 750 mg PO QDAY #5 tablet Prednisone [predniSONE 10 mg (6-Day Pack, 21 Tabs)] 10 mg PO .TAPER #1 tab.ds.pk
== END 2017-10-10 14:54 | disposition home or self-care (01) | DRG 193 ==
LOC: ED 02:30 → SUATTDRO 02:30 → 4A 05:41
PROVIDERS: ADMIT Internal Medicine; ATTEND Internal Medicine
PROC: 5A09357 Assistance with Respiratory Ventilation, Less than 24 Consecutive Hours, Continuous Positive Airway Pressure (ICD-10-PCS; principal; 2017-10-07)
PROC: 5A09357 Assistance with Respiratory Ventilation, Less than 24 Consecutive Hours, Continuous Positive Airway Pressure (ICD-10-PCS; 2017-10-08)
PROC: 5A09357 Assistance with Respiratory Ventilation, Less than 24 Consecutive Hours, Continuous Positive Airway Pressure (ICD-10-PCS; 2017-10-09)
DX: J18.9 Pneumonia, unspecified organism (principal); J96.01 Acute respiratory failure with hypoxia; J44.1 Chronic obstructive pulmonary disease with (acute) exacerbation; J44.0 Chronic obstructive pulmonary disease with (acute) lower respiratory infection; E46 Unspecified protein-calorie malnutrition; Z68.42 Body mass index [BMI] 45.0-49.9, adult; J20.9 Acute bronchitis, unspecified; I10 Essential (primary) hypertension; E66.9 Obesity, unspecified; Z82.49 Family history of ischemic heart disease and other diseases of the circulatory system
CPT/HCPCS: 36415; 71020; 71275; 80048; 80053; 81001; 82140; 82805; 82962; 83880; 84484; 85007; 85025; 93005; 93010; 94640; 94660; 94760; 96365; 96366; 96368; 96375; J0456; J1650; J1956; J2930; J3475; J7050; Q9967

== ENCOUNTER 2018-04-01 12:39 | Emergency (ER) | payer MEDICARE ==
[2018-04-01 13:41] LABS: Basophils # (Auto) 0.1 K/mm3 (0.0-0.1); Basophils % (Auto) 0.8 % (0.0-1.8); Eosinophils # (Auto) 1.1 K/mm3 (0.0-0.4); Hematocrit 38.8 % (30.3-42.9); Hemoglobin 12.3 gm/dl (10.1-14.3); Lymphocytes # (Auto) 1.9 K/mm3 (1.2-5.4); Lymphocytes % (Auto) 13.1 % (13.4-35.0); Mean Corpuscular HGB Conc 32 % (30-34); Mean Corpuscular Volume 79 fl (79-97); Monocytes # (Auto) 0.9 K/mm3 (0.0-0.8); Monocytes % (Auto) 6.5 % (0.0-7.3); Platelet Count 271 K/mm3 (140-440); Red Blood Count 4.89 M/mm3 (3.65-5.03); Red Cell Distribution Width 15.7 % (13.2-15.2)
[2018-04-01 13:42] LABS: Mean Corpuscular Hemoglobin 25 pg (28-32)
--- NOTE | 2018-04-01 13:46 | XRay Report ---
ROUTINE CHEST, TWO VIEWS: HISTORY: Shortness of breath. The trachea, heart, mediastinal contour, lung echols and bony thorax are unremarkable. No significant change since 02/12/18. IMPRESSION: Unremarkable chest x-ray.
[2018-04-01 13:55] LABS: BUN/Creatinine Ratio 20; Blood Urea Nitrogen 14 mg/dL (7-17); Calcium 9.2 mg/dL (8.4-10.2); Hemolysis Index 16
[2018-04-01] MEDS ORDERED: DUONEB *Not for PRN Use IH ONE (20:53)
--- NOTE | 2018-04-01 21:09 | Emergency Department Report ---
ED Shortness of Breath HPI - General Chief Complaint: Dyspnea/Respdistress Stated Complaint: COPD WHEEZING Time Seen by Provider: 04/01/18 20:55 Source: patient Mode of arrival: Ambulatory Limitations: Physical Limitation - History of Present Illness Initial Comments: Patient with 3-4 day history progressive shortness of breath, wheezing, as well as some swelling of extremities, even after completing course of antibiotics Augmentin over the past week. She's had a modest amount of sputum, which he notices to be thick. Patient has COPD, apparently recently diagnosed in the past several months, but she is also hypertensive, has sleep apnea. She has been using home nebulizers twice daily, but has had to increased use over the past few days, as well as Spiriva, but she is not currently taken prednisone, which she takes when she has exacerbations, latest being end of January 2018. Echocardiogram in December 2017 shows normal ejection fraction of 60-65%, but impaired relaxation of left ventricular function, few other significant abnormalities. MD Complaint: shortness of breath Onset/Timin -: Gradual, days(s) Pain Scale: 0 Improves With: oxygen Worsens With: exertion, movement, coughing Known History Of: COPD Context: recent URI Associated Symptoms: denies other symptoms Treatments Prior to Arrival: bronchodilator - Related Data Home Oxygen Therapy: No Previous Rx's Medication Instructions Recorded Last Taken Type ALBUTEROL Inhaler [ProAir HFA 2 puff IH QID PRN #1 inhalation 01/25/18 02/12/18 Rx Inhaler] Budesoni/Formotero 160-4.5(Nf) 2 puff IH BID #1 inha MDD 01/25/18 02/11/18 Rx [Symbicort 160-4.5 (Nf)] Budesoni/Formotero 80-4.5(Nf) Inhaler, Assist Devices [Space 1 each MC PRN #1 spacer 01/25/18 02/12/18 Rx Chamber Plus] Ipratropium/Albuterol Sulfate 1 ampul IH Q4HR PRN 30 Days #100 01/25/18 Rx [DUONEB *Not for PRN Use*] ampul.neb amLODIPine [Norvasc] 10 mg PO QDAY #30 tablet 01/25/18 02/11/18 Rx Levofloxacin [Levaquin TAB] 500 mg PO QDAY #5 tablet 02/13/18 Unknown Rx Prednisone [predniSONE 10 mg 10 mg PO .TAPER #1 tab.ds.pk 02/13/18 Unknown Rx (6-Day Pack, 21 Tabs)] Levofloxacin [Levaquin TAB] 500 mg PO QDAY #7 tablet 04/01/18 Unknown Rx predniSONE [Deltasone] 10 mg PO .TAPER #15 tab 04/01/18 Unknown Rx Allergies Allergy/AdvReac Type Severity Reaction Status Date / Time No Known Allergies Allergy Verified 01/21/18 13:59 ED Review of Systems ROS: Stated complaint: COPD WHEEZING Other details as noted in HPI Comment: All other systems reviewed and negative Constitutional: weakness. denies: chills, diaphoresis, fever ENT: denies: throat pain Respiratory: cough, shortness of breath, SOB at rest, wheezing Cardiovascular: edema. denies: chest pain Endocrine: no symptoms reported Gastrointestinal: denies: abdominal pain, nausea, diarrhea Genitourinary: denies: urgency, dysuria, discharge Musculoskeletal: other (pedal edema, both lower extremities) Skin: denies: rash, lesions Neurological: denies: headache, weakness, paresthesias Psychiatric: denies: anxiety, depression Hematological/Lymphatic: denies: easy bleeding, easy bruising ED Past Medical Hx - Past Medical History Hx Hypertension: Yes Hx Heart Attack/AMI: No Hx Congestive Heart Failure: No Hx Deep Vein Thrombosis: No Hx Pulmonary Embolism: No Hx Sickle Cell Disease: No Hx Asthma: Yes Hx COPD: Yes Hx Tuberculosis: No Hx HIV: No Additional medical history: post-menopausal bleeding, bronchitis 12/05. Obesity - Surgical History Hx Coronary Stent: No Hx Pacemaker: No Hx Internal Defibrillator: No - Social History Smoking Status: Never Smoker Substance Use Type: None - Medications Home Medications: Home Medications Medication Instructions Recorded Confirmed Last Taken Type ALBUTEROL Inhaler [ProAir HFA 2 puff IH QID PRN #1 inhalation 01/25/18 04/01/18 02/12/18 Rx Inhaler] Budesoni/Formotero 160-4.5(Nf) 2 puff IH BID #1 inha MDD 01/25/18 04/01/1802/11 Rx [Symbicort 160-4.5 (Nf)] Budesoni/Formotero 80-4.5(Nf) Inhaler, Assist Devices [Space 1 each MC PRN #1 spacer 01/25/18 04/01/18 Rx Chamber Plus] Ipratropium/Albuterol Sulfate 1 ampul IH Q4HR PRN 30 Days #100 01/25/1802/12/18 Rx [DUONEB *Not for PRN Use*] ampul.neb amLODIPine [Norvasc] 10 mg PO QDAY #30 tablet 01/25/18 04/01/18 02/11/18 Rx Levofloxacin [Levaquin TAB] 500 mg PO QDAY #5 tablet 02/13/18 04/01/18 Unknown Rx Prednisone [predniSONE 10 mg 10 mg PO .TAPER #1 tab.ds.pk 02/13/18 04/01/18 Unknown Rx (6-Day Pack, 21 Tabs)] Levofloxacin [Levaquin TAB] 500 mg PO QDAY #7 tablet 04/01/18 Unknown Rx predniSONE [Deltasone] 10 mg PO .TAPER #15 tab 04/01/18 Unknown Rx ED Physical Exam - General Limitations: Physical Limitation General appearance: alert, in distress (moderate difficulty breathing, but able to speak short sentences fairly easily) - Head Head exam: Present: atraumatic - Eye Eye exam: Present: PERRL - ENT ENT exam: Present: normal exam - Neck Neck exam: Present: normal inspection, other (no JVD) - Respiratory Respiratory exam: Present: respiratory distress (moderate, 100% oxygenation on 4 L oxygen), wheezes - Cardiovascular Cardiovascular Exam: Present: regular rate, normal heart sounds - GI/Abdominal GI/Abdominal exam: Present: soft, normal bowel sounds, other (obese). Absent: tenderness - Rectal Rectal exam: Present: deferred - Extremities Exam Extremities exam: Present: pedal edema (2+, bilateral, nontender, no open wounds ) - Neurological Exam Neurological exam: Present: alert, oriented X3, CN II-XII intact. Absent: motor sensory deficit - Psychiatric Psychiatric exam: Present: normal affect, normal mood - Skin Skin exam: Present: warm, dry ED Course Vital Signs 04/01/18 04/01/18 04/01/18 12:58 21:05 21:15 Temperature 36.6 C Pulse Rate 97 H Pulse Rate [ 88 93 H Anterior Bilateral Throughout] Respiratory 24 Rate Respiratory 22 18 Rate [Anterior Bilateral Throughout] Blood Pressure 132/113 Blood Pressure [Left] O2 Sat by Pulse 97 Oximetry 04/01/18 21:47 Temperature Pulse Rate 101 H Pulse Rate [ Anterior Bilateral Throughout] Respiratory 16 Rate Respiratory Rate [Anterior Bilateral Throughout] Blood Pressure Blood Pressure 153/79 [Left] O2 Sat by Pulse 97 Oximetry - Reevaluation(s) Reevaluation #1: 04/01/18 22:44 Patient significantly improved after a single DuoNeb breathing treatment by nebulization, with lungs much clearer, although still with faint end expiratory wheezes only, and speaks much more easily and is clearly more comfortable overall. She feels improved enough that she wishes to go home, and can follow with her physician next week, including her aircraft engine specialist. We will treat her with oral steroids, accelerate her nebulizer treatments at home every 4 hours while she is symptomatic, and we'll cover her with Levaquin, with initial dose given in the emergency department. ED Medical Decision Making - Lab Data Result diagrams: 04/01/18 13:34 04/01/18 13:34 - Medical Decision Making . obese chronically ill elderly woman with COPD, has had an acute exacerbation over the past week, which clearly appears to be infectious, but has had significant improvement with treatment in the emergency department, and is stable and desires to go home. Arterial blood gas shows stable laboratory, with no acidosis, no CO2 retention, and a PO2 of 70 mmHg on room air. She has adequate medication at home, will only need a short course of broad-spectrum antibiotic, and we will treat with Levaquin, and also put her on a short course of prednisone as well. She is to have follow-up with her aircraft engine specialist or primary care physician in the coming week. She still has 2+ pedal edema, but she has negative BMP levels, negative troponin levels, and has very good ejection fraction on echocardiogram from just 2 months ago. Cause of pedal edema, may be subclinical right heart failure, possibly brought on by her obesity, but this will be treated by her primary care physician, and she is also hypokalemic, which we will also treat today. - Differential Diagnosis COPD exacerbation, pneumonia, heart failure, and STEMI Critical Care Time: No Critical care attestation.: If time is entered above; I have spent that time in minutes in the direct care of this critically ill patient, excluding procedure time. ED Disposition Clinical Impression: COPD with acute exacerbation, COPD (chronic obstructive pulmonary disease) with acute bronchitis, Hypokalemia due to loss of potassium Disposition: DC-01 TO HOME OR SELFCARE Is pt being admited?: No Does the pt Need Aspirin: No Condition: Stable Instructions: Chronic Obstructive Pulmonary Disease (ED), Acute Bronchitis (ED) Additional Instructions: We are prescribing an additional antibiotic, levofloxacin, 500 mg, to be taken once daily, next dose is to start tomorrow, on Wednesday. We are restarting steroids, prednisone, which is an anti-inflammatory, to decrease inflammation and mucus, which is causing swelling in the airway and makes breathing more difficult. This is a declining dose, and we want to take 2 tablets for 5 days, then decrease to 1 tablet daily for 5 days as well. Increase usage of DuoNeb nebulizers at home, using her nebulizer every 4 hours while you're having any difficulty breathing, and for at least 2 days, then decrease only when you're feeling normally, and at that time you can decrease to your twice daily usual regimen. Have rechecks by your doctor during the coming week, and return to the emergency department if you're feeling worse. We also recommend weight loss, as this decreases the effort of breathing, and will help you to breathe more normally. Prescriptions: Levofloxacin [Levaquin TAB] 500 mg PO QDAY #7 tablet predniSONE [Deltasone] 10 mg PO .TAPER #15 tab Referrals: PRIMARY CARE, [Primary Care Provider] - 3-5 Days Time of Disposition: 22:56
[2018-04-01] MEDS ORDERED: LASIX IV ONE (21:18)
[2018-04-01] MEDS ORDERED: K-DUR PO ONE (21:19)
[2018-04-01 21:49] VITALS: BP 153/79
[2018-04-01] MEDS ORDERED: PROVENTIL IH ONE (22:41)
[2018-04-01] MEDS ORDERED: LEVAQUIN PO ONE (22:42)
== END 2018-04-01 23:10 | disposition home or self-care (01) ==
LOC: ED 12:39
DX: R06.2 Wheezing (principal); J44.1 Chronic obstructive pulmonary disease with (acute) exacerbation; J20.9 Acute bronchitis, unspecified; E87.6 Hypokalemia; I10 Essential (primary) hypertension
CPT/HCPCS: 36415; 71046; 80048; 82140; 82803; 83880; 84484; 85025; 87040; 94640; 96374; 96375; 99284; J1940; J2920

== ENCOUNTER 2018-07-14 13:10 | Inpatient (IN) | payer MEDICARE ==
[2018-07-14] MEDS ORDERED: SOLU-Medrol IV ONE (13:32)
[2018-07-14] MEDS ORDERED: ATROVENT IH ONE ×2 (13:36→13:59)
[2018-07-14] MEDS ORDERED: PROVENTIL IH ONE ×3 (13:37→18:47)
--- NOTE | 2018-07-14 13:52 | XRay Report ---
ROUTINE CHEST, TWO VIEWS: HISTORY: Shortness of breath. The trachea, heart, mediastinal contour, lung echols and bony thorax are unremarkable. IMPRESSION: Unremarkable chest x-ray. No significant change since 06/09/18.
[2018-07-14 14:00] LABS: Basophils # (Auto) 0.1 K/mm3 (0.0-0.1); Basophils % (Auto) 0.9 % (0.0-1.8); Eosinophils # (Auto) 0.7 K/mm3 (0.0-0.4); Hematocrit 38.4 % (30.3-42.9); Hemoglobin 12.5 gm/dl (10.1-14.3); Lymphocytes # (Auto) 1.6 K/mm3 (1.2-5.4); Lymphocytes % (Auto) 15.5 % (13.4-35.0); Mean Corpuscular HGB Conc 33 % (30-34); Mean Corpuscular Hemoglobin 25 pg (28-32); Mean Corpuscular Volume 77 fl (79-97); Monocytes # (Auto) 0.7 K/mm3 (0.0-0.8); Monocytes % (Auto) 6.5 % (0.0-7.3); Platelet Count 295 K/mm3 (140-440); Red Blood Count 4.98 M/mm3 (3.65-5.03)
--- NOTE | 2018-07-14 14:02 | Emergency Department Report ---
ED Shortness of Breath HPI - General Chief Complaint: Dyspnea/Respdistress Stated Complaint: SOB COPD Time Seen by Provider: 07/14/18 13:27 Source: patient, old records reviewed Mode of arrival: Ambulatory Limitations: No Limitations - History of Present Illness Initial Comments: 73 yo female with a past medical history of COPD and hypertension presents to the hospital with complaints of wheezing, shortness of breath and productive cough 2 days. Patient using home nebs without improvement. Cough is productive of brown sputum. She complains of chest pressure and tightness. She denies fever. She has progressively worsening distal leg and pedal edema for the past 3 weeks. She denies home oxygen use or previous intubations. Business Law Teacher: Dr. Norwood. Upon previous medical record review patient admitted here in the end of May for COPD exacerbation. MD Complaint: shortness of breath - Related Data Home Medications Medication Instructions Recorded Confirmed Last Taken Ergocalciferol [Vitamin D2] 1 cap PO QWEEK 04/26/18 06/10/18 Unknown Previous Rx's Medication Instructions Recorded Last Taken Type ALBUTEROL Inhaler (OR & NICU) 2 puff IH QID PRN #1 inhalation 01/25/18 02/12/18 Rx [ProAir HFA Inhaler] Ipratropium/Albuterol Sulfate 1 ampul IH Q4HR PRN 30 Days #100 01/25/18 Rx [DUONEB *Not for PRN Use*] ampul.neb ALBUTEROL NEB's [Proventil 0.083% 2.5 mg IH Q3HRT PRN #90 nebu 04/28/18 Unknown Rx NEBS] Arformoterol Nebu [Brovana Nebu] 15 mcg IH Q12HRT #60 ml 04/28/18 Unknown Rx Budesoni/Formotero 160-4.5(Nf) 2 puff IH BID #1 inha MDD 04/28/18 Unknown Rx [Symbicort 160-4.5 (Nf)] Budesoni/Formotero 80-4.5(Nf) Budesonide [Pulmicort Respules] 1 mg IH Q12HRT #60 nebu 04/28/18 Unknown Rx Ipratropium/Albuterol Sulfate 1 ampul IH QIDRT #100 ampul.neb 04/28/18 Unknown Rx [DUONEB *Not for PRN Use*] Metformin HCl [Glucophage] 500 mg PO BID #60 tablet 04/28/18 Unknown Rx Potassium Chloride [K-Dur] 10 meq PO BID #20 tablet 04/28/18 Unknown Rx amLODIPine [Norvasc] 10 mg PO QDAY #30 tablet 04/28/18 Unknown Rx Prednisone [predniSONE 10 mg 10 mg PO .TAPER #1 tab.ds.pk 06/12/18 Unknown Rx (6-Day Pack, 21 Tabs)] levoFLOXacin [Levaquin TAB] 750 mg PO Q24HR #3 tablet 06/12/18 Unknown Rx Allergies Allergy/AdvReac Type Severity Reaction Status Date / Time No Known Allergies Allergy Verified 01/21/18 13:59 ED Review of Systems ROS: Stated complaint: SOB COPD Other details as noted in HPI Comment: All other systems reviewed and negative ED Past Medical Hx - Past Medical History Hx Hypertension: Yes Hx Heart Attack/AMI: No Hx Congestive Heart Failure: No Hx Diabetes: Yes Hx Deep Vein Thrombosis: No Hx Pulmonary Embolism: No Hx Sickle Cell Disease: No Hx Asthma: Yes Hx COPD: Yes Hx Tuberculosis: No Hx HIV: No Additional medical history: post-menopausal bleeding, bronchitis 12/05. Obesity - Surgical History Hx Coronary Stent: No Hx Pacemaker: No Hx Internal Defibrillator: No - Social History Smoking Status: Never Smoker Substance Use Type: None - Medications Home Medications: Home Medications Medication Instructions Recorded Confirmed Last Taken Type ALBUTEROL Inhaler (OR & NICU) 2 puff IH QID PRN #1 inhalation 01/25/18 06/10/18 02/12/18 Rx [ProAir HFA Inhaler] Ipratropium/Albuterol Sulfate 1 ampul IH Q4HR PRN 30 Days #100 01/25/1802/12/18 Rx [DUONEB *Not for PRN Use*] ampul.neb Ergocalciferol [Vitamin D2] 1 cap PO QWEEK 04/26/18 06/10/18 Unknown History ALBUTEROL NEB's [Proventil 0.083% 2.5 mg IH Q3HRT PRN #90 nebu 04/28/18 Unknown Rx NEBS] Arformoterol Nebu [Brovana Nebu] 15 mcg IH Q12HRT #60 ml 04/28/18 06/10/18 Unknown Rx Budesoni/Formotero 160-4.5(Nf) 2 puff IH BID #1 inha MDD 04/28/18 06/10/18 Unknown Rx [Symbicort 160-4.5 (Nf)] Budesoni/Formotero 80-4.5(Nf) Budesonide [Pulmicort Respules] 1 mg IH Q12HRT #60 nebu 04/28/18 06/10/18 Unknown Rx Ipratropium/Albuterol Sulfate 1 ampul IH QIDRT #100 ampul.neb 04/28/18 06/10/18 Unknown Rx [DUONEB *Not for PRN Use*] Metformin HCl [Glucophage] 500 mg PO BID #60 tablet 04/28/18 06/10/18 Unknown Rx Potassium Chloride [K-Dur] 10 meq PO BID #20 tablet 04/28/18 06/10/18 Unknown Rx amLODIPine [Norvasc] 10 mg PO QDAY #30 tablet 04/28/18 06/10/18 Unknown Rx Prednisone [predniSONE 10 mg 10 mg PO .TAPER #1 tab.ds.pk 06/12/18 Unknown Rx (6-Day Pack, 21 Tabs)] levoFLOXacin [Levaquin TAB] 750 mg PO Q24HR #3 tablet 06/12/18 Unknown Rx ED Physical Exam - General Limitations: No Limitations - Other Other exam information: General: No limitations, patient is alert in no acute distress Head exam: Atraumatic, normocephalic Eyes exam: Normal appearance, pupils equal reactive to light, extraocular movements intact ENT: Moist mucous membrane Neck exam: Normal inspection, full range of motion, no meningismus nontender Respiratory exam: Tachypnea, bilateral significant expiratory wheezing Cardiovascular: Mild tachycardia Abdomen: Soft, nondistended, and nontender, with normal bowel sounds, no rebound, or guarding Extremity: Full range of motion, 2+ pedal edema with 1+ lower extremity edema. No Tenderness or leg asymmetry Back: Normal Inspection, full range of motion, no tenderness Neurologic: Alert, oriented x3, cranial nerves intact, no motor or sensory deficit Psychiatric: normal affect, normal mood Skin: Warm, dry, intact ED Course Vital Signs 07/14/18 07/14/18 13:18 19:05 Temperature 97.8 F Pulse Rate 105 H Pulse Rate [ 101 H Anterior Bilateral Throughout] Respiratory 22 Rate Respiratory 18 Rate [Anterior Bilateral Throughout] Blood Pressure 136/83 O2 Sat by Pulse 89 Oximetry ED Medical Decision Making - Lab Data Result diagrams: 07/14/18 13:48 07/14/18 13:48 Lab Results 07/14/18 07/14/18 Range/Units 13:48 13:48 WBC 10.4 (4.5-11.0) K/mm3 RBC 4.98 (3.65-5.03) M/mm3 Hgb 12.5 (10.1-14.3) gm/dl Hct 38.4 (30.3-42.9) % MCV 77 L (79-97) fl MCH 25 L (28-32) pg MCHC 33 (30-34) % RDW 16.0 H (13.2-15.2) % Plt Count 295 (140-440) K/mm3 Lymph % (Auto) 15.5 (13.4-35.0) % [place] % (Auto) 6.5 (0.0-7.3) % Eos % (Auto) 7.0 H (0.0-4.3) % Baso % (Auto) 0.9 (0.0-1.8) % Lymph # 1.6 (1.2-5.4) K/mm3 [place] # 0.7 (0.0-0.8) K/mm3 Eos # 0.7 H (0.0-0.4) K/mm3 Baso # 0.1 (0.0-0.1) K/mm3 Seg Neutrophils % 70.1 H (40.0-70.0) % Seg Neutrophils # 7.3 (1.8-7.7) K/mm3 Sodium 139 (137-145) mmol/L Potassium 4.2 (3.6-5.0) mmol/L Chloride 100.9 (98-107) mmol/L Carbon Dioxide 28 (22-30) mmol/L Anion Gap 14 mmol/L BUN 12 (7-17) mg/dL Creatinine 0.6 L (0.7-1.2) mg/dL Estimated GFR > 60 ml/min BUN/Creatinine Ratio 20 % Glucose 95 (65-100) mg/dL Calcium 9.0 (8.4-10.2) mg/dL Troponin T < 0.010 (0.00-0.029) ng/mL NT-Pro-B Natriuret Pep 21.74 (0-900) pg/mL - EKG Data -: EKG Interpreted by Me EKG shows normal: sinus rhythm, axis (qrs 1), QRS complexes (qrsd 95), ST-T waves (no ) Rate: normal (89) - Radiology Data Radiology results: report reviewed ROUTINE CHEST, TWO VIEWS: HISTORY: Shortness of breath. The trachea, heart, mediastinal contour, lung echols and bony thorax are unremarkable. IMPRESSION: Unremarkable chest x-ray. No significant change since 06/09/18. - Medical Decision Making Despite nebs, magnesium, and Solu-Medrol patient attempted to have significant wheezing or shortness of breath. She is showing some improvement. She'll be admitted to the hospital for further management of COPD exacerbation. - Differential Diagnosis COPD, pneumonia, bronchitis Critical Care Time: No Critical care attestation.: If time is entered above; I have spent that time in minutes in the direct care of this critically ill patient, excluding procedure time. ED Disposition Clinical Impression: Acute exacerbation of chronic obstructive pulmonary disease (COPD) Disposition: OP ADMIT IP TO THIS HOSP Is pt being admited?: Yes Condition: Stable Time of Disposition: 19:18 (Dr james/hosp)
[2018-07-14 14:25] LABS: BUN/Creatinine Ratio 20; Blood Urea Nitrogen 12 mg/dL (7-17); Hemolysis Index 305
[2018-07-14] MEDS ORDERED: ZITHROMAX 500 MG in NACL 0.9% 250ML 250 ML IV ONE (14:30)
[2018-07-14] MEDS ORDERED: MAGNESIUM SULFATE 2GM/50ML 2 GM/50 ML BAG IV ONE (14:30)
[2018-07-14] MEDS ORDERED: TESSALON PERLES PO ONE ×2 (20:20→21:03)
[2018-07-14] MEDS ORDERED: SODIUM CHLORIDE FLUSH SYRINGE 10 ML IV PRN (22:34)
[2018-07-14] MEDS ORDERED: MORPHINE IV PRN (22:34)
[2018-07-14] MEDS ORDERED: ZOFRAN IV PRN (22:34)
[2018-07-14] MEDS ORDERED: PERCOCET 5/325 PO PRN ×2 (22:34→22:35)
[2018-07-14] MEDS ORDERED: TYLENOL PO PRN (22:34)
[2018-07-14] MEDS ORDERED: PROVENTIL IH PRN (22:36)
[2018-07-14] MEDS ORDERED: PROAIR IH PRN (22:36)
--- NOTE | 2018-07-14 22:39 | History and Physical Report ---
History of Present Illness Date of examination: 07/14/18 Date of admission: 07/14/18 19:48 Chief complaint: Increasing shortness of breath and wheezing for 2 days History of present illness: History of Present Illness: 73-year-old female with history of COPD diabetes and hypertension comes in for increasing shortness of breath and cough productive of yellow sputum for the last 2 days. No fever. Increasing wheezing and unable to sleep. Patient had multiple episodes of exacerbation in the past. Patient on BiPAP in the emergency room. No fever or chills. No exacerbating or relieving factors. Past Medical History Hx Hypertension: Yes Hx Heart Attack/AMI: No Hx Congestive Heart Failure: No Hx Diabetes: Yes Hx Asthma: Yes Hx COPD: Yes Additional medical history: post-menopausal bleeding, bronchitis 12/05. Obesity Surgical History Hx Coronary Stent: No Hx Pacemaker: No Hx Internal Defibrillator: No - Social History Smoking Status: Never Smoker Substance Use Type: None Family history: Htn - Medications Home Medications: Home Medications Medication Instructions Recorded Confirmed Last Taken Type ALBUTEROL Inhaler (OR & NICU) 2 puff IH QID PRN #1 inhalation 01/25/18 06/10/18 02/12/18 Rx [ProAir HFA Inhaler] Ipratropium/Albuterol Sulfate 1 ampul IH Q4HR PRN 30 Days #100 01/25/1802/12/18 Rx [DUONEB *Not for PRN Use*] ampul.neb Ergocalciferol [Vitamin D2] 1 cap PO QWEEK 04/26/18 06/10/18 Unknown History ALBUTEROL NEB's [Proventil 0.083% 2.5 mg IH Q3HRT PRN #90 nebu 04/28/18 Unknown Rx NEBS] Arformoterol Nebu [Brovana Nebu] 15 mcg IH Q12HRT #60 ml 04/28/18 06/10/18 Unknown Rx Budesoni/Formotero 160-4.5(Nf) 2 puff IH BID #1 inha MDD 04/28/18 06/10/18 Unknown Rx [Symbicort 160-4.5 (Nf)] Budesoni/Formotero 80-4.5(Nf) Budesonide [Pulmicort Respules] 1 mg IH Q12HRT #60 nebu 04/28/18 06/10/18 Unknown Rx Ipratropium/Albuterol Sulfate 1 ampul IH QIDRT #100 ampul.neb 04/28/18 06/10/18 Unknown Rx [DUONEB *Not for PRN Use*] Metformin HCl [Glucophage] 500 mg PO BID #60 tablet 04/28/18 06/10/18 Unknown Rx Potassium Chloride [K-Dur] 10 meq PO BID #20 tablet 04/28/18 06/10/18 Unknown Rx amLODIPine [Norvasc] 10 mg PO QDAY #30 tablet 04/28/18 06/10/18 Unknown Rx Prednisone [predniSONE 10 mg 10 mg PO .TAPER #1 tab.ds.pk 06/12/18 Unknown Rx (6-Day Pack, 21 Tabs)] levoFLOXacin [Levaquin TAB] 750 mg PO Q24HR #3 tablet 06/12/18 Unknown Rx Review of Systems ROS: Stated complaint: SOB COPD Other details as noted in HPI Comment: All other systems reviewed and negative Medications and Allergies Allergies Allergy/AdvReac Type Severity Reaction Status Date / Time No Known Allergies Allergy Verified 01/21/18 13:59 Home Medications Medication Instructions Recorded Confirmed Last Taken Type ALBUTEROL Inhaler (OR & NICU) 2 puff IH QID PRN #1 inhalation 01/25/18 06/10/18 02/12/18 Rx [ProAir HFA Inhaler] Ipratropium/Albuterol Sulfate 1 ampul IH Q4HR PRN 30 Days #100 01/25/1802/12/18 Rx [DUONEB *Not for PRN Use*] ampul.neb Ergocalciferol [Vitamin D2] 1 cap PO QWEEK 04/26/18 06/10/18 Unknown History ALBUTEROL NEB's [Proventil 0.083% 2.5 mg IH Q3HRT PRN #90 nebu 04/28/18 Unknown Rx NEBS] Arformoterol Nebu [Brovana Nebu] 15 mcg IH Q12HRT #60 ml 04/28/18 06/10/18 Unknown Rx Budesoni/Formotero 160-4.5(Nf) 2 puff IH BID #1 inha MDD 04/28/18 06/10/18 Unknown Rx [Symbicort 160-4.5 (Nf)] Budesoni/Formotero 80-4.5(Nf) Budesonide [Pulmicort Respules] 1 mg IH Q12HRT #60 nebu 04/28/18 06/10/18 Unknown Rx Ipratropium/Albuterol Sulfate 1 ampul IH QIDRT #100 ampul.neb 04/28/18 06/10/18 Unknown Rx [DUONEB *Not for PRN Use*] Metformin HCl [Glucophage] 500 mg PO BID #60 tablet 04/28/18 06/10/18 Unknown Rx Potassium Chloride [K-Dur] 10 meq PO BID #20 tablet 04/28/18 06/10/18 Unknown Rx amLODIPine [Norvasc] 10 mg PO QDAY #30 tablet 04/28/18 06/10/18 Unknown Rx Prednisone [predniSONE 10 mg 10 mg PO .TAPER #1 tab.ds.pk 06/12/18 Unknown Rx (6-Day Pack, 21 Tabs)] levoFLOXacin [Levaquin TAB] 750 mg PO Q24HR #3 tablet 06/12/18 Unknown Rx Active Meds: Active Medications Acetaminophen (Tylenol) 650 mg PO Q4H PRN PRN Reason: Pain MILD(1-3)/Fever >100.5/YODER Albuterol (Proair) 2 puff IH QID PRN PRN Reason: Shortness Of Breath Albuterol (Proventil) 2.5 mg IH Q3HRT PRN PRN Reason: Wheezing Albuterol/Ipratropium (Duoneb *Not For Prn Use*) 1 ampul IH QIDRT [facility] Amlodipine Besylate (Norvasc) 10 mg PO QDAY [facility] Arformoterol Tartrate (Brovana Nebu) 15 mcg IH Q12HRT [facility] Budesonide (Pulmicort) 1 mg IH Q12HRT BELEN Famotidine (Pepcid) 20 mg IV BID BELEN Levofloxacin/Dextrose (Levaquin 750mg/150ml) 750 mg in 150 mls @ 100 mls/hr IV Q24HR [facility]; Protocol Metformin HCl (Glucophage) 500 mg PO BID BELEN Methylprednisolone Sodium Succinate (Solu-Medrol) 125 mg IV Q8HR [facility] Miscellaneous Medication (Budesoni/Formotero 160-4.5(Nf)) 2 puff IH BID BELEN Morphine Sulfate (Morphine) 2 mg IV Q4H PRN PRN Reason: Pain, Moderate (4-6) Ondansetron HCl (Zofran) 4 mg IV Q8H PRN PRN Reason: Nausea And Vomiting Oxycodone/Acetaminophen (Percocet 5/325) 1 tab PO Q6H PRN PRN Reason: Pain, Moderate (4-6) Oxycodone/Acetaminophen (Percocet 5/325) 1 tab PO Q6H PRN PRN Reason: Pain, Moderate (4-6) Potassium Chloride (K-Dur) 10 meq PO BID BELEN Sodium Chloride (Sodium Chloride Flush Syringe 10 Ml) 10 ml IV BID BELEN Sodium Chloride (Sodium Chloride Flush Syringe 10 Ml) 10 ml IV PRN PRN PRN Reason: LINE FLUSH Exam - Physical Exam Narrative exam: Lying in bed in discomfort - Constitutional Vitals: Temp Pulse Resp BP Pulse Ox 98.7 F 109 H 20 144/77 94 07/14/18 21:38 07/14/18 21:38 07/14/18 21:38 07/14/18 21:38 07/14/18 21:38 General appearance: Present: severe distress, well-nourished - EENT Eyes: Present: PERRL ENT: hearing intact, clear oral mucosa - Neck Neck: Present: supple, normal ROM - Respiratory Respiratory effort: normal Respiratory: bilateral: CTA, diminished, rhonchi - Cardiovascular Heart rate: 86 Rhythm: regular Heart Sounds: Present: S1 & S2. Absent: rub, click - Extremities Extremities: no ischemia, pulses intact, pulses symmetrical, No edema Peripheral Pulses: within normal limits - Abdominal General gastrointestinal: Present: soft, non-tender, non-distended, normal bowel sounds Female genitourinary: Present: normal - Integumentary Integumentary: Present: clear, warm, dry - Musculoskeletal Musculoskeletal: gait normal, strength equal bilaterally - Psychiatric Psychiatric: appropriate mood/affect, intact judgment & insight - Neurologic Neurologic: CNII-XII intact, moves all extremities - Allied Health Allied health notes reviewed: nursing, case management Results - Labs CBC & Chem 7: 07/14/18 13:48 07/14/18 13:48 Labs: Laboratory Last Values WBC 10.4 K/mm3 (4.5-11.0) 07/14/18 13:48 RBC 4.98 M/mm3 (3.65-5.03) 07/14/18 13:48 Hgb 12.5 gm/dl (10.1-14.3) 07/14/18 13:48 Hct 38.4 % (30.3-42.9) 07/14/18 13:48 MCV 77 fl (79-97) L 07/14/18 13:48 MCH 25 pg (28-32) L 07/14/18 13:48 MCHC 33 % (30-34) 07/14/18 13:48 RDW 16.0 % (13.2-15.2) H 07/14/18 13:48 Plt Count 295 K/mm3 (140-440) 07/14/18 13:48 Lymph % (Auto) 15.5 % (13.4-35.0) 07/14/18 13:48 [place] % (Auto) 6.5 % (0.0-7.3) 07/14/18 13:48 Eos % (Auto) 7.0 % (0.0-4.3) H 07/14/18 13:48 Baso % (Auto) 0.9 % (0.0-1.8) 07/14/18 13:48 Lymph # 1.6 K/mm3 (1.2-5.4) 07/14/18 13:48 [place] # 0.7 K/mm3 (0.0-0.8) 07/14/18 13:48 Eos # 0.7 K/mm3 (0.0-0.4) H 07/14/18 13:48 Baso # 0.1 K/mm3 (0.0-0.1) 07/14/18 13:48 Seg Neutrophils % 70.1 % (40.0-70.0) H 07/14/18 13:48 Seg Neutrophils # 7.3 K/mm3 (1.8-7.7) 07/14/18 13:48 Sodium 139 mmol/L (137-145) 07/14/18 13:48 Potassium 4.2 mmol/L (3.6-5.0) 07/14/18 13:48 Chloride 100.9 mmol/L (98-107) 07/14/18 13:48 Carbon Dioxide 28 mmol/L (22-30) 07/14/18 13:48 Anion Gap 14 mmol/L 07/14/18 13:48 BUN 12 mg/dL (7-17) 07/14/18 13:48 Creatinine 0.6 mg/dL (0.7-1.2) L 07/14/18 13:48 Estimated GFR > 60 ml/min 07/14/18 13:48 BUN/Creatinine Ratio 20 % 07/14/18 13:48 Glucose 95 mg/dL (65-100) 07/14/18 13:48 Calcium 9.0 mg/dL (8.4-10.2) 07/14/18 13:48 Troponin T < 0.010 ng/mL (0.00-0.029) 07/14/18 13:48 NT-Pro-B Natriuret Pep 21.74 pg/mL (0-900) 07/14/18 13:48 - Imaging and Cardiology EKG: report reviewed (normal sinus rhythm) Imaging and Cardiology: Chest x-ray IMPRESSION: Unremarkable chest x-ray. No significant change since 06/09/18. Assessment and Plan Advance Directives: Yes (full code) VTE prophylaxis?: Chemical Plan of care discussed with patient/family: Yes - Patient Problems (1) Acute hypoxemic respiratory failure Current Visit: No Status: Acute Plan to address problem: Patient in acute respiratory failure Patient initiated on IV Levaquin IV Solu-Medrol and DuoNeb along with Pulmicort and Symbicort. Pulmonary consult requested BiPAP if necessary Intubation if necessary (2) Acute exacerbation of chronic obstructive pulmonary disease (COPD) Current Visit: No Status: Acute Plan to address problem: Same as above (3) Hypertension Current Visit: Yes Status: Chronic Qualifiers: Hypertension type: essential hypertension Qualified Code(s): I10 - Essential (primary) hypertension Plan to address problem: Continue antihypertensives (4) T2DM (type 2 diabetes mellitus) Current Visit: Yes Status: Chronic Qualifiers: Diabetes mellitus fdc insulin use: without fdc use Plan to address problem: Continue metformin and coverage Check hemoglobin A1c (5) DVT prophylaxis Current Visit: Yes Status: Acute Plan to address problem: on Lovenox and GI prophylaxis
[2018-07-14] MEDS ORDERED: NON-FORMULARY (Budesoni/Formotero 160-4.5(Nf) 2 PUFF) IH SCH (22:45)
--- NOTE | 2018-07-14 23:37 | Consultation ---
History of Present Illness Consult date: 07/14/18 Reason for consult: COPD History of present illness: PULMONARY CONSULTATION DR. ALVAREZ THANK YOU FOR ASKING ME TO PARTICIPATE IN THE CARE OF THIS PATIENT. 73-year-old female with history of COPD diabetes and hypertension comes in for increasing shortness of breath and cough productive of yellow sputum for the last 2 days. No fever. Increasing wheezing and unable to sleep. Patient had multiple episodes of exacerbation in the past. Patient on BiPAP in the emergency room. No fever or chills. No exacerbating or relieving factors.Patient denies any history of smoking, alcohol or drug abuse. 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 Patient and has 6 children.Denies allergies to the medications.Patient likely has late onset asthma rather than COPD. Patients eosinophil count high. Past History Past Medical History: other (Could be late onset asthma.Bronchitis.) Medications and Allergies Allergies Allergy/AdvReac Type Severity Reaction Status Date / Time No Known Allergies Allergy Verified 01/21/18 13:59 Home Medications Medication Instructions Recorded Confirmed Last Taken Type ALBUTEROL Inhaler (OR & NICU) 2 puff IH QID PRN #1 inhalation 01/25/18 06/10/18 02/12/18 Rx [ProAir HFA Inhaler] Ipratropium/Albuterol Sulfate 1 ampul IH Q4HR PRN 30 Days #100 01/25/1802/12/18 Rx [DUONEB *Not for PRN Use*] ampul.neb Ergocalciferol [Vitamin D2] 1 cap PO QWEEK 04/26/18 06/10/18 Unknown History ALBUTEROL NEB's [Proventil 0.083% 2.5 mg IH Q3HRT PRN #90 nebu 04/28/18 Unknown Rx NEBS] Arformoterol Nebu [Brovana Nebu] 15 mcg IH Q12HRT #60 ml 04/28/18 06/10/18 Unknown Rx Budesoni/Formotero 160-4.5(Nf) 2 puff IH BID #1 inha MDD 04/28/18 06/10/18 Unknown Rx [Symbicort 160-4.5 (Nf)] Budesoni/Formotero 80-4.5(Nf) Budesonide [Pulmicort Respules] 1 mg IH Q12HRT #60 nebu 04/28/18 06/10/18 Unknown Rx Ipratropium/Albuterol Sulfate 1 ampul IH QIDRT #100 ampul.neb 04/28/18 06/10/18 Unknown Rx [DUONEB *Not for PRN Use*] Metformin HCl [Glucophage] 500 mg PO BID #60 tablet 04/28/18 06/10/18 Unknown Rx Potassium Chloride [K-Dur] 10 meq PO BID #20 tablet 04/28/18 06/10/18 Unknown Rx amLODIPine [Norvasc] 10 mg PO QDAY #30 tablet 04/28/18 06/10/18 Unknown Rx Prednisone [predniSONE 10 mg 10 mg PO .TAPER #1 tab.ds.pk 06/12/18 Unknown Rx (6-Day Pack, 21 Tabs)] levoFLOXacin [Levaquin TAB] 750 mg PO Q24HR #3 tablet 06/12/18 Unknown Rx Active Meds: Active Medications Acetaminophen (Tylenol) 650 mg PO Q4H PRN PRN Reason: Pain MILD(1-3)/Fever >100.5/YODER Albuterol (Proventil) 2.5 mg IH Q3HRT PRN PRN Reason: Wheezing Albuterol/Ipratropium (Duoneb *Not For Prn Use*) 1 ampul IH QIDRT [facility] Amlodipine Besylate (Norvasc) 10 mg PO QDAY [facility] Arformoterol Tartrate (Brovana Nebu) 15 mcg IH Q12HRT [facility] Budesonide (Pulmicort) 1 mg IH Q12HRT [facility] Famotidine (Pepcid) 20 mg IV BID [facility] Levofloxacin/Dextrose (Levaquin 750mg/150ml) 750 mg in 150 mls @ 100 mls/hr IV Q24HR BEL[facility]; Protocol Insulin Human Lispro (Humalog) 0 unit SUB-Q ACHS BELEN; Protocol Metformin HCl (Glucophage) 500 mg PO BIDDIAB [facility] Methylprednisolone Sodium Succinate (Solu-Medrol) 125 mg IV Q8HR [facility] Morphine Sulfate (Morphine) 2 mg IV Q4H PRN PRN Reason: Pain, Moderate (4-6) Ondansetron HCl (Zofran) 4 mg IV Q8H PRN PRN Reason: Nausea And Vomiting Oxycodone/Acetaminophen (Percocet 5/325) 1 tab PO Q6H PRN PRN Reason: Pain, Moderate (4-6) Potassium Chloride (K-Dur) 10 meq PO BID BELEN Sodium Chloride (Sodium Chloride Flush Syringe 10 Ml) 10 ml IV BID [facility]EN Sodium Chloride (Sodium Chloride Flush Syringe 10 Ml) 10 ml IV PRN PRN PRN Reason: LINE FLUSH Review of Systems All systems: negative Physical Examination Vital signs: Vital Signs Temp Pulse Resp BP Pulse Ox 97.8 F 105 H 22 136/83 89 07/14/18 13:18 07/14/18 13:18 07/14/18 13:18 07/14/18 13:18 07/14/18 13:18 General appearance: no acute distress, alert Eyes: non-icteric ENT: oropharynx moist Neck: supple, no JVD Ascultation: Bilateral: diminished breath sounds Cardiovascular: regular rate and rhythm Gastrointestinal: normoactive bowel sounds, soft, non-tender Integumentary: normal Extremities: no cyanosis, no edema Musculoskeletal: no deformities Gait: normal gait normal mental status, non-focal exam, pupils equal and round, CN II-XII normal mood appropriate Results - Laboratory Findings CBC and BMP: 07/14/18 13:48 07/14/18 13:48 Abnormal lab findings: Abnormal Labs 07/14/18 07/14/18 13:48 13:48 MCV 77 L MCH 25 L RDW 16.0 H Eos % (Auto) 7.0 H Eos # 0.7 H Seg Neutrophils % 70.1 H Creatinine 0.6 L - Diagnostic Findings Chest x-ray: report reviewed (rEPORTED UN REMARKABLE.), image reviewed Assessment and Plan - Patient Problems (1) Hypertension Current Visit: Yes Status: Chronic Qualifiers: Hypertension type: essential hypertension Qualified Code(s): I10 - Essential (primary) hypertension (2) T2DM (type 2 diabetes mellitus) Current Visit: Yes Status: Chronic Qualifiers: Diabetes mellitus fdc insulin use: without manager intermediate use (3) Acute hypoxemic respiratory failure Current Visit: No Status: Acute Plan to address problem: Recommend O2 2 litres via nasal canula. (4) Late onset asthma with acute exacerbation Current Visit: Yes Status: Acute Plan to address problem: O2 2 litres via nasal canula. Albuterol/atrovent aerosol treatments q 6 hours. Continue I/V solumedral Continue Levaquin Recommend s/c Lovenox for DVT prophylaxis Continue famotidine Recommend RAST test and serum IGE.
[2018-07-15] MEDS: SOLU-Medrol IV SCH ×2 (01:01→06:34)
[2018-07-15 06:02] LABS: Hemoglobin 12.4 gm/dl (10.1-14.3); Mean Corpuscular HGB Conc 33 % (30-34); Mean Corpuscular Volume 78 fl (79-97); Platelet Count 268 K/mm3 (140-440); Red Cell Distribution Width 16.1 % (13.2-15.2)
[2018-07-15 06:13] LABS: Mean Corpuscular Hemoglobin 25 pg (28-32)
[2018-07-15 06:17] LABS: Alanine Aminotransferase 29 units/L (7-56); Albumin 4.1 g/dL (3.9-5); BUN/Creatinine Ratio 20; Blood Urea Nitrogen 12 mg/dL (7-17); Hemolysis Index 0
[2018-07-15 07:52] LABS: Basophils % (Manual) 0 % (0.0-1.8); Total Cells Counted 100
[2018-07-15 07:53] LABS: Anisocytosis 1+
[2018-07-15] MEDS ORDERED: GLUCOPHAGE PO SCH (08:00)
[2018-07-15] MEDS ORDERED: DUONEB *Not for PRN Use IH SCH (08:00)
--- NOTE | 2018-07-15 08:00 | Progress Note ---
Assessment and Plan Assessment and plan: 73-year-old female with history of COPD diabetes and hypertension comes in for increasing shortness of breath and cough productive of yellow sputum for the last 2 days. No fever. Increasing wheezing and unable to sleep. Patient had multiple episodes of exacerbation in the past. Patient on BiPAP in the emergency room. No fever or chills. No exacerbating or relieving factors. COPD exacerbation - Changes on IV Solu-Medrol, duo nebs, oxygen support, Symbicort - Pulmonary consult appreciated Diabetes mellitus 2 - Patient is on metformin and use sliding-scale insulin Hypertension - Continue amlodipine Hypokalemia - Repleted Leukocytosis; steroid induced DVT prophylaxis - On Lovenox Disposition - Continue inpatient care History Interval history: Patient was seen and evaluated this morning, patient is still complaining some SOB. Hospitalist Physical - Physical exam Narrative exam: Not in cardiopulmonary distress. The patient is morbidly obese. Vital signs as documented. Head exam is unremarkable. No scleral icterus . Neck is without jugular venous distension, thyromegaly, or carotid bruits. Lungs significant for wheezing. Cardiac exam reveals regular rate and Rhythm. First and second heart sounds normal. No murmurs, rubs or gallops. Abdominal exam reveals normal bowel sounds, no masses, no organomegaly and no aortic enlargement. Extremities are nonedematous and both femoral and pedal pulses are normal. MANAGER SQL: Alert and oriented 3. No focal weakness. - Constitutional Vitals: Temp Pulse Resp BP Pulse Ox 97.5 F L 91 H 20 160/78 98 07/15/18 03:17 07/15/18 03:17 07/15/18 03:17 07/15/18 03:17 07/15/18 03:17 General appearance: Present: severe distress, well-nourished Results - Labs CBC & Chem 7: 07/15/18 05:41 07/15/18 05:41 Labs: Laboratory Last Values WBC 13.5 K/mm3 (4.5-11.0) H 07/15/18 05:41 RBC 4.90 M/mm3 (3.65-5.03) 07/15/18 05:41 Hgb 12.4 gm/dl (10.1-14.3) 07/15/18 05:41 Hct 38.0 % (30.3-42.9) 07/15/18 05:41 MCV 78 fl (79-97) L 07/15/18 05:41 MCH 25 pg (28-32) L 07/15/18 05:41 MCHC 33 % (30-34) 07/15/18 05:41 RDW 16.1 % (13.2-15.2) H 07/15/18 05:41 Plt Count 268 K/mm3 (140-440) 07/15/18 05:41 Lymph % (Auto) 15.5 % (13.4-35.0) 07/14/18 13:48 [place] % (Auto) 6.5 % (0.0-7.3) 07/14/18 13:48 Eos % (Auto) 7.0 % (0.0-4.3) H 07/14/18 13:48 Baso % (Auto) 0.9 % (0.0-1.8) 07/14/18 13:48 Lymph # 1.6 K/mm3 (1.2-5.4) 07/14/18 13:48 [place] # 0.7 K/mm3 (0.0-0.8) 07/14/18 13:48 Eos # 0.7 K/mm3 (0.0-0.4) H 07/14/18 13:48 Baso # 0.1 K/mm3 (0.0-0.1) 07/14/18 13:48 Add Manual Diff Complete 07/15/18 05:41 Total Counted 100 07/15/18 05:41 Seg Neutrophils % Jockey Room Custodian 07/15/18 05:41 Seg Neuts % (Manual) 94.0 % (40.0-70.0) H 07/15/18 05:41 Band Neutrophils % 0 % 07/15/18 05:41 Lymphocytes % (Manual) 4.0 % (13.4-35.0) L 07/15/18 05:41 Reactive Lymphs % (Man) 0 % 07/15/18 05:41 Monocytes % (Manual) 1.0 % (0.0-7.3) 07/15/18 05:41 Eosinophils % (Manual) 1.0 % (0.0-4.3) 07/15/18 05:41 Basophils % (Manual) 0 % (0.0-1.8) 07/15/18 05:41 Metamyelocytes % 0 % 07/15/18 05:41 Myelocytes % 0 % 07/15/18 05:41 Promyelocytes % 0 % 07/15/18 05:41 Blast Cells % 0 % 07/15/18 05:41 Nucleated RBC % Not Reportable 07/15/18 05:41 Seg Neutrophils # 7.3 K/mm3 (1.8-7.7) 07/14/18 13:48 Seg Neutrophils # Man 12.7 K/mm3 (1.8-7.7) H 07/15/18 05:41 Band Neutrophils # 0.0 K/mm3 07/15/18 05:41 Lymphocytes # (Manual) 0.5 K/mm3 (1.2-5.4) L 07/15/18 05:41 Abs React Lymphs (Man) 0.0 K/mm3 07/15/18 05:41 Monocytes # (Manual) 0.1 K/mm3 (0.0-0.8) 07/15/18 05:41 Eosinophils # (Manual) 0.1 K/mm3 (0.0-0.4) 07/15/18 05:41 Basophils # (Manual) 0.0 K/mm3 (0.0-0.1) 07/15/18 05:41 Metamyelocytes # 0.0 K/mm3 07/15/18 05:41 Myelocytes # 0.0 K/mm3 07/15/18 05:41 Promyelocytes # 0.0 K/mm3 07/15/18 05:41 Blast Cells # 0.0 K/mm3 07/15/18 05:41 WBC Morphology Not Reportable 07/15/18 05:41 Hypersegmented Neuts Not Reportable 07/15/18 05:41 Hyposegmented Neuts Not Reportable 07/15/18 05:41 Hypogranular Neuts Not Reportable 07/15/18 05:41 Smudge Cells Not Reportable 07/15/18 05:41 Toxic Granulation Not Reportable 07/15/18 05:41 Toxic Vacuolation Not Reportable 07/15/18 05:41 Dohle Bodies Not Reportable 07/15/18 05:41 Pelger-Huet Anomaly Not Reportable 07/15/18 05:41 Christopher Rods Not Reportable 07/15/18 05:41 Platelet Estimate Appears normal 07/15/18 05:41 Clumped Platelets Not Reportable 07/15/18 05:41 Plt Clumps, EDTA Not Reportable 07/15/18 05:41 Large Platelets Not Reportable 07/15/18 05:41 Giant Platelets Not Reportable 07/15/18 05:41 Platelet Satelliting Not Reportable 07/15/18 05:41 Plt Morphology Comment Not Reportable 07/15/18 05:41 RBC Morphology Not Reportable 07/15/18 05:41 Dimorphic RBCs Not Reportable 07/15/18 05:41 Polychromasia Not Reportable 07/15/18 05:41 Hypochromasia Not Reportable 07/15/18 05:41 Poikilocytosis Not Reportable 07/15/18 05:41 Anisocytosis 1+ 07/15/18 05:41 Microcytosis Few 07/15/18 05:41 Macrocytosis Not Reportable 07/15/18 05:41 Spherocytes Not Reportable 07/15/18 05:41 Pappenheimer Bodies Not Reportable 07/15/18 05:41 Sickle Cells Not Reportable 07/15/18 05:41 Target Cells Not Reportable 07/15/18 05:41 Tear Drop Cells Not Reportable 07/15/18 05:41 Ovalocytes Not Reportable 07/15/18 05:41 Helmet Cells Not Reportable 07/15/18 05:41 Simms-[place] Green Bodies Not Reportable 07/15/18 05:41 [place] Rings Not Reportable 07/15/18 05:41 Tomás Cells Not Reportable 07/15/18 05:41 Bite Cells Not Reportable 07/15/18 05:41 Crenated Cell Not Reportable 07/15/18 05:41 Elliptocytes Not Reportable 07/15/18 05:41 Acanthocytes (Spur) Not Reportable 07/15/18 05:41 Rouleaux Not Reportable 07/15/18 05:41 Hemoglobin C Crystals Not Reportable 07/15/18 05:41 Schistocytes Not Reportable 07/15/18 05:41 Malaria parasites Not Reportable 07/15/18 05:41 Abdias Bodies Not Reportable 07/15/18 05:41 Hem Pathologist Commnt No 07/15/18 05:41 Sodium 144 mmol/L (137-145) 07/15/18 05:41 Potassium 3.4 mmol/L (3.6-5.0) L 07/15/18 05:41 Chloride 101.7 mmol/L (98-107) 07/15/18 05:41 Carbon Dioxide 31 mmol/L (22-30) H 07/15/18 05:41 Anion Gap 15 mmol/L 07/15/18 05:41 BUN 12 mg/dL (7-17) 07/15/18 05:41 Creatinine 0.6 mg/dL (0.7-1.2) L 07/15/18 05:41 Estimated GFR > 60 ml/min 07/15/18 05:41 BUN/Creatinine Ratio 20 % 07/15/18 05:41 Glucose 207 mg/dL (65-100) H 07/15/18 05:41 POC Glucose 175 (70-105) H 07/15/18 07:32 Hemoglobin A1c 6.8 % (4-6) H 07/14/18 23:25 Calcium 9.0 mg/dL (8.4-10.2) 07/15/18 05:41 Total Bilirubin 0.30 mg/dL (0.1-1.2) 07/15/18 05:41 AST 26 units/L (5-40) 07/15/18 05:41 ALT 29 units/L (7-56) 07/15/18 05:41 Alkaline Phosphatase 91 units/L (35-129) 07/15/18 05:41 Troponin T < 0.010 ng/mL (0.00-0.029) 07/14/18 13:48 NT-Pro-B Natriuret Pep 21.74 pg/mL (0-900) 07/14/18 13:48 Total Protein 6.9 g/dL (6.3-8.2) 07/15/18 05:41 Albumin 4.1 g/dL (3.9-5) 07/15/18 05:41 Albumin/Globulin Ratio 1.5 % 07/15/18 05:41
[2018-07-15] MEDS: HumaLOG SUB-Q SCH ×2 (08:12→11:45)
[2018-07-15] MEDS: PULMICORT IH SCH ×2 (09:11)
[2018-07-15] MEDS: BROVANA NEBU IH SCH ×2 (09:12)
[2018-07-15] MEDS ORDERED: PEPCID IV SCH (10:00)
[2018-07-15] MEDS ORDERED: NORVASC PO SCH (10:00)
[2018-07-15] MEDS ORDERED: K-DUR PO SCH (10:00)
[2018-07-15] MEDS ORDERED: SODIUM CHLORIDE FLUSH SYRINGE 10 ML IV SCH (10:00)
[2018-07-15] MEDS ORDERED: LEVAQUIN 750MG/150ML 750 MG/150 ML BAG IV SCH (10:00)
--- NOTE | 2018-07-15 11:35 | Discharge Summary ---
Providers - Providers Date of Admission: 07/14/18 19:48 Attending physician: PHUONG HERRING MD 07/14/18 22:34 Consult to Physician [CONS] Routine Comment: spoke to dr. esquivel/ michi Consulting Provider: VERONICA LOREDO Physician Instructions: Reason For Exam: COPD exacerbation Primary care physician: CARE DIRECTOR RN Hospitalization Reason for admission: COPD exacerbation, morbid obesity Condition: Stable Pertinent studies: CXR unremarkable. Hospital course: 73-year-old female with history of COPD diabetes and hypertension comes in for increasing shortness of breath and cough productive of yellow sputum for the last 2 days. No fever. Increasing wheezing and unable to sleep. Patient had multiple episodes of exacerbation in the past. Patient on BiPAP in the emergency room. No fever or chills. No exacerbating or relieving factors. Patient was admitted appropriately according to COPD exacerbation protocol and next morning patient was presenting with on room air. patient was comfortable and discharged home in a stable condition. Appropriate home medications were given. Patient's questions and concerns were addressed at bedside. Disposition: DC-01 TO HOME OR SELFCARE Time spent for discharge: 32 minutes - Discharge Diagnoses (1) Late onset asthma with acute exacerbation Status: Acute (2) Acute exacerbation of chronic obstructive pulmonary disease (COPD) Status: Acute (3) Bronchitis Status: Acute Core Measure Documentation - Palliative Care Palliative Care/ Comfort Measures: Not Applicable - Core Measures Any of the following diagnoses?: none Exam - Physical Exam Narrative exam: Not in cardiopulmonary distress. The patient is morbidly obese. Vital signs as documented. Head exam is unremarkable. No scleral icterus . Neck is without jugular venous distension, thyromegaly, or carotid bruits. Lungs CTAB. Cardiac exam reveals regular rate and Rhythm. First and second heart sounds normal. No murmurs, rubs or gallops. Abdominal exam reveals normal bowel sounds, no masses, no organomegaly and no aortic enlargement. Extremities are nonedematous and both femoral and pedal pulses are normal. MEDIA TRAFFIC MANAGER: Alert and oriented 3. No focal weakness. - Constitutional Vitals: Temp Pulse Resp BP Pulse Ox 98.0 F 100 H 18 153/82 95 07/15/18 08:55 07/15/18 09:29 07/15/18 09:20 07/15/18 09:29 07/15/18 08:55 Plan Activity: no restrictions Weight Bearing Status: Full Weight Bearing Diet: low fat, low salt, diabetic Additional Instructions: F/U at [facility] in 1-2 weeks. Follow up with: PRIMARY CARE, [Primary Care Provider] - 3-5 Days Prescriptions: Arformoterol Nebu [Brovana Nebu] 15 mcg IH Q12HRT #120 ml Budesoni/Formotero 160-4.5(Nf) [Symbicort 160-4.5 (Nf)] 2 puff IH BID #60 inha MDD Budesoni/Formotero 80-4.5(Nf) levoFLOXacin [Levaquin TAB] 750 mg PO Q24HR #5 tablet Prednisone [predniSONE 10 mg (6-Day Pack, 21 Tabs)] 10 mg PO .TAPER #1 tab.ds.pk
[2018-07-15] MEDS ORDERED: SOLU-Medrol IV SCH (14:00)
[2018-07-15 14:34] VITALS: BP 155/82
[2018-07-15] MEDS ORDERED: LOVENOX SUB-Q SCH (22:00)
== END 2018-07-15 14:35 | disposition home or self-care (01) | DRG 189 ==
LOC: ED 13:10 → 2B-ACE 19:48
PROVIDERS: ADMIT Internal Medicine; ATTEND Internal Medicine
PROC: 5A09357 Assistance with Respiratory Ventilation, Less than 24 Consecutive Hours, Continuous Positive Airway Pressure (ICD-10-PCS; principal; 2018-07-15)
DX: J96.01 Acute respiratory failure with hypoxia (principal); J44.1 Chronic obstructive pulmonary disease with (acute) exacerbation; J45.901 Unspecified asthma with (acute) exacerbation; Z68.42 Body mass index [BMI] 45.0-49.9, adult; E11.9 Type 2 diabetes mellitus without complications; I10 Essential (primary) hypertension; E66.01 Morbid (severe) obesity due to excess calories; Z82.49 Family history of ischemic heart disease and other diseases of the circulatory system; Z79.51 Long term (current) use of inhaled steroids; Z79.899 Other long term (current) drug therapy; Z79.84 Long term (current) use of oral hypoglycemic drugs
CPT/HCPCS: 36415; 71046; 80048; 80053; 82962; 83036; 83880; 84484; 85007; 85025; 93005; 93010; 94640; 94660; 96365; 96367; 96375; J0456; J1815; J1956; J2930; J3475; J7050

== ENCOUNTER 2018-10-13 20:22 | Emergency (ER) | payer MEDICARE ==
[2018-10-13] MEDS ORDERED: DUONEB *Not for PRN Use IH ONE (21:34)
[2018-10-13] MEDS ORDERED: PROVENTIL IH ONE (21:35)
[2018-10-13 21:52] LABS: Hematocrit 37.5 % (30.3-42.9); Mean Corpuscular HGB Conc 32 % (30-34); Mean Corpuscular Volume 79 fl (79-97); Platelet Count 229 K/mm3 (140-440); Red Blood Count 4.77 M/mm3 (3.65-5.03); Red Cell Distribution Width 16.6 % (13.2-15.2)
[2018-10-13 22:06] LABS: BUN/Creatinine Ratio 18; Blood Urea Nitrogen 11 mg/dL (7-17); Calcium 9.3 mg/dL (8.4-10.2); Hemolysis Index 2
[2018-10-13 22:26] LABS: RBC Morphology Normal; Total Cells Counted 100
--- NOTE | 2018-10-13 23:27 | XRay Report ---
FINAL REPORT EXAM: XR CHEST ROUTINE 2V HISTORY: Shortness of breath TECHNIQUE: 2 views of the chest. PRIORS: 09/20/2018 FINDINGS: The cardiomediastinal silhouette appears normal. The lungs are clear. There is multilevel thoracic sp ondylosis. IMPRESSION: No evidence of acute cardiopulmonary disease
--- NOTE | 2018-10-14 00:15 | Emergency Department Report ---
ED Shortness of Breath HPI - General Chief Complaint: Dyspnea/Respdistress Stated Complaint: CARLITOS Time Seen by Provider: 10/14/18 00:15 Source: patient Mode of arrival: Ambulatory Limitations: No Limitations - History of Present Illness MD Complaint: shortness of breath -: Sudden Severity: moderate Pain Scale: 4 Improves With: oxygen Worsens With: nothing Known History Of: COPD Context: recent URI Associated Symptoms: cough Treatments Prior to Arrival: oxygen - Related Data Home Oxygen Therapy: No Home Medications Medication Instructions Recorded Confirmed Last Taken Ergocalciferol [Vitamin D2] 1 cap PO QWEEK 04/26/18 08/16/18 07/14/18 Previous Rx's Medication Instructions Recorded Last Taken Type Metformin HCl [Glucophage] 500 mg PO BID #60 tablet 04/28/18 07/14/18 Rx ALBUTEROL Inhaler (OR & NICU) 2 puff IH QID PRN #1 inhalation 08/16/18 Unknown Rx [ProAir HFA Inhaler] Acetaminophen [Acetaminophen TAB] 650 mg PO Q4H PRN #15 tablet 08/16/18 Unknown Rx Budesoni/Formotero 160-4.5(Nf) 2 puff IH BID #60 inha MDD 08/16/18 Unknown Rx [Symbicort 160-4.5 (Nf)] Budesoni/Formotero 80-4.5(Nf) Ipratropium/Albuterol Sulfate 1 ampul IH Q4HR PRN 30 Days #100 08/16/18 Unknown Rx [DUONEB *Not for PRN Use*] ampul.neb Potassium Chloride [K-Dur] 10 meq PO BID tablet 08/16/18 Unknown Rx Prednisone [predniSONE 10 mg 10 mg PO .TAPER #1 tab.ds.pk 08/16/18 Unknown Rx (6-Day Pack, 21 Tabs)] amLODIPine [Norvasc] 10 mg PO QDAY #30 tablet 08/16/18 Unknown Rx levoFLOXacin [Levaquin TAB] 750 mg PO Q24HR #5 tablet 08/16/18 Unknown Rx Prednisone [predniSONE 10 mg 10 mg PO .TAPER #1 tab.ds.pk 09/21/18 Unknown Rx (6-Day Pack, 21 Tabs)] levoFLOXacin [Levaquin TAB] 500 mg PO QDAY #7 tablet 09/21/18 Unknown Rx ALBUTEROL Inhaler(NF) [VENTOLIN 2 puff IH Q4HR PRN #1 inha 10/14/18 Unknown Rx Inhaler(NF)] Amoxicillin/Potassium Clav 1 each PO BID #20 tablet 10/14/18 Unknown Rx [Augmentin 875-125 Tablet] Azithromycin [Zithromax Tri-Tyrese] 500 mg PO DAILY #5 tablet 10/14/18 Unknown Rx Tiotropium [Spiriva] 18 mcg IH QDAY #1 box 10/14/18 Unknown Rx predniSONE [Deltasone] 50 mg PO QDAY #5 tab 10/14/18 Unknown Rx Allergies Allergy/AdvReac Type Severity Reaction Status Date / Time No Known Allergies Allergy Verified 01/21/18 13:59 ED Review of Systems ROS: Stated complaint: CARLITOS Other details as noted in HPI Comment: All other systems reviewed and negative Constitutional: denies: chills, fever Eyes: denies: eye pain, eye discharge, vision change ENT: denies: ear pain, throat pain Respiratory: cough, shortness of breath, wheezing Cardiovascular: denies: chest pain, palpitations Endocrine: no symptoms reported Gastrointestinal: denies: abdominal pain, nausea, diarrhea Genitourinary: denies: urgency, dysuria, discharge Musculoskeletal: denies: back pain, joint swelling, arthralgia Skin: denies: rash, lesions Neurological: denies: headache, weakness, paresthesias Psychiatric: denies: anxiety, depression Hematological/Lymphatic: denies: easy bleeding, easy bruising ED Past Medical Hx - Past Medical History Previous Medical History?: Yes Hx Hypertension: Yes Hx Heart Attack/AMI: No Hx Congestive Heart Failure: No Hx Diabetes: No (steroid elevated BS per pt) Hx Deep Vein Thrombosis: No Hx Pulmonary Embolism: No Hx Sickle Cell Disease: No Hx Asthma: Yes Hx COPD: Yes Hx Tuberculosis: No Hx HIV: No Additional medical history: post-menopausal bleeding, bronchitis 12/05. Obesity - Surgical History Hx Coronary Stent: No Hx Pacemaker: No Hx Internal Defibrillator: No - Social History Smoking Status: Never Smoker Substance Use Type: None - Medications Home Medications: Home Medications Medication Instructions Recorded Confirmed Last Taken Type Ergocalciferol [Vitamin D2] 1 cap PO QWEEK 04/26/18 08/16/18 07/14/18 History Metformin HCl [Glucophage] 500 mg PO BID #60 tablet 07/10/0408/16/18 07/14/18 Rx ALBUTEROL Inhaler (OR & NICU) 2 puff IH QID PRN #1 inhalation 08/16/18 Unknown Rx [ProAir HFA Inhaler] Acetaminophen [Acetaminophen TAB] 650 mg PO Q4H PRN #15 tablet 08/16/18 Unknown Rx Budesoni/Formotero 160-4.5(Nf) 2 puff IH BID #60 inha MDD 08/16/18 Unknown Rx [Symbicort 160-4.5 (Nf)] Budesoni/Formotero 80-4.5(Nf) Ipratropium/Albuterol Sulfate 1 ampul IH Q4HR PRN 30 Days #100 08/16/18 Unknown Rx [DUONEB *Not for PRN Use*] ampul.neb Potassium Chloride [K-Dur] 10 meq PO BID tablet 08/16/18 Unknown Rx Prednisone [predniSONE 10 mg 10 mg PO .TAPER #1 tab.ds.pk 08/16/18 Unknown Rx (6-Day Pack, 21 Tabs)] amLODIPine [Norvasc] 10 mg PO QDAY #30 tablet 08/16/18 Unknown Rx levoFLOXacin [Levaquin TAB] 750 mg PO Q24HR #5 tablet 08/16/18 Unknown Rx Prednisone [predniSONE 10 mg 10 mg PO .TAPER #1 tab.ds.pk 09/21/18 Unknown Rx (6-Day Pack, 21 Tabs)] levoFLOXacin [Levaquin TAB] 500 mg PO QDAY #7 tablet 09/21/18 Unknown Rx ALBUTEROL Inhaler(NF) [VENTOLIN 2 puff IH Q4HR PRN #1 inha 10/14/18 Unknown Rx Inhaler(NF)] Amoxicillin/Potassium Clav 1 each PO BID #20 tablet 10/14/18 Unknown Rx [Augmentin 875-125 Tablet] Azithromycin [Zithromax Tri-Tyrese] 500 mg PO DAILY #5 tablet 10/14/18 Unknown Rx Tiotropium [Spiriva] 18 mcg IH QDAY #1 box 10/14/18 Unknown Rx predniSONE [Deltasone] 50 mg PO QDAY #5 tab 10/14/18 Unknown Rx ED Physical Exam - General Limitations: No Limitations General appearance: alert, in no apparent distress - Head Head exam: Present: atraumatic, normocephalic - Eye Eye exam: Present: normal appearance - ENT ENT exam: Present: mucous membranes moist - Neck Neck exam: Present: normal inspection - Respiratory Respiratory exam: Present: respiratory distress, wheezes, rhonchi - Cardiovascular Cardiovascular Exam: Present: regular rate, normal rhythm. Absent: systolic murmur, diastolic murmur, rubs, gallop - GI/Abdominal GI/Abdominal exam: Present: soft, normal bowel sounds - Extremities Exam Extremities exam: Present: normal inspection - Back Exam Back exam: Present: normal inspection - Neurological Exam Neurological exam: Present: alert, oriented X3 - Psychiatric Psychiatric exam: Present: normal affect, normal mood - Skin Skin exam: Present: warm, dry, intact, normal color. Absent: rash ED Course Vital Signs 10/13/18 10/13/18 10/13/18 20:42 21:28 23:34 Temperature 98.6 F 98.6 F Pulse Rate 118 H 118 H Pulse Rate [ Anterior Bilateral Throughout] Respiratory 24 28 H 22 Rate Respiratory Rate [Anterior Bilateral Throughout] Blood Pressure 151/93 151/93 O2 Sat by Pulse 92 92 95 Oximetry 10/14/18 10/14/18 00:10 00:35 Temperature Pulse Rate Pulse Rate [ 91 H 95 H Anterior Bilateral Throughout] Respiratory Rate Respiratory 16 17 Rate [Anterior Bilateral Throughout] Blood Pressure O2 Sat by Pulse Oximetry ED Medical Decision Making - Lab Data Result diagrams: 10/13/18 21:41 10/13/18 21:41 Lab Results 10/13/18 10/13/18 Range/Units 21:41 21:41 WBC 11.3 H (4.5-11.0) K/mm3 RBC 4.77 (3.65-5.03) M/mm3 Hgb 12.0 (10.1-14.3) gm/dl Hct 37.5 (30.3-42.9) % MCV 79 (79-97) fl MCH 25 L (28-32) pg MCHC 32 (30-34) % RDW 16.6 H (13.2-15.2) % Plt Count 229 (140-440) K/mm3 Add Manual Diff Complete Total Counted 100 Seg Neutrophils % Food Service Cashier Seg Neuts % (Manual) 88.0 H (40.0-70.0) % Band Neutrophils % 0 % Lymphocytes % (Manual) 6.0 L (13.4-35.0) % Reactive Lymphs % (Man) 0 % Monocytes % (Manual) 3.0 (0.0-7.3) % Eosinophils % (Manual) 2.0 (0.0-4.3) % Basophils % (Manual) 1.0 (0.0-1.8) % Metamyelocytes % 0 % Myelocytes % 0 % Promyelocytes % 0 % Blast Cells % 0 % Nucleated RBC % Not Reportable Seg Neutrophils # Man 9.9 H (1.8-7.7) K/mm3 Band Neutrophils # 0.0 K/mm3 Lymphocytes # (Manual) 0.7 L (1.2-5.4) K/mm3 Abs React Lymphs (Man) 0.0 K/mm3 Monocytes # (Manual) 0.3 (0.0-0.8) K/mm3 Eosinophils # (Manual) 0.2 (0.0-0.4) K/mm3 Basophils # (Manual) 0.1 (0.0-0.1) K/mm3 Metamyelocytes # 0.0 K/mm3 Myelocytes # 0.0 K/mm3 Promyelocytes # 0.0 K/mm3 Blast Cells # 0.0 K/mm3 WBC Morphology Not Reportable Hypersegmented Neuts Not Reportable Hyposegmented Neuts Not Reportable Hypogranular Neuts Not Reportable Smudge Cells Not Reportable Toxic Granulation Not Reportable Toxic Vacuolation Not Reportable Dohle Bodies Not Reportable Pelger-Huet Anomaly Not Reportable Christopher Rods Not Reportable Platelet Estimate Not Reportable Clumped Platelets Not Reportable Plt Clumps, EDTA Not Reportable Large Platelets Not Reportable Giant Platelets Not Reportable Platelet Satelliting Not Reportable Plt Morphology Comment Not Reportable RBC Morphology Normal Dimorphic RBCs Not Reportable Polychromasia Not Reportable Hypochromasia Not Reportable Poikilocytosis Not Reportable Anisocytosis Not Reportable Microcytosis Not Reportable Macrocytosis Not Reportable Spherocytes Not Reportable Pappenheimer Bodies Not Reportable Sickle Cells Not Reportable Target Cells Not Reportable Tear Drop Cells Not Reportable Ovalocytes Not Reportable Helmet Cells Not Reportable Simms-[place] Bodies Not Reportable [place] Rings Not Reportable [place] Cells Not Reportable Bite Cells Not Reportable Crenated Cell Not Reportable Elliptocytes Not Reportable Acanthocytes (Spur) Not Reportable Rouleaux Not Reportable Hemoglobin C Crystals Not Reportable Schistocytes Not Reportable Malaria parasites Not Reportable Abdias Bodies Not Reportable Hem Pathologist Commnt No Sodium 143 (137-145) mmol/L Potassium 3.4 L (3.6-5.0) mmol/L Chloride 100.4 (98-107) mmol/L Carbon Dioxide 29 (22-30) mmol/L Anion Gap 17 mmol/L BUN 11 (7-17) mg/dL Creatinine 0.6 L (0.7-1.2) mg/dL Estimated GFR > 60 ml/min BUN/Creatinine Ratio 18 % Glucose 174 H (65-100) mg/dL Calcium 9.3 (8.4-10.2) mg/dL - EKG Data -: EKG Interpreted by Me EKG shows normal: sinus rhythm Rate: tachycardia (114) - EKG Data When compared to previous EKG there are: previous EKG unavailable 10/14/18 00:19 No STEMI. - Radiology Data Radiology results: report reviewed, image reviewed CXR is negative. Critical care attestation.: If time is entered above; I have spent that time in minutes in the direct care of this critically ill patient, excluding procedure time. ED Disposition Clinical Impression: Bronchitis, SOB (shortness of breath) COPD (chronic obstructive pulmonary disease) Qualifiers: COPD type: unspecified COPD Qualified Code(s): J44.9 - Chronic obstructive p ulmonary disease, unspecified Disposition: DC-01 TO HOME OR SELFCARE Is pt being admited?: No Does the pt Need Aspirin: No Condition: Stable Instructions: Chronic Bronchitis (ED), Chronic Obstructive Pulmonary Disease (ED) Additional Instructions: Please follow up with your regular doctor within the next 24 hours. Return to the ED if your condition worsens. Prescriptions: ALBUTEROL Inhaler(NF) [VENTOLIN Inhaler(NF)] 2 puff IH Q4HR PRN #1 inha PRN Reason: Shortness Of Breath Amoxicillin/Potassium Clav [Augmentin 875-125 Tablet] 1 each PO BID #20 tablet Azithromycin [Zithromax Tri-Tyrese] 500 mg PO DAILY #5 tablet predniSONE [Deltasone] 50 mg PO QDAY #5 tab Tiotropium [Spiriva] 18 mcg IH QDAY #1 box Referrals: PRIMARY CARE, [Primary Care Provider] - 3-5 Days Time of Disposition: 04:46
[2018-10-14] MEDS ORDERED: SOLU-Medrol IV ONE (00:16)
[2018-10-14] MEDS ORDERED: LEVAQUIN 750MG/150ML 750 MG/150 ML BAG IV ONE (00:17)
[2018-10-14] MEDS ORDERED: DUONEB *Not for PRN Use IH ONE (00:17)
[2018-10-14] MEDS ORDERED: NACL 0.9% 1000 ML 1,000 ML IV ONE (02:00)
[2018-10-14] MEDS ORDERED: ATROVENT IH ONE (03:28)
[2018-10-14] MEDS ORDERED: PROVENTIL IH ONE (03:28)
[2018-10-14 06:02] VITALS: BP 126/57
== END 2018-10-14 05:30 | disposition home or self-care (01) ==
LOC: ED 20:22
DX: J40 Bronchitis, not specified as acute or chronic (principal); J44.9 Chronic obstructive pulmonary disease, unspecified; I10 Essential (primary) hypertension
CPT/HCPCS: 36415; 71046; 80048; 82803; 83880; 85007; 85025; 93005; 93010; 94640; 96365; 96366; 96375; 99285; J1956; J2930; J7030

== ENCOUNTER 2018-10-30 10:01 | Emergency (ER) | payer MEDICARE ==
[2018-10-30 10:07] VITALS: BP 148/82
[2018-10-30] MEDS ORDERED: PROVENTIL IH ONE (10:14)
[2018-10-30] MEDS ORDERED: ATROVENT IH ONE (10:14)
[2018-10-30] MEDS ORDERED: DECADRON IM ONE (10:14)
--- NOTE | 2018-10-30 11:14 | Emergency Department Report ---
ED Asthma HPI - General Chief Complaint: Upper Respiratory Infection Stated Complaint: CARLITOS/COPD Time Seen by Provider: 10/30/18 10:12 Source: patient Mode of arrival: Ambulatory Limitations: No Limitations - History of Present Illness Initial Comments: This is a 73-year-old female nontoxic, well nourished in appearance, no acute signs of distress presents to the ED with c/o of shortness of breathe and wheezing. Patient stated that she has taken medications that was prescribed to her with no relief. Patient denies any cough. Patient denies any sick contact. Patient denies any recent travels, long car, recent hospital stays. Patient denies any calf pain or calf tenderness. Patient denies any chest pain, short of breath, fever, chills, nausea, vomiting, hemoptysis, numbness, tingling, headache or stiff neck. Past medical history includes asthma. MD Complaint: shortness of breath, wheezing -: days(s) (1) Asthma History: childhood onset, history of prior ED visit Severity: mild Context: none known Associated Symptoms: none Treatments Prior to Arrival: inhaled bronchodilator - Related Data Current Asthma Therapy: inhaled bronchodilator Home Medications Medication Instructions Recorded Confirmed Last Taken Ergocalciferol [Vitamin D2] 1 cap PO QWEEK 04/26/18 08/16/18 07/14/18 Previous Rx's Medication Instructions Recorded Last Taken Type Metformin HCl [Glucophage] 500 mg PO BID #60 tablet 04/28/18 07/14/18 Rx ALBUTEROL Inhaler (OR & NICU) 2 puff IH QID PRN #1 inhalation 08/16/18 Unknown Rx [ProAir HFA Inhaler] Acetaminophen [Acetaminophen TAB] 650 mg PO Q4H PRN #15 tablet 08/16/18 Unknown Rx Budesoni/Formotero 160-4.5(Nf) 2 puff IH BID #60 inha MDD 08/16/18 Unknown Rx [Symbicort 160-4.5 (Nf)] Budesoni/Formotero 80-4.5(Nf) Ipratropium/Albuterol Sulfate 1 ampul IH Q4HR PRN 30 Days #100 08/16/18 Unknown Rx [DUONEB *Not for PRN Use*] ampul.neb Potassium Chloride [K-Dur] 10 meq PO BID tablet 08/16/18 Unknown Rx Prednisone [predniSONE 10 mg 10 mg PO .TAPER #1 tab.ds.pk 08/16/18 Unknown Rx (6-Day Pack, 21 Tabs)] amLODIPine [Norvasc] 10 mg PO QDAY #30 tablet 08/16/18 Unknown Rx levoFLOXacin [Levaquin TAB] 750 mg PO Q24HR #5 tablet 08/16/18 Unknown Rx Prednisone [predniSONE 10 mg 10 mg PO .TAPER #1 tab.ds.pk 09/21/18 Unknown Rx (6-Day Pack, 21 Tabs)] levoFLOXacin [Levaquin TAB] 500 mg PO QDAY #7 tablet 09/21/18 Unknown Rx ALBUTEROL Inhaler(NF) [VENTOLIN 2 puff IH Q4HR PRN #1 inha 10/14/18 Unknown Rx Inhaler(NF)] Amoxicillin/Potassium Clav 1 each PO BID #20 tablet 10/14/18 Unknown Rx [Augmentin 875-125 Tablet] Azithromycin [Zithromax Tri-Tyrese] 500 mg PO DAILY #5 tablet 10/14/18 Unknown Rx Tiotropium [Spiriva] 18 mcg IH QDAY #1 box 10/14/18 Unknown Rx predniSONE [Deltasone] 50 mg PO QDAY #5 tab 10/14/18 Unknown Rx ALBUTEROL Inhaler(NF) [VENTOLIN 2 puff IH Q4-6H PRN #1 inha 10/30/18 Unknown Rx Inhaler(NF)] Prednisone [predniSONE 10 mg 10 mg PO .TAPER #1 tab.ds.pk 10/30/18 Unknown Rx (6-Day Pack, 21 Tabs)] Allergies Allergy/AdvReac Type Severity Reaction Status Date / Time No Known Allergies Allergy Verified 01/21/18 13:59 ED Review of Systems ROS: Stated complaint: CARLITOS/COPD Other details as noted in HPI Constitutional: denies: chills, fever Eyes: denies: eye pain, eye discharge, vision change ENT: denies: ear pain, throat pain Respiratory: shortness of breath, wheezing. denies: cough Cardiovascular: denies: chest pain, palpitations Endocrine: no symptoms reported Gastrointestinal: denies: abdominal pain, nausea, diarrhea Genitourinary: denies: urgency, dysuria, discharge Musculoskeletal: denies: back pain, joint swelling, arthralgia Skin: denies: rash, lesions Neurological: denies: headache, weakness, paresthesias Psychiatric: denies: anxiety, depression Hematological/Lymphatic: denies: easy bleeding, easy bruising ED Past Medical Hx - Past Medical History Hx Hypertension: Yes Hx Heart Attack/AMI: No Hx Congestive Heart Failure: No Hx Diabetes: No (steroid elevated BS per pt) Hx Deep Vein Thrombosis: No Hx Pulmonary Embolism: No Hx Sickle Cell Disease: No Hx Asthma: Yes Hx COPD: Yes Hx Tuberculosis: No Hx HIV: No Additional medical history: post-menopausal bleeding, bronchitis 12/05. Obesity - Surgical History Past Surgical History?: No Hx Coronary Stent: No Hx Pacemaker: No Hx Internal Defibrillator: No - Social History Smoking Status: Never Smoker Substance Use Type: None - Medications Home Medications: Home Medications Medication Instructions Recorded Confirmed Last Taken Type Ergocalciferol [Vitamin D2] 1 cap PO QWEEK 04/26/18 08/16/18 07/14/18 History Metformin HCl [Glucophage] 500 mg PO BID #60 tablet 04/28/18 08/16/18 07/14/18 Rx ALBUTEROL Inhaler (OR & NICU) 2 puff IH QID PRN #1 inhalation 08/16/18 Unknown Rx [ProAir HFA Inhaler] Acetaminophen [Acetaminophen TAB] 650 mg PO Q4H PRN #15 tablet 08/16/18 Unknown Rx Budesoni/Formotero 160-4.5(Nf) 2 puff IH BID #60 inha MDD 08/16/18 Unknown Rx [Symbicort 160-4.5 (Nf)] Budesoni/Formotero 80-4.5(Nf) Ipratropium/Albuterol Sulfate 1 ampul IH Q4HR PRN 30 Days #100 08/16/18 Unknown Rx [DUONEB *Not for PRN Use*] ampul.neb Potassium Chloride [K-Dur] 10 meq PO BID tablet 08/16/18 Unknown Rx Prednisone [predniSONE 10 mg 10 mg PO .TAPER #1 tab.ds.pk 08/16/18 Unknown Rx (6-Day Pack, 21 Tabs)] amLODIPine [Norvasc] 10 mg PO QDAY #30 tablet 08/16/18 Unknown Rx levoFLOXacin [Levaquin TAB] 750 mg PO Q24HR #5 tablet 08/16/18 Unknown Rx Prednisone [predniSONE 10 mg 10 mg PO .TAPER #1 tab.ds.pk 09/21/18 Unknown Rx (6-Day Pack, 21 Tabs)] levoFLOXacin [Levaquin TAB] 500 mg PO QDAY #7 tablet 09/21/18 Unknown Rx ALBUTEROL Inhaler(NF) [VENTOLIN 2 puff IH Q4HR PRN #1 inha 10/14/18 Unknown Rx Inhaler(NF)] Amoxicillin/Potassium Clav 1 each PO BID #20 tablet 10/14/18 Unknown Rx [Augmentin 875-125 Tablet] Azithromycin [Zithromax Tri-Tyrese] 500 mg PO DAILY #5 tablet 10/14/18 Unknown Rx Tiotropium [Spiriva] 18 mcg IH QDAY #1 box 10/14/18 Unknown Rx predniSONE [Deltasone] 50 mg PO QDAY #5 tab 10/14/18 Unknown Rx ALBUTEROL Inhaler(NF) [VENTOLIN 2 puff IH Q4-6H PRN #1 inha 10/30/18 Unknown Rx Inhaler(NF)] Prednisone [predniSONE 10 mg 10 mg PO .TAPER #1 tab.ds.pk 10/30/18 Unknown Rx (6-Day Pack, 21 Tabs)] ED Physical Exam - General Limitations: No Limitations General appearance: alert, in no apparent distress - Head Head exam: Present: atraumatic, normocephalic - Eye Eye exam: Present: normal appearance - Neck Neck exam: Present: normal inspection, full ROM - Respiratory Respiratory exam: Present: normal lung sounds bilaterally, wheezes (bilateral upper and lower lobes), rales. Absent: respiratory distress, rhonchi, stridor, chest wall tenderness, accessory muscle use, decreased breath sounds, prolonged expiratory - Cardiovascular Cardiovascular Exam: Present: regular rate, normal rhythm, tachycardia, normal heart sounds. Absent: irregular rhythm, systolic murmur, diastolic murmur, rubs, gallop - Extremities Exam Extremities exam: Present: normal inspection, full ROM, normal capillary refill - Back Exam Back exam: Present: normal inspection, full ROM - Neurological Exam Neurological exam: Present: alert, oriented X3 - Psychiatric Psychiatric exam: Present: normal affect, normal mood - Skin Skin exam: Present: warm, dry, intact, normal color. Absent: rash ED Course Vital Signs 10/30/18 10/30/18 10/30/18 10:03 10:53 10:55 Temperature 98.8 F Pulse Rate 112 H Pulse Rate [ 88 Anterior Bilateral Throughout] Respiratory 24 20 Rate Respiratory 22 Rate [Anterior Bilateral Throughout] Blood Pressure 148/82 O2 Sat by Pulse 94 96 Oximetry 10/30/18 11:14 Temperature Pulse Rate Pulse Rate [ 90 Anterior Bilateral Throughout] Respiratory Rate Respiratory 20 Rate [Anterior Bilateral Throughout] Blood Pressure O2 Sat by Pulse Oximetry - Reevaluation(s) Reevaluation #1: 10/30/18 11:16 Patient is speaking in full sentences with no signs of distress noted. ED Medical Decision Making - Medical Decision Making This is a 73-year-old female that presents with asthma exacerbation. Patient is stable and was examined by me. Chest x-ray has been obtained and dictated by the radiologist within normal limits. Patient is notified of the x-ray report with no questions noted by the patient. Patient did receive DuoNeb and steroids in the ED which patient the symptoms has resolved and subsided. Posttreatment and there is no wheezing upon auscultation. Patient is discharged with albuterol and prednisone. Patient was referred to Follow-up with a primary care doctor in 3-5 days or if symptoms worsen and continue return to emergency room as soon as possible. At time of discharge, the patient does not seem toxic or ill in appearance. No acute signs of distress noted. Patient agrees to discharge treatment plan of care. No further questions noted by the patient. This chart is dictated with using [employer] Dictation Program Critical care attestation.: If time is entered above; I have spent that time in minutes in the direct care of this critically ill patient, excluding procedure time. ED Disposition Clinical Impression: COPD exacerbation, Bronchitis Asthma exacerbation Qualifiers: Asthma severity: mild Asthma persistence: intermittent Qualified Code(s): J45.21 - Mild intermittent asthma with (acute) exacerbation Disposition: - TO HOME OR SELFCARE Is pt being admited?: No Does the pt Need Aspirin: No Condition: Stable Instructions: Chronic Obstructive Pulmonary Disease (ED), Chronic Bronchitis (ED), Asthma (ED) Additional Instructions: Follow-up with a primary care/invoicing specialist doctor in 3-5 days or if symptoms worsen and continue return to emergency room as soon as possible. Prescriptions: ALBUTEROL Inhaler(NF) [VENTOLIN Inhaler(NF)] 2 puff IH Q4-6H PRN #1 inha PRN Reason: Wheezing Prednisone [predniSONE 10 mg (6-Day Pack, 21 Tabs)] 10 mg PO .TAPER #1 tab.ds.pk Referrals: PRIMARY CARE, [Primary Care Provider] - 3-5 Days MONICA SHELBY MD [Staff Physician] - 3-5 Days [facility] [Outside] - 3-5 Days [facility] [Outside] - 3-5 Days Forms: Work/School Release Form(ED)
--- NOTE | 2018-10-30 11:25 | XRay Report ---
FINAL REPORT EXAM: XR CHEST ROUTINE 2V HISTORY: wheezing TECHNIQUE: Chest, two views PRIORS: None. FINDINGS: The heart size is normal. Mediastinal contours are normal. Pulmonary vasculature is not congested. The lungs are clear. There are no pleural effusion seen. There is no evidence of pneumothorax. IMPRESSION: There is no acute abnormality identified.
== END 2018-10-30 12:43 | disposition home or self-care (01) ==
LOC: ED 10:01
DX: J44.1 Chronic obstructive pulmonary disease with (acute) exacerbation (principal)
CPT/HCPCS: 71046; 94640; 96372; 99283; J1100

== ENCOUNTER 2018-11-19 11:19 | Inpatient (IN) | payer MEDICARE ==
[2018-11-19] MEDS ORDERED: DUONEB *Not for PRN Use IH ONE (11:34)
[2018-11-19] MEDS ORDERED: MAGNESIUM SULFATE 2GM/50ML 2 GM/50 ML BAG IV ONE (11:37)
[2018-11-19] MEDS ORDERED: SOLU-Medrol IV ONE (11:37)
--- NOTE | 2018-11-19 11:50 | Emergency Department Report ---
ED Shortness of Breath HPI - General Chief Complaint: Dyspnea/Respdistress Stated Complaint: CARLITOS/SOB Time Seen by Provider: 11/19/18 11:31 Source: patient Mode of arrival: Wheelchair Limitations: No Limitations - History of Present Illness Initial Comments: 73-year-old female states that COPD has been worsening for the last 2-3 days. She gave herself 2 tabs at home this morning which did not suffice. She is not on home O2. She does wear CPAP at night. She states that she has had some brown sputum and a bit of leg swelling. She has not seen any hemoptysis. She does not complain of chest pain. She denies fever or chills. MD Complaint: shortness of breath, cough -: days(s) Consistency: constant (wheezing) Improves With: nothing Known History Of: COPD Context: recent URI (perhaps) Associated Symptoms: denies other symptoms (except), cough - Related Data Home Medications Medication Instructions Recorded Confirmed Last Taken Ergocalciferol [Vitamin D2] 1 cap PO QWEEK 04/26/18 08/16/18 07/14/18 Previous Rx's Medication Instructions Recorded Last Taken Type Metformin HCl [Glucophage] 500 mg PO BID #60 tablet 04/28/18 07/14/18 Rx ALBUTEROL Inhaler (OR & NICU) 2 puff IH QID PRN #1 inhalation 08/16/18 Unknown Rx [ProAir HFA Inhaler] Acetaminophen [Acetaminophen TAB] 650 mg PO Q4H PRN #15 tablet 08/16/18 Unknown Rx Budesoni/Formotero 160-4.5(Nf) 2 puff IH BID #60 inha MDD 08/16/18 Unknown Rx [Symbicort 160-4.5 (Nf)] Budesoni/Formotero 80-4.5(Nf) Ipratropium/Albuterol Sulfate 1 ampul IH Q4HR PRN 30 Days #100 08/16/18 Unknown Rx [DUONEB *Not for PRN Use*] ampul.neb Potassium Chloride [K-Dur] 10 meq PO BID tablet 08/16/18 Unknown Rx Prednisone [predniSONE 10 mg 10 mg PO .TAPER #1 tab.ds.pk 08/16/18 Unknown Rx (6-Day Pack, 21 Tabs)] amLODIPine [Norvasc] 10 mg PO QDAY #30 tablet 08/16/18 Unknown Rx levoFLOXacin [Levaquin TAB] 750 mg PO Q24HR #5 tablet 08/16/18 Unknown Rx Prednisone [predniSONE 10 mg 10 mg PO .TAPER #1 tab.ds.pk 09/21/18 Unknown Rx (6-Day Pack, 21 Tabs)] levoFLOXacin [Levaquin TAB] 500 mg PO QDAY #7 tablet 09/21/18 Unknown Rx ALBUTEROL Inhaler(NF) [VENTOLIN 2 puff IH Q4HR PRN #1 inha 10/14/18 Unknown Rx Inhaler(NF)] Amoxicillin/Potassium Clav 1 each PO BID #20 tablet 10/14/18 Unknown Rx [Augmentin 875-125 Tablet] Azithromycin [Zithromax Tri-Tyrese] 500 mg PO DAILY #5 tablet 10/14/18 Unknown Rx Tiotropium [Spiriva] 18 mcg IH QDAY #1 box 10/14/18 Unknown Rx predniSONE [Deltasone] 50 mg PO QDAY #5 tab 10/14/18 Unknown Rx ALBUTEROL Inhaler(NF) [VENTOLIN 2 puff IH Q4-6H PRN #1 inha 10/30/18 Unknown Rx Inhaler(NF)] Prednisone [predniSONE 10 mg 10 mg PO .TAPER #1 tab.ds.pk 10/30/18 Unknown Rx (6-Day Pack, 21 Tabs)] Allergies Allergy/AdvReac Type Severity Reaction Status Date / Time No Known Allergies Allergy Verified 11/19/18 11:24 ED Review of Systems ROS: Stated complaint: CARLITOS/SOB Other details as noted in HPI Constitutional: denies: chills, fever Eyes: denies: eye pain, eye discharge, vision change ENT: denies: ear pain, throat pain Respiratory: cough, shortness of breath, wheezing Cardiovascular: denies: chest pain, palpitations Endocrine: no symptoms reported Gastrointestinal: denies: abdominal pain, nausea, diarrhea Genitourinary: denies: urgency, dysuria, discharge Musculoskeletal: denies: back pain, joint swelling, arthralgia Skin: denies: rash, lesions Neurological: denies: headache, weakness, paresthesias Psychiatric: denies: anxiety, depression Hematological/Lymphatic: denies: easy bleeding, easy bruising ED Past Medical Hx - Past Medical History Previous Medical History?: Yes Hx Hypertension: Yes Hx Heart Attack/AMI: No Hx Congestive Heart Failure: No Hx Diabetes: No (steroid elevated BS per pt) Hx Deep Vein Thrombosis: No Hx Pulmonary Embolism: No Hx Sickle Cell Disease: No Hx Asthma: Yes Hx COPD: Yes Hx Tuberculosis: No Hx HIV: No Additional medical history: post-menopausal bleeding, bronchitis 12/05. Obesity - Surgical History Past Surgical History?: No Hx Coronary Stent: No Hx Pacemaker: No Hx Internal Defibrillator: No - Social History Smoking Status: Never Smoker Substance Use Type: None - Medications Home Medications: Home Medications Medication Instructions Recorded Confirmed Last Taken Type Ergocalciferol [Vitamin D2] 1 cap PO QWEEK 04/26/18 08/16/18 07/14/18 History Metformin HCl [Glucophage] 500 mg PO BID #60 tablet 04/28/18 08/16/18 07/14/18 Rx ALBUTEROL Inhaler (OR & NICU) 2 puff IH QID PRN #1 inhalation 08/16/18 Unknown Rx [ProAir HFA Inhaler] Acetaminophen [Acetaminophen TAB] 650 mg PO Q4H PRN #15 tablet 08/16/18 Unknown Rx Budesoni/Formotero 160-4.5(Nf) 2 puff IH BID #60 inha MDD 08/16/18 Unknown Rx [Symbicort 160-4.5 (Nf)] Budesoni/Formotero 80-4.5(Nf) Ipratropium/Albuterol Sulfate 1 ampul IH Q4HR PRN 30 Days #100 08/16/18 Unknown Rx [DUONEB *Not for PRN Use*] ampul.neb Potassium Chloride [K-Dur] 10 meq PO BID tablet 08/16/18 Unknown Rx Prednisone [predniSONE 10 mg 10 mg PO .TAPER #1 tab.ds.pk 08/16/18 Unknown Rx (6-Day Pack, 21 Tabs)] amLODIPine [Norvasc] 10 mg PO QDAY #30 tablet 08/16/18 Unknown Rx levoFLOXacin [Levaquin TAB] 750 mg PO Q24HR #5 tablet 08/16/18 Unknown Rx Prednisone [predniSONE 10 mg 10 mg PO .TAPER #1 tab.ds.pk 09/21/18 Unknown Rx (6-Day Pack, 21 Tabs)] levoFLOXacin [Levaquin TAB] 500 mg PO QDAY #7 tablet 09/21/18 Unknown Rx ALBUTEROL Inhaler(NF) [VENTOLIN 2 puff IH Q4HR PRN #1 inha 10/14/18 Unknown Rx Inhaler(NF)] Amoxicillin/Potassium Clav 1 each PO BID #20 tablet 10/14/18 Unknown Rx [Augmentin 875-125 Tablet] Azithromycin [Zithromax Tri-Tyrese] 500 mg PO DAILY #5 tablet 10/14/18 Unknown Rx Tiotropium [Spiriva] 18 mcg IH QDAY #1 box 10/14/18 Unknown Rx predniSONE [Deltasone] 50 mg PO QDAY #5 tab 10/14/18 Unknown Rx ALBUTEROL Inhaler(NF) [VENTOLIN 2 puff IH Q4-6H PRN #1 inha 10/30/18 Unknown Rx Inhaler(NF)] Prednisone [predniSONE 10 mg 10 mg PO .TAPER #1 tab.ds.pk 10/30/18 Unknown Rx (6-Day Pack, 21 Tabs)] ED Physical Exam - General Limitations: No Limitations General appearance: obese - Head Head exam: Present: atraumatic - Eye Eye exam: Present: normal appearance. Absent: scleral icterus - ENT ENT exam: Present: normal exam (on inspection) - Neck Neck exam: Present: normal inspection. Absent: tenderness, meningismus - Respiratory Respiratory exam: Present: respiratory distress (mild), wheezes, accessory muscle use - Cardiovascular Cardiovascular Exam: Present: regular rate, tachycardia, normal heart sounds - GI/Abdominal GI/Abdominal exam: Present: soft. Absent: distended, tenderness, guarding, rebound, rigid - Extremities Exam Extremities exam: Present: other (mild pretibial edema). Absent: calf tenderness - Back Exam Back exam: Present: normal inspection - Neurological Exam Neurological exam: Present: alert, oriented X3, CN II-XII intact (as tested). Absent: motor sensory deficit - Psychiatric Psychiatric exam: Present: normal affect, normal mood - Skin Skin exam: Present: warm, dry, intact, normal color. Absent: rash ED Course Vital Signs 11/19/18 11/19/18 11/19/18 11:24 11:36 11:40 Temperature 98.4 F Pulse Rate 116 H 115 H Pulse Rate [ 111 H Throughout] Respiratory 26 H 27 H Rate Respiratory 24 Rate [ Throughout] Blood Pressure 186/83 O2 Sat by Pulse 92 Oximetry 11/19/18 11/19/18 11/19/18 12:37 12:44 12:45 Temperature Pulse Rate 109 H 107 H Pulse Rate [ Throughout] Respiratory 22 19 19 Rate Respiratory Rate [ Throughout] Blood Pressure 183/85 143/51 O2 Sat by Pulse 99 98 99 Oximetry 11/19/18 12:50 Temperature Pulse Rate Pulse Rate [ 107 H Throughout] Respiratory Rate Respiratory 20 Rate [ Throughout] Blood Pressure O2 Sat by Pulse Oximetry - Reevaluation(s) Reevaluation #1: Pulse oximetry noted to be 90-91. This point it has improved after nebs. She was some residual wheezes. She is admitted by Dr. Cadet to the [facility] for further care and evaluation. 11/19/18 14:04 ED Medical Decision Making - Lab Data Result diagrams: 11/19/18 11:54 11/19/18 11:54 Laboratory Results - last 24 hr 11/19/18 11/19/18 11/19/18 11:54 11:54 11:54 WBC 10.6 RBC 4.88 Hgb 12.4 Hct 39.2 MCV 80 MCH 25 L MCHC 32 RDW 16.5 H Plt Count 223 Lymph % (Auto) 11.2 L Bullock % (Auto) 5.6 Eos % (Auto) 4.8 H Baso % (Auto) 0.6 Lymph # 1.2 Bullock # 0.6 Eos # 0.5 H Baso # 0.1 Seg Neutrophils % 77.8 H Seg Neutrophils # 8.3 H PT 12.4 INR 0.89 APTT 24.4 Sodium 141 Potassium 3.6 Chloride 100.0 Carbon Dioxide 28 Anion Gap 17 BUN 11 Creatinine 0.5 L Estimated GFR > 60 BUN/Creatinine Ratio 22 Glucose 107 H Lactic Acid Calcium 9.2 Magnesium 1.90 Total Bilirubin 0.40 Direct Bilirubin < 0.2 Indirect Bilirubin 0.2 AST 16 ALT 18 Alkaline Phosphatase 90 Troponin T < 0.010 NT-Pro-B Natriuret Pep 32.92 Total Protein 6.8 Albumin 3.8 L Albumin/Globulin Ratio 1.3 11/19/18 11/19/18 11:54 11:54 WBC RBC Hgb Hct MCV MCH MCHC RDW Plt Count Lymph % (Auto) Bullock % (Auto) Eos % (Auto) Baso % (Auto) Lymph # Bullock # Eos # Baso # Seg Neutrophils % Seg Neutrophils # PT INR APTT Sodium Potassium Chloride Carbon Dioxide Anion Gap BUN Creatinine Estimated GFR BUN/Creatinine Ratio Glucose Lactic Acid 1.80 Calcium Magnesium Total Bilirubin Direct Bilirubin Indirect Bilirubin AST ALT Alkaline Phosphatase Troponin T NT-Pro-B Natriuret Pep 31.87 Total Protein Albumin Albumin/Globulin Ratio - Radiology Data Radiology results: report reviewed (no acute process) Critical care attestation.: If time is entered above; I have spent that time in minutes in the direct care of this critically ill patient, excluding procedure time. ED Disposition Clinical Impression: COPD with acute exacerbation, Hypoxia Disposition: DC OP ADMIT IP TO THIS HOSP Is pt being admited?: Yes Does the pt Need Aspirin: Yes Condition: Stable Instructions: Chronic Obstructive Pulmonary Disease (ED) Time of Disposition: 14:06
[2018-11-19 12:11] LABS: Basophils # (Auto) 0.1 K/mm3 (0.0-0.1); Basophils % (Auto) 0.6 % (0.0-1.8); Eosinophils # (Auto) 0.5 K/mm3 (0.0-0.4); Eosinophils % (Auto) 4.8 % (0.0-4.3); Hematocrit 39.2 % (30.3-42.9); Hemoglobin 12.4 gm/dl (10.1-14.3); Lymphocytes # (Auto) 1.2 K/mm3 (1.2-5.4); Lymphocytes % (Auto) 11.2 % (13.4-35.0); Mean Corpuscular HGB Conc 32 % (30-34); Mean Corpuscular Volume 80 fl (79-97); Monocytes # (Auto) 0.6 K/mm3 (0.0-0.8); Monocytes % (Auto) 5.6 % (0.0-7.3); Platelet Count 223 K/mm3 (140-440); Red Blood Count 4.88 M/mm3 (3.65-5.03); Red Cell Distribution Width 16.5 % (13.2-15.2)
[2018-11-19 12:31] LABS: Alanine Aminotransferase 18 units/L (7-56); Albumin 3.8 g/dL (3.9-5); BUN/Creatinine Ratio 22; Blood Urea Nitrogen 11 mg/dL (7-17); Calcium 9.2 mg/dL (8.4-10.2); Hemolysis Index 30
[2018-11-19 12:40] LABS: Bilirubin,Direct < 0.2 mg/dL (0-0.2)
[2018-11-19 12:58] LABS: INR 0.89 (0.87-1.13); Partial Thromboplastin Time 24.4 Sec. (24.2-36.6)
--- NOTE | 2018-11-19 13:06 | XRay Report ---
FINAL REPORT EXAM: XR CHEST 1V AP HISTORY: hypertension COMPARISON: None. TECHNIQUE: Single frontal view of the chest FINDINGS: The cardiomediastinal silhouette is normal in appearance. The lungs are clear without focal consolidation. There is no pleural effusion or pneumothorax. There is no acute soft tissue or osseous abnormality. IMPRESSION: No acute cardiopulmonary disease.
[2018-11-19] MEDS ORDERED: SODIUM CHLORIDE FLUSH SYRINGE 10 ML IV PRN (13:29)
[2018-11-19] MEDS ORDERED: ZOFRAN IV PRN (13:29)
[2018-11-19] MEDS ORDERED: TYLENOL PO PRN ×2 (13:29→21:35)
--- NOTE | 2018-11-19 13:29 | History and Physical Report ---
History of Present Illness Date of examination: 11/19/18 Date of admission: 2018 Chief complaint: Increasing shortness of breath and wheezing for 3 days. History of present illness: 73-year-old -[place] female with history of COPD type 2 diabetes and h ypertension comes in for increasing shortness of breath of 3 days' duration. Increased wheezing. Cough productive of mucoid sputum. No hemoptysis. No fever or chills. Patient wears CPAP at night. Patient follows with Dr. Norwood. No exacerbating or relieving factors. Doesn't smoke. Patient is using a nebulizer machine but no relief. Very short of breath Past Medical History Previous Medical History?: Yes Hypertension: Yes Diabetes: No (steroid elevated BS per pt) Asthma: Yes COPD: Yes Additional medical history: post-menopausal bleeding, bronchitis 12/05. Obesity Surgical History Past Surgical History?: No Social History Smoking Status: Never Smoker Substance Use Type: None Family history Htn Review of Systems ROS: Stated complaint: CARLITOS/SOB Other details as noted in HPI Constitutional: denies: chills, fever Eyes: denies: eye pain, eye discharge, vision change ENT: denies: ear pain, throat pain Respiratory: cough, shortness of breath, wheezing Cardiovascular: denies: chest pain, palpitations Endocrine: no symptoms reported Gastrointestinal: denies: abdominal pain, nausea, diarrhea Genitourinary: denies: urgency, dysuria, discharge Musculoskeletal: denies: back pain, joint swelling, arthralgia Skin: denies: rash, lesions Neurological: denies: headache, weakness, paresthesias Psychiatric: denies: anxiety, depression Hematological/Lymphatic: denies: easy bleeding, easy bruising Medications and Allergies Allergies Allergy/AdvReac Type Severity Reaction Status Date / Time No Known Allergies Allergy Verified 11/19/18 11:24 Home Medications Medication Instructions Recorded Confirmed Last Taken Type Ergocalciferol [Vitamin D2] 1 cap PO QWEEK 04/26/18 08/16/18 11/13/18 08:00 History Metformin HCl [Glucophage] 500 mg PO BID #60 tablet 04/28/18 08/16/18 11/18/18 08:00 Rx ALBUTEROL Inhaler (OR & NICU) 2 puff IH QID PRN #1 inhalation 08/16/18 11/18/18 21:00 Rx [ProAir HFA Inhaler] Acetaminophen [Acetaminophen TAB] 650 mg PO Q4H PRN #15 tablet 08/16/18 Unknown Rx Budesoni/Formotero 160-4.5(Nf) 2 puff IH BID #60 inha MDD 08/16/18 11/19/18 08:00 Rx [Symbicort 160-4.5 (Nf)] Budesoni/Formotero 80-4.5(Nf) Ipratropium/Albuterol Sulfate 1 ampul IH Q4HR PRN 30 Days #100 08/16/18 11/19/18 08:00 Rx [DUONEB *Not for PRN Use*] ampul.neb Potassium Chloride [K-Dur] 10 meq PO BID tablet 08/16/18 11/17/18 08:00 Rx amLODIPine [Norvasc] 10 mg PO QDAY #30 tablet 08/16/18 11/18/18 08:00 Rx ALBUTEROL Inhaler(NF) [VENTOLIN 2 puff IH Q4HR PRN #1 inha 10/14/18 11/19/18 11:00 Rx Inhaler(NF)] Amoxicillin/Potassium Clav 1 each PO BID #20 tablet 10/14/18 11/17/18 08:00 Rx [Augmentin 875-125 Tablet] Tiotropium [Spiriva] 18 mcg IH QDAY #1 box 10/14/18 11/19/18 08:00 Rx ALBUTEROL Inhaler(NF) [VENTOLIN 2 puff IH Q4-6H PRN #1 inha 10/30/18 11/19/18 08:00 Rx Inhaler(NF)] Exam - Constitutional Vitals: Temp Pulse Resp BP Pulse Ox 98.4 F 107 H 20 143/51 99 11/19/18 11:24 11/19/18 12:50 11/19/18 12:50 11/19/18 12:45 11/19/18 12:45 General appearance: Present: severe distress, well-nourished - EENT Eyes: Present: PERRL ENT: hearing intact, clear oral mucosa - Neck Neck: Present: supple, normal ROM - Respiratory Respiratory effort: normal Respiratory: bilateral: diminished, rhonchi, wheezing (accessory muscles of respiration are prominent) - Cardiovascular Heart rate: 90 Rhythm: regular Heart Sounds: Present: S1 & S2. Absent: rub, click - Extremities Extremities: no ischemia, pulses intact, pulses symmetrical, No edema Extremity abnormal: edema (2+) Peripheral Pulses: within normal limits - Abdominal General gastrointestinal: Present: soft, non-tender, non-distended, normal bowel sounds Female genitourinary: Present: normal - Integumentary Integumentary: Present: clear, warm, dry - Musculoskeletal Musculoskeletal: gait normal, strength equal bilaterally - Psychiatric Psychiatric: appropriate mood/affect, intact judgment & insight - Neurologic Neurologic: CNII-XII intact, moves all extremities - Allied Health Allied health notes reviewed: nursing, case management Results - Labs CBC & Chem 7: 11/19/18 11:54 11/19/18 11:54 Labs: Laboratory Last Values WBC 10.6 K/mm3 (4.5-11.0) 11/19/18 11:54 RBC 4.88 M/mm3 (3.65-5.03) 11/19/18 11:54 Hgb 12.4 gm/dl (10.1-14.3) 11/19/18 11:54 Hct 39.2 % (30.3-42.9) 11/19/18 11:54 MCV 80 fl (79-97) 11/19/18 11:54 MCH 25 pg (28-32) L 11/19/18 11:54 MCHC 32 % (30-34) 11/19/18 11:54 RDW 16.5 % (13.2-15.2) H 11/19/18 11:54 Plt Count 223 K/mm3 (140-440) 11/19/18 11:54 Lymph % (Auto) 11.2 % (13.4-35.0) L 11/19/18 11:54 [place] % (Auto) 5.6 % (0.0-7.3) 11/19/18 11:54 Eos % (Auto) 4.8 % (0.0-4.3) H 11/19/18 11:54 Baso % (Auto) 0.6 % (0.0-1.8) 11/19/18 11:54 Lymph # 1.2 K/mm3 (1.2-5.4) 11/19/18 11:54 [place] # 0.6 K/mm3 (0.0-0.8) 11/19/18 11:54 Eos # 0.5 K/mm3 (0.0-0.4) H 11/19/18 11:54 Baso # 0.1 K/mm3 (0.0-0.1) 11/19/18 11:54 Seg Neutrophils % 77.8 % (40.0-70.0) H 11/19/18 11:54 Seg Neutrophils # 8.3 K/mm3 (1.8-7.7) H 11/19/18 11:54 PT 12.4 Sec. (12.2-14.9) 11/19/18 11:54 INR 0.89 (0.87-1.13) 11/19/18 11:54 APTT 24.4 Sec. (24.2-36.6) 11/19/18 11:54 Sodium 141 mmol/L (137-145) 11/19/18 11:54 Potassium 3.6 mmol/L (3.6-5.0) 11/19/18 11:54 Chloride 100.0 mmol/L (98-107) 11/19/18 11:54 Carbon Dioxide 28 mmol/L (22-30) 11/19/18 11:54 Anion Gap 17 mmol/L 11/19/18 11:54 BUN 11 mg/dL (7-17) 11/19/18 11:54 Creatinine 0.5 mg/dL (0.7-1.2) L 11/19/18 11:54 Estimated GFR > 60 ml/min 11/19/18 11:54 BUN/Creatinine Ratio 22 % 11/19/18 11:54 Glucose 107 mg/dL (65-100) H 11/19/18 11:54 Lactic Acid 1.80 mmol/L (0.7-2.0) 11/19/18 11:54 Calcium 9.2 mg/dL (8.4-10.2) 11/19/18 11:54 Magnesium 1.90 mg/dL (1.7-2.3) 11/19/18 11:54 Total Bilirubin 0.40 mg/dL (0.1-1.2) 11/19/18 11:54 Direct Bilirubin < 0.2 mg/dL (0-0.2) 11/19/18 11:54 Indirect Bilirubin 0.2 mg/dL 11/19/18 11:54 AST 16 units/L (5-40) 11/19/18 11:54 ALT 18 units/L (7-56) 11/19/18 11:54 Alkaline Phosphatase 90 units/L (35-129) 11/19/18 11:54 Troponin T < 0.010 ng/mL (0.00-0.029) 11/19/18 11:54 NT-Pro-B Natriuret Pep 31.87 pg/mL (0-900) 11/19/18 11:54 Total Protein 6.8 g/dL (6.3-8.2) 11/19/18 11:54 Albumin 3.8 g/dL (3.9-5) L 11/19/18 11:54 Albumin/Globulin Ratio 1.3 % 11/19/18 11:54 - Imaging and Cardiology Chest x-ray: report reviewed (no acute findings) Assessment and Plan Advance Directives: Yes (full code) VTE prophylaxis?: Chemical Plan of care discussed with patient/family: Yes - Patient Problems (1) Acute respiratory failure with hypoxia Current Visit: No Status: Acute Plan to address problem: Patient initiated on BiPAP and nebulizer treatments and IV Solu-Medrol and IV antibiotics. Intubation if necessary ABG pending (2) COPD with acute exacerbation Current Visit: Yes Status: Acute Plan to address problem: Patient to get nebulizer treatments [id number] and when necessary IV Solu- Medrol and IV antibiotics. 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
[2018-11-19] MEDS ORDERED: PERCOCET 5/325 PO PRN (13:32)
[2018-11-19] MEDS ORDERED: DILAUDID IV PRN (13:32)
[2018-11-19] MEDS ORDERED: PROVENTIL IH PRN (13:35)
[2018-11-19] MEDS ORDERED: NACL 0.9% 1000 ML 1,000 ML IV SCH (14:00)
[2018-11-19] MEDS ORDERED: BABY ASPIRIN PO ONE (14:08)
[2018-11-19] MEDS ORDERED: DILAUDID ONE (14:33)
[2018-11-19] MEDS: LEVAQUIN 750MG/150ML 750 MG/150 ML BAG IV SCH (15:00)
[2018-11-19] MEDS ORDERED: LOVENOX SUB-Q SCH (15:00)
[2018-11-19] MEDS ORDERED: LEVAQUIN ONE (15:10)
[2018-11-19] MEDS ORDERED: BABY ASPIRIN ONE (15:10)
[2018-11-19] MEDS ORDERED: LEVAQUIN 750MG/150ML 750 MG/150 ML BAG IV ONE (15:15)
[2018-11-19] MEDS: DUONEB *Not for PRN Use IH SCH ×2 (18:03→22:32)
[2018-11-19] MEDS: SOLU-Medrol IV SCH (21:00)
[2018-11-19] MEDS ORDERED: PROAIR IH PRN (21:35)
[2018-11-19] MEDS: NORVASC PO SCH (21:53)
[2018-11-19] MEDS: K-DUR PO SCH (21:53)
[2018-11-19] MEDS ORDERED: NON-FORMULARY (Budesoni/Formotero 160-4.5(Nf) 2 PUFF) IH SCH (22:00)
[2018-11-19] MEDS ORDERED: SODIUM CHLORIDE FLUSH SYRINGE 10 ML IV SCH (22:00)
[2018-11-19] MEDS: HumaLOG SUB-Q SCH (22:36)
[2018-11-19] MEDS: BROVANA NEBU IH SCH (22:46)
[2018-11-19] MEDS: PULMICORT IH SCH (22:47)
[2018-11-19] MEDS: GLUCOPHAGE PO SCH (22:56)
--- NOTE | 2018-11-19 23:41 | Consultation ---
History of Present Illness Consult date: 11/19/18 Reason for consult: dyspnea, cough, obstructive sleep apnea History of present illness: PULMONARY CONSULTATION DR. ALVAREZ THANK YOU FOR ASKING US TO PARTICIPATE IN THE CARE OF THIS PATIENT. 73-year-old -English female with history of Asthma, type 2 diabetes and hypertension comes in for increasing shortness of breath of 3 days' duration. Increased wheezing. Cough productive of mucoid sputum. No hemoptysis. No fever or chills. Patient wears CPAP at night. No exacerbating or relieving factors. Doesn't smoke. Patient is using a nebulizer machine but no relief. Very short of breath. Patient started on I/V solumedrol and aerosolized broncho dilators. Patient says feeling some what better. Past History Past Medical History: other (sLEEP APNEA, ASTHMA.) Medications and Allergies Allergies Allergy/AdvReac Type Severity Reaction Status Date / Time No Known Allergies Allergy Verified 11/19/18 11:24 Home Medications Medication Instructions Recorded Confirmed Last Taken Type RX: Ergocalciferol [Vitamin D2] 1 cap PO QWEEK 04/26/18 11/19/18 11/13/18 08:00 History RX: Metformin HCl [Glucophage] 500 mg PO BID #60 tablet 04/28/18 11/19/18 11/18/18 08:00 Rx RX: ALBUTEROL Inhaler (OR & NICU) 2 puff IH QID PRN #1 inhalation 08/16/18 11/19/18 11/18/18 21:00 Rx [ProAir HFA Inhaler] RX: Acetaminophen [Acetaminophen 650 mg PO Q4H PRN #15 tablet 08/16/18 11/19/18 Unknown Rx TAB] RX: Budesoni/Formotero 160-4.5(Nf) 2 puff IH BID #60 inha MDD 08/16/18 11/19/18 11/19/18 08:00 Rx [Symbicort 160-4.5 (Nf)] Budesoni/Formotero 80-4.5(Nf) RX: Ipratropium/Albuterol Sulfate 1 ampul IH Q4HR PRN 30 Days #100 08/16/18 11/19/18 11/19/18 08:00 Rx [DUONEB *Not for PRN Use*] ampul.neb RX: Potassium Chloride [K-Dur] 10 meq PO BID tablet 08/16/18 11/19/18 11/17/18 08:00 Rx RX: amLODIPine [Norvasc] 10 mg PO QDAY #30 tablet 08/16/18 11/19/18 11/18/18 08:00 Rx RX: ALBUTEROL Inhaler(NF) 2 puff IH Q4HR PRN #1 inha 10/14/18 11/19/18 11/19/18 11:00 Rx [VENTOLIN Inhaler(NF)] RX: Amoxicillin/Potassium Clav 1 each PO BID #20 tablet 10/14/18 11/19/18 Unknown Rx [Augmentin 875-125 Tablet] RX: Tiotropium [Spiriva] 18 mcg IH QDAY #1 box 10/14/18 11/19/18 11/19/18 08:00 Rx RX: ALBUTEROL Inhaler(NF) 2 puff IH Q4-6H PRN #1 inha 10/30/18 11/19/18 11/19/18 08:00 Rx [VENTOLIN Inhaler(NF)] Prednisone [predniSONE 5 mg (6-Day 5 mg PO .TAPER #1 tab.ds.pk 11/20/18 Unknown Rx Pack, 21 Tabs)] Active Meds: Active Medications Acetaminophen (Tylenol) 650 mg PO Q4H PRN PRN Reason: Pain MILD(1-3)/Fever >100.5/YODER Albuterol (Proventil) 2.5 mg IH Q4H PRN PRN Reason: Shortness Of Breath Albuterol/Ipratropium (Duoneb *Not For Prn Use*) 1 ampul IH QIDRT [facility] Last Admin: 11/19/18 22:32 Dose: 1 ampul Documented by: Amlodipine Besylate (Norvasc) 10 mg PO QDAY [facility] Last Admin: 11/19/18 21:53 Dose: 10 mg Documented by: Arformoterol Tartrate (Brovana Nebu) 15 mcg IH Q12HRT [facility] Last Admin: 11/19/18 22:46 Dose: Not Given Documented by: Budesonide (Pulmicort) 1 mg IH Q12HRT [facility] Last Admin: 11/19/18 22:47 Dose: Not Given Documented by: Enoxaparin Sodium (Lovenox) 40 mg SUB-Q Q24H [facility] Last Admin: 11/19/18 18:39 Dose: 40 mg Documented by: Hydromorphone HCl (Dilaudid) 0.5 mg IV Q3H PRN PRN Reason: Pain , Severe (7-10) Levofloxacin/Dextrose (Levaquin 750mg/150ml) 750 mg in 150 mls @ 100 mls/hr IV Q24H [facility]; Protocol Last Infusion: 11/19/18 16:30 Dose: Infused Documented by: Sodium Chloride (Nacl 0.9% 1000 Ml) 1,000 mls @ 42 mls/hr IV DIRECT BELEN Stop: 11/20/18 06:00 Insulin Human Lispro (Humalog) 0 unit SUB-Q ACHS [facility]; Protocol Last Admin: 11/19/18 22:36 Dose: 2 unit Documented by: Metformin HCl (Glucophage) 500 mg PO BIDDIAB [facility] Last Admin: 11/19/18 22:56 Dose: 500 mg Documented by: Methylprednisolone Sodium Succinate (Solu-Medrol) 60 mg IV Q8H [facility] Last Admin: 11/19/18 21:00 Dose: 60 mg Documented by: Ondansetron HCl (Zofran) 4 mg IV Q8H PRN PRN Reason: Nausea And Vomiting Oxycodone/Acetaminophen (Percocet 5/325) 1 tab PO Q6H PRN PRN Reason: Pain, Moderate (4-6) Potassium Chloride (K-Dur) 10 meq PO BID [facility] Last Admin: 11/19/18 21:53 Dose: 10 meq Documented by: Sodium Chloride (Sodium Chloride Flush Syringe 10 Ml) 10 ml IV BID [facility] Last Admin: 11/19/18 21:17 Dose: 10 ml Documented by: Sodium Chloride (Sodium Chloride Flush Syringe 10 Ml) 10 ml IV PRN PRN PRN Reason: LINE FLUSH Review of Systems All systems: negative Physical Examination Vital signs: Vital Signs Temp Pulse Resp BP Pulse Ox 98.4 F 116 H 26 H 186/83 92 11/19/18 11:24 11/19/18 11:24 11/19/18 11:24 11/19/18 11:24 11/19/18 11:24 General appearance: no acute distress, alert Eyes: non-icteric ENT: oropharynx moist Neck: supple, no lymphadenopathy Ascultation: Bilateral: wheezes Cardiovascular: regular rate and rhythm Gastrointestinal: normoactive bowel sounds, soft Integumentary: normal Extremities: no cyanosis, no edema Musculoskeletal: no deformities normal mental status, non-focal exam, pupils equal and round, CN II-XII normal mood appropriate Results - Laboratory Findings CBC and BMP: 11/19/18 11:54 11/19/18 11:54 PT/INR, D-dimer PT 12.4 Sec. (12.2-14.9) 11/19/18 11:54 INR 0.89 (0.87-1.13) 11/19/18 11:54 Abnormal lab findings: Abnormal Labs 11/19/18 11/19/18 11/19/18 11:54 11:54 11:54 MCH 25 L RDW 16.5 H Lymph % (Auto) 11.2 L Eos % (Auto) 4.8 H Eos # 0.5 H Seg Neutrophils % 77.8 H Seg Neutrophils # 8.3 H Creatinine 0.5 L Glucose 107 H POC Glucose Hemoglobin A1c 6.3 H Albumin 3.8 L 11/19/18 11/19/18 16:38 22:31 MCH RDW Lymph % (Auto) Eos % (Auto) Eos # Seg Neutrophils % Seg Neutrophils # Creatinine Glucose POC Glucose 182 H 187 H Hemoglobin A1c Albumin - Diagnostic Findings Chest x-ray: report reviewed (rEPORTED NO ACUTE CARDIOPULMONARY DISEASE.), image reviewed Assessment and Plan 73-year-old -English female with history of Asthma, type 2 diabetes and hypertension comes in for increasing shortness of breath of 3 days' duration. Increased wheezing. Cough productive of mucoid sputum. No hemoptysis. No fever or chills. Patient wears CPAP at night. No exacerbating or relieving factors. Doesn't smoke. Patient is using a nebulizer machine but no relief. Very short of breath. Patient started on I/V solumedrol and aerosolized broncho dilators. Patient says feeling some what better. Patient at the end of the examination, she told me she follows with Dr. Norwood. Recommend to follow with Dr. Norwood. - Patient Problems (1) Acute severe exacerbation of asthma Status: Acute Plan to address problem: O2 supplementation. Albuterol/atrovent aerosol treatments. Continue I/V solumedrol. Continue Levaquin Continue Lovenox. Recommend GI prophylaxis. (2) Acute respiratory failure with hypoxia Status: Acute Plan to address problem: O2 supplementation. Albuterol/atrovent aerosol treatments. Continue I/V solumedrol. Continue Levaquin Continue Lovenox. Recommend GI prophylaxis (3) Hypertension Status: Chronic Qualifiers: Hypertension type: essential hypertension Qualified Code(s): I10 - Essential (primary) hypertension Plan to address problem: Management as per primary care. (4) Obstructive sleep apnea Status: Chronic Plan to address problem: Continue CPAP as she is using at home. Recommend to loose weight. Explained sleep hygeine.
[2018-11-20] MEDS: SOLU-Medrol IV SCH ×2 (03:54→13:00)
[2018-11-20] MEDS: HumaLOG SUB-Q SCH ×2 (08:00→12:00)
[2018-11-20] MEDS: GLUCOPHAGE PO SCH (08:20)
[2018-11-20] MEDS: BROVANA NEBU IH SCH (08:25)
[2018-11-20] MEDS: PULMICORT IH SCH (08:30)
[2018-11-20] MEDS: DUONEB *Not for PRN Use IH SCH ×2 (08:40→14:28)
[2018-11-20] MEDS ORDERED: SPIRIVA IH SCH (10:00)
--- NOTE | 2018-11-20 10:27 | Progress Note ---
Assessment and Plan Assessment and plan: 73-year-old woman who presented to the emergency room shortness of breath 2 days. Associated with cough productive of scant brown sputums COPD exacerbation Steroids nebulizers and antibiotics Management per pulmonology Acute hypoxic respiratory failure Continue supplemental oxygen HTN cont home meds DM, well controlled SSI given steroid administration, a1c 6.3 History Interval history: Review of systems Constitutional: No fevers, no malaise, no joint pains CVS: No chest pain, no orthopnea, no dyspnea on exertion, no pedal edema GI: No abdominal pain, no diarrhea, no vomiting, no constipation Respiratory: c/o sob, wheezing and cough productive of scant sputum Hospitalist Physical - Physical exam Narrative exam: General.: Appears well, no distress, nontoxic HEENT: Moist mucous membranes, extraocular muscles intact, no lymphadenopathy Neck: supple Cardiac: S1-S2 heard Lungs: decreased air entry and wheezing Abdomen: soft , nontender, nondistended, bowel sounds positive Extremities: no edema clubbing or cyanosis Skin: no rash or lesions Neurologic: no gross focal deficits Psych: calm, and cooperative - Constitutional Vitals: Temp Pulse Resp BP Pulse Ox 97.5 F L 100 H 20 156/69 91 11/20/18 01:31 11/20/18 01:31 11/20/18 01:31 11/20/18 01:31 11/20/18 01:31 General appearance: Present: well-nourished Results - Labs CBC & Chem 7: 11/19/18 11:54 11/19/18 11:54 Labs: Laboratory Last Values WBC 10.6 K/mm3 (4.5-11.0) 11/19/18 11:54 RBC 4.88 M/mm3 (3.65-5.03) 11/19/18 11:54 Hgb 12.4 gm/dl (10.1-14.3) 11/19/18 11:54 Hct 39.2 % (30.3-42.9) 11/19/18 11:54 MCV 80 fl (79-97) 11/19/18 11:54 MCH 25 pg (28-32) L 11/19/18 11:54 MCHC 32 % (30-34) 11/19/18 11:54 RDW 16.5 % (13.2-15.2) H 11/19/18 11:54 Plt Count 223 K/mm3 (140-440) 11/19/18 11:54 Lymph % (Auto) 11.2 % (13.4-35.0) L 11/19/18 11:54 [place] % (Auto) 5.6 % (0.0-7.3) 11/19/18 11:54 Eos % (Auto) 4.8 % (0.0-4.3) H 11/19/18 11:54 Baso % (Auto) 0.6 % (0.0-1.8) 11/19/18 11:54 Lymph # 1.2 K/mm3 (1.2-5.4) 11/19/18 11:54 [place] # 0.6 K/mm3 (0.0-0.8) 11/19/18 11:54 Eos # 0.5 K/mm3 (0.0-0.4) H 11/19/18 11:54 Baso # 0.1 K/mm3 (0.0-0.1) 11/19/18 11:54 Seg Neutrophils % 77.8 % (40.0-70.0) H 11/19/18 11:54 Seg Neutrophils # 8.3 K/mm3 (1.8-7.7) H 11/19/18 11:54 PT 12.4 Sec. (12.2-14.9) 11/19/18 11:54 INR 0.89 (0.87-1.13) 11/19/18 11:54 APTT 24.4 Sec. (24.2-36.6) 11/19/18 11:54 Sodium 141 mmol/L (137-145) 11/19/18 11:54 Potassium 3.6 mmol/L (3.6-5.0) 11/19/18 11:54 Chloride 100.0 mmol/L (98-107) 11/19/18 11:54 Carbon Dioxide 28 mmol/L (22-30) 11/19/18 11:54 Anion Gap 17 mmol/L 11/19/18 11:54 BUN 11 mg/dL (7-17) 11/19/18 11:54 Creatinine 0.5 mg/dL (0.7-1.2) L 11/19/18 11:54 Estimated GFR > 60 ml/min 11/19/18 11:54 BUN/Creatinine Ratio 22 % 11/19/18 11:54 Glucose 107 mg/dL (65-100) H 11/19/18 11:54 POC Glucose 187 (70-105) H 11/19/18 22:31 Hemoglobin A1c 6.3 % (4-6) H 11/19/18 11:54 Lactic Acid 1.80 mmol/L (0.7-2.0) 11/19/18 11:54 Calcium 9.2 mg/dL (8.4-10.2) 11/19/18 11:54 Magnesium 1.90 mg/dL (1.7-2.3) 11/19/18 11:54 Total Bilirubin 0.40 mg/dL (0.1-1.2) 11/19/18 11:54 Direct Bilirubin < 0.2 mg/dL (0-0.2) 11/19/18 11:54 Indirect Bilirubin 0.2 mg/dL 11/19/18 11:54 AST 16 units/L (5-40) 11/19/18 11:54 ALT 18 units/L (7-56) 11/19/18 11:54 Alkaline Phosphatase 90 units/L (35-129) 11/19/18 11:54 Troponin T < 0.010 ng/mL (0.00-0.029) 11/19/18 11:54 NT-Pro-B Natriuret Pep 31.87 pg/mL (0-900) 11/19/18 11:54 Total Protein 6.8 g/dL (6.3-8.2) 11/19/18 11:54 Albumin 3.8 g/dL (3.9-5) L 11/19/18 11:54 Albumin/Globulin Ratio 1.3 % 11/19/18 11:54
[2018-11-20] MEDS: NORVASC PO SCH (10:33)
[2018-11-20] MEDS: K-DUR PO SCH (10:33)
--- NOTE | 2018-11-20 13:12 | Discharge Summary ---
Providers - Providers Date of Admission: 11/19/18 14:18 Attending physician: ELMER FLEMING MD Primary care physician: APOLLO HARDY MD Hospitalization Condition: Stable Hospital course: 73-year-old woman who presented to the emergency room shortness of breath 2 days. Associated with cough shortness of breath. Past medical history significant for COPD. She was admitted for COPD exacerbation. She received medical treatment which included steroids and nebulizers as she is very therapy treatments. She received antibiotics, CXR was negative. Her electrolytes were repleted, she rec eived supplemental oxygen. She clinically improved and was subsequently discharged Diagnoses COPD exacerbation Acute hypoxic respiratory failure Disposition: DC TO HOME OR SELFCARE Time spent for discharge: 33 mins Core Measure Documentation - Palliative Care Palliative Care/ Comfort Measures: Not Applicable - Core Measures Any of the following diagnoses?: none Exam - Constitutional Vitals: Temp Pulse Resp BP Pulse Ox 97.5 F L 97 H 20 135/76 91 11/20/18 01:31 11/20/18 10:33 11/20/18 10:00 11/20/18 10:33 11/20/18 01:31 General appearance: Present: no acute distress, well-nourished - EENT Eyes: Present: PERRL ENT: hearing intact, clear oral mucosa - Neck Neck: Present: supple, normal ROM - Respiratory Respiratory effort: normal Respiratory: bilateral: CTA - Cardiovascular Heart Sounds: Present: S1 & S2. Absent: rub, click - Extremities Extremities: pulses symmetrical, No edema Peripheral Pulses: within normal limits - Abdominal General gastrointestinal: Present: soft, non-tender, non-distended, normal bowel sounds Female genitourinary: Present: normal - Integumentary Integumentary: Present: clear, warm, dry - Musculoskeletal Musculoskeletal: gait normal, strength equal bilaterally - Psychiatric Psychiatric: appropriate mood/affect, intact judgment & insight - Neurologic Neurologic: CNII-XII intact, moves all extremities Plan Follow up with: PRIMARY CARE, [Primary Care Provider] - 7 Days Prescriptions: Prednisone [predniSONE 5 mg (6-Day Pack, 21 Tabs)] 5 mg PO .TAPER #1 tab.ds.pk
[2018-11-20 13:57] VITALS: BP 135/76
[2018-11-20] MEDS: LEVAQUIN 750MG/150ML 750 MG/150 ML BAG IV SCH (14:42)
== END 2018-11-20 14:50 | disposition home or self-care (01) | DRG 189 ==
LOC: ED 11:19 → 2B-ACE 14:18
PROVIDERS: ADMIT Internal Medicine; ATTEND Internal Medicine
PROC: 4A033R1 Measurement of Arterial Saturation, Peripheral, Percutaneous Approach (ICD-10-PCS; principal; 2018-11-19)
DX: J96.01 Acute respiratory failure with hypoxia (principal); J44.1 Chronic obstructive pulmonary disease with (acute) exacerbation; J45.901 Unspecified asthma with (acute) exacerbation; I10 Essential (primary) hypertension; Z79.84 Long term (current) use of oral hypoglycemic drugs; E11.9 Type 2 diabetes mellitus without complications; G47.33 Obstructive sleep apnea (adult) (pediatric); Z79.899 Other long term (current) drug therapy
CPT/HCPCS: 36415; 71045; 80048; 80076; 82140; 82962; 83036; 83735; 83880; 84484; 85025; 85610; 85730; 87040; 87086; 93005; 93010; 94640; G0378; J1170; J1815; J1956; J2930; J3475; J7030

== ENCOUNTER 2019-03-25 05:08 | Inpatient (IN) | payer MEDICARE ==
[2019-03-25] MEDS ORDERED: ATROVENT IH ONE ×2 (05:41→05:46)
[2019-03-25] MEDS ORDERED: SOLU-Medrol IV ONE ×2 (05:41→05:46)
[2019-03-25] MEDS ORDERED: PROVENTIL IH ONE ×2 (05:41→05:46)
[2019-03-25] MEDS ORDERED: MAGNESIUM SULFATE 2GM/50ML 2 GM/50 ML BAG IV ONE (05:50)
--- NOTE | 2019-03-25 06:05 | XRay Report ---
PROCEDURE: XR CHEST 1V AP TECHNIQUE: Chest radiograph single view. HISTORY: CARLITOS COMPARISONS: 11/19/2018 . FINDINGS: Heart: Normal. Mediastinum/Vessels: Normal. Lungs/Pleural space: There are no acute infiltrates or effusions.. Bony thorax: No acute osseous abnormality. Life support devices: None. IMPRESSION: No acute cardiopulmonary abnormality. This document is electronically signed by Zachary Watts MD., March 25 2019 06:03:46 AM ET
[2019-03-25 06:06] LABS: Basophils % (Auto) 0.6 % (0.0-1.8); Eosinophils # (Auto) 0.1 K/mm3 (0.0-0.4); Eosinophils % (Auto) 0.8 % (0.0-4.3); Hemoglobin 12.2 gm/dl (10.1-14.3); Lymphocytes # (Auto) 1.1 K/mm3 (1.2-5.4); Lymphocytes % (Auto) 12.4 % (13.4-35.0); Mean Corpuscular HGB Conc 33 % (30-34); Mean Corpuscular Volume 77 fl (79-97); Monocytes # (Auto) 0.7 K/mm3 (0.0-0.8); Monocytes % (Auto) 7.9 % (0.0-7.3); Platelet Count 246 K/mm3 (140-440); Red Cell Distribution Width 15.8 % (13.2-15.2)
[2019-03-25 06:31] LABS: BUN/Creatinine Ratio 15; Blood Urea Nitrogen 12 mg/dL (7-17); Calcium 9.2 mg/dL (8.4-10.2); Hemolysis Index 262
--- NOTE | 2019-03-25 07:10 | Emergency Department Report ---
ED General Adult HPI - General Chief complaint: Dyspnea/Respdistress Stated complaint: CARLITOS Time Seen by Provider: 03/25/19 06:30 Source: patient Mode of arrival: Ambulatory Limitations: No Limitations - History of Present Illness Initial comments: This is a 73-year-old female with a history of COPD. She states that she is not on home O2. Multiple previous admissions at this facility for the same. She states she has no history of congestive heart failure. Over the last week she has had increased problems with her pulmonary status with wheezing and some cough productive of white sputum. She reports no hemoptysis. She denies chest pain. The patient was given Solu-Medrol and magnesium prior to my arrival. She is currently having a breathing treatment. Consistency: constant Improves with: none Worsens with: none Associated Symptoms: denies other symptoms, cough, shortness of breath. denies: confusion, chest pain, diaphoresis, fever/chills, headaches, loss of appetite, malaise, nausea/vomiting, rash, seizure Treatments Prior to Arrival: other (neb) - Related Data Home Medications Medication Instructions Recorded Confirmed Last Taken Ergocalciferol [Vitamin D2] 1 cap PO QWEEK 04/26/18 02/03/19 11/13/18 08:00 Previous Rx's Medication Instructions Recorded Last Taken Type ALBUTEROL Inhaler (OR & NICU) 2 puff IH QID PRN #1 inhalation 08/16/18 11/18/18 21:00 Rx [ProAir HFA Inhaler] Acetaminophen [Acetaminophen TAB] 650 mg PO Q4H PRN #15 tablet 08/16/18 Unknown Rx Potassium Chloride [K-Dur] 10 meq PO BID tablet 08/16/18 11/17/18 08:00 Rx amLODIPine [Norvasc] 10 mg PO QDAY #30 tablet 08/16/18 11/18/18 08:00 Rx ALBUTEROL Inhaler(NF) [VENTOLIN 2 puff IH Q4HR PRN #1 inha 10/14/18 11/19/18 11:00 Rx Inhaler(NF)] Tiotropium [Spiriva] 18 mcg IH QDAY #1 box 10/14/18 11/19/18 08:00 Rx Azithromycin [Zithromax TAB] 500 mg PO QDAY #5 tablet 02/05/19 Unknown Rx Budesoni/Formotero 160-4.5(Nf) 2 puff IH BID #60 inha MDD 02/05/19 Unknown Rx [Symbicort 160-4.5 (Nf)] Budesoni/Formotero 80-4.5(Nf) Fluticasone (Nf) [Flovent Hfa(Nf)] 2 puff IH BID 30 Days puff 02/05/19 Unknown Rx Ipratropium/Albuterol Sulfate 1 ampul IH Q4HR PRN 30 Days #100 02/05/19 Unknown Rx [DUONEB *Not for PRN Use*] ampul.neb Metformin HCl [Glucophage] 500 mg PO BID #60 tablet 02/05/19 Unknown Rx Prednisone [predniSONE 10 mg 10 mg PO .TAPER #1 tab.ds.pk 02/05/19 Unknown Rx (6-Day Pack, 21 Tabs)] Triamcinolone 0.5% [Kenalog 0.5% 1 applic TP BID #1 tube 02/05/19 Unknown Rx CREAM] Allergies Allergy/AdvReac Type Severity Reaction Status Date / Time No Known Allergies Allergy Verified 11/19/18 11:24 ED Review of Systems ROS: Stated complaint: CARLITOS Other details as noted in HPI Constitutional: denies: chills, fever Eyes: denies: eye pain, eye discharge, vision change ENT: denies: ear pain, throat pain Respiratory: cough, shortness of breath, wheezing Cardiovascular: denies: chest pain, palpitations Endocrine: no symptoms reported Gastrointestinal: denies: abdominal pain, nausea, diarrhea Genitourinary: denies: urgency, dysuria, discharge Musculoskeletal: denies: back pain, joint swelling, arthralgia Skin: denies: rash, lesions Neurological: denies: headache, weakness, paresthesias Psychiatric: denies: anxiety, depression Hematological/Lymphatic: denies: easy bleeding, easy bruising ED Past Medical Hx - Past Medical History Previous Medical History?: Yes Hx Hypertension: Yes Hx Heart Attack/AMI: No Hx Congestive Heart Failure: No Hx Diabetes: No (steroid elevated BS per pt) Hx Deep Vein Thrombosis: No Hx Pulmonary Embolism: No Hx Sickle Cell Disease: No Hx Asthma: Yes Hx COPD: Yes Hx Tuberculosis: No Hx HIV: No Additional medical history: post-menopausal bleeding, bronchitis 218. Obesity - Surgical History Past Surgical History?: No Hx Coronary Stent: No Hx Pacemaker: No Hx Internal Defibrillator: No - Social History Smoking Status: Never Smoker Substance Use Type: None - Medications Home Medications: Home Medications Medication Instructions Recorded Confirmed Last Taken Type Ergocalciferol [Vitamin D2] 1 cap PO QWEEK 04/26/18 02/03/19 11/13/18 08:00 History ALBUTEROL Inhaler (OR & NICU) 2 puff IH QID PRN #1 inhalation 08/16/18 02/03/19 11/18/18 21:00 Rx [ProAir HFA Inhaler] Acetaminophen [Acetaminophen TAB] 650 mg PO Q4H PRN #15 tablet 08/16/18 02/03/19 Unknown Rx Potassium Chloride [K-Dur] 10 meq PO BID tablet 08/16/18 02/03/19 11/17/18 08:00 Rx amLODIPine [Norvasc] 10 mg PO QDAY #30 tablet 08/16/18 02/03/19 11/18/18 08:00 Rx ALBUTEROL Inhaler(NF) [VENTOLIN 2 puff IH Q4HR PRN #1 inha 10/14/18 02/03/19 11/19/18 11:00 Rx Inhaler(NF)] Tiotropium [Spiriva] 18 mcg IH QDAY #1 box 10/14/18 02/03/19 11/19/18 08:00 Rx Azithromycin [Zithromax TAB] 500 mg PO QDAY #5 tablet 02/05/19 Unknown Rx Budesoni/Formotero 160-4.5(Nf) 2 puff IH BID #60 inha MDD 02/05/19 Unknown Rx [Symbicort 160-4.5 (Nf)] Budesoni/Formotero 80-4.5(Nf) Fluticasone (Nf) [Flovent Hfa(Nf)] 2 puff IH BID 30 Days puff 02/05/19 Unknown Rx Ipratropium/Albuterol Sulfate 1 ampul IH Q4HR PRN 30 Days #100 02/05/19 Unknown Rx [DUONEB *Not for PRN Use*] ampul.neb Metformin HCl [Glucophage] 500 mg PO BID #60 tablet 02/05/19 Unknown Rx Prednisone [predniSONE 10 mg 10 mg PO .TAPER #1 tab.ds.pk 02/05/19 Unknown Rx (6-Day Pack, 21 Tabs)] Triamcinolone 0.5% [Kenalog 0.5% 1 applic TP BID #1 tube 02/05/19 Unknown Rx CREAM] ED Physical Exam - General Limitations: No Limitations General appearance: alert, in no apparent distress, obese - Head Head exam: Present: atraumatic, normocephalic - Eye Eye exam: Present: normal appearance. Absent: scleral icterus - ENT ENT exam: Present: mucous membranes moist - Neck Neck exam: Present: normal inspection. Absent: tenderness, meningismus - Respiratory Respiratory exam: Present: wheezes (bilateral). Absent: normal lung sounds bilaterally, respiratory distress, accessory muscle use (ample air exchange) - Cardiovascular Cardiovascular Exam: Present: regular rate, normal rhythm. Absent: systolic murmur, diastolic murmur, rubs, gallop - GI/Abdominal GI/Abdominal exam: Present: soft, normal bowel sounds. Absent: distended, tenderness, guarding, rebound - Extremities Exam Extremities exam: Present: normal inspection, normal capillary refill, pedal edema. Absent: calf tenderness - Back Exam Back exam: Present: normal inspection - Neurological Exam Neurological exam: Present: alert, oriented X3, CN II-XII intact. Absent: motor sensory deficit - Psychiatric Psychiatric exam: Present: normal affect, normal mood - Skin Skin exam: Present: warm, dry, intact, normal color. Absent: rash ED Course Vital Signs 03/25/19 03/25/19 03/25/19 05:16 06:00 06:04 Temperature 97.7 F Pulse Rate 118 H 113 H Pulse Rate [ Anterior Bilateral Throughout] Respiratory 22 19 21 Rate Respiratory Rate [Anterior Bilateral Throughout] Blood Pressure 128/69 145/86 O2 Sat by Pulse 97 97 99 Oximetry 03/25/19 03/25/19 03/25/19 06:18 06:30 07:00 Temperature Pulse Rate 100 H 102 H Pulse Rate [ 18 L Anterior Bilateral Throughout] Respiratory 19 18 Rate Respiratory 20 Rate [Anterior Bilateral Throughout] Blood Pressure 159/77 156/78 O2 Sat by Pulse 100 100 Oximetry - Reevaluation(s) Reevaluation #1: Persistent wheezing but no respiratory distress. Patient is admitted to the hospitalist service for further care and evaluation. 03/25/19 08:36 ED Medical Decision Making - Lab Data Result diagrams: 03/25/19 05:50 03/25/19 05:50 Laboratory Results - last 24 hr 03/25/19 03/25/19 03/25/19 05:50 05:50 05:59 WBC 8.6 RBC 4.80 Hgb 12.2 Hct 37.0 MCV 77 L MCH 26 L MCHC 33 RDW 15.8 H Plt Count 246 Lymph % (Auto) 12.4 L [place] % (Auto) 7.9 H Eos % (Auto) 0.8 Baso % (Auto) 0.6 Lymph # 1.1 L [place] # 0.7 Eos # 0.1 Baso # 0.0 Seg Neutrophils % 78.3 H Seg Neutrophils # 6.7 POC ABG pH 7.378 POC ABG pCO2 54.3 H POC ABG pO2 POC ABG HCO3 32.0 POC ABG Total CO2 34 POC ABG O2 Sat 39 POC ABG Base Excess 7 FiO2 21 Sodium 144 Chloride 101.0 Carbon Dioxide 27 BUN 12 Creatinine 0.8 Estimated GFR > 60 BUN/Creatinine Ratio 15 Glucose 134 H Calcium 9.2 03/25/19 06:12 WBC RBC Hgb Hct MCV MCH MCHC RDW Plt Count Lymph % (Auto) [place] % (Auto) Eos % (Auto) Baso % (Auto) Lymph # [place] # Eos # Baso # Seg Neutrophils % Seg Neutrophils # POC ABG pH 7.426 POC ABG pCO2 45.5 H POC ABG pO2 66 L POC ABG HCO3 29.9 POC ABG Total CO2 31 POC ABG O2 Sat 93 POC ABG Base Excess 6 FiO2 21 Sodium Chloride Carbon Dioxide BUN Creatinine Estimated GFR BUN/Creatinine Ratio Glucose Calcium Called lab potassium is yet pending - EKG Data -: EKG Interpreted by Fl EKG shows normal: sinus rhythm, axis, intervals, QRS complexes Rate: tachycardia - EKG Data Interpretation: nonspecific ST-T wave blair - Radiology Data Radiology results: report reviewed Chest x-ray no acute process Critical care attestation.: If time is entered above; I have spent that time in minutes in the direct care of this critically ill patient, excluding procedure time. ED Disposition Clinical Impression: COPD exacerbation Disposition: OP ADMIT IP TO THIS HOSP Is pt being admited?: Yes Does the pt Need Aspirin: Yes Condition: Stable Instructions: Chronic Obstructive Pulmonary Disease (ED) [facility] Care [facility] - 3-5 Days Time of Disposition: 08:38
--- NOTE | 2019-03-25 08:15 | History and Physical Report ---
History of Present Illness Date of examination: 03/25/19 Date of admission: 03/25/19 Chief complaint: Worsening shortness of breath and cough for the last 1 week worse since yesterday History of present illness: A pleasant obese 73-year-old -[place] female patient with significant history of COPD well known to us,presented to the emergency room with worsening shortness of breath of one week worse since yesterday. Patient received home nebulizers with no improvement. The patient was given high-dose IV steroids and nebulizer treatment and oxygen with mild improvement of symptoms Cough nonproductive, denies fever, nausea vomiting or abdominal pain Chest x-ray no acute abnormalities noted, ABG revealed hypoxia with PO2 of 66 The patient follows with mexican food maker Dr. Norwood, claims compliance with medications and diet Past History Past Medical History: COPD, hypertension, hyperlipidemia Past Surgical History: No surgical history Social history: lives with family. denies: smoking, alcohol abuse, prescription drug abuse Family history: hypertension Medications and Allergies Allergies Allergy/AdvReac Type Severity Reaction Status Date / Time No Known Allergies Allergy Verified 11/19/18 11:24 Home Medications Medication Instructions Recorded Confirmed Last Taken Type Ergocalciferol [Vitamin D2] 1 cap PO QWEEK 04/26/18 03/25/19 11/13/18 08:00 History ALBUTEROL Inhaler (OR & NICU) 2 puff IH QID PRN #1 inhalation 08/16/18 03/25/19 11/18/18 21:00 Rx [ProAir HFA Inhaler] Acetaminophen [Acetaminophen TAB] 650 mg PO Q4H PRN #15 tablet 08/16/18 03/25/19 Unknown Rx Potassium Chloride [K-Dur] 10 meq PO BID tablet 08/16/18 03/25/19 11/17/18 08:00 Rx amLODIPine [Norvasc] 10 mg PO QDAY #30 tablet 08/16/18 03/25/19 11/18/18 08:00 Rx ALBUTEROL Inhaler(NF) [VENTOLIN 2 puff IH Q4HR PRN #1 inha 10/14/18 03/25/19 11/19/18 11:00 Rx Inhaler(NF)] Azithromycin [Zithromax TAB] 500 mg PO QDAY #5 tablet 02/05/19 03/25/19 Unknown Rx Budesoni/Formotero 160-4.5(Nf) 2 puff IH BID #60 inha MDD 02/05/19 03/25/19 Unkn own Rx [Symbicort 160-4.5 (Nf)] Budesoni/Formotero 80-4.5(Nf) Fluticasone (Nf) [Flovent Hfa(Nf)] 2 puff IH BID 30 Days puff 02/05/19 03/25/19 Unknown Rx Ipratropium/Albuterol Sulfate 1 ampul IH Q4HR PRN 30 Days #100 02/05/19 03/25/19 Unknown Rx [DUONEB *Not for PRN Use*] ampul.neb Metformin HCl [Glucophage] 500 mg PO BID #60 tablet 02/05/19 03/25/19 Unknown Rx Triamcinolone 0.5% [Kenalog 0.5% 1 applic TP BID #1 tube 02/05/19 03/25/19 Unknown Rx CREAM] Review of Systems Constitutional: fatigue, weakness, no weight loss, no weight gain Ears, nose, mouth and throat: no nasal congestion, no nasal discharge Cardiovascular: shortness of breath, no chest pain Respiratory: cough (nonproductive), shortness of breath, wheezing Gastrointestinal: no nausea, no vomiting, no diarrhea Genitourinary Female: no flank pain, no dysuria Musculoskeletal: no myalgias, no arthritis Integumentary: no rash, no lesions Neurological: weakness, no seizures, no syncope Psychiatric: no anxiety, no depression Endocrine: no cold intolerance, no heat intolerance, no polydipsia, no polyuria Hematologic/Lymphatic: no easy bruising, no easy bleeding Allergic/Immunologic: no urticaria, no allergic rhinitis Exam - Constitutional Vitals: Temp Pulse Resp BP Pulse Ox 97.7 F 102 H 18 156/78 100 03/25/19 05:16 03/25/19 07:00 03/25/19 07:00 03/25/19 07:00 03/25/19 07:00 General appearance: Present: mild distress, obese (morbidly obese) - EENT Eyes: Present: PERRL, EOM intact - Neck Neck: Present: supple, normal ROM - Respiratory Respiratory effort: normal Respiratory: bilateral: diminished, wheezing, negative: rales, rhonchi - Cardiovascular Rhythm: regular Heart Sounds: Present: S1 & S2 - Extremities Extremities: no ischemia Extremity abnormal: edema - Abdominal General gastrointestinal: Present: soft, non-tender, non-distended, normal bowel sounds - Integumentary Integumentary: Present: clear, warm - Musculoskeletal Musculoskeletal: strength equal bilaterally - Psychiatric Psychiatric: appropriate mood/affect, cooperative - Neurologic Neurologic: moves all extremities Results - Labs CBC & Chem 7: 03/25/19 05:50 03/25/19 05:50 Labs: Abnormal lab results 03/25/19 03/25/19 03/25/19 Range/Units 05:50 05:50 05:59 MCV 77 L (79-97) fl MCH 26 L (28-32) pg RDW 15.8 H (13.2-15.2) % Lymph % (Auto) 12.4 L (13.4-35.0) % [place] % (Auto) 7.9 H (0.0-7.3) % Lymph # 1.1 L (1.2-5.4) K/mm3 Seg Neutrophils % 78.3 H (40.0-70.0) % POC ABG pCO2 54.3 H (35-45) POC ABG pO2 (80-105) Glucose 134 H (65-100) mg/dL 03/25/19 Range/Units 06:12 MCV (79-97) fl MCH (28-32) pg RDW (13.2-15.2) % Lymph % (Auto) (13.4-35.0) % [place] % (Auto) (0.0-7.3) % Lymph # (1.2-5.4) K/mm3 Seg Neutrophils % (40.0-70.0) % POC ABG pCO2 45.5 H (35-45) POC ABG pO2 66 L (80-105) Glucose (65-100) mg/dL Assessment and Plan --Acute hypoxic respiratory failure; secondary to COPD exacerbation Oxygen titrate O2 sats to more than 90%, nebulizers and IV steroids supportive care --Acute exacerbation of COPD with bronchitis Nebulizers IV steroids and IV antibiotics inhalation steroids Supportive care pulmonary evaluation as needed --Hypertension; moderate control Resume all antihypertensives and when necessary medications --2 diabetes mellitus; well controlled Accu-Chek sliding scale coverage and ADA diet and oral hypoglycemics A1c 6.3 in November 2018 --Morbid obesity; BMI 48, advised weight reduction when medically stable --DVT prophylaxis; Lovenox --Full CODE STATUS Monitor closely and adjust the management as needed
[2019-03-25] MEDS ORDERED: TYLENOL PO PRN (08:21)
[2019-03-25] MEDS ORDERED: ASPIRIN PO ONE (08:39)
[2019-03-25] MEDS ORDERED: NON-FORMULARY (Budesoni/Formotero 160-4.5(Nf) 2 PUFF) IH SCH (10:00)
[2019-03-25] MEDS ORDERED: SPIRIVA IH SCH ×3 (10:00)
[2019-03-25] MEDS ORDERED: PULMICORT IH SCH (10:00)
[2019-03-25] MEDS: NORVASC PO SCH (12:04)
[2019-03-25] MEDS: LEVAQUIN 500MG/100ML 500 MG/100 ML BAG IV SCH (12:04)
[2019-03-25] MEDS: GLUCOPHAGE PO SCH ×2 (12:04→16:53)
[2019-03-25] MEDS: BROVANA NEBU IH SCH ×2 (12:15→20:59)
[2019-03-25] MEDS: DUONEB *Not for PRN Use IH SCH ×3 (12:27→20:59)
[2019-03-25] MEDS: SOLU-Medrol IV SCH ×2 (13:50→21:54)
[2019-03-25] MEDS: PULMICORT IH SCH (20:59)
[2019-03-25] MEDS: KENALOG TP SCH (21:54)
[2019-03-26] MEDS: SOLU-Medrol IV SCH (06:22)
[2019-03-26] MEDS: GLUCOPHAGE PO SCH (07:51)
[2019-03-26] MEDS: BROVANA NEBU IH SCH (07:59)
[2019-03-26] MEDS: DUONEB *Not for PRN Use IH SCH ×2 (07:59→15:41)
[2019-03-26] MEDS: PULMICORT IH SCH (07:59)
[2019-03-26] MEDS: LEVAQUIN 500MG/100ML 500 MG/100 ML BAG IV SCH (09:27)
[2019-03-26] MEDS: NORVASC PO SCH (09:27)
[2019-03-26 09:28] VITALS: BP 150/66
--- NOTE | 2019-03-26 12:32 | Discharge Summary ---
Providers - Providers Date of Admission: 03/25/19 08:10 Date of discharge: 03/26/19 Attending physician: JASON PELAEZ Primary care physician: [facility] Hospitalization Reason for admission: worsening shortness of breath Condition: Stable Pertinent studies: Chest x-ray no acute abnormalities noted, ABG revealed hypoxia with PO2 of 66 Hospital course: A pleasant obese 73-year-old -[place] female patient with significant history of COPD well known to us was admitted through the emergency room with worsening shortness of breath of one week worse since yesterday. Patient received home nebulizers with no improvement. The patient was given high-dose IV steroids and nebulizer treatment and oxygen with mild improvement of symptoms, Cough nonproductive, denies fever, nausea vomiting or abdominal pain Chest x-ray no acute abnormalities noted, ABG revealed hypoxia with PO2 of 66 The patient follows with heel buffer Dr. Norwood, claims compliance with medications and diet and ambulating symptomatically managed with Oxygen nebulizers and steroids antibiotics inhalation steroids and supportive care, Patient symptoms gradually but significantly improved Today patient is comfortable in no new complaints, Vital signs stable physical examination unremarkable Discharge and oral antibiotics, tapering dose of steroids, and advised to continue her nebulizers and inhalers and home medications as before Also advised to follow up with private heel buffer within 1 week Patient verbalized understanding, Hemodynamically and clinically stable at discharge Discharge Diagnosis: --Acute hypoxic respiratory failure; secondary to COPD exacerbation Oxygen titrate O2 sats to more than 90%, nebulizers and IV steroids supportive care --Acute exacerbation of COPD with bronchitis Nebulizers IV steroids and IV antibiotics inhalation steroids Supportive care pulmonary evaluation as needed --Hypertension; moderate control Resume all antihypertensives and when necessary medications --2 diabetes mellitus; well controlled Accu-Chek sliding scale coverage and ADA diet and oral hypoglycemics A1c 6.3 in November 2018 --Morbid obesity; BMI 48, advised weight reduction when medically stable Disposition: -01 TO HOME OR SELFCARE Time spent for discharge: 32 min Core Measure Documentation - Palliative Care Palliative Care/ Comfort Measures: Not Applicable - Core Measures Any of the following diagnoses?: none Exam - Constitutional Vitals: Temp Pulse Resp BP Pulse Ox 98.5 F 93 H 18 150/66 93 03/26/19 02:08 03/26/19 09:27 03/26/19 08:15 03/26/19 09:27 03/26/19 09:52 General appearance: Present: no acute distress, well-nourished - EENT Eyes: Present: PERRL, EOM intact - Neck Neck: Present: supple, normal ROM - Respiratory Respiratory effort: normal Respiratory: bilateral: diminished, rhonchi, negative: rales, wheezing - Cardiovascular Rhythm: regular Heart Sounds: Present: S1 & S2 - Extremities Extremities: no ischemia, No edema - Abdominal General gastrointestinal: Present: soft, non-tender, non-distended, normal bowel sounds - Integumentary Integumentary: Present: clear, warm - Musculoskeletal Musculoskeletal: strength equal bilaterally - Psychiatric Psychiatric: appropriate mood/affect, cooperative - Neurologic Neurologic: CNII-XII intact, moves all extremities Plan Activity: advance as tolerated, fall precautions Diet: diabetic Additional Instructions: Fall precautions Follow up with: NIDIA GUILD [facility]OP[facility] MD ADOLFO [Primary Care Provider] - 3-5 Days Forms: Work/School Release Form Prescriptions: levoFLOXacin [Levaquin TAB] 500 mg PO QDAY #5 tablet Prednisone [predniSONE 10 mg (6-Day Pack, 21 Tabs)] 10 mg PO .TAPER #1 tab.ds.pk ALBUTEROL Inhaler (OR & NICU) [ProAir HFA Inhaler] 2 puff IH QID PRN #1 inhalation PRN Reason: Shortness Of Breath
[2019-03-26] MEDS ORDERED: HumaLOG SUB-Q SCH (12:40)
[2019-03-26] MEDS: KENALOG TP SCH (14:24)
[2019-03-26] MEDS ORDERED: SOLU-Medrol IV SCH (22:00)
== END 2019-03-26 14:15 | disposition home or self-care (01) | DRG 189 ==
LOC: ED 05:08 → 2B-ACE 08:10
PROVIDERS: ADMIT Internal Medicine; ATTEND Internal Medicine
PROC: 4A033R1 Measurement of Arterial Saturation, Peripheral, Percutaneous Approach (ICD-10-PCS; principal; 2019-03-25)
DX: J96.01 Acute respiratory failure with hypoxia (principal); J44.1 Chronic obstructive pulmonary disease with (acute) exacerbation; Z68.42 Body mass index [BMI] 45.0-49.9, adult; E11.9 Type 2 diabetes mellitus without complications; I10 Essential (primary) hypertension; E66.01 Morbid (severe) obesity due to excess calories
CPT/HCPCS: 36415; 36600; 71045; 80048; 82803; 82962; 85025; 87116; 93005; 93010; 94640; 94760; G0378; J1815; J1956; J2930; J3475

== ENCOUNTER 2019-04-25 03:46 | Inpatient (IN) | payer MEDICARE ==
[2019-04-25] MEDS ORDERED: DUONEB *Not for PRN Use IH ONE (03:54)
[2019-04-25] MEDS ORDERED: ATROVENT IH ONE (04:06)
[2019-04-25] MEDS ORDERED: PROVENTIL IH ONE ×2 (04:06→05:24)
[2019-04-25] MEDS ORDERED: SOLU-Medrol IV ONE (04:23)
--- NOTE | 2019-04-25 04:26 | Emergency Department Report ---
ED Shortness of Breath HPI - General Chief Complaint: Dyspnea/Respdistress Stated Complaint: COPD Time Seen by Provider: 04/25/19 04:11 Source: patient Mode of arrival: Ambulatory Limitations: No Limitations - History of Present Illness Initial Comments: 73-year-old female with history of COPD presents to ED with shortness of breath and wheezing times one day. She is not on home O2. Patient reports productive cough, denies fever. Patient reports chest tightness which is usually associated with her COPD. MD Complaint: shortness of breath -: days(s) (1) Severity: moderate Consistency: constant Improves With: nothing Worsens With: exertion Known History Of: COPD Associated Symptoms: cough, sputum production - Related Data Home Oxygen Therapy: No Home Medications Medication Instructions Recorded Confirmed Last Taken Ergocalciferol [Vitamin D2] 1 cap PO QWEEK 04/26/18 03/25/19 11/13/18 08:00 Previous Rx's Medication Instructions Recorded Last Taken Type ALBUTEROL Inhaler (OR & NICU) 2 puff IH QID PRN #1 inhalation 08/16/18 11/18/18 21:00 Rx [ProAir HFA Inhaler] Acetaminophen [Acetaminophen TAB] 650 mg PO Q4H PRN #15 tablet 08/16/18 Unknown Rx Potassium Chloride [K-Dur] 10 meq PO BID tablet 08/16/18 11/17/18 08:00 Rx amLODIPine [Norvasc] 10 mg PO QDAY #30 tablet 08/16/18 11/18/18 08:00 Rx ALBUTEROL Inhaler(NF) [VENTOLIN 2 puff IH Q4HR PRN #1 inha 10/14/18 11/19/18 11:00 Rx Inhaler(NF)] Budesoni/Formotero 160-4.5(Nf) 2 puff IH BID #60 inha MDD 02/05/19 Unknown Rx [Symbicort 160-4.5 (Nf)] Budesoni/Formotero 80-4.5(Nf) Fluticasone (Nf) [Flovent 44 2 puff IH BID 30 Days puff 02/05/19 Unknown Rx MCG/PUFF HFA] Ipratropium/Albuterol Sulfate 1 ampul IH Q4HR PRN 30 Days #100 02/05/19 Unknown Rx [DUONEB *Not for PRN Use*] ampul.neb Metformin HCl [Glucophage] 500 mg PO BID #60 tablet 02/05/19 Unknown Rx Triamcinolone 0.5% [Kenalog 0.5% 1 applic TP BID #1 tube 02/05/19 Unknown Rx CREAM] ALBUTEROL Inhaler (OR & NICU) 2 puff IH QID PRN #1 inhalation 03/26/19 Unknown Rx [ProAir HFA Inhaler] Prednisone [predniSONE 10 mg 10 mg PO .TAPER #1 tab.ds.pk 03/26/19 Unknown Rx (6-Day Pack, 21 Tabs)] levoFLOXacin [Levaquin TAB] 500 mg PO QDAY #5 tablet 03/26/19 Unknown Rx Allergies Allergy/AdvReac Type Severity Reaction Status Date / Time No Known Allergies Allergy Verified 11/19/18 11:24 ED Review of Systems ROS: Stated complaint: COPD Other details as noted in HPI Comment: All other systems reviewed and negative Constitutional: denies: chills, fever Respiratory: cough, shortness of breath, wheezing Cardiovascular: chest pain ED Past Medical Hx - Past Medical History Previous Medical History?: Yes Hx Hypertension: Yes Hx Heart Attack/AMI: No Hx Congestive Heart Failure: No Hx Diabetes: No (steroid elevated BS per pt) Hx Deep Vein Thrombosis: No Hx Pulmonary Embolism: No Hx Sickle Cell Disease: No Hx Asthma: Yes Hx COPD: Yes Hx Tuberculosis: No Hx HIV: No Additional medical history: post-menopausal bleeding, bronchitis 12/05. Obesity - Surgical History Past Surgical History?: No Hx Coronary Stent: No Hx Pacemaker: No Hx Internal Defibrillator: No - Social History Smoking Status: Never Smoker Substance Use Type: None - Medications Home Medications: Home Medications Medication Instructions Recorded Confirmed Last Taken Type Ergocalciferol [Vitamin D2] 1 cap PO QWEEK 04/26/18 03/25/19 11/13/18 08:00 History ALBUTEROL Inhaler (OR & NICU) 2 puff IH QID PRN #1 inhalation 08/16/18 03/25/19 11/18/18 21:00 Rx [ProAir HFA Inhaler] Acetaminophen [Acetaminophen TAB] 650 mg PO Q4H PRN #15 tablet 08/16/18 03/25/19 Unknown Rx Potassium Chloride [K-Dur] 10 meq PO BID tablet 08/16/18 03/25/1919 08:00 Rx amLODIPine [Norvasc] 10 mg PO QDAY #30 tablet 08/16/18 03/25/19 11/18/18 08:00 R x ALBUTEROL Inhaler(NF) [VENTOLIN 2 puff IH Q4HR PRN #1 inha 10/14/18 03/25/19 11/19/18 11:00 Rx Inhaler(NF)] Budesoni/Formotero 160-4.5(Nf) 2 puff IH BID #60 inha MDD 02/05/19 03/25/19 Unkn own Rx [Symbicort 160-4.5 (Nf)] Budesoni/Formotero 80-4.5(Nf) Fluticasone (Nf) [Flovent 44 2 puff IH BID 30 Days puff 02/05/19 03/25/19 Unknown Rx MCG/PUFF HFA] Ipratropium/Albuterol Sulfate 1 ampul IH Q4HR PRN 30 Days #100 02/05/19 03/25/19 Unknown Rx [DUONEB *Not for PRN Use*] ampul.neb Metformin HCl [Glucophage] 500 mg PO BID #60 tablet 02/05/19 03/25/19 Unknown Rx Triamcinolone 0.5% [Kenalog 0.5% 1 applic TP BID #1 tube 02/05/19 03/25/19 Unknown Rx CREAM] ALBUTEROL Inhaler (OR & NICU) 2 puff IH QID PRN #1 inhalation 03/26/19 Unknown Rx [ProAir HFA Inhaler] Prednisone [predniSONE 10 mg 10 mg PO .TAPER #1 tab.ds.pk 03/26/19 Unknown Rx (6-Day Pack, 21 Tabs)] levoFLOXacin [Levaquin TAB] 500 mg PO QDAY #5 tablet 03/26/19 Unknown Rx ED Physical Exam - General Limitations: No Limitations General appearance: alert - Head Head exam: Present: atraumatic, normocephalic - Eye Eye exam: Present: normal appearance - ENT ENT exam: Present: mucous membranes moist - Neck Neck exam: Present: normal inspection - Respiratory Respiratory exam: Present: respiratory distress, wheezes, other (tachypnea present) - Cardiovascular Cardiovascular Exam: Present: normal rhythm, tachycardia - GI/Abdominal GI/Abdominal exam: Present: soft. Absent: distended, tenderness - Extremities Exam Extremities exam: Absent: pedal edema, calf tenderness - Neurological Exam Neurological exam: Present: alert, oriented X3 - Psychiatric Psychiatric exam: Present: normal affect, normal mood - Skin Skin exam: Present: warm, dry, intact, normal color ED Course Vital Signs 04/25/19 04/25/19 04/25/19 03:48 04:11 04:15 Temperature 98.2 F 98.3 F Pulse Rate 106 H 103 H Pulse Rate [ 107 H Bilateral Throughout] Respiratory 24 22 Rate Respiratory 17 Rate [Bilateral Throughout] Blood Pressure 155/71 Blood Pressure 139/75 [Left] O2 Sat by Pulse 99 98 Oximetry 04/25/19 04/25/19 04/25/19 04:30 04:51 05:00 Temperature Pulse Rate 98 H 92 H Pulse Rate [ 103 H Bilateral Throughout] Respiratory 17 18 Rate Respiratory 18 Rate [Bilateral Throughout] Blood Pressure 139/75 139/75 Blood Pressure [Left] O2 Sat by Pulse 97 98 Oximetry ED Medical Decision Making - Lab Data Result diagrams: 04/25/19 04:38 04/25/19 04:39 - EKG Data -: EKG Interpreted by Me EKG shows normal: axis, intervals, QRS complexes, ST-T waves Rate: normal - EKG Data Interpretation: no acute changes, other (sinus arrythmia) - Radiology Data Radiology results: report reviewed, image reviewed - Differential Diagnosis COPD, pulm edema, pneumonia Critical care attestation.: If time is entered above; I have spent that time in minutes in the direct care of this critically ill patient, excluding procedure time. ED Disposition Clinical Impression: COPD with acute exacerbation Disposition: OP ADMIT IP TO THIS HOSP Is pt being admited?: Yes Condition: Stable Instructions: Chronic Obstructive Pulmonary Disease (ED) Referrals: PRIMARY CARE, [Primary Care Provider] - 3-5 Days Time of Disposition: 05:29
[2019-04-25 04:55] LABS: Basophils % (Auto) 0.4 % (0.0-1.8); Eosinophils # (Auto) 0.1 K/mm3 (0.0-0.4); Eosinophils % (Auto) 1.5 % (0.0-4.3); Hematocrit 35.4 % (30.3-42.9); Hemoglobin 11.7 gm/dl (10.1-14.3); Lymphocytes # (Auto) 1.5 K/mm3 (1.2-5.4); Lymphocytes % (Auto) 16.3 % (13.4-35.0); Mean Corpuscular HGB Conc 33 % (30-34); Mean Corpuscular Volume 78 fl (79-97); Monocytes # (Auto) 0.6 K/mm3 (0.0-0.8); Monocytes % (Auto) 6.3 % (0.0-7.3); Platelet Count 233 K/mm3 (140-440); Red Blood Count 4.55 M/mm3 (3.65-5.03); Red Cell Distribution Width 16.6 % (13.2-15.2)
[2019-04-25 05:06] LABS: INR 0.85 (0.87-1.13)
[2019-04-25 05:07] LABS: Partial Thromboplastin Time 26.1 Sec. (24.2-36.6)
--- NOTE | 2019-04-25 05:12 | XRay Report ---
CHEST 1 VIEW INDICATION: sob. COMPARISON: 03/25/2019. FINDINGS: Support devices: None. Heart: Normal. Lungs/Pleura: No acute pulmonary or pleural findings. IMPRESSION: 1. No acute findings. Signer Name: Servando Stern MD Signed: 04/25/2019 5:08 AM Workstation Name: [id number]
[2019-04-25 05:15] LABS: BUN/Creatinine Ratio 17; Blood Urea Nitrogen 12 mg/dL (7-17); Calcium 9.3 mg/dL (8.4-10.2); Hemolysis Index 12
[2019-04-25] MEDS ORDERED: D50W (25GM) Syringe IV PRN (06:00)
[2019-04-25] MEDS ORDERED: TYLENOL PO PRN (06:07)
[2019-04-25] MEDS ORDERED: ZOFRAN IV PRN (06:08)
[2019-04-25] MEDS ORDERED: K-DUR PO ONE (06:16)
[2019-04-25] MEDS ORDERED: LEVAQUIN 750MG/150ML 750 MG/150 ML BAG IV SCH (10:00)
--- NOTE | 2019-04-25 10:21 | History and Physical Report ---
CHIEF COMPLAINT: Shortness of breath. Other complaint includes cough. HISTORY OF PRESENTING ILLNESS: The patient is a 73-year-old female with history of COPD, presenting with shortness of breath and wheezing going on for about 24 hours. Denies history of chest heaviness with breathing. The patient also said that there is associated cough productive of [id number] sputum. There is no history of fever or chills, no history of nausea or vomiting. The patient denied history of dizziness and presented for evaluation. PAST MEDICAL HISTORY: Pertinent for hypertension, asthma, COPD. There is also past medical history of steroid-induced hyperglycemia. Also, the patient has past medical history of postmenopausal bleeding, obesity and bronchitis. PAST SURGICAL HISTORY: Unremarkable. FAMILY HISTORY: Family history is noncontributory. SOCIAL HISTORY: The patient does not smoke, does not drink alcohol and does not use illicit drug. MEDICATIONS: The patient is on vitamin D2 one capsule by mouth every week, dose unknown. The patient is also on albuterol inhaler 2 puffs by inhalation q.i.d., Tylenol 650 mg by mouth every 4 hours as needed for fever and headache and potassium chloride (K-Dur) 10 mEq by mouth twice daily. The patient is also on Norvasc 10 mg by mouth daily and Symbicort 160/4.5 mg 2 puffs by inhalation twice daily. The patient is also on fluticasone (Flovent) 2 puffs by inhalation b.i.d., DuoNeb 1 ampule by inhalation every 4 hours, metformin 500 mg by mouth twice daily and the patient is on Kenalog 0.5 mg cream topically twice daily and prednisone 10 mg tapered dose as well as Levaquin 500 mg by mouth daily. ALLERGIES: There are no known drug allergies. REVIEW OF SYSTEMS: CONSTITUTIONAL: There is no fever, no chills, no diaphoresis. HEENT: There is no headache or sore throat. CARDIOVASCULAR: There is chest tightness, but no orthopnea. RESPIRATORY: Shortness of breath is present. Wheezing present. Cough present. GASTROINTESTINAL: There is no nausea, no vomiting, no abdominal pain, diarrhea or constipation. NEUROLOGICAL: There is no numbness, no dizziness, no altered mental status. MUSCULOSKELETAL: There is no joint pain or swelling. DERMATOLOGICAL: There is no skin rash or itching. GENITOURINARY: There is no dysuria, hematuria or flank pain. Rest of system review normal. PHYSICAL EXAMINATION: GENERAL: At the time of exam, the patient was found to be alert, oriented x 3 and not in acute distress. VITAL SIGNS: At the initial time of presentation showed temperature of 98.2, pulse of 106, respiration 24, blood pressure 155/71, O2 sat of 99% on oxygen. HEENT: Showed pupils to be equal, round, reactive to light and they are accommodating. Extraocular muscles are intact. NECK: Supple with no JVD or carotid bruit. CARDIOVASCULAR: Showed normal first and second heart sounds with no gallops or murmur. RESPIRATORY: Showed reduced air entry on both sides of the lung with audible expiratory wheezing. GASTROINTESTINAL: Showed abdomen to be full, soft, nontender with no organomegaly or rigidity. NEUROLOGIC: Shows no focal deficit. MUSCULOSKELETAL: Shows no joint swelling or tenderness. DERMATOLOGICAL: Showed no skin rash. GENITOURINARY: Showing no costovertebral angle tenderness. PERTINENT LABORATORY AND IMAGING STUDIES: The patient had chest x-ray done that shows no acute cardiopulmonary findings. The patient's lab results show CBC with normal white count, normal hemoglobin and normal hematocrit with CBC differential showing elevated segmentary neutrophil count of 75.5. Coagulation studies were unremarkable. The patient's chemistry showed low potassium level of 3.2 with rest of chemistry being normal. The patient's troponin level was unremarkable. DIAGNOSES: 1. Chronic obstructive pulmonary disease exacerbation. 2. Hypokalemia. PLAN OF CARE: 1. The patient will be admitted to medical floor on remote telemetry. 2. The patient will have serial cardiac enzyme involving troponin, total CK and CK-MB checked every 6 hours x 2 more levels. 3. The patient will have Accu-Chek a.c. and at bedtime followed by low-dose sliding scale using regular insulin coverage. 4. The patient will be on IV Solu-Medrol 60 mg q.8 hours. 5. The patient will have blood culture x 2 sets and after that will have IV Levaquin 750 mg daily. 6. The patient will be on Duo nebulizer q.i.d. and will also be on heparin 5000 units subcutaneously q.12 hours for DVT prophylaxis. 7. The patient will be on Tylenol 650 mg by mouth every 4 hours for fever and headache and will be on IV Zofran 4 mg every 8 hours for nausea and vomiting. 8. The patient will have potassium chloride 40 mEq by mouth x 1 dose and will be on oxygen by nasal cannula at 2 liter/minute. 9. The patient's diet will be consistent carbohydrate, low sodium diet. JOB# [id number] OCN/NTS
[2019-04-25] MEDS ORDERED: HEPARIN ONE (11:22)
[2019-04-25] MEDS ORDERED: LEVAQUIN 750MG/150ML 750 MG/150 ML BAG IV ONE (11:23)
[2019-04-25] MEDS: HEPARIN SUB-Q SCH ×2 (11:27→21:45)
[2019-04-25] MEDS: DUONEB *Not for PRN Use IH SCH ×4 (11:33→19:42)
[2019-04-25] MEDS: HumuLIN R SUB-Q SCH ×4 (11:36→21:46)
[2019-04-25] MEDS: SOLU-Medrol IV SCH ×2 (13:32→21:44)
[2019-04-25 14:22] LABS: Creatine Kinase MB 1.3 ng/mL (0.0-4.0)
--- NOTE | 2019-04-25 14:54 | Consultation ---
History of Present Illness Consult date: 04/25/19 Requesting physician: JCARLOS GAN Reason for consult: dyspnea, asthma History of present illness: 73 yo with severe persistent asthma, primarily eosinophilic, on Nucala monthly. Apparently she ran out of her prednisone again even though I have instructed her to stay on 10mg daily chronically. Admitted with 1 day or so of increased SOB, wheezing, cough with thick white sputum, poor relief with Albuterol. No chest pa in, fevers, chills. Active Medications Acetaminophen (Tylenol) 650 mg PO Q4H PRN PRN Reason: Pain, Mild (1-3) Albuterol/Ipratropium (Duoneb *Not For Prn Use*) 1 ampul IH QIDRT [facility] Last Admin: 04/25/19 11:43 Dose: Not Given Documented by: Arformoterol Tartrate (Brovana Nebu) 15 mcg IH Q12HRT [facility] Budesonide (Pulmicort) 0.5 mg IH Q12HRT [facility] Dextrose (D50w (25gm) Syringe) 50 ml IV PRN PRN PRN Reason: Hypoglycemia Guaifenesin (Robitussin) 200 mg PO Q4H PRN PRN Reason: Cough Heparin Sodium (Porcine) (Heparin) 5,000 unit SUB-Q Q12HR [facility] Last Admin: 04/25/19 11:27 Dose: 5,000 unit Documented by: Levofloxacin/Dextrose (Levaquin 750mg/150ml) 750 mg in 150 mls @ 100 mls/hr IV Q48HR [facility]; Protocol Insulin Human Regular (Humulin R) 0 units SUB-Q [facility]EN; Protocol Last Admin: 04/25/19 12:55 Dose: 2 units Documented by: Insulin Human Regular (Humulin R) 0 units SUB-Q QHS [facility]; Protocol Methylprednisolone Sodium Succinate (Solu-Medrol) 60 mg IV Q8HR [facility] Last Admin: 04/25/19 13:32 Dose: 60 mg Documented by: Ondansetron HCl (Zofran) 4 mg IV Q8H PRN PRN Reason: Nausea And Vomiting Past History Past Medical History: other (Asthma, PETER, Obesity, HTN) Social history: full code. denies: smoking, alcohol abuse, prescription drug abuse, IV drug use Family history: other (no pulm issues reported) Medications and Allergies Allergies Allergy/AdvReac Type Severity Reaction Status Date / Time No Known Allergies Allergy Verified 11/19/18 11:24 Home Medications Medication Instructions Recorded Confirmed Last Taken Type Ergocalciferol [Vitamin D2] 1 cap PO QWEEK 04/26/18 04/25/19 11/13/18 08:00 History Acetaminophen [Acetaminophen TAB] 650 mg PO Q4H PRN #15 tablet 08/16/18 04/25/19 Unknown Rx Potassium Chloride [K-Dur] 10 meq PO BID tablet 08/16/18 04/25/19 11/17/18 08:00 Rx amLODIPine [Norvasc] 10 mg PO QDAY #30 tablet 08/16/18 04/25/19 11/18/18 08:00 Rx ALBUTEROL Inhaler(NF) [VENTOLIN 2 puff IH Q4HR PRN #1 inha 10/14/18 04/25/19 11/19/18 11:00 Rx Inhaler(NF)] Budesoni/Formotero 160-4.5(Nf) 2 puff IH BID #60 inha MDD 02/05/19 04/25/19 Unknown Rx [Symbicort 160-4.5 (Nf)] Budesoni/Formotero 80-4.5(Nf) Fluticasone (Nf) [Flovent 44 2 puff IH BID 30 Days puff 02/05/19 04/25/19 Unknown Rx MCG/PUFF HFA] Ipratropium/Albuterol Sulfate 1 ampul IH Q4HR PRN 30 Days #100 02/05/19 04/25/19 Unknown Rx [DUONEB *Not for PRN Use*] ampul.neb Active Meds: Active Medications Acetaminophen (Tylenol) 650 mg PO Q4H PRN PRN Reason: Pain, Mild (1-3) Albuterol/Ipratropium (Duoneb *Not For Prn Use*) 1 ampul IH QIDRT [facility] Last Admin: 04/25/19 11:43 Dose: Not Given Documented by: Arformoterol Tartrate (Davidvana Nebu) 15 mcg IH Q12HRT [facility] Budesonide (Pulmicort) 0.5 mg IH Q12HRT [facility] Dextrose (D50w (25gm) Syringe) 50 ml IV PRN PRN PRN Reason: Hypoglycemia Guaifenesin (Robitussin) 200 mg PO Q4H PRN PRN Reason: Cough Heparin Sodium (Porcine) (Heparin) 5,000 unit SUB-Q Q12HR [facility] Last Admin: 04/25/19 11:27 Dose: 5,000 unit Documented by: Levofloxacin/Dextrose (Levaquin 750mg/150ml) 750 mg in 150 mls @ 100 mls/hr IV Q48HR [facility]; Protocol Insulin Human Regular (Humulin R) 0 units SUB-Q AC [facility]; Protocol Last Admin: 04/25/19 12:55 Dose: 2 units Documented by: Insulin Human Regular (Humulin R) 0 units SUB-Q QHS [facility]; Protocol Methylprednisolone Sodium Succinate (Solu-Medrol) 60 mg IV Q8HR [facility] Last Admin: 04/25/19 13:32 Dose: 60 mg Documented by: Ondansetron HCl (Zofran) 4 mg IV Q8H PRN PRN Reason: Nausea And Vomiting Review of Systems All systems: negative Physical Examination Vital signs: Vital Signs Temp Pulse Resp BP Pulse Ox 98.2 F 106 H 24 155/71 99 04/25/19 03:48 04/25/19 03:48 04/25/19 03:48 04/25/19 03:48 04/25/19 03:48 General appearance: no acute distress, alert, other (obese) Eyes: non-icteric ENT: oropharynx moist Neck: supple Effort: normal Ascultation: Bilateral: wheezes Cardiovascular: regular rate and rhythm (no mrg) Gastrointestinal: normoactive bowel sounds, soft, non-tender, other (obese) Integumentary: normal Extremities: no cyanosis, no edema, pink and warm Musculoskeletal: no deformities normal mental status, non-focal exam, pupils equal and round, CN II-XII normal mood appropriate, affect normal Results - Laboratory Findings CBC and BMP: 04/25/19 04:38 04/25/19 04:39 PT/INR, D-dimer PT 11.4 Sec. (12.2-14.9) L 04/25/19 04:39 INR 0.85 (0.87-1.13) L 04/25/19 04:39 Abnormal lab findings: Abnormal Labs 04/25/19 04/25/19 04/25/19 04:38 04:39 04:39 MCV 78 L MCH 26 L RDW 16.6 H Seg Neutrophils % 75.5 H PT 11.4 L INR 0.85 L Potassium 3.2 L Glucose 149 H POC Glucose 04/25/19 11:30 MCV MCH RDW Seg Neutrophils % PT INR Potassium Glucose POC Glucose 231 H - Diagnostic Findings Chest x-ray: report reviewed, image reviewed (clear lungs) Assessment and Plan Imp: 1. 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 2. Acute bronchitis 3. PETER 4. Obesity 5. Hypokalemia Rec: 1. Solumedrol IV; agree w/ Idania and [place] 2. Pulmicort/Brovana in-house; resume Symbicort BID at d/c 3. CPAP QHS 4. At d/c would Rx with Prednisone taper and stay on 10mg daily until she sees me; she is steroid-dependent and will exacerbate if stopped 5. Weight loss 6. K repleted 7. Due for Nucala tomorrow; can get ЕЛЕНА after d/c Plan of care reviewed with patient, she understands/agrees Thanks for the consult. Will follow w/ you.
--- NOTE | 2019-04-25 15:57 | Event Note ---
Date: 04/25/19 patient seen and examined, continue current care. Pulmonary consulted
[2019-04-25] MEDS: PULMICORT IH SCH (19:42)
[2019-04-25] MEDS: BROVANA NEBU IH SCH (19:42)
[2019-04-25] MEDS: ROBITUSSIN PO PRN (21:44)
[2019-04-26] MEDS: SOLU-Medrol IV SCH ×3 (05:15→22:16)
[2019-04-26] MEDS: PULMICORT IH SCH ×2 (07:25→21:21)
[2019-04-26] MEDS: BROVANA NEBU IH SCH ×2 (07:25→21:21)
[2019-04-26] MEDS: DUONEB *Not for PRN Use IH SCH ×4 (07:33→21:21)
[2019-04-26] MEDS: HumuLIN R SUB-Q SCH ×4 (08:40→22:17)
[2019-04-26] MEDS: HEPARIN SUB-Q SCH ×3 (09:17→22:16)
[2019-04-26] MEDS: ROBITUSSIN PO PRN ×2 (09:17→14:30)
[2019-04-26] MEDS ORDERED: SOLU-Medrol IV SCH (10:19)
--- NOTE | 2019-04-26 10:20 | Progress Note ---
Assessment and Plan Assessment and plan: Patient is a 73-year-old female with persistent cephalic asthma with recurrent exacerbation on chronic steroids and Nucala monthly. Who presented to the hospital complaining of shortness of breath wheezing ongoing for 24 hours associated with white phlegm. Patient she was supposed to be on 10 mg of prednisone daily but feels that she could not find it in her home and so has not been taking it leading to this presentation at this time. Imaging studies obtained in the ER were unremarkable Severe persistent eosinophilic asthma with acute exac. With underlying acute bronchitis Hypokalemia Sleep apnea Obesity Plan Continue supportive care Continue antibiotics with Levaquin and given amps. Begin to taper steroids. Pulmonary input is noted we'll discharge the patient with prednisone taper and also 10 mg daily have also discussed with the patient need to follow up with primary care physician and also to call primary care physician when she runs out of her medications. Replace electrolytes DVT and GI prophylaxis Anticipated discharge in a.m. has been discussed with the patient that should verbalize understanding. History Interval history: Patient seen and examined ambulate in the hallway although still with visible shortness of breath she feels is close to her baseline. No other adverse event reported to me at this time. She believes that she has no medications at home but could not find whether located. Hospitalist Physical - Physical exam Narrative exam: VITAL SIGNS: Reviewed. GENERAL: The patient appeared well nourished and normally developed, Vital signs as documented. Mild increased distress with ambulation. HEAD: No signs of head trauma. EYES: Pupils are equal. Extraocular motions intact. EARS: Hearing grossly intact. MOUTH: Oropharynx is normal. NECK: No adenopathy, no JVD. CHEST: Chest with diminished breath sounds bilaterally. Mild expiratory wheezing noted no, rales, or rhonchi. CARDIAC: Regular rate and rhythm. S1 and S2, without murmurs, gallops, or rubs. VASCULAR: No Edema. Peripheral pulses normal and equal in all extremities. ABDOMEN: Soft, non tender and non distended. No rebound or guarding, and no masses palpated. Bowel Sounds normal. MUSCULOSKELETAL: Good range of motion of all major joints. Extremities without clubbing, cyanosis or edema. NEUROLOGIC EXAM: Alert and oriented x 3 No focal sensory or strength deficits. Speech normal. Follows commands. PSYCHIATRIC: Mood normal. SKIN: No rash or lesions. - Constitutional Vitals: Temp Pulse Resp BP Pulse Ox 97.6 F 85 20 96/42 95 04/26/19 02:29 04/26/19 10:00 04/26/19 08:44 04/26/19 07:45 04/26/19 08:44 Results - Labs CBC & Chem 7: 04/25/19 04:38 04/25/19 04:39 Labs: Laboratory Last Values WBC 9.3 K/mm3 (4.5-11.0) 04/25/19 04:38 RBC 4.55 M/mm3 (3.65-5.03) 04/25/19 04:38 Hgb 11.7 gm/dl (10.1-14.3) 04/25/19 04:38 Hct 35.4 % (30.3-42.9) 04/25/19 04:38 MCV 78 fl (79-97) L 04/25/19 04:38 MCH 26 pg (28-32) L 04/25/19 04:38 MCHC 33 % (30-34) 04/25/19 04:38 RDW 16.6 % (13.2-15.2) H 04/25/19 04:38 Plt Count 233 K/mm3 (140-440) 04/25/19 04:38 Lymph % (Auto) 16.3 % (13.4-35.0) 04/25/19 04:38 [place] % (Auto) 6.3 % (0.0-7.3) 04/25/19 04:38 Eos % (Auto) 1.5 % (0.0-4.3) 04/25/19 04:38 Baso % (Auto) 0.4 % (0.0-1.8) 04/25/19 04:38 Lymph # 1.5 K/mm3 (1.2-5.4) 04/25/19 04:38 [place] # 0.6 K/mm3 (0.0-0.8) 04/25/19 04:38 Eos # 0.1 K/mm3 (0.0-0.4) 04/25/19 04:38 Baso # 0.0 K/mm3 (0.0-0.1) 04/25/19 04:38 Seg Neutrophils % 75.5 % (40.0-70.0) H 04/25/19 04:38 Seg Neutrophils # 7.0 K/mm3 (1.8-7.7) 04/25/19 04:38 PT 11.4 Sec. (12.2-14.9) L 04/25/19 04:39 INR 0.85 (0.87-1.13) L 04/25/19 04:39 APTT 26.1 Sec. (24.2-36.6) 04/25/19 04:39 Sodium 142 mmol/L (137-145) 04/25/19 04:39 Potassium 3.2 mmol/L (3.6-5.0) L 04/25/19 04:39 Chloride 100.7 mmol/L (98-107) 04/25/19 04:39 Carbon Dioxide 27 mmol/L (22-30) 04/25/19 04:39 18 mmol/L 04/25/19 04:39 BUN 12 mg/dL (7-17) 04/25/19 04:39 0.7 mg/dL (0.7-1.2) 04/25/19 04:39 Estimated GFR > 60 ml/min 04/25/19 04:39 17 % 04/25/19 04:39 Glucose 149 mg/dL (65-100) H 04/25/19 04:39 POC Glucose 195 (70-105) H 04/26/19 07:11 Calcium 9.3 mg/dL (8.4-10.2) 04/25/19 04:39 67 units/L (30-135) 04/25/19 12:45 CK-MB (CK-2) 1.3 ng/mL (0.0-4.0) 04/25/19 12:45 CK-MB (CK-2) Rel Index 1.9 (0-4) 04/25/19 12:45 < 0.010 ng/mL (0.00-0.029) 04/25/19 12:45 Active Medications - Current Medications Current Medications: Generic Name Dose Route Start Last Admin Trade Name Freq PRN Reason Stop Dose Admin Acetaminophen 650 mg 04/25/19 06:07 Tylenol PO Q4H PRN Pain, Mild (1-3) Albuterol/Ipratropium 1 ampul 04/25/19 08:00 04/26/19 07:33 Duoneb *Not For Prn Use* IH Not Given QIDRT [facility] Arformoterol Tartrate 15 mcg 04/25/19 20:00 04/26/19 07:25 Brovana Nebu IH 15 mcg Q12HRT [facility] Administration Budesonide 0.5 mg 04/25/19 20:00 04/26/19 07:25 Pulmicort IH 0.5 mg Q12HRT [facility]EN Administration Dextrose 50 ml 04/25/19 06:00 D50w (25gm) Syringe IV PRN PRN Hypoglycemia Guaifenesin 200 mg 04/25/19 06:09 04/26/19 09:17 Robitussin PO 200 mg Q4H PRN Administration Cough Heparin Sodium (Porcine) 5,000 unit 04/25/19 10:00 04/26/19 09:21 Heparin SUB-Q Not Given Q12HR [facility] Levofloxacin/Dextrose 750 mg in 150 mls @ 100 mls/hr 04/27/19 10:00 Levaquin 750mg/150ml IV Q48HR [facility] Protocol Insulin Human Regular 0 units 04/25/19 07:30 04/26/19 08:40 Humulin R SUB-Q 1 units AC [facility] Administration Protocol Insulin Human Regular 0 units 04/25/19 22:00 04/25/19 21:46 Humulin R SUB-Q 2 units QHS [facility] Administration Protocol Methylprednisolone Sodium Succinate 60 mg 04/25/19 14:00 04/26/19 05:15 Solu-Medrol IV 60 mg Q8HR [facility] Administration Ondansetron HCl 4 mg 04/25/19 06:08 Zofran IV Q8H PRN Nausea And Vomiting
--- NOTE | 2019-04-26 13:19 | Progress Note ---
Assessment and Plan - Patient Problems (1) Eosinophilia Current Visit: Yes Status: Acute (2) Acute respiratory failure with hypoxia Current Visit: No Status: Acute (3) Bronchitis Current Visit: No Status: Acute (4) COPD (chronic obstructive pulmonary disease) Current Visit: No Status: Acute Qualifiers: COPD type: unspecified COPD Qualified Code(s): J44.9 - Chronic obstructive pulmonary disease, unspecified (5) COPD exacerbation Current Visit: No Status: Acute (6) Hypokalemia Current Visit: No Status: Acute (7) Morbid obesity with BMI of 40.0-44.9, adult Current Visit: No Status: Acute Subjective Interval history: feels better Objective Vital Signs - 12hr 04/26/19 04/26/19 04/26/19 02:29 07:25 07:30 Temperature 97.6 F Pulse Rate 95 H Pulse Rate [ 78 80 Bilateral Throughout] Pulse Rate [ Left Radial] Respiratory 18 Rate Respiratory 18 18 Rate [Bilateral Throughout] Blood Pressure 123/64 O2 Sat by Pulse 95 96 Oximetry 04/26/19 04/26/19 04/26/19 07:45 07:46 08:44 Temperature Pulse Rate 83 Pulse Rate [ Bilateral Throughout] Pulse Rate [ 83 Left Radial] Respiratory 20 20 Rate Respiratory Rate [Bilateral Throughout] Blood Pressure 96/42 O2 Sat by Pulse 95 95 Oximetry 04/26/19 04/26/19 04/26/19 10:00 12:14 12:18 Temperature Pulse Rate 85 Pulse Rate [ 80 80 Bilateral Throughout] Pulse Rate [ Left Radial] Respiratory Rate Respiratory 18 16 Rate [Bilateral Throughout] Blood Pressure O2 Sat by Pulse Oximetry Constitutional: no acute distress, alert, other (obese) Eyes: non-icteric ENT: oropharynx moist Neck: supple Effort: normal Ascultation: Bilateral: wheezes (rare) Cardiovascular: regular rate and rhythm (no mrg) Gastrointestinal: normoactive bowel sounds, soft, non-tender, other (obese) Integumentary: normal Extremities: no cyanosis, no edema, pink and warm Neurologic: normal mental status, non-focal exam, pupils equal and round, CN II- XII normal Psychiatric: mood appropriate, affect normal CBC and BMP: 04/25/19 04:38 04/25/19 04:39 ABG, PT/INR, D-dimer: PT/INR, D-dimer PT 11.4 Sec. (12.2-14.9) L 04/25/19 04:39 INR 0.85 (0.87-1.13) L 04/25/19 04:39 Abnormal lab findings: Abnormal Labs 04/25/19 04/25/19 04/25/19 04:38 04:39 04:39 MCV 78 L MCH 26 L RDW 16.6 H Seg Neutrophils % 75.5 H PT 11.4 L INR 0.85 L Potassium 3.2 L Glucose 149 H POC Glucose 04/25/19 04/25/19 04/25/19 11:30 16:24 21:02 MCV MCH RDW Seg Neutrophils % PT INR Potassium Glucose POC Glucose 231 H 215 H 221 H 04/26/19 04/26/19 07:11 11:30 MCV MCH RDW Seg Neutrophils % PT INR Potassium Glucose POC Glucose 195 H 196 H Chest x-ray: report reviewed, image reviewed
[2019-04-27] MEDS: SOLU-Medrol IV SCH (06:26)
[2019-04-27] MEDS: DUONEB *Not for PRN Use IH SCH (08:00)
[2019-04-27] MEDS: PULMICORT IH SCH (08:00)
[2019-04-27] MEDS: BROVANA NEBU IH SCH (08:00)
[2019-04-27 08:03] VITALS: BP 92/47
[2019-04-27] MEDS: HumuLIN R SUB-Q SCH (08:28)
[2019-04-27] MEDS ORDERED: LEVAQUIN 750MG/150ML 750 MG/150 ML BAG IV SCH (10:00)
--- NOTE | 2019-04-27 10:11 | Discharge Summary ---
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 Who presented to the hospital complaining of shortness of breath wheezing ongoing for 24 hours associated with white phlegm. Patient she was supposed to be on 10 mg of prednisone daily but feels that she could not find it in her home and so has not been taking it leading to this presentation at this time. Imaging studies obtained in the ER were unremarkable. Patient was started on a steroid protocol Pulmonary evaluated and recommended very slow pred taper to lowest dose able to keep symptoms under control. This was explained to the patient in detail. She will call and schedule her Nucula tx counselling was provided to the patient I asked the patient to consider home health so someone can help determine when she is running into crisis and help mitigate. 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 With underlying acute bronchitis Current Visit: Yes Status: Acute (2) Bronchitis Current Visit: No Status: Acute (3) COPD (chronic obstructive pulmonary disease) Current Visit: No Status: Acute Qualifiers: COPD type: unspecified COPD Qualified Code(s): J44.9 - Chronic obstructive pulmonary disease, unspecified (4) Hypokalemia Current Visit: No Status: Acute (5) Morbid obesity with BMI of 40.0-44.9, adult Current Visit: No Status: Acute ( 6)Eosinophilia Disposition: DC-01 TO HOME OR SELFCARE Time spent for discharge: 35 MINS Core Measure Documentation - Palliative Care Palliative Care/ Comfort Measures: Not Applicable - Core Measures Any of the following diagnoses?: none Exam - Physical Exam Narrative exam: VITAL SIGNS: Reviewed. GENERAL: The patient appeared well nourished and normally developed, Vital signs as documented. Mild increased distress with ambulation. HEAD: No signs of head trauma. EYES: Pupils are equal. Extraocular motions intact. EARS: Hearing grossly intact. MOUTH: Oropharynx is normal. NECK: No adenopathy, no JVD. CHEST: Chest with diminished breath sounds bilaterally. Mild expiratory wheezing IMPROVED no, rales, or rhonchi. CARDIAC: Regular rate and rhythm. S1 and S2, without murmurs, gallops, or rubs. VASCULAR: No Edema. Peripheral pulses normal and equal in all extremities. ABDOMEN: Soft, non tender and non distended. No rebound or guarding, and no masses palpated. Bowel Sounds normal. MUSCULOSKELETAL: Good range of motion of all major joints. Extremities without clubbing, cyanosis or edema. NEUROLOGIC EXAM: Alert and oriented x 3 No focal sensory or strength deficits. Speech normal. Follows commands. PSYCHIATRIC: Mood normal. SKIN: No rash or lesions. - Constitutional Vitals: Temp Pulse Resp BP Pulse Ox 97.8 F 84 20 92/47 97 04/27/19 07:23 04/27/19 08:10 04/27/19 08:10 04/27/19 07:23 04/27/19 08:03 Plan Activity: advance as tolerated Diet: low fat Special Instructions: record daily BP diary, home health RN Follow up with: PRIMARY CARE, [Primary Care Provider] - 3-5 Days NANNETTE CHIU MD [Staff Physician] - 7 Days Prescriptions: predniSONE [Deltasone] 10 mg PO .TAPER #48 tab predniSONE [Deltasone] 10 mg PO QDAY 30 Days tab Ipratropium/Albuterol Sulfate [DUONEB *Not for PRN Use*] 1 ampul IH Q4HR PRN 30 Days #100 ampul.neb PRN Reason: Shortness Of Breath ALBUTEROL NEB's [Proventil 0.083% NEBS] 2.5 mg IH Q4HRT PRN 30 Days nebu PRN Reason: Shortness Of Breath
[2019-04-27] MEDS: HEPARIN SUB-Q SCH (10:19)
[2019-04-27] MEDS ORDERED: PROVENTIL IH PRN (12:00)
--- NOTE | 2019-04-27 12:50 | Progress Note ---
Assessment and Plan Imp: 1. 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 2. Acute bronchitis 3. PETER 4. Obesity 5. Hypokalemia Rec: 1. Finish 5 days of Levaquin 2. Pulmicort/Brovana in-house; resume Symbicort BID at d/c 3. CPAP QHS 4. At d/c would Rx with Prednisone taper and stay on 10mg daily until she sees me; she is steroid-dependent and will exacerbate if stopped 5. Weight loss 6. K repleted 7. Due for Nucala; can get ЕЛЕНА after d/c 8. F/u w/ me 1-2 weeks after d/c Plan of care reviewed with patient, she understands/agrees Subjective Date of service: 04/27/19 Principal diagnosis: Asthma exac. Interval history: No events. No complaints. No SOB/wheezing. On RA. Active Medications Acetaminophen (Tylenol) 650 mg PO Q4H PRN PRN Reason: Pain, Mild (1-3) Albuterol (Proventil) 2.5 mg IH Q4HRT PRN PRN Reason: Shortness Of Breath Albuterol/Ipratropium (Duoneb *Not For Prn Use*) 1 ampul IH TIDRT BELEN Arformoterol Tartrate (Brovana Nebu) 15 mcg IH Q12HRT BELEN Budesonide (Pulmicort) 0.5 mg IH Q12HRT BELEN Dextrose (D50w (25gm) Syringe) 50 ml IV PRN PRN PRN Reason: Hypoglycemia Guaifenesin (Robitussin) 200 mg PO Q4H PRN PRN Reason: Cough Last Admin: 04/26/19 14:30 Dose: 200 mg Documented by: Heparin Sodium (Porcine) (Heparin) 5,000 unit SUB-Q Q12HR BELEN Last Admin: 04/27/19 10:19 Dose: 5,000 unit Documented by: Levofloxacin/Dextrose (Levaquin 750mg/150ml) 750 mg in 150 mls @ 100 mls/hr IV Q48HR [facility]; Protocol Last Admin: 04/27/19 10:20 Dose: 100 mls/hr Documented by: Insulin Human Regular (Humulin R) 0 units SUB-Q AC BELEN; Protocol Last Admin: 04/27/19 08:28 Dose: 1 units Documented by: Insulin Human Regular (Humulin R) 0 units SUB-Q QHS [facility]; Protocol Last Admin: 04/26/19 22:17 Dose: 2 units Documented by: Methylprednisolone Sodium Succinate (Solu-Medrol) 40 mg IV Q8HR [facility] Last Admin: 04/27/19 06:26 Dose: 40 mg Documented by: Ondansetron HCl (Zofran) 4 mg IV Q8H PRN PRN Reason: Nausea And Vomiting Objective Vital Signs - 12hr 04/27/19 04/27/19 04/27/19 03:04 07:23 07:59 Temperature 97.5 F L 97.8 F Pulse Rate 73 73 Pulse Rate [ Bilateral Throughout] Pulse Rate [ Left Radial] Respiratory 20 20 Rate Respiratory Rate [Bilateral Throughout] Blood Pressure 117/78 92/47 O2 Sat by Pulse 99 97 97 Oximetry 04/27/19 04/27/19 04/27/19 08:00 08:03 08:10 Temperature Pulse Rate Pulse Rate [ 94 H 84 Bilateral Throughout] Pulse Rate [ Left Radial] Respiratory Rate Respiratory 20 20 Rate [Bilateral Throughout] Blood Pressure O2 Sat by Pulse 97 Oximetry 04/27/19 10:00 Temperature Pulse Rate 76 Pulse Rate [ Bilateral Throughout] Pulse Rate [ 76 Left Radial] Respiratory 20 Rate Respiratory Rate [Bilateral Throughout] Blood Pressure O2 Sat by Pulse 98 Oximetry Constitutional: no acute distress, alert, other (obese) Eyes: non-icteric ENT: oropharynx moist Neck: supple Effort: normal Ascultation: Bilateral: clear Cardiovascular: regular rate and rhythm (no mrg) Gastrointestinal: normoactive bowel sounds, soft, non-tender, other (obese) Integumentary: normal Extremities: no cyanosis, no edema, pink and warm Neurologic: normal mental status, non-focal exam, pupils equal and round, CN II- XII normal Psychiatric: mood appropriate, affect normal CBC and BMP: 04/25/19 04:38 04/25/19 04:39 ABG, PT/INR, D-dimer: PT/INR, D-dimer PT 11.4 Sec. (12.2-14.9) L 04/25/19 04:39 INR 0.85 (0.87-1.13) L 04/25/19 04:39 Abnormal lab findings: Abnormal Labs 04/25/19 04/25/19 04/25/19 04:38 04:39 04:39 MCV 78 L MCH 26 L RDW 16.6 H Seg Neutrophils % 75.5 H PT 11.4 L INR 0.85 L Potassium 3.2 L Glucose 149 H POC Glucose 04/25/19 04/25/19 04/25/19 11:30 16:24 21:02 MCV MCH RDW Seg Neutrophils % PT INR Potassium Glucose POC Glucose 231 H 215 H 221 H 04/26/19 04/26/19 04/26/19 07:11 11:30 16:27 MCV MCH RDW Seg Neutrophils % PT INR Potassium Glucose POC Glucose 195 H 196 H 214 H 04/26/19 04/27/19 21:43 07:25 MCV MCH RDW Seg Neutrophils % PT INR Potassium Glucose POC Glucose 265 H 171 H Chest x-ray: report reviewed, image reviewed
[2019-04-27] MEDS ORDERED: DUONEB *Not for PRN Use IH SCH (14:00)
[2019-04-27] MEDS ORDERED: BROVANA NEBU IH SCH (20:00)
[2019-04-27] MEDS ORDERED: PULMICORT IH SCH (20:00)
== END 2019-04-27 13:55 | disposition home or self-care (01) | DRG 196 ==
LOC: ED 03:46 → SUATTDRO 03:46 → 2B-ACE 05:56
PROVIDERS: ADMIT Internal Medicine; ATTEND Internal Medicine
DX: J82 Pulmonary eosinophilia, not elsewhere classified (principal); J96.01 Acute respiratory failure with hypoxia; J44.1 Chronic obstructive pulmonary disease with (acute) exacerbation; Z68.41 Body mass index [BMI] 40.0-44.9, adult; J20.9 Acute bronchitis, unspecified; E87.6 Hypokalemia; E66.01 Morbid (severe) obesity due to excess calories; G47.33 Obstructive sleep apnea (adult) (pediatric); Z79.51 Long term (current) use of inhaled steroids; Z79.899 Other long term (current) drug therapy
CPT/HCPCS: 36415; 71045; 80048; 82550; 82553; 82962; 84484; 85025; 85610; 85730; 87040; 87116; 93005; 93010; 94640; 94644; 94660; 94760; G0378; J1644; J1815; J1956; J2920; J2930

== ENCOUNTER 2019-07-02 06:46 | Inpatient (IN) | payer MEDICARE ==
--- NOTE | 2019-07-02 07:24 | XRay Report ---
CHEST 2 VIEWS INDICATION / CLINICAL INFORMATION: CARLITOS. COMPARISON: None available. FINDINGS: SUPPORT DEVICES: None. HEART / MEDIASTINUM: No significant abnormality. LUNGS / PLEURA: No significant pulmonary or pleural abnormality. .No pneumothorax. ADDITIONAL FINDINGS: Spondylitic changes are noted in the thoracic spine. IMPRESSION: 1. No acute findings. Signer Name: Abhijit Alfonso MD Signed: 07/02/2019 7:20 AM Workstation Name: [id number]
[2019-07-02 08:05] LABS: Hematocrit 39.1 % (30.3-42.9); Hemoglobin 12.7 gm/dl (10.1-14.3); Mean Corpuscular HGB Conc 32 % (30-34); Mean Corpuscular Volume 76 fl (79-97); Platelet Count 258 K/mm3 (140-440); Red Blood Count 5.13 M/mm3 (3.65-5.03); Red Cell Distribution Width 15.1 % (13.2-15.2)
[2019-07-02] MEDS ORDERED: TYLENOL PO ONE (08:08)
[2019-07-02] MEDS ORDERED: NACL 0.9% 1000 ML 1,000 ML IV ONE ×2 (08:08→09:31)
[2019-07-02] MEDS ORDERED: LEVAQUIN 500MG/100ML 500 MG/100 ML BAG IV ONE (08:08)
--- NOTE | 2019-07-02 08:13 | Emergency Department Report ---
ED Shortness of Breath HPI - General Chief Complaint: Dyspnea/Respdistress Stated Complaint: CARLITOS Time Seen by Provider: 07/02/19 08:03 Source: patient Mode of arrival: Ambulatory Limitations: No Limitations - History of Present Illness Initial Comments: Patient is 74 years old female with history of hypertension, COPD and obesity. Patient presented to the ER complaining of cough, shortness of breath fever and chills for the last 3 days. Patient denied any nausea or vomiting. No chest pain, abdominal pain or diarrhea. Patient found to have a temperature of 103.2. Sepsis protocol initiated. MD Complaint: shortness of breath, cough - Related Data Home Medications Medication Instructions Recorded Confirmed Last Taken Ergocalciferol [Vitamin D2] 1 cap PO QWEEK 04/26/18 04/25/19 11/13/18 08:00 Previous Rx's Medication Instructions Recorded Last Taken Type Acetaminophen [Acetaminophen TAB] 650 mg PO Q4H PRN #15 tablet 08/16/18 Unknown Rx Potassium Chloride [K-Dur] 10 meq PO BID tablet 08/16/18 11/17/18 08:00 Rx amLODIPine [Norvasc] 10 mg PO QDAY #30 tablet 08/16/18 11/18/18 08:00 Rx ALBUTEROL Inhaler(NF) [VENTOLIN 2 puff IH Q4HR PRN #1 inha 10/14/18 11/19/18 11:00 Rx Inhaler(NF)] Budesoni/Formotero 160-4.5(Nf) 2 puff IH BID #60 inha MDD 02/05/19 Unknown Rx [Symbicort 160-4.5 (Nf)] Budesoni/Formotero 80-4.5(Nf) Fluticasone (Nf) [Flovent 44 2 puff IH BID 30 Days puff 02/05/19 Unknown Rx MCG/PUFF HFA] ALBUTEROL NEB's [Proventil 0.083% 2.5 mg IH Q4HRT PRN 30 Days nebu 04/27/19 Unknown Rx NEBS] Ipratropium/Albuterol Sulfate 1 ampul IH Q4HR PRN 30 Days #100 04/27/19 Unknown Rx [DUONEB *Not for PRN Use*] ampul.neb predniSONE [Deltasone] 10 mg PO .TAPER #48 tab 04/27/19 Unknown Rx predniSONE [Deltasone] 10 mg PO QDAY 30 Days tab 04/27/19 Unknown Rx Allergies Allergy/AdvReac Type Severity Reaction Status Date / Time No Known Allergies Allergy Verified 11/19/18 11:24 ED Review of Systems ROS: Stated complaint: CARLITOS Other details as noted in HPI Comment: All other systems reviewed and negative Constitutional: chills, fever ENT: denies: throat pain Respiratory: cough, shortness of breath, SOB with exertion, SOB at rest. denies: wheezing Cardiovascular: palpitations, orthopnea. denies: chest pain, dyspnea on exertion Gastrointestinal: denies: abdominal pain, nausea, vomiting, diarrhea, constipation, hematemesis, melena, hematochezia Musculoskeletal: denies: back pain Neurological: denies: headache, weakness, numbness, paresthesias, confusion ED Past Medical Hx - Past Medical History Previous Medical History?: Yes Hx Hypertension: Yes Hx Heart Attack/AMI: No Hx Congestive Heart Failure: No Hx Diabetes: No (steroid elevated BS per pt) Hx Deep Vein Thrombosis: No Hx Pulmonary Embolism: No Hx Sickle Cell Disease: No Hx Asthma: Yes Hx COPD: Yes Hx Tuberculosis: No Hx HIV: No Additional medical history: post-menopausal bleeding, bronchitis 12/05. Obesity - Surgical History Past Surgical History?: No Hx Coronary Stent: No Hx Pacemaker: No Hx Internal Defibrillator: No - Social History Smoking Status: Never Smoker Substance Use Type: None - Medications Home Medications: Home Medications Medication Instructions Recorded Confirmed Last Taken Type Ergocalciferol [Vitamin D2] 1 cap PO QWEEK 04/26/18 04/25/19 11/13/18 08:00 History Acetaminophen [Acetaminophen TAB] 650 mg PO Q4H PRN #15 tablet 08/16/18 04/25/19 Unknown Rx Potassium Chloride [K-Dur] 10 meq PO BID tablet 08/16/18 04/25/19 11/17/18 08:00 Rx amLODIPine [Norvasc] 10 mg PO QDAY #30 tablet 08/16/18 04/25/19 11/18/18 08:00 Rx ALBUTEROL Inhaler(NF) [VENTOLIN 2 puff IH Q4HR PRN #1 inha 10/14/18 04/25/19 11/19/18 11:00 Rx Inhaler(NF)] Budesoni/Formotero 160-4.5(Nf) 2 puff IH BID #60 inha MDD 02/05/19 04/25/19 Unknown Rx [Symbicort 160-4.5 (Nf)] Budesoni/Formotero 80-4.5(Nf) Fluticasone (Nf) [Flovent 44 2 puff IH BID 30 Days puff 02/05/19 04/25/19 Unknown Rx MCG/PUFF HFA] ALBUTEROL NEB's [Proventil 0.083% 2.5 mg IH Q4HRT PRN 30 Days nebu 04/27/19 Unknown Rx NEBS] Ipratropium/Albuterol Sulfate 1 ampul IH Q4HR PRN 30 Days #100 04/27/19 Unknown Rx [DUONEB *Not for PRN Use*] ampul.neb predniSONE [Deltasone] 10 mg PO .TAPER #48 tab 04/27/19 Unknown Rx predniSONE [Deltasone] 10 mg PO QDAY 30 Days tab 04/27/19 Unknown Rx ED Physical Exam - General Limitations: No Limitations General appearance: alert, in no apparent distress - Head Head exam: Present: atraumatic, normocephalic - Eye Eye exam: Present: normal appearance, PERRL - ENT ENT exam: Present: normal exam, normal orophraynx, mucous membranes moist - Neck Neck exam: Present: normal inspection. Absent: tenderness, meningismus - Respiratory Respiratory exam: Present: rales. Absent: respiratory distress, wheezes, rhonchi, stridor, chest wall tenderness, accessory muscle use, decreased breath sounds, prolonged expiratory - Cardiovascular Cardiovascular Exam: Present: tachycardia - GI/Abdominal GI/Abdominal exam: Present: soft, normal bowel sounds. Absent: distended, tenderness, guarding, rebound, rigid, organomegaly, mass, bruit, pulsatile mass, hernia - Extremities Exam Extremities exam: Present: normal inspection, full ROM, normal capillary refill. Absent: tenderness, pedal edema, joint swelling, calf tenderness - Back Exam Back exam: Present: normal inspection, full ROM. Absent: CVA tenderness (R), CVA tenderness (L), muscle spasm, paraspinal tenderness - Neurological Exam Neurological exam: Present: alert, oriented X3, CN II-XII intact, normal gait, reflexes normal - Psychiatric Psychiatric exam: Present: normal mood - Skin Skin exam: Present: warm, intact, normal color ED Course Vital Signs 07/02/19 07/02/19 06:51 08:30 Temperature 99.3 F 103 F H Pulse Rate 117 H 114 H Respiratory 20 25 H Rate Blood Pressure 191/82 Blood Pressure 164/89 [Right] O2 Sat by Pulse 94 95 Oximetry ED Medical Decision Making - Lab Data Result diagrams: 07/02/19 07:50 07/02/19 07:41 - EKG Data -: EKG Interpreted by Me EKG shows normal: sinus rhythm Rate: tachycardia - EKG Data Interpretation: no acute changes - Radiology Data Radiology results: report reviewed, image reviewed interpreted by me: Right lower lobe pneumonia. - Medical Decision Making Patient is 74 years old female with history of hypertension, COPD and obesity. Patient presented to the ER complaining of cough, shortness of breath fever and chills for the last 3 days. Patient denied any nausea or vomiting. No chest pain, abdominal pain or diarrhea. Patient found to have a temperature of 103.2. Sepsis protocol initiated. Patient found to have a right lower lobe pneumonia. Labs reviewed and showed a WBC of 19 and a potassium of 3.2. Patient received Levaquin 500 mg IV, saline and potassium chloride. I discussed the patient with Dr. Dhaliwal, she had great admitted the patient to medical service. Critical Care Time: Yes Critical care time in (mins) excluding proc time.: 30 Critical care attestation.: If time is entered above; I have spent that time in minutes in the direct care of this critically ill patient, excluding procedure time. ED Disposition Clinical Impression: Right lower lobe pneumonia, Hypokalemia, Fever Disposition: OP ADMIT IP TO THIS HOSP Is pt being admited?: Yes Condition: Stable Instructions: Bacterial Pneumonia (ED) Referrals: [facility] CHELSIE VANEGAS MD [Primary Care Provider] - 3-5 Days
[2019-07-02 08:24] LABS: Alanine Aminotransferase 15 units/L (7-56); Albumin 3.9 g/dL (3.9-5); BUN/Creatinine Ratio 13; Blood Urea Nitrogen 8 mg/dL (7-17); Calcium 9.3 mg/dL (8.4-10.2); Hemolysis Index 2
[2019-07-02] MEDS ORDERED: K-DUR PO ONE ×2 (09:18→09:21)
[2019-07-02 09:20] LABS: Bacteria,Urine 1+ /HPF (Negative); Bilirubin,Urine NEG (Negative); Blood,Urine MOD (Negative); Color,Urine Yellow (Yellow); Mucus,Urine 2+ /HPF; Urobilinogen,Urine < 2.0 mg/dL (<2.0)
[2019-07-02] MEDS ORDERED: PROAIR IH PRN (09:53)
[2019-07-02] MEDS ORDERED: DUONEB *Not for PRN Use IH (09:53)
[2019-07-02] MEDS ORDERED: TYLENOL PO PRN (09:53)
[2019-07-02] MEDS ORDERED: PROVENTIL IH PRN (09:53)
--- NOTE | 2019-07-02 09:53 | History and Physical Report ---
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 Patient denies chest pain or palpitations, denies nausea or vomiting or abdominal pain. Peak temperature in ER upon arrival was 103.2F, complains of worsening shortness of breath Cough and wheezing. Patient also has history of obstructive sleep apnea on CP AP at night Patient denies headache dizziness weakness numbness Initial workup was consistent with leukocytosis, hypokalemia, UTI per urinary analysis Chest x-ray no acute abnormality Past History Past Medical History: COPD, diabetes (steroid-induced), hypertension, other (severe Persistent eosinophilic asthma) Past Surgical History: No surgical history Social history: lives with family, full code. denies: smoking, alcohol abuse, prescription drug abuse Family history: hypertension Medications and Allergies Allergies Allergy/AdvReac Type Severity Reaction Status Date / Time No Known Allergies Allergy Verified 11/19/18 11:24 Home Medications Medication Instructions Recorded Confirmed Last Taken Type Acetaminophen [Acetaminophen TAB] 650 mg PO Q4H PRN #15 tablet 08/16/18 07/02/19 Unknown Rx Potassium Chloride [K-Dur] 10 meq PO BID tablet 08/16/18 07/02/19 07/01/19 Rx amLODIPine [Norvasc] 10 mg PO QDAY #30 tablet 08/16/18 07/02/19 07/01/19 Rx Budesoni/Formotero 160-4.5(Nf) 2 puff IH BID #60 inha MDD 02/05/19 07/02/19 Unknown Rx [Symbicort 160-4.5 (Nf)] Budesoni/Formotero 80-4.5(Nf) Fluticasone (Nf) [Flovent 44 2 puff IH BID 30 Days puff 02/05/19 07/02/19 Unknown Rx MCG/PUFF HFA] ALBUTEROL NEB's [Proventil 0.083% 2.5 mg IH Q4HRT PRN 30 Days nebu 04/27/19 07/02/19 Unknown Rx NEBS] Ipratropium/Albuterol Sulfate 1 ampul IH Q4HR PRN 30 Days #100 04/27/19 07/02/19 Unknown Rx [DUONEB *Not for PRN Use*] ampul.neb predniSONE [Deltasone] 10 mg PO QDAY 30 Days tab 04/27/19 07/02/19 07/01/19 Rx Albuterol Sulfate 1 puff IH BID PRN 07/02/19 07/02/19 Unknown History Flovent 44 MCG/PUFF HFA 1 puff IH BID PRN 07/02/19 07/02/19 Unknown History Active Meds: Active Medications Sodium Chloride (Nacl 0.9% 1000 Ml) 1,000 mls @ 250 mls/hr IV ONCE ONE Stop: 07/02/19 13:30 Last Admin: 07/02/19 09:50 Dose: 250 mls/hr Documented by: Review of Systems Constitutional: fever, weakness, no weight loss, no weight gain Ears, nose, mouth and throat: no nasal congestion, no nasal discharge Cardiovascular: shortness of breath, no chest pain, no orthopnea Respiratory: cough with sputum, shortness of breath Gastrointestinal: no abdominal pain, no nausea, no vomiting Genitourinary Female: no dysuria, no urinary frequency Musculoskeletal: no neck stiffness, no myalgias, no arthritis Integumentary: no rash, no pruritis Neurological: no weakness, no numbness, no seizures Psychiatric: no anxiety, no depression Endocrine: no cold intolerance, no heat intolerance Hematologic/Lymphatic: no easy bruising, no easy bleeding Allergic/Immunologic: no urticaria, no allergic rhinitis Exam - Constitutional Vitals: Temp Pulse Resp BP Pulse Ox 103 F H 114 H 25 H 164/89 95 07/02/19 08:30 07/02/19 08:30 07/02/19 08:30 07/02/19 08:30 07/02/19 08:30 General appearance: Present: mild distress, well-nourished, obese (morbidly obese) - EENT Eyes: Present: PERRL, EOM intact - Neck Neck: Present: supple, normal ROM - Respiratory Respiratory effort: normal Respiratory: bilateral: diminished, rhonchi, wheezing, negative: rales - Cardiovascular Rhythm: regular Heart Sounds: Present: S1 & S2 - Extremities Extremities: no ischemia Extremity abnormal: edema - Abdominal General gastrointestinal: Present: soft, non-tender, non-distended, normal bowel sounds - Integumentary Integumentary: Present: clear, warm - Musculoskeletal Musculoskeletal: strength equal bilaterally, generalized weakness - Psychiatric Psychiatric: appropriate mood/affect, cooperative - Neurologic Neurologic: CNII-XII intact, moves all extremities Results - Labs CBC & Chem 7: 07/02/19 07:50 07/02/19 07:41 Labs: Abnormal lab results 07/02/19 07/02/19 07/02/19 Range/Units 07:41 07:50 08:45 WBC 19.2 H (4.5-11.0) K/mm3 RBC 5.13 H (3.65-5.03) M/mm3 MCV 76 L (79-97) fl MCH 25 L (28-32) pg Potassium 3.2 L (3.6-5.0) mmol/L Chloride 96.6 L (98-107) mmol/L Creatinine 0.6 L (0.7-1.2) mg/dL Glucose 172 H (65-100) mg/dL Lactic Acid 2.20 H* (0.7-2.0) mmol/L Urine WBC (Auto) (0.0-6.0) /HPF 07/02/19 Range/Units Unknown WBC (4.5-11.0) K/mm3 RBC (3.65-5.03) M/mm3 MCV (79-97) fl MCH (28-32) pg Potassium (3.6-5.0) mmol/L Chloride (98-107) mmol/L Creatinine (0.7-1.2) mg/dL Glucose (65-100) mg/dL Lactic Acid (0.7-2.0) mmol/L Urine WBC (Auto) 24.0 H (0.0-6.0) /HPF Assessment and Plan --Acute on chronic hypoxic respiratory failure; secondary to eosinophilic asthma exacerbation Oxygen titrate O2 sats to more than 90%, IV steroids, nebulizers, inhalation steroids Supportive care, pulmonary consult --Acute exacerbation of eosinophilic asthma; Patient is on Nucala mthly, follows with Dr. Norwood IV steroids, IV antibiotics, DuoNeb, inhalation steroids Nucala mthly supportive care --Acute bronchitis; bronchodilators ,IV antibiotics, follow cultures --Febrile illness; secondary to acute bronchitis/possible pneumonia Chest x-ray no infiltrate, empiric antibiotics, follow cultures Antipyretics --Sinus tachycardia; probably secondary to febrile illness EKG,sinus rhythm --Obstructive sleep apnea; CPAP at night --Possible UTI per UA; empiric antibiotics Follow cultures --Hypertension; continue current antihypertensives When necessary medications --Drug induced hyperglycemia; Accu-Chek sliding scale coverage, ADA diet Long-acting Insulin as needed --Morbid obesity; BMI above 40 Diet modification and exercise as tolerated and weight reduction When medically stable --DVT prophylaxis; Lovenox --Full CODE STATUS Monitor closely and adjust the management as needed Plan of care is reviewed with the patient and his nurse -
[2019-07-02] MEDS ORDERED: LOVENOX SUB-Q SCH (10:00)
[2019-07-02] MEDS ORDERED: NON-FORMULARY (Budesoni/Formotero 160-4.5(Nf) 2 PUFF) IH SCH (10:00)
[2019-07-02] MEDS ORDERED: FLUTICASONE IH SCH (10:00)
[2019-07-02] MEDS ORDERED: LOVENOX SUB-Q ONE (10:33)
[2019-07-02] MEDS ORDERED: PEPCID ONE (10:33)
[2019-07-02] MEDS ORDERED: NORVASC ONE (10:33)
[2019-07-02] MEDS: NORVASC PO SCH (10:34)
[2019-07-02] MEDS: PEPCID PO SCH (10:34)
[2019-07-02 10:43] LABS: Band Neutrophils # (Manual) 0.4 K/mm3; Basophils % (Manual) 0 % (0.0-1.8); Eosinophils % (Manual) 0 % (0.0-4.3); Total Cells Counted 100
[2019-07-02 10:44] LABS: Giant Platelets Rare; Hypochromasia 1+; Platelet Estimate Consistent w Auto
[2019-07-02] MEDS ORDERED: TESSALON PERLES PO ONE (15:07)
[2019-07-02] MEDS ORDERED: LASIX IV ONE (15:16)
[2019-07-02] MEDS ORDERED: PROVENTIL IH SCH (16:00)
[2019-07-02] MEDS ORDERED: XANAX PO PRN (17:19)
[2019-07-02] MEDS: HumaLOG SUB-Q SCH ×2 (17:27→22:01)
[2019-07-02] MEDS: PULMICORT IH SCH (20:57)
[2019-07-02] MEDS: BROVANA NEBU IH SCH (20:57)
[2019-07-02] MEDS: DUONEB *Not for PRN Use IH SCH (20:59)
[2019-07-02] MEDS: TESSALON PERLES PO SCH (22:02)
[2019-07-02] MEDS: SOLU-Medrol IV SCH (22:02)
[2019-07-03] MEDS: SOLU-Medrol IV SCH ×3 (06:01→21:43)
[2019-07-03] MEDS: TESSALON PERLES PO SCH ×3 (06:01→21:43)
[2019-07-03] MEDS: DUONEB *Not for PRN Use IH SCH ×3 (08:35→20:07)
[2019-07-03] MEDS: PULMICORT IH SCH ×2 (08:35→20:06)
[2019-07-03] MEDS: BROVANA NEBU IH SCH ×2 (08:35→20:06)
[2019-07-03 08:49] LABS: Hematocrit 38.6 % (30.3-42.9); Hemoglobin 13.2 gm/dl (10.1-14.3); Mean Corpuscular HGB Conc 34 % (30-34); Mean Corpuscular Volume 75 fl (79-97); Platelet Count 246 K/mm3 (140-440); Red Blood Count 5.13 M/mm3 (3.65-5.03); Red Cell Distribution Width 15.2 % (13.2-15.2)
[2019-07-03] MEDS: HumaLOG SUB-Q SCH ×4 (08:57→21:58)
[2019-07-03 09:00] LABS: BUN/Creatinine Ratio 20; Blood Urea Nitrogen 14 mg/dL (7-17); Calcium 9.5 mg/dL (8.4-10.2); Hemolysis Index 21
[2019-07-03] MEDS: NORVASC PO SCH (09:01)
[2019-07-03] MEDS: PEPCID PO SCH (09:01)
[2019-07-03] MEDS: LASIX IV SCH (09:02)
[2019-07-03] MEDS: LOVENOX SUB-Q SCH (09:02)
[2019-07-03] MEDS: LEVAQUIN 750MG/150ML 750 MG/150 ML BAG IV SCH (09:03)
[2019-07-03 10:57] LABS: Basophils % (Manual) 0 % (0.0-1.8); Eosinophils % (Manual) 0 % (0.0-4.3); Hypochromasia 1+; Total Cells Counted 100
[2019-07-03 10:58] LABS: Platelet Estimate Consistent w Auto
--- NOTE | 2019-07-03 20:09 | Progress Note ---
Assessment and Plan Assessment and plan: --Acute exacerbation of eosinophilic asthma; Patient is on Nucala mthly, follows with Dr. Norwood IV steroids, IV antibiotics, DuoNeb, inhalation steroids Nucala mthly supportive care --Acute bronchitis; bronchodilators ,IV antibiotics, follow cultures --Acute on chronic hypoxic respiratory failure; secondary to eosinophilic asthma exacerbation Oxygen titrate O2 sats to more than 90%, IV steroids, nebulizers, inhalation steroids Supportive care, pulmonary consult --Febrile illness; secondary to acute bronchitis/possible pneumonia Chest x-ray no infiltrate, empiric antibiotics, follow cultures, Antipyretics --Sinus tachycardia; probably secondary to febrile illness EKG,sinus rhythm --Obstructive sleep apnea; CPAP at night --Possible UTI ; empiric antibiotics Follow cultures --Hypertension; continue current antihypertensives When necessary medications --Steroid induced hyperglycemia; Accu-Chek sliding scale coverage, ADA diet Long-acting Insulin as needed --Morbid obesity; BMI above 40 Diet modification and exercise as tolerated and weight reduction When medically stable --DVT prophylaxis; Lovenox --Full CODE STATUS Disposition; follow pulmonary evaluation and recommendations Discharge when medically stable History Interval history: Patient Seen and examined medical records reviewed Events reported by the nursing staff Patient feels slightly better, shortness of breath improved Alert awake oriented 3 Vital signs noted Hospitalist Physical - Constitutional Vitals: Temp Pulse Resp BP Pulse Ox 97.8 F 109 H 15 121/68 95 07/03/19 15:55 07/03/19 15:55 07/03/19 15:55 07/03/19 15:55 07/03/19 15:55 General appearance: Present: no acute distress, well-nourished, obese (morbidly obese) - EENT Eyes: Present: PERRL, EOM intact - Neck Neck: Present: supple, normal ROM - Respiratory Respiratory effort: normal Respiratory: bilateral: diminished, wheezing, negative: rales, rhonchi - Cardiovascular Rhythm: regular Heart Sounds: Present: S1 & S2 - Extremities Extremities: no ischemia, No edema - Abdominal General gastrointestinal: soft, non-tender, non-distended, normal bowel sounds - Integumentary Integumentary: Present: clear, warm - Psychiatric Psychiatric: appropriate mood/affect, cooperative - Neurologic Neurologic: CNII-XII intact, moves all extremities Results - Labs CBC & Chem 7: 07/03/19 08:00 07/03/19 08:00 Labs: Laboratory Last Values WBC 28.5 K/mm3 (4.5-11.0) H 07/03/19 08:00 RBC 5.13 M/mm3 (3.65-5.03) H 07/03/19 08:00 Hgb 13.2 gm/dl (10.1-14.3) 07/03/19 08:00 Hct 38.6 % (30.3-42.9) 07/03/19 08:00 MCV 75 fl (79-97) L 07/03/19 08:00 MCH 26 pg (28-32) L 07/03/19 08:00 MCHC 34 % (30-34) 07/03/19 08:00 RDW 15.2 % (13.2-15.2) 07/03/19 08:00 Plt Count 246 K/mm3 (140-440) 07/03/19 08:00 Add Manual Diff Complete 07/03/19 08:00 Total Counted 100 07/03/19 08:00 Seg Neutrophils % [employer] Hand 07/03/19 08:00 Seg Neuts % (Manual) 97.0 % (40.0-70.0) H 07/03/19 08:00 0 % 07/03/19 08:00 2.0 % (13.4-35.0) L 07/03/19 08:00 Reactive Lymphs % (Man) 0 % 07/03/19 08:00 1.0 % (0.0-7.3) 07/03/19 08:00 0 % (0.0-4.3) 07/03/19 08:00 0 % (0.0-1.8) 07/03/19 08:00 0 % 07/03/19 08:00 0 % 07/03/19 08:00 0 % 07/03/19 08:00 0 % 07/03/19 08:00 Nucleated RBC % Not Reportable 07/03/19 08:00 Seg Neutrophils # Man 27.6 K/mm3 (1.8-7.7) H 07/03/19 08:00 Band Neutrophils # 0.0 K/mm3 07/03/19 08:00 0.6 K/mm3 (1.2-5.4) L 07/03/19 08:00 Abs React Lymphs (Man) 0.0 K/mm3 07/03/19 08:00 0.3 K/mm3 (0.0-0.8) 07/03/19 08:00 0.0 K/mm3 (0.0-0.4) 07/03/19 08:00 0.0 K/mm3 (0.0-0.1) 07/03/19 08:00 0.0 K/mm3 07/03/19 08:00 0.0 K/mm3 07/03/19 08:00 0.0 K/mm3 07/03/19 08:00 Blast Cells # 0.0 K/mm3 07/03/19 08:00 WBC Morphology Not Reportable 07/03/19 08:00 Hypersegmented Neuts Not Reportable 07/03/19 08:00 Hyposegmented Neuts Not Reportable 07/03/19 08:00 Hypogranular Neuts Not Reportable 07/03/19 08:00 Not Reportable 07/03/19 08:00 Not Reportable 07/03/19 08:00 Not Reportable 07/03/19 08:00 Not Reportable 07/03/19 08:00 Not Reportable 07/03/19 08:00 Not Reportable 07/03/19 08:00 Consistent w auto 07/03/19 08:00 Not Reportable 07/03/19 08:00 Plt Clumps, EDTA Not Reportable 07/03/19 08:00 Not Reportable 07/03/19 08:00 Not Reportable 07/03/19 08:00 Not Reportable 07/03/19 08:00 Plt Morphology Comment Not Reportable 07/03/19 08:00 RBC Morphology Not Reportable 07/03/19 08:00 Dimorphic RBCs Not Reportable 07/03/19 08:00 Few 07/03/19 08:00 1+ 07/03/19 08:00 Not Reportable 07/03/19 08:00 Not Reportable 07/03/19 08:00 Few 07/03/19 08:00 Not Reportable 07/03/19 08:00 Not Reportable 07/03/19 08:00 Not Reportable 07/03/19 08:00 Not Reportable 07/03/19 08:00 Not Reportable 07/03/19 08:00 Not Reportable 07/03/19 08:00 Not Reportable 07/03/19 08:00 Not Reportable 07/03/19 08:00 Not Reportable 07/03/19 08:00 Not Reportable 07/03/19 08:00 Not Reportable 07/03/19 08:00 Not Reportable 07/03/19 08:00 Not Reportable 07/03/19 08:00 Not Reportable 07/03/19 08:00 Acanthocytes (Spur) Not Reportable 07/03/19 08:00 Rouleaux Not Reportable 07/03/19 08:00 Not Reportable 07/03/19 08:00 Not Reportable 07/03/19 08:00 Not Reportable 07/03/19 08:00 Not Reportable 07/03/19 08:00 Hem Pathologist Commnt No 07/03/19 08:00 Sodium 141 mmol/L (137-145) 07/03/19 08:00 Potassium 3.4 mmol/L (3.6-5.0) L 07/03/19 08:00 Chloride 97.6 mmol/L (98-107) L 07/03/19 08:00 Carbon Dioxide 27 mmol/L (22-30) 07/03/19 08:00 20 mmol/L 07/03/19 08:00 BUN 14 mg/dL (7-17) 07/03/19 08:00 0.7 mg/dL (0.7-1.2) 07/03/19 08:00 Estimated GFR > 60 ml/min 07/03/19 08:00 20 % 07/03/19 08:00 Glucose 186 mg/dL (65-100) H 07/03/19 08:00 POC Glucose 217 (70-105) H 07/03/19 16:06 Lactic Acid 1.30 mmol/L (0.7-2.0) 07/02/19 10:51 Calcium 9.5 mg/dL (8.4-10.2) 07/03/19 08:00 0.60 mg/dL (0.1-1.2) 07/02/19 07:41 AST 20 units/L (5-40) 07/02/19 07:41 ALT 15 units/L (7-56) 07/02/19 07:41 94 units/L (35-129) 07/02/19 07:41 7.4 g/dL (6.3-8.2) 07/02/19 07:41 3.9 g/dL (3.9-5) 07/02/19 07:41 1.1 % 07/02/19 07:41 Yellow (Yellow) 07/02/19 Unknown Clear (Clear) 07/02/19 Unknown 7.0 (5.0-7.0) 07/02/19 Unknown Ur Specific [place] 1.013 (1.003-1.030) 07/02/19 Unknown 30 mg/dl mg/dL (Negative) 07/02/19 Unknown 50 mg/dL (Negative) 07/02/19 Unknown Neg mg/dL (Negative) 07/02/19 Unknown Mod (Negative) 07/02/19 Unknown Pos (Negative) 07/02/19 Unknown Neg (Negative) 07/02/19 Unknown < 2.0 mg/dL (<2.0) 07/02/19 Unknown Ur Leukocyte Esterase Sm (Negative) 07/02/19 Unknown 24.0 /HPF (0.0-6.0) H 07/02/19 Unknown 48.0 /HPF (0.0-6.0) 07/02/19 Unknown U Epithel Cells (Auto) < 1.0 /HPF (0-13.0) 07/02/19 Unknown 1+ /HPF (Negative) 07/02/19 Unknown 2+ /HPF 07/02/19 Unknown Active Medications - Current Medications Current Medications: Generic Name Dose Route Start Last Admin Trade Name Freq PRN Reason Stop Dose Admin Acetaminophen 650 mg 07/02/19 09:53 Tylenol PO Q4H PRN Pain MILD(1-3)/Fever >100.5/YODER Albuterol 2.5 mg 07/02/19 09:53 07/02/19 18:25 Proventil IH 2.5 mg Q4HRT PRN Administration Shortness Of Breath Albuterol/Ipratropium 1 ampul 07/03/19 14:00 07/03/19 20:07 Duoneb *Not For Prn Use* IH Not Given TIDRT BELEN Alprazolam 0.25 mg 07/02/19 17:19 07/02/19 18:09 Xanax PO 0.25 mg Q8H PRN Administration Anxiety Amlodipine Besylate 10 mg 07/02/19 10:00 07/03/19 09:01 Norvasc PO 10 mg QDAY BELEN Administration Arformoterol Tartrate 15 mcg 07/02/19 20:00 07/03/19 20:06 Brokushal Nebu IH 15 mcg Q12HRT BELEN Administration Benzonatate 100 mg 07/02/19 22:00 07/03/19 13:36 Tessalon Perles PO 100 mg Q8HR BELEN Administration Budesonide 0.5 mg 07/02/19 20:00 07/03/19 20:06 Pulmicort IH 0.5 mg Q12HRT BELEN Administration Enoxaparin Sodium 40 mg 07/03/19 10:00 07/03/19 09:02 Lovenox SUB-Q 40 mg QDAY@1000 BELEN Administration Famotidine 20 mg 07/02/19 10:00 07/03/19 09:01 Pepcid PO 20 mg QDAY BELEN Administration Furosemide 40 mg 07/03/19 10:00 07/03/19 09:02 Lasix IV 40 mg QDAY BELEN Administration Levofloxacin/Dextrose 750 mg in 150 mls @ 100 mls/hr 07/03/19 10:00 07/03/19 09:03 Levaquin 750mg/150ml IV 100 mls/hr Q24HR BELEN Administration Protocol Insulin Human Lispro 0 unit 07/02/19 16:30 07/03/19 18:01 Humalog SUB-Q 3 unit ACHS BELEN Administration Protocol Methylprednisolone Sodium Succinate 80 mg 07/02/19 22:00 07/03/19 13:36 Solu-Medrol IV 80 mg Q8HR BELEN Administration Nutrition/Malnutrition Assess - Dietary Evaluation Nutrition/Malnutrition Findings: Nutrition Notes Start: 07/03/19 15:05 Freq: Status: Active Protocol: Document 07/03/19 15:05 OH (Rec: 07/03/19 15:13 OH [id number]) Nutrition Notes Need for Assessment generated from: MD Order Initial or Follow up Assessment Current Diagnosis Diabetes Other Pertinent Diagnosis morbid obesity, acute bronchitis, UTI Labs/Tests Reviewed Pertinent Medications Solu medrol Lovenox Lasix Humalog Height 4 ft 11 in Weight 106.2 kg [place] Body Weight (kg) 43.18 BMI 47.2 Weight Status Morbidly Obese Subjective/Other Information Pt. sitting up on the side of the bed. Pt. reports she follows no specific diet at home. She reports she eats small meals but gets full easily. She has missing teeth but no chewing difficulties. Pt. reports she doesn't have a bloodsugar machine at home to check her bloodsugar levels. Percent of energy/protein needs met: <75/75% Burn Absent Trauma Absent GI Symptoms None Current % PO Fair (50-74%) Minimum of two criteria No #1 Nutrition Diagnosis Inadequate oral intake Etiology early satiety As Evidenced by Signs and Symptoms consuming <75% estimated energy needs Is patient on ventilator? No Is Patient Ambulatory and/or Out of Bed Yes REE-([place]-St. Jeor-ambulatory/OOB) [ 1914.419 [id number]] Kcal/Kg value to use for calculation 15 Approximate Energy Requirements Using 1593 kcal/Kg Calculation Used for Recommendations Kcal/kg Additional Notes PRO: 09-1.0 g/kg/IBW 39- 43 G /DAY FLUID: 1 mL/kcal Nutrition Intervention Change Diet Order: CONT CONSISTENT CHO Goal #1 po intake to exceed 75% at meals Follow-Up By: 07/07/19 Additional Comments Monitor po intake
[2019-07-03] MEDS ORDERED: K-DUR PO ONE (20:19)
--- NOTE | 2019-07-03 20:42 | Consultation ---
History of Present Illness Reason for consult: dyspnea, COPD History of present illness: This is a 74 year old female w known hx of COPD on trelegy. She had been well until about 3 days prior to admission. She began having sob w associated wheezing. She started using her neb tx with some improvement. She reported that she call the office but didnt report her symptoms but asked for samples of trelegy. She continued to use neb tx but her symptoms got worse associated with sputum production. She came to ER receieved neb tx w some improvement. She reports that she feels better but still has wheezing. She denies any hx of intubation but has been hospitalized for copd exacerbation in the past. Past History Past Medical History: COPD, diabetes (steroid-induced), hypertension, other (severe Persistent eosinophilic asthma) Past Surgical History: No surgical history Social history: lives with family, full code. denies: smoking, alcohol abuse, prescription drug abuse Family history: hypertension Medications and Allergies Allergies Allergy/AdvReac Type Severity Reaction Status Date / Time No Known Allergies Allergy Verified 11/19/18 11:24 Home Medications Medication Instructions Recorded Confirmed Last Taken Type Acetaminophen [Acetaminophen TAB] 650 mg PO Q4H PRN #15 tablet 08/16/18 07/02/19 Unknown Rx Potassium Chloride [K-Dur] 10 meq PO BID tablet 08/16/18 07/02/19 07/01/19 Rx amLODIPine [Norvasc] 10 mg PO QDAY #30 tablet 08/16/18 07/02/19 07/01/19 Rx Budesoni/Formotero 160-4.5(Nf) 2 puff IH BID #60 inha MDD 02/05/19 07/02/19 Unknown Rx [Symbicort 160-4.5 (Nf)] Budesoni/Formotero 80-4.5(Nf) Fluticasone (Nf) [Flovent 44 2 puff IH BID 30 Days puff 02/05/19 07/02/19 Unknown Rx MCG/PUFF HFA] ALBUTEROL NEB's [Proventil 0.083% 2.5 mg IH Q4HRT PRN 30 Days nebu 04/27/19 07/02/19 Unknown Rx NEBS] Ipratropium/Albuterol Sulfate 1 ampul IH Q4HR PRN 30 Days #100 04/27/19 07/02/19 Unknown Rx [DUONEB *Not for PRN Use*] ampul.neb predniSONE [Deltasone] 10 mg PO QDAY 30 Days tab 04/27/19 07/02/19 07/01/19 Rx Albuterol Sulfate 1 puff IH BID PRN 07/02/19 07/02/19 Unknown History Flovent 44 MCG/PUFF HFA 1 puff IH BID PRN 07/02/19 07/02/19 Unknown History Active Meds: Active Medications Acetaminophen (Tylenol) 650 mg PO Q4H PRN PRN Reason: Pain MILD(1-3)/Fever >100.5/YODER Albuterol (Proventil) 2.5 mg IH Q4HRT PRN PRN Reason: Shortness Of Breath Last Admin: 07/02/19 18:25 Dose: 2.5 mg Documented by: Albuterol/Ipratropium (Duoneb *Not For Prn Use*) 1 ampul IH TIDRT [facility] Last Admin: 07/03/19 20:07 Dose: Not Given Documented by: Alprazolam (Xanax) 0.25 mg PO Q8H PRN PRN Reason: Anxiety Last Admin: 07/02/19 18:09 Dose: 0.25 mg Documented by: Amlodipine Besylate (Norvasc) 10 mg PO QDAY [facility] Last Admin: 07/03/19 09:01 Dose: 10 mg Documented by: Arformoterol Tartrate (Brovana Nebu) 15 mcg IH Q12HRT [facility] Last Admin: 07/03/19 20:06 Dose: 15 mcg Documented by: Benzonatate (Tessalon Perles) 100 mg PO Q8HR [facility] Last Admin: 07/03/19 13:36 Dose: 100 mg Documented by: Budesonide (Pulmicort) 0.5 mg IH Q12HRT [facility] Last Admin: 07/03/19 20:06 Dose: 0.5 mg Documented by: Enoxaparin Sodium (Lovenox) 40 mg SUB-Q QDAY@1000 [facility] Last Admin: 07/03/19 09:02 Dose: 40 mg Documented by: Famotidine (Pepcid) 20 mg PO QDAY [facility] Last Admin: 07/03/19 09:01 Dose: 20 mg Documented by: Furosemide (Lasix) 40 mg IV QDAY [facility] Last Admin: 07/03/19 09:02 Dose: 40 mg Documented by: Levofloxacin/Dextrose (Levaquin 750mg/150ml) 750 mg in 150 mls @ 100 mls/hr IV Q24HR [facility]; Protocol Last Admin: 07/03/19 09:03 Dose: 100 mls/hr Documented by: Insulin Human Lispro (Humalog) 0 unit SUB-Q ACHS [facility]; Protocol Last Admin: 07/03/19 18:01 Dose: 3 unit Documented by: Methylprednisolone Sodium Succinate (Solu-Medrol) 80 mg IV Q8HR [facility] Last Admin: 07/03/19 13:36 Dose: 80 mg Documented by: Review of Systems Constitutional: weakness Ears, nose, mouth and throat: nasal congestion Respiratory: cough, cough with sputum, congestion, wheezing Physical Examination Vital signs: Vital Signs Temp Pulse Resp BP Pulse Ox 99.3 F 117 H 20 191/82 94 07/02/19 06:51 07/02/19 06:51 07/02/19 06:51 07/02/19 06:51 07/02/19 06:51 General appearance: no acute distress Eyes: non-icteric ENT: oropharynx moist Neck: supple, no JVD Ascultation: Bilateral: wheezes Cardiovascular: regular rate and rhythm Gastrointestinal: normoactive bowel sounds, soft, non-tender, non-distended Integumentary: normal Extremities: no cyanosis Musculoskeletal: no deformities normal mental status, non-focal exam mood appropriate Results - Laboratory Findings CBC and BMP: 07/03/19 08:00 07/03/19 08:00 Abnormal lab findings: Abnormal Labs 07/02/19 07/02/19 07/02/19 07:41 07:50 08:45 WBC 19.2 H RBC 5.13 H MCV 76 L MCH 25 L Seg Neuts % (Manual) 85.0 H Lymphocytes % (Manual) 7.0 L Seg Neutrophils # Man 16.3 H Lymphocytes # (Manual) Monocytes # (Manual) 1.2 H Potassium 3.2 L Chloride 96.6 L Creatinine 0.6 L Glucose 172 H POC Glucose Lactic Acid 2.20 H* Urine WBC (Auto) 07/02/19 07/02/19 07/02/19 16:37 21:35 Unknown WBC RBC MCV MCH Seg Neuts % (Manual) Lymphocytes % (Manual) Seg Neutrophils # Man Lymphocytes # (Manual) Monocytes # (Manual) Potassium Chloride Creatinine Glucose POC Glucose 145 H 179 H Lactic Acid Urine WBC (Auto) 24.0 H 07/03/19 07/03/19 07/03/19 08:00 08:00 08:10 WBC 28.5 H RBC 5.13 H MCV 75 L MCH 26 L Seg Neuts % (Manual) 97.0 H Lymphocytes % (Manual) 2.0 L Seg Neutrophils # Man 27.6 H Lymphocytes # (Manual) 0.6 L Monocytes # (Manual) Potassium 3.4 L Chloride 97.6 L Creatinine Glucose 186 H POC Glucose 184 H Lactic Acid Urine WBC (Auto) 07/03/19 07/03/19 12:29 16:06 WBC RBC MCV MCH Seg Neuts % (Manual) Lymphocytes % (Manual) Seg Neutrophils # Man Lymphocytes # (Manual) Monocytes # (Manual) Potassium Chloride Creatinine Glucose POC Glucose 263 H 217 H Lactic Acid Urine WBC (Auto) - Diagnostic Findings Chest x-ray: report reviewed, image reviewed Assessment and Plan - Patient Problems (1) Leukocytosis Current Visit: Yes Status: Acute (2) Right lower lobe pneumonia Current Visit: Yes Status: Acute (3) Acute hypoxemic respiratory failure Current Visit: No Status: Acute (4) Acute respiratory failure with hypoxia Current Visit: No Status: Acute (5) Bronchitis Current Visit: No Status: Acute (6) COPD with acute exacerbation Current Visit: No Status: Acute (7) Morbid obesity with BMI of 40.0-44.9, adult Current Visit: No Status: Acute (8) Obesity Current Visit: No Status: Acute (9) SOB (shortness of breath) Current Visit: No Status: Acute (10) Wheezing Current Visit: No Status: Acute (11) Hypertension Current Visit: No Status: Chronic Qualifiers: Hypertension type: essential hypertension Qualified Code(s): I10 - Essential (primary) hypertension (12) Obstructive sleep apnea Current Visit: No Status: Chronic (13) Type 2 diabetes mellitus Current Visit: No Status: Chronic Qualifiers: Diabetes mellitus snf insulin use: without snf use
[2019-07-04] MEDS: TESSALON PERLES PO SCH ×3 (05:06→22:35)
[2019-07-04] MEDS: SOLU-Medrol IV SCH ×2 (05:07→17:06)
[2019-07-04 08:23] LABS: Hematocrit 35.3 % (30.3-42.9); Hemoglobin 11.6 gm/dl (10.1-14.3); Mean Corpuscular HGB Conc 33 % (30-34); Mean Corpuscular Volume 75 fl (79-97); Platelet Count 260 K/mm3 (140-440); Red Blood Count 4.68 M/mm3 (3.65-5.03); Red Cell Distribution Width 15.3 % (13.2-15.2)
[2019-07-04 08:44] LABS: BUN/Creatinine Ratio 34; Blood Urea Nitrogen 31 mg/dL (7-17); Calcium 9.4 mg/dL (8.4-10.2); Hemolysis Index 1
[2019-07-04] MEDS: HumaLOG SUB-Q SCH ×4 (08:49→22:35)
[2019-07-04] MEDS: BROVANA NEBU IH SCH ×2 (09:10→20:40)
[2019-07-04] MEDS: PULMICORT IH SCH ×2 (09:10→20:40)
[2019-07-04] MEDS: DUONEB *Not for PRN Use IH SCH (09:11)
[2019-07-04 10:01] LABS: Band Neutrophils # (Manual) 0.3 K/mm3; Basophils % (Manual) 0 % (0.0-1.8); Eosinophils % (Manual) 0 % (0.0-4.3); Total Cells Counted 100
[2019-07-04 10:02] LABS: Hypochromasia 1+; Platelet Estimate Consistent w Auto; Tear Drop Cells Few
[2019-07-04] MEDS: LEVAQUIN 750MG/150ML 750 MG/150 ML BAG IV SCH (10:58)
[2019-07-04] MEDS: LASIX IV SCH (10:59)
[2019-07-04] MEDS: NORVASC PO SCH (10:59)
[2019-07-04] MEDS: PEPCID PO SCH (10:59)
[2019-07-04] MEDS: LOVENOX SUB-Q SCH (10:59)
--- NOTE | 2019-07-04 12:55 | Progress Note ---
Assessment and Plan 74 y/o, morbidly obese female with chronic eosinophillic pneumonia/asthma, admitted with exacerbation. 1. Changed steroids to 60q6 2. Stopped scheduled duonebs as patient is on brovana therapy 3. Patient rescheduled her Nucala infusion already as she was suppose to go yesterday 4. Will continue to follow along with you. Subjective Date of service: 07/04/19 Interval history: no acute events. Still feels tight. Stable breathing bowen in regards to oxygen sats. Sitting up on side of bed trying to untangle cords. Objective Vital Signs - 12hr 07/04/19 07/04/19 07/04/19 05:46 09:10 09:11 Temperature 97.7 F Pulse Rate 80 Pulse Rate [ 85 Bilateral] Respiratory 18 Rate Respiratory 20 Rate [Bilateral ] Blood Pressure 126/62 O2 Sat by Pulse 96 97 Oximetry Constitutional: no acute distress Eyes: non-icteric ENT: oropharynx moist Neck: supple, no JVD Ascultation: Bilateral: wheezes Cardiovascular: regular rate and rhythm Gastrointestinal: normoactive bowel sounds, soft, non-tender, non-distended Integumentary: normal Extremities: no cyanosis Neurologic: normal mental status, non-focal exam Psychiatric: mood appropriate CBC and BMP: 07/04/19 07:55 07/04/19 07:55 Abnormal lab findings: Abnormal Labs 07/02/19 07/02/19 07/02/19 07:41 07:50 08:45 WBC 19.2 H RBC 5.13 H MCV 76 L MCH 25 L RDW Seg Neuts % (Manual) 85.0 H Lymphocytes % (Manual) 7.0 L Seg Neutrophils # Man 16.3 H Lymphocytes # (Manual) Monocytes # (Manual) 1.2 H Potassium 3.2 L Chloride 96.6 L BUN Creatinine 0.6 L Glucose 172 H POC Glucose Lactic Acid 2.20 H* Urine WBC (Auto) 07/02/19 07/02/19 07/02/19 16:37 21:35 Unknown WBC RBC MCV MCH RDW Seg Neuts % (Manual) Lymphocytes % (Manual) Seg Neutrophils # Man Lymphocytes # (Manual) Monocytes # (Manual) Potassium Chloride BUN Creatinine Glucose POC Glucose 145 H 179 H Lactic Acid Urine WBC (Auto) 24.0 H 07/03/19 07/03/19 07/03/19 08:00 08:00 08:10 WBC 28.5 H RBC 5.13 H MCV 75 L MCH 26 L RDW Seg Neuts % (Manual) 97.0 H Lymphocytes % (Manual) 2.0 L Seg Neutrophils # Man 27.6 H Lymphocytes # (Manual) 0.6 L Monocytes # (Manual) Potassium 3.4 L Chloride 97.6 L BUN Creatinine Glucose 186 H POC Glucose 184 H Lactic Acid Urine WBC (Auto) 07/03/19 07/03/19 07/03/19 12:29 16:06 21:57 WBC RBC MCV MCH RDW Seg Neuts % (Manual) Lymphocytes % (Manual) Seg Neutrophils # Man Lymphocytes # (Manual) Monocytes # (Manual) Potassium Chloride BUN Creatinine Glucose POC Glucose 263 H 217 H 248 H Lactic Acid Urine WBC (Auto) 07/04/19 07/04/19 07/04/19 07:55 07:55 08:05 WBC 25.6 H RBC MCV 75 L MCH 25 L RDW 15.3 H Seg Neuts % (Manual) 98.0 H Lymphocytes % (Manual) 0 L Seg Neutrophils # Man 25.1 H Lymphocytes # (Manual) 0.0 L Monocytes # (Manual) Potassium 3.1 L Chloride BUN 31 H Creatinine Glucose 203 H POC Glucose 197 H Lactic Acid Urine WBC (Auto)
[2019-07-04] MEDS ORDERED: K-DUR PO NR (14:46)
--- NOTE | 2019-07-04 14:47 | Progress Note ---
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 Norwood IV steroids, IV antibiotics, DuoNeb, inhalation steroids Nucala monthly supportive care /Acute bronchitis; bronchodilators ,IV antibiotics, follow cultures /Acute hypoxic respiratory failure; O2 sat was 92% on 2L n/C on admission secondary to eosinophilic asthma exacerbation Oxygen titrate to keep O2 sats to more than 90%, IV steroids, nebulizers, inhalation steroids Supportive care, pulmonary consult /Febrile illness; secondary to acute bronchitis/possible pneumonia Chest x-ray no infiltrate, empiric antibiotics, follow cultures, Antipyretics /Sinus tachycardia; probably secondary to febrile illness and asthma exacerbation EKG,sinus rhythm /Obstructive sleep apnea; CPAP at night /-Possible UTI ; empiric antibiotics Follow cultures /-Hypertension; continue current antihypertensives When necessary medications /Steroid-induced leukocytosis, cont to monitor /-Steroid induced hyperglycemia; Accu-Chek sliding scale coverage, ADA diet A1c 6.3 on nov 2018, was placed on metformin on discharge /Morbid obesity; BMI above 40 Diet modification and exercise as tolerated and weight reduction When medically stable /DVT prophylaxis; Lovenox /Full CODE STATUS Disposition; follow pulmonary evaluation and recommendations Discharge when medically stable, likely tomorrow order PT eval Brief History 74-year-old morbidly obese female patient well-known to our service for multiple admissions in the past with past medical history of severe persistent eosinophilic asthma/COPD, on chronic steroid therapy and monthly Nucala,obstructive sleep apnea on CPAP at night 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 Peak temperature in ER upon arrival was 103.2F, leukocytosis, hypokalemia, UTI per urinary analysis and hypoxic. Chest x-ray no acute abnormality. Patient was admitted for further evaluation and management. Hospitalist Physical General appearance: Present: no acute distress, well-nourished, obese (morbidly obese) - EENT Eyes: Present: PERRL, EOM intact - Neck Neck: Present: supple, normal ROM - Respiratory Respiratory effort: normal Respiratory: bilateral: diminished, + wheezing, negative: rales, rhonchi - Cardiovascular Rhythm: regular Heart Sounds: Present: S1 & S2 - Extremities Extremities: no ischemia, No edema - Abdominal General gastrointestinal: soft, non-tender, non-distended, normal bowel sounds - Integumentary Integumentary: Present: clear, warm - Psychiatric Psychiatric: appropriate mood/affect, cooperative - Neurologic Neurologic: CNII-XII intact, moves all extremities Subjective Date of service: 07/04/19 Interval history: Patient Seen and examined medical records reviewed Events reported by the nursing staff Patient feels slightly better, shortness of breath improved Alert awake oriented 3 Vital signs noted States still short of breath on exertion Objective - Constitutional Vitals: Vital Signs - 12hr 07/04/19 07/04/19 07/04/19 05:46 09:10 09:11 Temperature 97.7 F Pulse Rate 80 Pulse Rate [ 85 Bilateral] Respiratory 18 Rate Respiratory 20 Rate [Bilateral ] Blood Pressure 126/62 O2 Sat by Pulse 96 97 Oximetry - Labs CBC & Chem 7: 07/04/19 07:55 07/05/19 07:36 Labs: Abnormal lab results 07/03/19 07/03/19 07/04/19 Range/Units 16:06 21:57 07:55 WBC 25.6 H (4.5-11.0) K/mm3 MCV 75 L (79-97) fl MCH 25 L (28-32) pg RDW 15.3 H (13.2-15.2) % Seg Neuts % (Manual) 98.0 H (40.0-70.0) % Lymphocytes % (Manual) 0 L (13.4-35.0) % Seg Neutrophils # Man 25.1 H (1.8-7.7) K/mm3 Lymphocytes # (Manual) 0.0 L (1.2-5.4) K/mm3 Potassium (3.6-5.0) mmol/L BUN (7-17) mg/dL Glucose (65-100) mg/dL POC Glucose 217 H 248 H (70-105) 07/04/19 07/04/19 Range/Units 07:55 08:05 WBC (4.5-11.0) K/mm3 MCV (79-97) fl MCH (28-32) pg RDW (13.2-15.2) % Seg Neuts % (Manual) (40.0-70.0) % Lymphocytes % (Manual) (13.4-35.0) % Seg Neutrophils # Man (1.8-7.7) K/mm3 Lymphocytes # (Manual) (1.2-5.4) K/mm3 Potassium 3.1 L (3.6-5.0) mmol/L BUN 31 H (7-17) mg/dL Glucose 203 H (65-100) mg/dL POC Glucose 197 H (70-105)
[2019-07-05] MEDS: SOLU-Medrol IV SCH ×3 (00:46→12:15)
[2019-07-05] MEDS: TESSALON PERLES PO SCH ×2 (06:04→13:47)
[2019-07-05] MEDS: BROVANA NEBU IH SCH (07:51)
[2019-07-05] MEDS: PULMICORT IH SCH (07:51)
[2019-07-05] MEDS: HumaLOG SUB-Q SCH ×2 (08:52→12:16)
[2019-07-05] MEDS: LEVAQUIN 750MG/150ML 750 MG/150 ML BAG IV SCH (10:55)
[2019-07-05] MEDS: LOVENOX SUB-Q SCH (10:56)
[2019-07-05] MEDS: PEPCID PO SCH (10:56)
[2019-07-05] MEDS: NORVASC PO SCH (10:56)
[2019-07-05] MEDS: LASIX IV SCH (10:57)
[2019-07-05 12:27] VITALS: BP 132/63
--- NOTE | 2019-07-05 12:37 | Progress Note ---
Assessment and Plan 74 y/o, morbidly obese female with chronic eosinophillic pneumonia/asthma, admitted with exacerbation. 1. Continue steroids at 60q6, may try to start weaning tomorrow 2. Stopped scheduled duonebs as patient is on brovana therapy 3. Patient rescheduled her Nucala infusion already as she was suppose to go yesterday 4. Will continue to follow along with you. Subjective Date of service: 07/05/19 Interval history: No acute events. Stable. Still with chest tightness but improving Objective Vital Signs - 12hr 07/05/19 07/05/19 07/05/19 05:32 07:50 07:51 Temperature 97.7 F Pulse Rate 72 Pulse Rate [ 72 Bilateral] Respiratory 17 Rate Respiratory 20 Rate [Bilateral ] Blood Pressure 126/63 O2 Sat by Pulse 91 100 Oximetry 07/05/19 07/05/19 07/05/19 10:53 10:56 11:19 Temperature 97.5 F L Pulse Rate 70 71 Pulse Rate [ Bilateral] Respiratory 20 Rate Respiratory Rate [Bilateral ] Blood Pressure 133/68 133/68 132/63 O2 Sat by Pulse 92 Oximetry Constitutional: no acute distress Eyes: non-icteric ENT: oropharynx moist Neck: supple, no JVD Ascultation: Bilateral: wheezes Cardiovascular: regular rate and rhythm Gastrointestinal: normoactive bowel sounds, soft, non-tender, non-distended Integumentary: normal Extremities: no cyanosis Neurologic: normal mental status, non-focal exam Psychiatric: mood appropriate CBC and BMP: 07/04/19 07:55 07/05/19 07:36 Abnormal lab findings: Abnormal Labs 07/02/19 07/02/19 07/02/19 07:41 07:50 08:45 WBC 19.2 H RBC 5.13 H MCV 76 L MCH 25 L RDW Seg Neuts % (Manual) 85.0 H Lymphocytes % (Manual) 7.0 L Seg Neutrophils # Man 16.3 H Lymphocytes # (Manual) Monocytes # (Manual) 1.2 H Potassium 3.2 L Chloride 96.6 L BUN Creatinine 0.6 L Glucose 172 H POC Glucose Lactic Acid 2.20 H* Urine WBC (Auto) 07/02/19 07/02/19 07/02/19 16:37 21:35 Unknown WBC RBC MCV MCH RDW Seg Neuts % (Manual) Lymphocytes % (Manual) Seg Neutrophils # Man Lymphocytes # (Manual) Monocytes # (Manual) Potassium Chloride BUN Creatinine Glucose POC Glucose 145 H 179 H Lactic Acid Urine WBC (Auto) 24.0 H 07/03/19 07/03/19 07/03/19 08:00 08:00 08:10 WBC 28.5 H RBC 5.13 H MCV 75 L MCH 26 L RDW Seg Neuts % (Manual) 97.0 H Lymphocytes % (Manual) 2.0 L Seg Neutrophils # Man 27.6 H Lymphocytes # (Manual) 0.6 L Monocytes # (Manual) Potassium 3.4 L Chloride 97.6 L BUN Creatinine Glucose 186 H POC Glucose 184 H Lactic Acid Urine WBC (Auto) 07/03/19 07/03/19 07/03/19 12:29 16:06 21:57 WBC RBC MCV MCH RDW Seg Neuts % (Manual) Lymphocytes % (Manual) Seg Neutrophils # Man Lymphocytes # (Manual) Monocytes # (Manual) Potassium Chloride BUN Creatinine Glucose POC Glucose 263 H 217 H 248 H Lactic Acid Urine WBC (Auto) 07/04/19 07/04/19 07/04/19 07:55 07:55 08:05 WBC 25.6 H RBC MCV 75 L MCH 25 L RDW 15.3 H Seg Neuts % (Manual) 98.0 H Lymphocytes % (Manual) 0 L Seg Neutrophils # Man 25.1 H Lymphocytes # (Manual) 0.0 L Monocytes # (Manual) Potassium 3.1 L Chloride BUN 31 H Creatinine Glucose 203 H POC Glucose 197 H Lactic Acid Urine WBC (Auto) 07/04/19 07/04/19 07/04/19 12:09 16:18 21:42 WBC RBC MCV MCH RDW Seg Neuts % (Manual) Lymphocytes % (Manual) Seg Neutrophils # Man Lymphocytes # (Manual) Monocytes # (Manual) Potassium Chloride BUN Creatinine Glucose POC Glucose 277 H 220 H 245 H Lactic Acid Urine WBC (Auto) 07/05/19 07/05/19 07:40 11:24 WBC RBC MCV MCH RDW Seg Neuts % (Manual) Lymphocytes % (Manual) Seg Neutrophils # Man Lymphocytes # (Manual) Monocytes # (Manual) Potassium Chloride BUN Creatinine Glucose POC Glucose 220 H 245 H Lactic Acid Urine WBC (Auto)
--- NOTE | 2019-07-05 12:44 | Discharge Summary ---
Providers - Providers Date of Admission: 07/02/19 09:35 Date of discharge: 07/05/19 Attending physician: GIUSEPPE DUARTE 07/02/19 12:15 Consult to Dietitian/Nutrition [CONS] Routine Physician Instructions: Reason For Exam: Reason for Consult: Poor oral intake 07/02/19 12:23 Physical Therapy Evaluation and Treat [CONS] Routine Comment: Reason For Exam: weakness 07/02/19 15:47 Consult to Physician [CONS] Routine Comment: Consulting Provider: TOMMIE TIM Physician Instructions: Reason For Exam: Persistant eosinophilic asthma. 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 Peak temperature in ER upon arrival was 103.2F, leukocytosis, hypokalemia, UTI per urinary analysis and hypoxic. Chest x-ray no acute abnormality. Patient was admitted for further evaluation and management. Patient was admitted to medical floor with scheduled nebs, iv abx, iv steroids and supplemental O2 to keep O2 sat at or above 94%. Patients symptom improved with medical management. She was then discharged home in stable condition with outpt f/u. Discharge diagnosis and Mx /Sepsis Secondary to acute bronchitis; fever, tachycardia, leukocytosis, acute bronchitis Empiric antibiotics and supportive care /hypokalemia, continue to repelete as needed, monitor BMP /Acute exacerbation of eosinophilic asthma vs COPD; Patient is on Nucala mthly, follows with Dr. Norwood IV steroids, IV antibiotics, DuoNeb, inhalation steroids Nucala monthly supportive care /Acute bronchitis; bronchodilators ,IV antibiotics, follow cultures /Acute hypoxic respiratory failure; O2 sat was 92% on 2L n/C on admission secondary to eosinophilic asthma exacerbation Oxygen titrate to keep O2 sats to more than 90%, IV steroids, nebulizers, inhalation steroids Supportive care, pulmonary consult /Febrile illness; secondary to acute bronchitis/possible pneumonia Chest x-ray no infiltrate, empiric antibiotics, follow cultures, Antipyretics /Sinus tachycardia; probably secondary to febrile illness and asthma exacerbation EKG,sinus rhythm /Obstructive sleep apnea; CPAP at night /-Possible UTI ; empiric antibiotics Follow cultures /-Hypertension; continue current antihypertensives When necessary medications /Steroid-induced leukocytosis, cont to monitor /-Steroid induced hyperglycemia; Accu-Chek sliding scale coverage, ADA diet A1c 6.3 on nov 2018, was placed on metformin on discharge /Morbid obesity; BMI above 40 Diet modification and exercise as tolerated and weight reduction When medically stable /DVT prophylaxis; Lovenox /Full CODE STATUS Disposition; home with HH and outpt PT Hospitalist Physical General appearance: Present: no acute distress, well-nourished, obese (morbidly obese) - EENT Eyes: Present: PERRL, EOM intact - Neck Neck: Present: supple, normal ROM - Respiratory Respiratory effort: normal Respiratory: bilateral: diminished, few wheezing, negative: rales, rhonchi - Cardiovascular Rhythm: regular Heart Sounds: Present: S1 & S2 - Extremities Extremities: no ischemia, No edema - Abdominal General gastrointestinal: soft, non-tender, non-distended, normal bowel sounds - Integumentary Integumentary: Present: clear, warm - Psychiatric Psychiatric: appropriate mood/affect, cooperative - Neurologic Neurologic: CNII-XII intact, moves all extremities Disposition: [id number] HOME UNDER HOME HL Time spent for discharge: 34 minutes Core Measure Documentation - Palliative Care Palliative Care/ Comfort Measures: Not Applicable - Core Measures Any of the following diagnoses?: none Exam - Constitutional Vitals: Temp Pulse Resp BP Pulse Ox 97.5 F L 71 20 132/63 92 07/05/19 11:19 07/05/19 11:19 07/05/19 11:19 07/05/19 11:19 07/05/19 11:19 Plan Activity: advance as tolerated Weight Bearing Status: Weight Bear as Tolerated Diet: low fat, low salt, diabetic Follow up with: [facility] ADOL[facility] [Primary Care Provider] - 3-5 Days TOMMIE TIM MD [Staff Physician] - 7 Days Prescriptions: predniSONE [Deltasone] 10 mg PO QDAY 30 Days #30 tab Ipratropium/Albuterol Sulfate [DUONEB *Not for PRN Use*] 1 ampul IH Q4HR PRN 30 Days #100 ampul.neb PRN Reason: Shortness Of Breath
== END 2019-07-05 14:30 | disposition home health service (06) | DRG 871 ==
LOC: ED 06:46 → 3A 09:35
PROVIDERS: ADMIT Internal Medicine; ATTEND Internal Medicine
DX: A41.9 Sepsis, unspecified organism (principal); J18.1 Lobar pneumonia, unspecified organism; J96.21 Acute and chronic respiratory failure with hypoxia; J45.901 Unspecified asthma with (acute) exacerbation; N39.0 Urinary tract infection, site not specified; Z68.42 Body mass index [BMI] 45.0-49.9, adult; J44.1 Chronic obstructive pulmonary disease with (acute) exacerbation; J44.0 Chronic obstructive pulmonary disease with (acute) lower respiratory infection; J20.9 Acute bronchitis, unspecified; E66.01 Morbid (severe) obesity due to excess calories; I10 Essential (primary) hypertension; G47.33 Obstructive sleep apnea (adult) (pediatric); E87.6 Hypokalemia; Z82.49 Family history of ischemic heart disease and other diseases of the circulatory system; E11.65 Type 2 diabetes mellitus with hyperglycemia; Y92.89 Other specified places as the place of occurrence of the external cause; Z71.3 Dietary counseling and surveillance; T38.0X5A Adverse effect of glucocorticoids and synthetic analogues, initial encounter
CPT/HCPCS: 36415; 71046; 80048; 80053; 81001; 82140; 82962; 84132; 85007; 85025; 87040; 87076; 87086; 87116; 87186; 93005; 93010; 94640; 94760; 96361; 96365; 96372; G0378; J1650; J1815; J1940; J1956; J2930; J7030

== ENCOUNTER 2019-09-01 12:12 | Emergency (ER) | payer MEDICARE ==
[2019-09-01] MEDS ORDERED: IPRATROPIUM 0.02% NEBU 2.5 ML IH ONE ×2 (12:19→13:06)
[2019-09-01] MEDS ORDERED: MAGNESIUM SULFATE 2 GM/50 ML BAG IV ONE (12:19)
[2019-09-01] MEDS ORDERED: methylPREDNISolone Sod Succinate 125 MG/2 ML INJ IV ONE (12:19)
[2019-09-01] MEDS ORDERED: ALBUTEROL 2.5 MG/3 ML NEBU IH ONE ×2 (12:19→13:06)
[2019-09-01] MEDS ORDERED: IPRATROPIUM/ALBUTEROL SULFATE 3 ML AMPUL.NEB IH ONE (12:22)
--- NOTE | 2019-09-01 12:22 | Event Note ---
ED Screening Note Date of service: 09/01/19 Time: 12:17 ED Screening Note: 74 y o female with COPD presents with CARLITOS x today no relief with nebs at home This initial assessment/diagnostic orders/clinical plan/treatment(s) is/are subject to change based on patients health status, clinical progression and re- assessment by fellow clinical providers in the ED. Further treatment and workup at subsequent clinical providers discretion. Patient/guardian urged not to elope from the ED as their condition may be serious if not clinically assessed and managed. Initial orders include: Sat 83 duoned in triage labs , cxr charge nurse notified for room placement
--- NOTE | 2019-09-01 12:59 | XRay Report ---
CHEST 2 VIEWS INDICATION: Dyspnea. COMPARISON: 07/02/2019. FINDINGS: Support devices: None. Heart: Within normal limits. Lungs/Pleura: No acute air space or interstitial disease. No significant pleural effusion. IMPRESSION: No acute findings. Signer Name: Kenny Beckett MD Signed: 09/01/2019 12:55 PM Workstation Name: [id number]
[2019-09-01] MEDS ORDERED: cefTRIAXone/NS 1 GM/50 ML 1 GM/50 ML BAG IV ONE (13:06)
--- NOTE | 2019-09-01 13:07 | Emergency Department Report ---
ED General Adult HPI - General Chief complaint: Dyspnea/Respdistress Stated complaint: CARLITOS Time Seen by Provider: 09/01/19 13:05 Source: patient Mode of arrival: Ambulatory Limitations: No Limitations - History of Present Illness Initial comments: 74 YO COMES TO ER WITH CO SOB FOR 2 DAYS. PT HAS HX COPD. DENIES FEVER OR CHILLS. DENIES ABD OR BACK PAIN. PT HAD HAD NEB BY THE TIME I'VE SEEN HER AND HER WHEEZING HAD DECREASED. PT REPORTS FEELING BETTER. ENDORSES TAKING HER HOME MEDS -: Gradual, days(s) Associated Symptoms: denies other symptoms Treatments Prior to Arrival: none - Related Data Home Medications Medication Instructions Recorded Confirmed Last Taken Flovent 44 MCG/PUFF HFA 1 puff IH BID PRN 07/02/19 07/02/19 Unknown Previous Rx's Medication Instructions Recorded Last Taken Type amLODIPine 10 mg PO QDAY #30 tablet 08/16/18 07/01/19 Rx Budesoni/Formotero 160-4.5(Nf) 2 puff IH BID #60 inha MDD 02/05/19 Unknown Rx [Symbicort 160-4.5 (Nf)] Budesoni/Formotero 80-4.5(Nf) Fluticasone (Nf) [Flovent 44 2 puff IH BID 30 Days puff 02/05/19 Unknown Rx MCG/PUFF HFA] Ipratropium/Albuterol Sulfate 1 ampul IH Q4HR PRN 30 Days #100 07/05/19 Unknown Rx [DUONEB *Not for PRN Use*] ampul.neb Azithromycin [Zithromax Z-TIFFANIE] 250 mg PO DAILY #6 tablet 09/01/19 Unknown Rx Cetirizine HCl [ZyrTEC] 10 mg PO DAILY #30 capsule 09/01/19 Unknown Rx Fluticasone [Flonase] 1 spray NS QDAY #1 bottle 09/01/19 Unknown Rx predniSONE [Deltasone] 50 mg PO QDAY #5 tab 09/01/19 Unknown Rx Allergies Allergy/AdvReac Type Severity Reaction Status Date / Time No Known Allergies Allergy Verified 11/19/18 11:24 ED Review of Systems ROS: Stated complaint: CARLITOS Other details as noted in HPI Comment: All other systems reviewed and negative ED Past Medical Hx - Past Medical History Previous Medical History?: Yes Hx Hypertension: Yes Hx Heart Attack/AMI: No Hx Congestive Heart Failure: No Hx Diabetes: No (steroid elevated BS per pt) Hx Deep Vein Thrombosis: No Hx Pulmonary Embolism: No Hx Sickle Cell Disease: No Hx Asthma: Yes Hx COPD: Yes Hx Tuberculosis: No Hx HIV: No Additional medical history: post-menopausal bleeding, bronchitis 12/05. Obesity - Surgical History Past Surgical History?: No Hx Coronary Stent: No Hx Pacemaker: No Hx Internal Defibrillator: No - Family History Family history: no significant - Social History Smoking Status: Never Smoker Substance Use Type: None - Medications Home Medications: Home Medications Medication Instructions Recorded Confirmed Last Taken Type amLODIPine 10 mg PO QDAY #30 tablet 08/16/18 07/02/19 07/01/19 Rx Budesoni/Formotero 160-4.5(Nf) 2 puff IH BID #60 inha MDD 02/05/19 07/02/19 Unknown Rx [Symbicort 160-4.5 (Nf)] Budesoni/Formotero 80-4.5(Nf) Fluticasone (Nf) [Flovent 44 2 puff IH BID 30 Days puff 02/05/19 07/02/19 Unknown Rx MCG/PUFF HFA] Flovent 44 MCG/PUFF HFA 1 puff IH BID PRN 07/02/19 07/02/19 Unknown History Ipratropium/Albuterol Sulfate 1 ampul IH Q4HR PRN 30 Days #100 07/05/19 Unknown Rx [DUONEB *Not for PRN Use*] ampul.neb Azithromycin [Zithromax Z-TIFFANIE] 250 mg PO DAILY #6 tablet 09/01/19 Unknown Rx Cetirizine HCl [ZyrTEC] 10 mg PO DAILY #30 capsule 09/01/19 Unknown Rx Fluticasone [Flonase] 1 spray NS QDAY #1 bottle 09/01/19 Unknown Rx predniSONE [Deltasone] 50 mg PO QDAY #5 tab 09/01/19 Unknown Rx ED Physical Exam - General Limitations: No Limitations General appearance: alert, in no apparent distress - Head Head exam: Present: atraumatic, normocephalic - Eye Eye exam: Present: normal appearance - ENT ENT exam: Present: mucous membranes moist - Neck Neck exam: Present: normal inspection - Respiratory Respiratory exam: Present: normal lung sounds bilaterally. Absent: respiratory distress - Cardiovascular Cardiovascular Exam: Present: regular rate, normal rhythm, tachycardia (100 P BREATHING TREATMENTS. ). Absent: systolic murmur, diastolic murmur, rubs, gallop - GI/Abdominal GI/Abdominal exam: Present: soft, normal bowel sounds - Extremities Exam Extremities exam: Present: normal inspection - Back Exam Back exam: Present: normal inspection - Neurological Exam Neurological exam: Present: alert, oriented X3 - Psychiatric Psychiatric exam: Present: normal affect, normal mood - Skin Skin exam: Present: warm, dry, intact, normal color. Absent: rash ED Course Vital Signs 09/01/19 09/01/19 09/01/19 12:23 13:10 13:16 Temperature 98.7 F Pulse Rate 117 H 90 Pulse Rate [ Posterior Bilateral Throughout] Respiratory 21 18 Rate Respiratory Rate [Posterior Bilateral Throughout] Blood Pressure 154/72 146/72 O2 Sat by Pulse 100 97 96 Oximetry 09/01/19 09/01/19 09/01/19 13:18 13:30 13:38 Temperature 97.9 F Pulse Rate 91 H Pulse Rate [ Posterior Bilateral Throughout] Respiratory 22 18 Rate Respiratory Rate [Posterior Bilateral Throughout] Blood Pressure 146/72 O2 Sat by Pulse 98 96 Oximetry 09/01/19 09/01/19 09/01/19 14:00 14:30 14:50 Temperature Pulse Rate 93 H 98 H Pulse Rate [ 99 H Posterior Bilateral Throughout] Respiratory 15 18 Rate Respiratory 20 Rate [Posterior Bilateral Throughout] Blood Pressure 134/61 147/72 O2 Sat by Pulse 96 94 Oximetry 09/01/19 09/01/19 09/01/19 15:00 15:30 16:00 Temperature Pulse Rate 101 H 108 H 112 H Pulse Rate [ Posterior Bilateral Throughout] Respiratory 22 18 22 Rate Respiratory Rate [Posterior Bilateral Throughout] Blood Pressure 147/72 128/72 142/67 O2 Sat by Pulse 95 96 95 Oximetry 09/01/19 09/01/19 09/01/19 16:30 17:15 18:00 Temperature Pulse Rate 111 H Pulse Rate [ Posterior Bilateral Throughout] Respiratory 17 Rate Respiratory Rate [Posterior Bilateral Throughout] Blood Pressure 135/78 135/78 135/78 O2 Sat by Pulse 95 97 94 Oximetry ED Medical Decision Making - Lab Data Result diagrams: 09/01/19 13:26 09/01/19 13:26 - EKG Data -: EKG Interpreted by Ri EKG shows normal: sinus rhythm Rate: normal - EKG Data When compared to previous EKG there are: no significant change Interpretation: no acute changes - Radiology Data Radiology results: report reviewed, image reviewed - Medical Decision Making Lab Results 09/01/19 09/01/19 09/01/19 Range/Units 13:26 13:26 13:26 WBC 11.6 H (4.5-11.0) K/mm3 RBC 5.00 (3.65-5.03) M/mm3 Hgb 12.4 (10.1-14.3) gm/dl Hct 38.5 (30.3-42.9) % MCV 77 L (79-97) fl MCH 25 L (28-32) pg MCHC 32 (30-34) % RDW 16.4 H (13.2-15.2) % Plt Count 251 (140-440) K/mm3 Lymph % (Auto) 18.1 (13.4-35.0) % [place] % (Auto) 5.7 (0.0-7.3) % Eos % (Auto) 1.7 (0.0-4.3) % Baso % (Auto) 0.8 (0.0-1.8) % Lymph # 2.1 (1.2-5.4) K/mm3 [place] # 0.7 (0.0-0.8) K/mm3 Eos # 0.2 (0.0-0.4) K/mm3 Baso # 0.1 (0.0-0.1) K/mm3 Seg Neutrophils % 73.7 H (40.0-70.0) % Seg Neutrophils # 8.6 H (1.8-7.7) K/mm3 D-Dimer (0-234) ng/mlDDU Sodium 142 (137-145) mmol/L Potassium 3.0 L (3.6-5.0) mmol/L Chloride 100.2 (98-107) mmol/L Carbon Dioxide 25 (22-30) mmol/L Anion Gap 20 mmol/L BUN 11 (7-17) mg/dL Creatinine 0.6 L (0.7-1.2) mg/dL Estimated GFR > 60 ml/min BUN/Creatinine Ratio 18 % Glucose 101 H (65-100) mg/dL Lactic Acid 1.10 (0.7-2.0) mmol/L Calcium 9.6 (8.4-10.2) mg/dL Troponin T (0.00-0.029) ng/mL Urine Color (Yellow) Urine Turbidity (Clear) Urine pH (5.0-7.0) Ur Specific Tiger (1.003-1.030) Urine Protein (Negative) mg/dL Urine Glucose (UA) (Negative) mg/dL Urine Ketones (Negative) mg/dL Urine Blood (Negative) Urine Nitrite (Negative) Urine Bilirubin (Negative) Urine Urobilinogen (<2.0) mg/dL Ur Leukocyte Esterase (Negative) Urine WBC (Auto) (0.0-6.0) /HPF Urine RBC (Auto) (0.0-6.0) /HPF U Epithel Cells (Auto) (0-13.0) /HPF Urine Bacteria (Auto) (Negative) /HPF Urine Mucus /HPF 09/01/19 09/01/19 09/01/19 Range/Units 13:26 13:26 14:51 WBC (4.5-11.0) K/mm3 RBC (3.65-5.03) M/mm3 Hgb (10.1-14.3) gm/dl Hct (30.3-42.9) % MCV (79-97) fl MCH (28-32) pg MCHC (30-34) % RDW (13.2-15.2) % Plt Count (140-440) K/mm3 Lymph % (Auto) (13.4-35.0) % [place] % (Auto) (0.0-7.3) % Eos % (Auto) (0.0-4.3) % Baso % (Auto) (0.0-1.8) % Lymph # (1.2-5.4) K/mm3 [place] # (0.0-0.8) K/mm3 Eos # (0.0-0.4) K/mm3 Baso # (0.0-0.1) K/mm3 Seg Neutrophils % (40.0-70.0) % Seg Neutrophils # (1.8-7.7) K/mm3 D-Dimer 517.33 H (0-234) ng/mlDDU Sodium (137-145) mmol/L Potassium (3.6-5.0) mmol/L Chloride (98-107) mmol/L Carbon Dioxide (22-30) mmol/L Anion Gap mmol/L BUN (7-17) mg/dL Creatinine (0.7-1.2) mg/dL Estimated GFR ml/min BUN/Creatinine Ratio % Glucose (65-100) mg/dL Lactic Acid (0.7-2.0) mmol/L Calcium (8.4-10.2) mg/dL Troponin T < 0.010 (0.00-0.029) ng/mL Urine Color Straw (Yellow) Urine Turbidity Clear (Clear) Urine pH 5.0 (5.0-7.0) Ur Specific Tiger 1.011 (1.003-1.030) Urine Protein <15 mg/dl (Negative) mg/dL Urine Glucose (UA) Neg (Negative) mg/dL Urine Ketones Neg (Negative) mg/dL Urine Blood Mod (Negative) Urine Nitrite Neg (Negative) Urine Bilirubin Neg (Negative) Urine Urobilinogen < 2.0 (<2.0) mg/dL Ur Leukocyte Esterase Neg (Negative) Urine WBC (Auto) 1.0 (0.0-6.0) /HPF Urine RBC (Auto) 2.0 (0.0-6.0) /HPF U Epithel Cells (Auto) < 1.0 (0-13.0) /HPF Urine Bacteria (Auto) 1+ (Negative) /HPF Urine Mucus Few /HPF Vital Signs 09/01/19 09/01/19 09/01/19 12:23 13:10 13:16 Temperature 98.7 F Pulse Rate 117 H 90 Pulse Rate [ Posterior Bilateral Throughout] Respiratory 21 18 Rate Respiratory Rate [Posterior Bilateral Throughout] Blood Pressure 154/72 146/72 O2 Sat by Pulse 100 97 96 Oximetry 09/01/19 09/01/19 09/01/19 13:18 13:30 13:38 Temperature 97.9 F Pulse Rate 91 H Pulse Rate [ Posterior Bilateral Throughout] Respiratory 22 18 Rate Respiratory Rate [Posterior Bilateral Throughout] Blood Pressure 146/72 O2 Sat by Pulse 98 96 Oximetry 09/01/19 09/01/19 09/01/19 14:00 14:30 14:50 Temperature Pulse Rate 93 H 98 H Pulse Rate [ 99 H Posterior Bilateral Throughout] Respiratory 15 18 Rate Respiratory 20 Rate [Posterior Bilateral Throughout] Blood Pressure 134/61 147/72 O2 Sat by Pulse 96 94 Oximetry 09/01/19 09/01/19 09/01/19 15:00 15:30 16:00 Temperature Pulse Rate 101 H 108 H 112 H Pulse Rate [ Posterior Bilateral Throughout] Respiratory 22 18 22 Rate Respiratory Rate [Posterior Bilateral Throughout] Blood Pressure 147/72 128/72 142/67 O2 Sat by Pulse 95 96 95 Oximetry 09/01/19 16:30 Temperature Pulse Rate 111 H Pulse Rate [ Posterior Bilateral Throughout] Respiratory 17 Rate Respiratory Rate [Posterior Bilateral Throughout] Blood Pressure 135/78 O2 Sat by Pulse 95 Oximetry LABS NOTED MEDICATED PER DEC CT NOTED PT CONDITION IMPROVED AND SHE IS FEELING BETTER. WILL DC HOME WITH A/C COPD AE. - Differential Diagnosis RO PNA/COPD/PE/ACS Critical care attestation.: If time is entered above; I have spent that time in minutes in the direct care of this critically ill patient, excluding procedure time. ED Disposition Clinical Impression: COPD (chronic obstructive pulmonary disease), COPD exacerbation, Morbid obesity with BMI of 40.0-44.9, adult, T2DM (type 2 diabetes mellitus) Disposition: DC-01 TO HOME OR SELFCARE Is pt being admited?: No Does the pt Need Aspirin: No Condition: Stable Instructions: Diabetes Mellitus Type 2 in Adults (ED), Chronic Obstructive Pulmonary Disease (ED) Prescriptions: predniSONE [Deltasone] 50 mg PO QDAY #5 tab Fluticasone [Flonase] 1 spray NS QDAY #1 bottle Azithromycin [Zithromax Z-TIFFANIE] 250 mg PO DAILY #6 tablet Cetirizine HCl [ZyrTEC] 10 mg PO DAILY #30 capsule Time of Disposition: 18:20
[2019-09-01 13:48] LABS: Basophils # (Auto) 0.1 K/mm3 (0.0-0.1); Basophils % (Auto) 0.8 % (0.0-1.8); Eosinophils # (Auto) 0.2 K/mm3 (0.0-0.4); Eosinophils % (Auto) 1.7 % (0.0-4.3); Hematocrit 38.5 % (30.3-42.9); Hemoglobin 12.4 gm/dl (10.1-14.3); Lymphocytes # (Auto) 2.1 K/mm3 (1.2-5.4); Lymphocytes % (Auto) 18.1 % (13.4-35.0); Mean Corpuscular HGB Conc 32 % (30-34); Mean Corpuscular Volume 77 fl (79-97); Monocytes # (Auto) 0.7 K/mm3 (0.0-0.8); Monocytes % (Auto) 5.7 % (0.0-7.3); Platelet Count 251 K/mm3 (140-440); Red Cell Distribution Width 16.4 % (13.2-15.2)
[2019-09-01 14:32] LABS: BUN/Creatinine Ratio 18; Blood Urea Nitrogen 11 mg/dL (7-17); Calcium 9.6 mg/dL (8.4-10.2); Hemolysis Index 8
[2019-09-01 15:20] LABS: Bacteria,Urine 1+ /HPF (Negative); Bilirubin,Urine NEG (Negative); Blood,Urine MOD (Negative); Color,Urine Straw (Yellow); Mucus,Urine FEW /HPF; Protein,Urine <15 mg/dL mg/dL (Negative); Urobilinogen,Urine < 2.0 mg/dL (<2.0)
[2019-09-01 17:02] VITALS: BP 135/78
--- NOTE | 2019-09-01 17:52 | Cat Scan Report ---
CTA CHEST WITH IV CONTRAST INDICATION / CLINICAL INFORMATION: Shortness of breath. TECHNIQUE: Axial CT images were obtained through the chest after injection of 100 mL Omnipaque 350 IV contrast. 3 plane MIP and/or 3D reconstructions were produced. All CT scans at this location are performed usin g CT dose reduction for ALARA by means of automated exposure control. COMPARISON: Chest CTA 08/15/2018 FINDINGS: PULMONARY ARTERIES: No pulmonary emboli. THORACIC AORTA: No significant abnormality. HEART: No significant abnormality. PLEURA: No pleural effusion. No pneumothorax. LYMPH NODES: No adenopathy. LUNGS: No acute air space or interstitial disease. Chronic apical pleural parenchymal scarring is not ed, right greater than left. ADDITIONAL FINDINGS: None. UPPER ABDOMEN: Indeterminate 1.4 cm left adrenal nodule with soft tissue attenuation (50 Hounsfield u nits). Round, intermediate attenuation lesion in the body of the spleen with diameter 3.6 cm. No inte rnal arterial vascularity is appreciated. SKELETAL STRUCTURES: Diffuse idiopathic skeletal hyperostosis. No acute abnormality. IMPRESSION: 1. No CT evidence for pulmonary embolism. 2. No acute finding. Signer Name: Giacomo Moon MD Signed: 09/01/2019 5:48 PM Workstation Name: [id number]
== END 2019-09-01 18:17 | disposition home or self-care (01) ==
LOC: ED 12:12
DX: J44.1 Chronic obstructive pulmonary disease with (acute) exacerbation (principal); E11.9 Type 2 diabetes mellitus without complications; E66.01 Morbid (severe) obesity due to excess calories; Z68.41 Body mass index [BMI] 40.0-44.9, adult; I10 Essential (primary) hypertension; Z79.899 Other long term (current) drug therapy
CPT/HCPCS: 36415; 71046; 71275; 80048; 81001; 82140; 84484; 85025; 85379; 87040; 93005; 93010; 94644; 96365; 96367; 96375; 99285; J0696; J2930; J3475; Q9967

== ENCOUNTER 2019-09-16 15:03 | Emergency (ER) | payer MEDICARE ==
[2019-09-16] MEDS ORDERED: ALBUTEROL 2.5 MG/3 ML NEBU IH ONE (15:32)
[2019-09-16] MEDS ORDERED: methylPREDNISolone Sod Succinate 125 MG/2 ML INJ IV ONE (15:32)
[2019-09-16] MEDS ORDERED: IPRATROPIUM 0.02% NEBU 2.5 ML IH ONE (15:32)
[2019-09-16] MEDS ORDERED: MAGNESIUM SULFATE 2 GM/50 ML BAG IV ONE (15:32)
--- NOTE | 2019-09-16 15:41 | Emergency Department Report ---
ED Shortness of Breath HPI - General Chief Complaint: Dyspnea/Respdistress Stated Complaint: SOB/COPD Time Seen by Provider: 09/16/19 15:26 Source: patient Mode of arrival: Ambulatory Limitations: No Limitations - History of Present Illness Initial Comments: 74 yo F with hx of COPD, sleep apnea, HTN, diabetes presents to ED with complaint of SOB and wheezing. Pt states symptoms have been ongoing x 2 days. States she ran out of her inhaler. Pt reports dry cough, denies fever and chest pain. Pt not on home O2, but reports CPAP use at night. MD Complaint: shortness of breath -: days(s) (2) Severity: moderate Consistency: constant Improves With: bronchodilators Worsens With: exertion Known History Of: COPD Associated Symptoms: cough Treatments Prior to Arrival: bronchodilator - Related Data Home Oxygen Therapy: No Home Medications Medication Instructions Recorded Confirmed Last Taken Flovent 44 MCG/PUFF HFA 1 puff IH BID PRN 07/02/19 07/02/19 Unknown Previous Rx's Medication Instructions Recorded Last Taken Type amLODIPine 10 mg PO QDAY #30 tablet 08/16/18 07/01/19 Rx Budesoni/Formotero 160-4.5(Nf) 2 puff IH BID #60 inha MDD 02/05/19 Unknown Rx [Symbicort 160-4.5 (Nf)] Budesoni/Formotero 80-4.5(Nf) Fluticasone (Nf) [Flovent 44 2 puff IH BID 30 Days puff 02/05/19 Unknown Rx MCG/PUFF HFA] Ipratropium/Albuterol Sulfate 1 ampul IH Q4HR PRN 30 Days #100 07/05/19 Unknown Rx [DUONEB *Not for PRN Use*] ampul.neb Azithromycin [Zithromax Z-TIFFANIE] 250 mg PO DAILY #6 tablet 09/01/19 Unknown Rx Cetirizine HCl [ZyrTEC] 10 mg PO DAILY #30 capsule 09/01/19 Unknown Rx Fluticasone [Flonase] 1 spray NS QDAY #1 bottle 09/01/19 Unknown Rx predniSONE [Deltasone] 50 mg PO QDAY #5 tab 09/01/19 Unknown Rx Albuterol Sulfate [Proventil Hfa] 2 puff IH Q4HR PRN #1 hfa.aer.ad 09/16/19 Unknown Rx predniSONE [Deltasone] 50 mg PO QDAY #5 tab 09/16/19 Unknown Rx Allergies Allergy/AdvReac Type Severity Reaction Status Date / Time No Known Allergies Allergy Verified 11/19/18 11:24 ED Review of Systems ROS: Stated complaint: SOB/COPD Other details as noted in HPI Comment: All other systems reviewed and negative Constitutional: denies: chills, fever Respiratory: cough, shortness of breath, wheezing Cardiovascular: denies: chest pain ED Past Medical Hx - Past Medical History Previous Medical History?: Yes Hx Hypertension: Yes Hx Heart Attack/AMI: No Hx Congestive Heart Failure: No Hx Diabetes: No (steroid elevated BS per pt) Hx Deep Vein Thrombosis: No Hx Pulmonary Embolism: No Hx Sickle Cell Disease: No Hx Asthma: Yes Hx COPD: Yes Hx Tuberculosis: No Hx HIV: No Additional medical history: post-menopausal bleeding, bronchitis 12/05. Obesity - Surgical History Past Surgical History?: No Hx Coronary Stent: No Hx Pacemaker: No Hx Internal Defibrillator: No - Social History Smoking Status: Never Smoker Substance Use Type: None - Medications Home Medications: Home Medications Medication Instructions Recorded Confirmed Last Taken Type amLODIPine 10 mg PO QDAY #30 tablet 08/16/18 07/02/19 07/01/19 Rx Budesoni/Formotero 160-4.5(Nf) 2 puff IH BID #60 inha MDD 02/05/19 07/02/19 Unknown Rx [Symbicort 160-4.5 (Nf)] Budesoni/Formotero 80-4.5(Nf) Fluticasone (Nf) [Flovent 44 2 puff IH BID 30 Days puff 02/05/19 07/02/19 Unknown Rx MCG/PUFF HFA] Flovent 44 MCG/PUFF HFA 1 puff IH BID PRN 07/02/19 07/02/19 Unknown History Ipratropium/Albuterol Sulfate 1 ampul IH Q4HR PRN 30 Days #100 07/05/19 Unknown Rx [DUONEB *Not for PRN Use*] ampul.neb Azithromycin [Zithromax Z-TIFFANIE] 250 mg PO DAILY #6 tablet 09/01/19 Unknown Rx Cetirizine HCl [ZyrTEC] 10 mg PO DAILY #30 capsule 09/01/19 Unknown Rx Fluticasone [Flonase] 1 spray NS QDAY #1 bottle 09/01/19 Unknown Rx predniSONE [Deltasone] 50 mg PO QDAY #5 tab 09/01/19 Unknown Rx Albuterol Sulfate [Proventil Hfa] 2 puff IH Q4HR PRN #1 hfa.aer.ad 09/16/19 Unknown Rx predniSONE [Deltasone] 50 mg PO QDAY #5 tab 09/16/19 Unknown Rx ED Physical Exam - General Limitations: No Limitations General appearance: alert - Head Head exam: Present: atraumatic, normocephalic - Eye Eye exam: Present: normal appearance - ENT ENT exam: Present: mucous membranes moist - Neck Neck exam: Present: normal inspection - Respiratory Respiratory exam: Present: respiratory distress (mild), wheezes, other (slightly tachypneic) - Cardiovascular Cardiovascular Exam: Present: normal rhythm, tachycardia - GI/Abdominal GI/Abdominal exam: Present: soft. Absent: distended, tenderness - Extremities Exam Extremities exam: Present: normal inspection, pedal edema (mild). Absent: calf tenderness - Neurological Exam Neurological exam: Present: alert, oriented X3 - Psychiatric Psychiatric exam: Present: normal affect, normal mood - Skin Skin exam: Present: warm, dry, intact, normal color ED Course Vital Signs 09/16/19 09/16/19 09/16/19 15:06 15:15 15:26 Temperature 98.6 F Pulse Rate 118 H Pulse Rate [ Anterior Bilateral Throughout] Respiratory 26 H 20 18 Rate Respiratory Rate [Anterior Bilateral Throughout] Blood Pressure 106/74 Blood Pressure [Right] O2 Sat by Pulse 93 96 Oximetry 09/16/19 09/16/19 09/16/19 15:30 15:46 16:00 Temperature Pulse Rate 96 H 94 H 96 H Pulse Rate [ Anterior Bilateral Throughout] Respiratory 27 H 24 18 Rate Respiratory Rate [Anterior Bilateral Throughout] Blood Pressure 140/69 140/69 152/68 Blood Pressure [Right] O2 Sat by Pulse 97 97 95 Oximetry 09/16/19 09/16/19 09/16/19 16:16 16:30 16:46 Temperature Pulse Rate 88 82 88 Pulse Rate [ Anterior Bilateral Throughout] Respiratory 21 17 21 Rate Respiratory Rate [Anterior Bilateral Throughout] Blood Pressure 152/68 152/68 152/68 Blood Pressure [Right] O2 Sat by Pulse 96 96 94 Oximetry 09/16/19 09/16/19 09/16/19 17:00 17:15 17:16 Temperature Pulse Rate 77 78 Pulse Rate [ 80 Anterior Bilateral Throughout] Respiratory 22 18 Rate Respiratory 20 Rate [Anterior Bilateral Throughout] Blood Pressure 158/104 158/104 Blood Pressure [Right] O2 Sat by Pulse 95 96 Oximetry 09/16/19 09/16/19 09/16/19 17:30 17:46 20:19 Temperature 98 F Pulse Rate 80 86 90 Pulse Rate [ Anterior Bilateral Throughout] Respiratory 13 13 20 Rate Respiratory Rate [Anterior Bilateral Throughout] Blood Pressure 148/70 148/70 Blood Pressure 140/89 [Right] O2 Sat by Pulse 100 100 93 Oximetry ED Medical Decision Making - Lab Data Result diagrams: 09/16/19 15:40 09/16/19 15:40 - Radiology Data Radiology results: report reviewed, image reviewed - Medical Decision Making 74-year-old female with acute COPD exacerbation. Patient initially tachycardia, tachypnea, O2 sats 92% on room air, with wheezes present diffusely. Albuterol nebs, Solu-Medrol, magnesium sulfate given. Labs unremarkable. Chest x-ray shows no pneumonia, pleural effusion, pulmonary edema. Wheezes are currently resolved. Vitals have improved. Patient reports she is feeling much better at this time. She is in no respiratory distress. She does not feel the need to be admitted at this time. Patient advised to follow up with her PCP. Prescriptions given. Return precautions given. - Differential Diagnosis COPD, pneumonia, pulmonary edema Critical Care Time: Yes Critical care time in (mins) excluding proc time.: 35 Critical care attestation.: If time is entered above; I have spent that time in minutes in the direct care of this critically ill patient, excluding procedure time. Critical Care Time: 35 minutes ED Disposition Clinical Impression: COPD with acute exacerbation Disposition: DC-01 TO HOME OR SELFCARE Is pt being admited?: No Condition: Stable Instructions: Chronic Obstructive Pulmonary Disease (ED) Prescriptions: predniSONE [Deltasone] 50 mg PO QDAY #5 tab Albuterol Sulfate [Proventil Hfa] 2 puff IH Q4HR PRN #1 hfa.aer.ad PRN Reason: Wheezing Referrals: [facility] MD ADOLFO [Primary Care Provider] - 3-5 Days PRIMARY CAREMD [Referring] - 3-5 Days Time of Disposition: 19:11
[2019-09-16 16:00] LABS: Basophils # (Auto) 0.1 K/mm3 (0.0-0.1); Basophils % (Auto) 0.7 % (0.0-1.8); Eosinophils # (Auto) 0.4 K/mm3 (0.0-0.4); Eosinophils % (Auto) 3.3 % (0.0-4.3); Hematocrit 37.2 % (30.3-42.9); Hemoglobin 11.8 gm/dl (10.1-14.3); Lymphocytes # (Auto) 1.5 K/mm3 (1.2-5.4); Lymphocytes % (Auto) 12.4 % (13.4-35.0); Mean Corpuscular HGB Conc 32 % (30-34); Mean Corpuscular Volume 77 fl (79-97); Monocytes # (Auto) 0.8 K/mm3 (0.0-0.8); Monocytes % (Auto) 6.4 % (0.0-7.3); Platelet Count 261 K/mm3 (140-440); Red Blood Count 4.81 M/mm3 (3.65-5.03); Red Cell Distribution Width 17.2 % (13.2-15.2)
[2019-09-16 16:20] LABS: BUN/Creatinine Ratio 14; Blood Urea Nitrogen 10 mg/dL (7-17); Hemolysis Index 15
--- NOTE | 2019-09-16 16:27 | XRay Report ---
CHEST 1 VIEW INDICATION / CLINICAL INFORMATION: sob. COMPARISON: 09/01/2019 FINDINGS: SUPPORT DEVICES: None. HEART / MEDIASTINUM: No significant abnormality. LUNGS / PLEURA: No significant pulmonary or pleural abnormality.. No pneumothorax. ADDITIONAL FINDINGS: No significant additional findings. IMPRESSION: 1. No acute findings. Signer Name: Abhijit Alfonso MD Signed: 09/16/2019 4:23 PM Workstation Name: [id number]
[2019-09-16] MEDS ORDERED: POTASSIUM CHLORIDE ER 20 MEQ TAB PO ONE (16:35)
[2019-09-16 20:20] VITALS: BP 140/89
== END 2019-09-16 20:20 | disposition home or self-care (01) ==
LOC: ED 15:03
DX: J44.1 Chronic obstructive pulmonary disease with (acute) exacerbation (principal); I10 Essential (primary) hypertension; Z79.899 Other long term (current) drug therapy
CPT/HCPCS: 36415; 71045; 80048; 85025; 94640; 96365; 96375; 99284; J2930; J3475; 94644

== ENCOUNTER 2019-10-18 07:24 | Emergency (ER) | payer SELFPAY ==
[2019-10-18] MEDS ORDERED: IPRATROPIUM/ALBUTEROL SULFATE 3 ML AMPUL.NEB IH ONE ×4 (08:06→11:26)
--- NOTE | 2019-10-18 08:35 | XRay Report ---
CHEST PA AND LATERAL VIEWS INDICATION: Cough x 3d, COPD hx. COMPARISON: 09/16/2019. FINDINGS: Support devices: None. Heart: Within normal limits. Lungs/Pleura: No acute pulmonary or pleural findings. Diffuse thoracic spondylosis is noted with fused anterior osteophytes.. IMPRESSION: 1. No acute findings. Signer Name: Servando Stern MD Signed: 10/18/2019 8:30 AM Workstation Name: [id number]
[2019-10-18] MEDS ORDERED: predniSONE 20 MG TAB PO ONE (11:26)
--- NOTE | 2019-10-18 11:32 | Emergency Department Report ---
Minor Respiratory - HPI Chief Complaint: Upper Respiratory Infection Stated Complaint: CARLITOS Time Seen by Provider: 10/18/19 11:04 Duration: 3 Days Pain Location: Chest Severity: moderate Minor Respiratory: Yes Able to Tolerate Fluids, Yes Cough, Yes Shortness of Breath, No Rhinorrhea, No Sore Throat, No Ear Pain, No Sick Contacts, No Hemoptysis, No Chest Pain, No Fever Other History: This is a 74-year-old -[place] female presents to the emergency room with dyspnea and cough for 3 days. Past medical history of COPD, hypertension, and obesity. Patient reports increased use of inhaler and nebulizer treatments. Patient states after treatments symptoms resolved for about 1-2 hours and return. Reports worsening symptoms with exertion. Patient states she uses CPAP at night time. Denies fever, chills, chest pain, palpitations, or weakness. ED Review of Systems ROS: Stated complaint: CARLITOS Other details as noted in HPI Constitutional: denies: chills, fever Respiratory: cough, shortness of breath, SOB with exertion. denies: wheezing Cardiovascular: denies: chest pain, palpitations Gastrointestinal: denies: abdominal pain, nausea, diarrhea Musculoskeletal: denies: back pain, joint swelling, arthralgia Skin: denies: rash, lesions Neurological: denies: headache, weakness, paresthesias Psychiatric: denies: anxiety, depression ED Past Medical Hx - Past Medical History Previous Medical History?: Yes Hx Hypertension: Yes Hx Heart Attack/AMI: No Hx Congestive Heart Failure: No Hx Diabetes: No (steroid elevated BS per pt) Hx Deep Vein Thrombosis: No Hx Pulmonary Embolism: No Hx Sickle Cell Disease: No Hx Asthma: Yes Hx COPD: Yes Hx Tuberculosis: No Hx HIV: No Additional medical history: post-menopausal bleeding, bronchitis 12/05. Obesity - Surgical History Past Surgical History?: No Hx Coronary Stent: No Hx Pacemaker: No Hx Internal Defibrillator: No - Social History Smoking Status: Never Smoker Substance Use Type: None - Medications Home Medications: Home Medications Medication Instructions Recorded Confirmed Last Taken Type amLODIPine 10 mg PO QDAY #30 tablet 08/16/18 07/02/19 07/01/19 Rx Budesoni/Formotero 160-4.5(Nf) 2 puff IH BID #60 inha MDD 02/05/19 07/02/19 Unknown Rx [Symbicort 160-4.5 (Nf)] Budesoni/Formotero 80-4.5(Nf) Fluticasone (Nf) [Flovent 44 2 puff IH BID 30 Days puff 02/05/19 07/02/19 Unknown Rx MCG/PUFF HFA] Flovent 44 MCG/PUFF HFA 1 puff IH BID PRN 07/02/19 07/02/19 Unknown History Ipratropium/Albuterol Sulfate 1 ampul IH Q4HR PRN 30 Days #100 07/05/19 Unknown Rx [DUONEB *Not for PRN Use*] ampul.neb Azithromycin [Zithromax Z-TIFFANIE] 250 mg PO DAILY #6 tablet 09/01/19 Unknown Rx Cetirizine HCl [ZyrTEC] 10 mg PO DAILY #30 capsule 09/01/19 Unknown Rx Fluticasone [Flonase] 1 spray NS QDAY #1 bottle 09/01/19 Unknown Rx predniSONE [Deltasone] 50 mg PO QDAY #5 tab 09/01/19 Unknown Rx Albuterol Sulfate [Proventil Hfa] 2 puff IH Q4HR PRN #1 hfa.aer.ad 09/16/19 Unknown Rx levoFLOXacin [Levofloxacin] 500 mg PO BID #10 tablet 10/18/19 Unknown Rx predniSONE [Deltasone] 50 mg PO QDAY #5 tab 10/18/19 Unknown Rx Minor Respiratory Exam - Exam General: Vital signs noted. No distress. Alert and acting appropriately. HEENT: Yes Moist Mucous Membranes, No Pharyngeal Erythema, No Pharyngeal Exudates, No Rhinorrhea, No Conjuctival Injection, No Frontal Tenderness, No Maxillary Tenderness Ear: Neither TM Bulge, Neither TM Erythema, Neither EAC Pain, Neither EAC Discharge Neck: Yes Supple, No Adenopathy Lungs: Yes Ronchi (throughout), No Good Air Exchange, No Wheezes, No Stridor, No Cough, No Labored Respirations, No Retractions, No Use of Accessory Muscles, No Other Abnormal Lung Sounds Heart: Yes Regular, No Murmur Abdomen: Yes Normal Bowel Sounds, No Tenderness, No Peritoneal Signs Skin: No Rash, No Edema Neurologic: Alert and oriented, no deficits. Musculoskeletal: Unremarkable. ED Course Vital Signs 10/18/19 10/18/19 07:28 07:30 Temperature 98.5 F 98.4 F Pulse Rate 106 H 108 H Respiratory 22 16 Rate Blood Pressure 116/98 Blood Pressure 135/87 [Right] O2 Sat by Pulse 95 Oximetry ED Medical Decision Making - Lab Data Result diagrams: 10/18/19 13:12 10/18/19 13:12 Lab Results 10/18/19 10/18/19 Range/Units 13:12 13:12 WBC 14.0 H (4.5-11.0) K/mm3 RBC 4.72 (3.65-5.03) M/mm3 Hgb 11.8 (10.1-14.3) gm/dl Hct 36.3 (30.3-42.9) % MCV 77 L (79-97) fl MCH 25 L (28-32) pg MCHC 32 (30-34) % RDW 16.6 H (13.2-15.2) % Plt Count 268 (140-440) K/mm3 Sodium 142 (137-145) mmol/L Potassium 3.9 (3.6-5.0) mmol/L Chloride 101.6 (98-107) mmol/L Carbon Dioxide 26 (22-30) mmol/L Anion Gap 18 mmol/L BUN 11 (7-17) mg/dL Creatinine 0.6 L (0.7-1.2) mg/dL Estimated GFR > 60 ml/min BUN/Creatinine Ratio 18 % Glucose 113 H (65-100) mg/dL Calcium 9.0 (8.4-10.2) mg/dL - Radiology Data Radiology results: report reviewed CHEST PA AND LATERAL VIEWS INDICATION: Cough x 3d, COPD hx. COMPARISON: 09/16/2019. FINDINGS: Support devices: None. Heart: Within normal limits. Lungs/Pleura: No acute pulmonary or pleural findings. Diffuse thoracic spondylosis is noted with fused anterior osteophytes.. IMPRESSION: 1. No acute findings. - Medical Decision Making Patient seen by this provider. Vitals are stable. Past medical history of COPD, obesity, and hypertension. Labs and chest x-ray obtained. The rhonchi throughout bilaterally on exam. Given DuoNeb and treatment 2 and prednisone. Mild leukocytosis, all of the labs are unremarkable. Chest x-ray no acute cardiopulmonary findings. No pneumonia and no pleural edema. Will treat for bronchitis with antibiotics and steroids. Patient have follow-up appointment with italian teacher Richard Willams next Wednesday and do not feel she need to be hospitalized. She reports feeling better after treatment. Patient ambulated throughout ER without dyspnea on exertion. Patient discharged home stable with follow-up next week to pulmonology. Critical care attestation.: If time is entered above; I have spent that time in minutes in the direct care of this critically ill patient, excluding procedure time. ED Disposition Clinical Impression: SOB (shortness of breath), COPD with acute exacerbation Obesity Qualifiers: Obesity type: due to excess calories Obesity classification: adult class 3 (BMI >= 40) Serious obesity comorbidity presence: without serious comorbidity Body mass index: BMI 70 or greater Qualified Code(s): E66.01 - Morbid (severe) obesity due to excess calories; Z68.45 - Body mass index (BMI) 70 or greater, adult Disposition: TO HOME OR SELFCARE Is pt being admited?: No Condition: Stable Instructions: Chronic Obstructive Pulmonary Disease (ED) Additional Instructions: It is important to use inhaler or have active albuterol inhaler and avoiding asthma triggers. Complete full course of prednisone steroids and antibiotics as prescribed. Follow up with Primary Care Provider in 24-72 hours. Prescriptions: predniSONE [Deltasone] 50 mg PO QDAY #5 tab levoFLOXacin [Levofloxacin] 500 mg PO BID #10 tablet Referrals: [facility] [Outside] - 3-5 Days Time of Disposition: 14:35
[2019-10-18 13:41] LABS: Hematocrit 36.3 % (30.3-42.9); Hemoglobin 11.8 gm/dl (10.1-14.3); Mean Corpuscular HGB Conc 32 % (30-34); Mean Corpuscular Volume 77 fl (79-97); Platelet Count 268 K/mm3 (140-440); Red Blood Count 4.72 M/mm3 (3.65-5.03); Red Cell Distribution Width 16.6 % (13.2-15.2)
[2019-10-18 14:17] LABS: BUN/Creatinine Ratio 18; Blood Urea Nitrogen 11 mg/dL (7-17); Hemolysis Index 60
[2019-10-18 14:49] VITALS: BP 131/84
== END 2019-10-18 14:47 | disposition home or self-care (01) ==
LOC: ED 07:24
DX: J44.1 Chronic obstructive pulmonary disease with (acute) exacerbation (principal); E66.9 Obesity, unspecified; I10 Essential (primary) hypertension; Z79.899 Other long term (current) drug therapy
CPT/HCPCS: 36415; 71046; 80048; 85027; 94640; 99284; J7512; 94644

== ENCOUNTER 2019-12-02 12:12 | Observation (INO) | payer MEDICARE ==
[2019-12-02] MEDS ORDERED: ASPIRIN 325 MG TAB PO ONE (12:34)
--- NOTE | 2019-12-02 12:38 | Event Note ---
ED Screening Note ED Screening Note: Mrs. Forbes is a 74 yo female with hx of COPD who presents with chest pressure. +severe work of breathing evident This initial assessment/diagnostic orders/clinical plan/treatment(s) is/are subject to change based on patients health status, clinical progression and re- assessment by fellow clinical providers in the ED. Further treatment and workup at subsequent clinical providers discretion. Patient/guardian urged not to elope from the ED as their condition may be serious if not clinically assessed and managed. Initial orders include: labs EKG xr, arranged immediate bedding in treatment room
[2019-12-02] MEDS ORDERED: IPRATROPIUM 0.02% NEBU 2.5 ML IH ONE ×2 (13:00→13:04)
[2019-12-02] MEDS ORDERED: ALBUTEROL 2.5 MG/3 ML NEBU IH ONE ×2 (13:00→13:04)
--- NOTE | 2019-12-02 13:08 | XRay Report ---
CHEST 2 VIEWS INDICATION / CLINICAL INFORMATION: wheeezing. COMPARISON: 09/16/2019 FINDINGS: SUPPORT DEVICES: None. HEART / MEDIASTINUM: No significant abnormality. LUNGS / PLEURA: No significant pulmonary or pleural abnormality. No pneumothorax. ADDITIONAL FINDINGS: No significant additional findings. IMPRESSION: 1. No acute findings. No interval change. Signer Name: Radha Cunningham MD Signed: 12/02/2019 1:04 PM Workstation Name: [id number]
[2019-12-02 13:19] LABS: Basophils # (Auto) 0.1 K/mm3 (0.0-0.1); Basophils % (Auto) 0.6 % (0.0-1.8); Eosinophils # (Auto) 0.2 K/mm3 (0.0-0.4); Eosinophils % (Auto) 1.7 % (0.0-4.3); Hematocrit 38.2 % (30.3-42.9); Hemoglobin 12.2 gm/dl (10.1-14.3); Lymphocytes # (Auto) 1.8 K/mm3 (1.2-5.4); Lymphocytes % (Auto) 13.1 % (13.4-35.0); Mean Corpuscular HGB Conc 32 % (30-34); Mean Corpuscular Volume 77 fl (79-97); Monocytes # (Auto) 1.1 K/mm3 (0.0-0.8); Monocytes % (Auto) 7.8 % (0.0-7.3); Platelet Count 304 K/mm3 (140-440); Red Blood Count 4.93 M/mm3 (3.65-5.03); Red Cell Distribution Width 15.9 % (13.2-15.2)
[2019-12-02 13:41] LABS: Alanine Aminotransferase 16 units/L (7-56); Albumin 3.9 g/dL (3.9-5); BUN/Creatinine Ratio 27; Blood Urea Nitrogen 16 mg/dL (7-17); Calcium 9.4 mg/dL (8.4-10.2); Hemolysis Index 17
[2019-12-02 13:52] LABS: Bilirubin,Direct < 0.2 mg/dL (0-0.2)
[2019-12-02] MEDS ORDERED: methylPREDNISolone Sod Succinate 125 MG/2 ML INJ IV ONE (14:37)
[2019-12-02] MEDS ORDERED: MAGNESIUM SULFATE 2 GM/50 ML BAG IV ONE (14:38)
--- NOTE | 2019-12-02 14:38 | Emergency Department Report ---
ED General Adult HPI - General Chief complaint: Dyspnea/Respdistress Stated complaint: CARLITOS Time Seen by Provider: 12/02/19 12:35 Source: patient, family, RN notes reviewed, old records reviewed Mode of arrival: Wheelchair Limitations: Physical Limitation - History of Present Illness Initial comments: Primary care doctor: Dr. Gregoria Gomes Pulmonology: Dr. Norwood This is a 74-year-old female. Has a history of multiple hospitalizations secondary to obesity, severe persistent eosinophilic asthma and COPD, on chronic steroid therapy, obstructive sleep apnea on CPAP Patient presents to the ER with a complaint of nontraumatic shortness of breath, cough, wheezing, with associated chest wall tightness. She indicates that this feels similar to prior episodes of COPD and asthma. She denies leg pain and leg swelling. She denies DVT and pulmonary embolism risk factors. Triggers for these particular kinds of symptoms include weather, change of seasons, and allergies. She is treated aggressively with albuterol, Atrovent, steroids, magnesium, and is still wheezing, short of breath and symptomatic. She is amenable to hospitalization for the aforementioned. -: Gradual Location: chest Quality: other (Tightness and throbbing, associated with cough) Consistency: constant Improves with: movement Worsens with: movement - Related Data Home Medications Medication Instructions Recorded Confirmed Last Taken Flovent 44 MCG/PUFF HFA 1 puff IH BID PRN 07/02/19 07/02/19 Unknown Previous Rx's Medication Instructions Recorded Last Taken Type amLODIPine 10 mg PO QDAY #30 tablet 08/16/18 07/01/19 Rx Budesoni/Formotero 160-4.5(Nf) 2 puff IH BID #60 inha MDD 02/05/19 Unknown Rx [Symbicort 160-4.5 (Nf)] Budesoni/Formotero 80-4.5(Nf) Fluticasone (Nf) [Flovent 44 2 puff IH BID 30 Days puff 02/05/19 Unknown Rx MCG/PUFF HFA] Ipratropium/Albuterol Sulfate 1 ampul IH Q4HR PRN 30 Days #100 07/05/19 Unknown Rx [DUONEB *Not for PRN Use*] ampul.neb Azithromycin [Zithromax Z-TIFFANIE] 250 mg PO DAILY #6 tablet 09/01/19 Unknown Rx Cetirizine HCl [ZyrTEC] 10 mg PO DAILY #30 capsule 09/01/19 Unknown Rx Fluticasone [Flonase] 1 spray NS QDAY #1 bottle 09/01/19 Unknown Rx predniSONE [Deltasone] 50 mg PO QDAY #5 tab 09/01/19 Unknown Rx Albuterol Sulfate [Proventil Hfa] 2 puff IH Q4HR PRN #1 hfa.aer.ad 09/16/19 Unknown Rx levoFLOXacin [Levofloxacin] 500 mg PO BID #10 tablet 10/18/19 Unknown Rx predniSONE [Deltasone] 50 mg PO QDAY #5 tab 10/18/19 Unknown Rx Allergies Allergy/AdvReac Type Severity Reaction Status Date / Time No Known Allergies Allergy Verified 11/19/18 11:24 ED Review of Systems ROS: Stated complaint: CARLITOS Other details as noted in HPI Constitutional: denies: fever Eyes: denies: eye discharge ENT: congestion Respiratory: cough, shortness of breath, SOB with exertion, SOB at rest, wheezing Cardiovascular: denies: syncope Gastrointestinal: denies: nausea, vomiting, diarrhea Genitourinary: denies: urgency Musculoskeletal: myalgia Skin: denies: lesions Neurological: weakness Hematological/Lymphatic: denies: easy bleeding ED Past Medical Hx - Past Medical History Previous Medical History?: Yes Hx Hypertension: Yes Hx Heart Attack/AMI: No Hx Congestive Heart Failure: No Hx Diabetes: No (steroid elevated BS per pt) Hx Deep Vein Thrombosis: No Hx Pulmonary Embolism: No Hx Sickle Cell Disease: No Hx Asthma: Yes Hx COPD: Yes Hx Tuberculosis: No Hx HIV: No Additional medical history: post-menopausal bleeding, bronchitis 12/05. Obesity - Surgical History Past Surgical History?: No Hx Coronary Stent: No Hx Pacemaker: No Hx Internal Defibrillator: No - Social History Smoking Status: Never Smoker Substance Use Type: None - Medications Home Medications: Home Medications Medication Instructions Recorded Confirmed Last Taken Type amLODIPine 10 mg PO QDAY #30 tablet 08/16/18 07/02/19 07/01/19 Rx Budesoni/Formotero 160-4.5(Nf) 2 puff IH BID #60 inha MDD 02/05/19 07/02/19 Unknown Rx [Symbicort 160-4.5 (Nf)] Budesoni/Formotero 80-4.5(Nf) Fluticasone (Nf) [Flovent 44 2 puff IH BID 30 Days puff 02/05/19 07/02/19 Unknown Rx MCG/PUFF HFA] Flovent 44 MCG/PUFF HFA 1 puff IH BID PRN 07/02/19 07/02/19 Unknown History Ipratropium/Albuterol Sulfate 1 ampul IH Q4HR PRN 30 Days #100 07/05/19 Unknown Rx [DUONEB *Not for PRN Use*] ampul.neb Azithromycin [Zithromax Z-TIFFANIE] 250 mg PO DAILY #6 tablet 09/01/19 Unknown Rx Cetirizine HCl [ZyrTEC] 10 mg PO DAILY #30 capsule 09/01/19 Unknown Rx Fluticasone [Flonase] 1 spray NS QDAY #1 bottle 09/01/19 Unknown Rx predniSONE [Deltasone] 50 mg PO QDAY #5 tab 09/01/19 Unknown Rx Albuterol Sulfate [Proventil Hfa] 2 puff IH Q4HR PRN #1 hfa.aer.ad 09/16/19 Unknown Rx levoFLOXacin [Levofloxacin] 500 mg PO BID #10 tablet 10/18/19 Unknown Rx predniSONE [Deltasone] 50 mg PO QDAY #5 tab 10/18/19 Unknown Rx ED Physical Exam - General Limitations: Physical Limitation General appearance: alert, anxious, obese - Head Head exam: Present: atraumatic, normocephalic - Eye Eye exam: Present: normal appearance, EOMI. Absent: nystagmus - ENT ENT exam: Present: normal exam, normal orophraynx, mucous membranes moist, normal external ear exam - Neck Neck exam: Present: normal inspection, full ROM. Absent: tenderness, meningismus - Respiratory Respiratory exam: Present: rhonchi. Absent: respiratory distress - Cardiovascular Cardiovascular Exam: Present: normal rhythm, tachycardia, normal heart sounds. Absent: systolic murmur, diastolic murmur, rubs, gallop - GI/Abdominal GI/Abdominal exam: Present: soft. Absent: distended, tenderness, guarding, rebound, rigid, pulsatile mass - Extremities Exam Extremities exam: Present: normal inspection, full ROM, other (2+ pulses noted in the bilateral upper and lower extremities. There is no palpable cord. negative Homans sign. Muscular compartments are soft. The pelvis is stable.). Absent: calf tenderness - Back Exam Back exam: Present: normal inspection. Absent: tenderness, CVA tenderness (R), CVA tenderness (L), paraspinal tenderness, vertebral tenderness - Neurological Exam Neurological exam: Present: alert, normal gait, other (There is no facial droop. The tongue is midline. Extraocular movements are intact bilaterally. There is 5 out of 5 strength in bilateral upper and lower extremities. Sensation is intact to light touch bilateral upper and lower extremities. There is a normal gait.). Absent: motor sensory deficit - Psychiatric Psychiatric exam: Present: normal affect - Skin Skin exam: Present: warm, dry, intact, normal color. Absent: rash ED Course Vital Signs 12/02/19 12/02/19 12/02/19 12:30 13:06 13:16 Temperature 97.7 F Pulse Rate 109 H 124 H 112 H Pulse Rate [ Posterior Bilateral Throughout] Respiratory 24 25 H 22 Rate Respiratory Rate [Posterior Bilateral Throughout] Blood Pressure 180/115 Blood Pressure 173/91 [Left] O2 Sat by Pulse 100 100 Oximetry 12/02/19 12/02/19 12/02/19 14:18 15:16 16:00 Temperature Pulse Rate 117 H 107 H Pulse Rate [ 116 H Posterior Bilateral Throughout] Respiratory 20 20 Rate Respiratory 22 Rate [Posterior Bilateral Throughout] Blood Pressure 154/73 147/62 Blood Pressure [Left] O2 Sat by Pulse 96 96 Oximetry - Reevaluation(s) Reevaluation #1: 12/02/19 18:41 In the past 2 years, the patient has had 3- CT scans of the chest for pulmonary embolism, and she was ruled out for DVT. In 2018. ED Medical Decision Making - Lab Data Result diagrams: 12/02/19 12:57 12/02/19 12:57 Vital Signs 12/02/19 12/02/19 12/02/19 12:30 13:06 13:16 Temperature 97.7 F Pulse Rate 109 H 124 H 112 H Pulse Rate [ Posterior Bilateral Throughout] Respiratory 24 25 H 22 Rate Respiratory Rate [Posterior Bilateral Throughout] Blood Pressure 180/115 Blood Pressure 173/91 [Left] O2 Sat by Pulse 100 100 Oximetry 12/02/19 12/02/19 12/02/19 14:18 15:16 16:00 Temperature Pulse Rate 117 H 107 H Pulse Rate [ 116 H Posterior Bilateral Throughout] Respiratory 20 20 Rate Respiratory 22 Rate [Posterior Bilateral Throughout] Blood Pressure 154/73 147/62 Blood Pressure [Left] O2 Sat by Pulse 96 96 Oximetry Lab Results 12/02/19 12/02/19 12/02/19 Range/Units 12:57 12:57 12:57 WBC 14.0 H (4.5-11.0) K/mm3 RBC 4.93 (3.65-5.03) M/mm3 Hgb 12.2 (10.1-14.3) gm/dl Hct 38.2 (30.3-42.9) % MCV 77 L (79-97) fl MCH 25 L (28-32) pg MCHC 32 (30-34) % RDW 15.9 H (13.2-15.2) % Plt Count 304 (140-440) K/mm3 Lymph % (Auto) 13.1 L (13.4-35.0) % Peach % (Auto) 7.8 H (0.0-7.3) % Eos % (Auto) 1.7 (0.0-4.3) % Baso % (Auto) 0.6 (0.0-1.8) % Lymph # 1.8 (1.2-5.4) K/mm3 Peach # 1.1 H (0.0-0.8) K/mm3 Eos # 0.2 (0.0-0.4) K/mm3 Baso # 0.1 (0.0-0.1) K/mm3 Seg Neutrophils % 76.8 H (40.0-70.0) % Seg Neutrophils # 10.8 H (1.8-7.7) K/mm3 Sodium 145 (137-145) mmol/L Potassium 3.5 L (3.6-5.0) mmol/L Chloride 105.8 (98-107) mmol/L Carbon Dioxide 23 (22-30) mmol/L Anion Gap 20 mmol/L BUN 16 (7-17) mg/dL Creatinine 0.6 L (0.7-1.2) mg/dL Estimated GFR > 60 ml/min BUN/Creatinine Ratio 27 % Glucose 96 (65-100) mg/dL Calcium 9.4 (8.4-10.2) mg/dL Total Bilirubin 0.20 (0.1-1.2) mg/dL Direct Bilirubin < 0.2 (0-0.2) mg/dL Indirect Bilirubin 0.0 mg/dL AST 20 (5-40) units/L ALT 16 (7-56) units/L Alkaline Phosphatase 105 (35-129) units/L Troponin T < 0.010 (0.00-0.029) ng/mL NT-Pro-B Natriuret Pep 36.53 (0-900) pg/mL Total Protein 7.3 (6.3-8.2) g/dL Albumin 3.9 (3.9-5) g/dL Albumin/Globulin Ratio 1.1 % - EKG Data -: EKG Interpreted by Ks - EKG Data 12/02/19 18:31 The EKG today shows a sinus tachycardia, 113 bpm, there is a borderline leftward axis deviation, there is borderline left anterior fascicular block, rate 113 bpm, QTC prolonged, the EKG is abnormal, it is not consistent with ST elevation myocardial infarction. This EKG appears to be grossly unchanged from prior EKG from 09/01/2019. - Radiology Data Radiology results: report reviewed, image reviewed Print Report Referring Physician: AGNES PINEDA Patient Name: DANAE MONIQUE Date of : 1945 Sex: Female Report Date: 2019-12-02 Report Status: Finalized Findings [address] [address] XRay Report Signed Patient: DANAE MONIQUE MR#: [id number] : 1945 Acct:[id number] Age/Sex: 74 / F ADM Date: 12/02/19 Loc: ED Attending Dr: Ordering Physician: Agnes Quinonez MD Date of Service: 12/02/19 Procedure(s): XR chest routine 2V Accession Number(s): [id number] cc: Agnes Quinonez MD Fluoro Time In Minutes: CHEST 2 VIEWS INDICATION / CLINICAL INFORMATION: wheeezing. COMPARISON: 09/16/2019 FINDINGS: SUPPORT DEVICES: None. HEART / MEDIASTINUM: No significant abnormality. LUNGS / PLEURA: No significant pulmonary or pleural abnormality. No pneumothorax. ADDITIONAL FINDINGS: No significant additional findings. IMPRESSION: 1. No acute findings. No interval change. Signer Name: Radha Cunningham MD Signed: 12/02/2019 1:04 PM Workstation Name: [id number] Transcribed By: Dictated By: Radha Cunningham MD Electronically Authenticated By: Radha Cunningham MD Signed Date/Time: 12/02/19 1304 DD/ 1303 - Medical Decision Making Differential diagnosis, including but not limited to: Bronchitis, asthma, COPD, pneumonia, costochondritis, GERD, gastritis, hiatal hernia Assessment and plan: 74-year-old female with COPD and asthma, presenting with probable COPD and asthma exacerbation. Tachycardia is likely secondary to exacerbation of the aforementioned. Leukocytosis is likely stress reaction, in conjunction with chronic steroid use. Appreciate that patient meets systemic inflammatory response syndrome criteria, however, based off of her history and physical, she is unlikely to benefit from aggressive fluid resuscitation, however, gentle aliquots of fluid would be acceptable. Case is presented to the hospital physician, Dr. Crista Real, who has accepted the patient to the medical service. Discussed plan of care with patient, she is amenable to hospitalization. Denies recent travel, surgeries, oral contraceptive use, leg pain and leg swelling, this is unlikely to be pulmonary embolism. Critical Care Time: Yes Critical care time in (mins) excluding proc time.: 35 Critical care attestation.: If time is entered above; I have spent that time in minutes in the direct care of this critically ill patient, excluding procedure time. ED Disposition Clinical Impression: COPD with acute exacerbation Disposition: -09 OP ADMIT IP TO THIS HOSP Is pt being admited?: Yes Does the pt Need Aspirin: Yes Condition: Stable Instructions: Chronic Obstructive Pulmonary Disease (ED) Referrals: PRIMARY CARE, [Primary Care Provider] - 3-5 Days
[2019-12-02] MEDS ORDERED: ASPIRIN 325 MG TAB ONE (14:47)
[2019-12-02] MEDS ORDERED: DOXYCYCLINE 100 MG CAPSULE PO ONE (18:42)
[2019-12-02] MEDS ORDERED: FLOVENT IH PRN (23:24)
[2019-12-02] MEDS ORDERED: ALBUTEROL 8.5 GM INHALATION IH PRN (23:24)
[2019-12-02] MEDS ORDERED: IPRATROPIUM/ALBUTEROL SULFATE 3 ML AMPUL.NEB IH PRN (23:24)
--- NOTE | 2019-12-02 23:24 | History and Physical Report ---
History of Present Illness Date of examination: 12/02/19 Date of admission: 12/02/19 18:44 Chief complaint: Increasin SOB for 2 days History of present illness: 74-year-old female with history of multiple hospitalizations secondary to obesity, severe persistent eosinophilic asthma and COPD, on chronic steroid therapy, obstructive sleep apnea on CPAP presents to the ER with a complaint of shortness of breath, cough, wheezing, with associated chest wall tightness. She indicates that this feels similar to prior episodes of COPD and asthma. She denies leg pain and leg swelling. She denies DVT and pulmonary embolism risk factors. Triggers for these particular kinds of symptoms include weather, change of seasons, and allergies. She is treated aggressively with albuterol, Atrovent, steroids, magnesium, and is still wheezing, short of breath and symptomatic. Past Medical History Previous Medical History?: Yes Hypertension: Yes Asthma: Yes COPD: Yes Additional medical history: post-menopausal bleeding, bronchitis 12/05. Obesity Surgical History No Social History Smoking Status: Never Smoker Substance Use Type: None - Medications Home Medications: Home Medications Medication Instructions Recorded Confirmed Last Taken Type amLODIPine 10 mg PO QDAY #30 tablet 08/16/18 07/02/19 07/01/19 Rx Budesoni/Formotero 160-4.5(Nf) 2 puff IH BID #60 inha MDD 02/05/19 07/02/19 Unknown Rx [Symbicort 160-4.5 (Nf)] Budesoni/Formotero 80-4.5(Nf) Fluticasone (Nf) [Flovent 44 2 puff IH BID 30 Days puff 02/05/19 07/02/19 Unknown Rx MCG/PUFF HFA] Flovent 44 MCG/PUFF HFA 1 puff IH BID PRN 07/02/19 07/02/19 Unknown History Ipratropium/Albuterol Sulfate 1 ampul IH Q4HR PRN 30 Days #100 07/05/19 Unknown Rx [DUONEB *Not for PRN Use*] ampul.neb Azithromycin [Zithromax Z-TIFFANIE] 250 mg PO DAILY #6 tablet 09/01/19 Unknown Rx Cetirizine HCl [ZyrTEC] 10 mg PO DAILY #30 capsule 09/01/19 Unknown Rx Fluticasone [Flonase] 1 spray NS QDAY #1 bottle 09/01/19 Unknown Rx predniSONE [Deltasone] 50 mg PO QDAY #5 tab 09/01/19 Unknown Rx Albuterol Sulfate [Proventil Hfa] 2 puff IH Q4HR PRN #1 hfa.aer.ad 09/16/19 Unknown Rx levoFLOXacin [Levofloxacin] 500 mg PO BID #10 tablet 10/18/19 Unknown Rx predniSONE [Deltasone] 50 mg PO QDAY #5 tab 10/18/19 Unknown Rx Review of Systems ROS: Stated complaint: CARLITOS Other details as noted in HPI Constitutional: denies: fever Eyes: denies: eye discharge ENT: congestion Respiratory: cough, shortness of breath, SOB with exertion, SOB at rest, wheezing Cardiovascular: denies: syncope Gastrointestinal: denies: nausea, vomiting, diarrhea Genitourinary: denies: urgency Musculoskeletal: myalgia Skin: denies: lesions Neurological: weakness Hematological/Lymphatic: denies: easy bleeding Medications and Allergies Allergies Allergy/AdvReac Type Severity Reaction Status Date / Time No Known Allergies Allergy Verified 11/19/18 11:24 Home Medications Medication Instructions Recorded Confirmed Last Taken Type amLODIPine 10 mg PO QDAY #30 tablet 08/16/18 12/03/19 07/01/19 Rx Budesoni/Formotero 160-4.5(Nf) 2 puff IH BID #60 inha MDD 02/05/19 12/03/19 Unknown Rx [Symbicort 160-4.5 (Nf)] Budesoni/Formotero 80-4.5(Nf) Fluticasone (Nf) [Flovent 44 2 puff IH BID 30 Days puff 02/05/19 12/03/19 Unknown Rx MCG/PUFF HFA] Flovent 44 MCG/PUFF HFA 1 puff IH BID PRN 07/02/19 12/03/19 Unknown History Ipratropium/Albuterol Sulfate 1 ampul IH Q4HR PRN 30 Days #100 07/05/19 12/03/19 Unknown Rx [DUONEB *Not for PRN Use*] ampul.neb Azithromycin [Zithromax Z-TIFFANIE] 250 mg PO DAILY #6 tablet 09/01/19 12/03/19 Unknown Rx Cetirizine HCl [ZyrTEC] 10 mg PO DAILY #30 capsule 09/01/19 12/03/19 Unknown Rx Fluticasone [Flonase] 1 spray NS QDAY #1 bottle 09/01/19 12/03/19 Unknown Rx predniSONE [Deltasone] 50 mg PO QDAY #5 tab 09/01/19 12/03/19 Unknown Rx Albuterol Sulfate [Proventil Hfa] 2 puff IH Q4HR PRN #1 hfa.aer.ad 09/16/19 12/03/19 Unknown Rx levoFLOXacin [Levofloxacin] 500 mg PO BID #10 tablet 10/18/19 12/03/19 Unknown Rx predniSONE [Deltasone] 50 mg PO QDAY #5 tab 10/18/19 12/03/19 Unknown Rx Exam - Constitutional Vitals: Temp Pulse Resp BP Pulse Ox 97.7 F 111 H 20 155/68 98 12/02/19 20:39 12/02/19 20:49 12/02/19 20:39 12/02/19 20:39 12/02/19 20:49 General appearance: Present: mild distress, well-nourished - EENT Eyes: Present: PERRL ENT: hearing intact, clear oral mucosa - Neck Neck: Present: supple, normal ROM - Respiratory Respiratory effort: normal Respiratory: bilateral: CTA, rhonchi, wheezing - Cardiovascular Heart rate: 78 Rhythm: regular Heart Sounds: Present: S1 & S2. Absent: rub, click - Extremities Extremities: no ischemia, pulses intact, pulses symmetrical, No edema Peripheral Pulses: within normal limits - Abdominal General gastrointestinal: Present: soft, non-tender, non-distended, normal bowel sounds Female genitourinary: Present: normal - Rectal Rectal Exam: deferred - Integumentary Integumentary: Present: clear, warm, dry - Musculoskeletal Musculoskeletal: gait normal, strength equal bilaterally - Psychiatric Psychiatric: appropriate mood/affect, intact judgment & insight - Neurologic Neurologic: CNII-XII intact, moves all extremities - Allied Health Allied health notes reviewed: nursing, case management Results - Labs CBC & Chem 7: 12/02/19 12:57 12/03/19 04:18 Labs: Laboratory Last Values WBC 14.0 K/mm3 (4.5-11.0) H 12/02/19 12:57 RBC 4.93 M/mm3 (3.65-5.03) 12/02/19 12:57 Hgb 12.2 gm/dl (10.1-14.3) 12/02/19 12:57 Hct 38.2 % (30.3-42.9) 12/02/19 12:57 MCV 77 fl (79-97) L 12/02/19 12:57 MCH 25 pg (28-32) L 12/02/19 12:57 MCHC 32 % (30-34) 12/02/19 12:57 RDW 15.9 % (13.2-15.2) H 12/02/19 12:57 Plt Count 304 K/mm3 (140-440) 12/02/19 12:57 Lymph % (Auto) 13.1 % (13.4-35.0) L 12/02/19 12:57 Tompkins % (Auto) 7.8 % (0.0-7.3) H 12/02/19 12:57 Eos % (Auto) 1.7 % (0.0-4.3) 12/02/19 12:57 Baso % (Auto) 0.6 % (0.0-1.8) 12/02/19 12:57 Lymph # 1.8 K/mm3 (1.2-5.4) 12/02/19 12:57 Tompkins # 1.1 K/mm3 (0.0-0.8) H 12/02/19 12:57 Eos # 0.2 K/mm3 (0.0-0.4) 12/02/19 12:57 Baso # 0.1 K/mm3 (0.0-0.1) 12/02/19 12:57 Seg Neutrophils % 76.8 % (40.0-70.0) H 12/02/19 12:57 Seg Neutrophils # 10.8 K/mm3 (1.8-7.7) H 12/02/19 12:57 Sodium 145 mmol/L (137-145) 12/02/19 12:57 Potassium 3.5 mmol/L (3.6-5.0) L 12/02/19 12:57 Chloride 105.8 mmol/L (98-107) 12/02/19 12:57 Carbon Dioxide 23 mmol/L (22-30) 12/02/19 12:57 Anion Gap 20 mmol/L 12/02/19 12:57 BUN 16 mg/dL (7-17) 12/02/19 12:57 Creatinine 0.6 mg/dL (0.7-1.2) L 12/02/19 12:57 Estimated GFR > 60 ml/min 12/02/19 12:57 BUN/Creatinine Ratio 27 % 12/02/19 12:57 Glucose 96 mg/dL (65-100) 12/02/19 12:57 Calcium 9.4 mg/dL (8.4-10.2) 12/02/19 12:57 Total Bilirubin 0.20 mg/dL (0.1-1.2) 12/02/19 12:57 Direct Bilirubin < 0.2 mg/dL (0-0.2) 12/02/19 12:57 Indirect Bilirubin 0.0 mg/dL 12/02/19 12:57 AST 20 units/L (5-40) 12/02/19 12:57 ALT 16 units/L (7-56) 12/02/19 12:57 Alkaline Phosphatase 105 units/L (35-129) 12/02/19 12:57 Troponin T < 0.010 ng/mL (0.00-0.029) 12/02/19 12:57 NT-Pro-B Natriuret Pep 36.53 pg/mL (0-900) 12/02/19 12:57 Total Protein 7.3 g/dL (6.3-8.2) 12/02/19 12:57 Albumin 3.9 g/dL (3.9-5) 12/02/19 12:57 Albumin/Globulin Ratio 1.1 % 12/02/19 12:57 - Imaging and Cardiology Chest x-ray: report reviewed Assessment and Plan Advance Directives: Yes (Full code) VTE prophylaxis?: Chemical Plan of care discussed with patient/family: Yes - Patient Problems (1) Acute hypoxemic respiratory failure Current Visit: No Status: Acute Plan to address problem: Oxygen supplements Duonebs IV abx and IV solumedrol (2) COPD with acute exacerbation Current Visit: Yes Status: Acute Plan to address problem: Cont Duonebs IV solumedrol and IV Abx (3) HTN (hypertension) Current Visit: No Status: Chronic Qualifiers: Hypertension type: essential hypertension Qualified Code(s): I10 - Essential (primary) hypertension Plan to address problem: Cont antihypertensives (4) Obstructive sleep apnea Current Visit: No Status: Chronic Plan to address problem: CPAP as necessary (5) Hypokalemia Current Visit: No Status: Acute Plan to address problem: Supplemented (6) DVT prophylaxis Current Visit: No Status: Acute Plan to address problem: On Heparin and GI prophylaxis
[2019-12-02] MEDS ORDERED: ACETAMINOPHEN 325 MG TAB PO PRN (23:26)
[2019-12-02] MEDS ORDERED: HYDROmorphone 1 MG/1 ML INJ IV PRN (23:26)
[2019-12-02] MEDS ORDERED: oxyCODONE /ACETAMINOPHEN 5-325MG TAB PO PRN (23:26)
[2019-12-02] MEDS ORDERED: METOCLOPRAMIDE 10 MG/2 ML INJ IV PRN (23:26)
[2019-12-02] MEDS ORDERED: ONDANSETRON 4 MG/2 ML INJ IV PRN (23:26)
[2019-12-02] MEDS ORDERED: NON-FORMULARY EACH (Budesoni/Formotero 160-4.5(Nf) 2 PUFF) IH SCH (23:30)
[2019-12-03] MEDS ORDERED: ALBUTEROL 2.5 MG/3 ML NEBU IH PRN (00:07)
[2019-12-03] MEDS: methylPREDNISolone Sod Succinate 125 MG/2 ML INJ IV SCH ×4 (00:19→22:06)
[2019-12-03 05:31] LABS: Alanine Aminotransferase 15 units/L (7-56); Albumin 3.8 g/dL (3.9-5); BUN/Creatinine Ratio 28; Blood Urea Nitrogen 14 mg/dL (7-17); Calcium 9.4 mg/dL (8.4-10.2); Hemolysis Index 2
[2019-12-03] MEDS: IPRATROPIUM/ALBUTEROL SULFATE 3 ML AMPUL.NEB IH SCH ×4 (08:09→21:22)
[2019-12-03] MEDS: BUDESONIDE 0.5 MG/2 ML NEBU IH SCH ×2 (08:10→21:22)
[2019-12-03] MEDS: ARFORMOTEROL 15 MCG/2 ML NEBU IH SCH ×2 (08:11→21:22)
[2019-12-03] MEDS: FLUTICASONE PROPIONATE NASAL SPRAY 16 GM NS SCH (09:59)
[2019-12-03] MEDS: FAMOTIDINE 20 MG TAB PO SCH ×2 (09:59→22:06)
[2019-12-03] MEDS: CETIRIZINE 10 MG TAB PO SCH (10:00)
[2019-12-03] MEDS ORDERED: FLUTICASONE IH SCH (10:00)
[2019-12-03] MEDS ORDERED: NON-FORMULARY EACH (Cetirizine Hcl [Zyrtec 10mg Cap] 10 MG) PO SCH (10:00)
[2019-12-03] MEDS: amLODIPine 10 MG TAB PO SCH (10:00)
[2019-12-04] MEDS: methylPREDNISolone Sod Succinate 125 MG/2 ML INJ IV SCH (06:04)
--- NOTE | 2019-12-04 06:19 | Progress Note ---
Assessment and Plan - Patient Problems (1) Acute hypoxemic respiratory failure Current Visit: No Status: Acute Plan to address problem: Oxygen supplements Duonebs IV abx and IV solumedrol (2) COPD with acute exacerbation Current Visit: Yes Status: Acute Plan to address problem: Cont Duonebs IV solumedrol and IV Abx (3) HTN (hypertension) Current Visit: No Status: Chronic Qualifiers: Hypertension type: essential hypertension Qualified Code(s): I10 - Essential (primary) hypertension Plan to address problem: Cont antihypertensives (4) Obstructive sleep apnea Current Visit: No Status: Chronic Plan to address problem: CPAP as necessary (5) Hypokalemia Current Visit: No Status: Acute Plan to address problem: Supplemented (6) DVT prophylaxis Current Visit: No Status: Acute Plan to address problem: On Heparin and GI prophylaxis Subjective Date of service: 12/03/19 Principal diagnosis: COPD exacerbation Interval history: Admitted for COPD exacerbation IMproved compared to yesterday.Still wheezing Objective - Constitutional Vitals: Vital Signs - 12hr 12/03/19 12/03/19 12/03/19 20:57 21:23 22:00 Temperature 98.3 F Pulse Rate Pulse Rate [ 98 H Apical] Pulse Rate [ 96 H Posterior Bilateral Throughout] Respiratory 20 20 Rate Respiratory 20 Rate [Posterior Bilateral Throughout] Blood Pressure 125/60 O2 Sat by Pulse 96 Oximetry 12/04/19 12/04/19 02:47 02:50 Temperature 98.3 F Pulse Rate 91 H Pulse Rate [ Apical] Pulse Rate [ Posterior Bilateral Throughout] Respiratory 20 Rate Respiratory Rate [Posterior Bilateral Throughout] Blood Pressure 153/74 O2 Sat by Pulse 92 Oximetry General appearance: Present: mild distress, well-nourished - EENT Eyes: PERRL, EOM intact ENT: hearing intact, clear oral mucosa Ears: bilateral: normal - Neck Neck: supple, normal ROM - Respiratory Respiratory effort: normal Respiratory: bilateral: CTA, rhonchi, wheezing - Breasts Breasts: normal - Cardiovascular Rhythm: regular Heart Sounds: Present: S1 & S2. Absent: gallop, rub Extremities: pulses intact, No edema, normal color, Full ROM - Gastrointestinal General gastrointestinal: Present: soft, non-tender, non-distended, normal bowel sounds - Genitourinary Female genitourinary: normal - Integumentary Integumentary: clear, warm, dry - Musculoskeletal Musculoskeletal: 1, strength equal bilaterally - Neurologic Neurologic: moves all extremities - Psychiatric Psychiatric: memory intact, appropriate mood/affect, intact judgment & insight - Labs CBC & Chem 7: 12/02/19 12:57 12/03/19 04:18
[2019-12-04] MEDS ORDERED: methylPREDNISolone Sod Succinate 125 MG/2 ML INJ IV SCH (07:39)
--- NOTE | 2019-12-04 07:42 | Progress Note ---
Assessment and Plan Assessment and plan: 74-year-old female with history of multiple hospitalizations secondary to obesity, severe persistent eosinophilic asthma and COPD, on chronic steroid therapy, obstructive sleep apnea on CPAP presents to the ER with a complaint of shortness of breath, cough, wheezing, with associated chest wall tightness. Per ED documentation she is treated aggressively with albuterol, Atrovent, steroids, magnesium, and is still wheezing, short of breath and symptomatic. Patient is on a Novel therapy Nucala outpatient. Acute hypoxemic respiratory failure Current Visit: No Status: Acute Plan to address problem: Oxygen supplements Duonebs IV abx and IV solumedrol Eosinophilic Asthma with exacerbation Obstructive Sleep Apnea Morbid Obesity COPD with acute exacerbation Current Visit: Yes Status: Acute Plan to address problem: Cont Duonebs IV solumedrol and IV Abx HTN (hypertension) Current Visit: No Status: Chronic Qualifiers: Hypertension type: essential hypertension Qualified Code(s): I10 - Essential (primary) hypertension Plan to address problem: Cont antihypertensives Obstructive sleep apnea Current Visit: No Status: Chronic Plan to address problem: CPAP as necessary Hypokalemia Current Visit: No Status: Acute Plan to address problem: Supplemented DVT prophylaxis Current Visit: No Status: Acute Plan to address problem: On Heparin and GI prophylaxis Hospitalist Physical - Constitutional Vitals: Temp Pulse Resp BP Pulse Ox 98.3 F 91 H 20 153/74 92 12/04/19 02:47 12/04/19 02:50 12/04/19 02:47 12/04/19 02:47 12/04/19 02:50 General appearance: Present: mild distress, well-nourished Results - Labs CBC & Chem 7: 12/02/19 12:57 12/03/19 04:18 Labs: Laboratory Last Values WBC 14.0 K/mm3 (4.5-11.0) H 12/02/19 12:57 RBC 4.93 M/mm3 (3.65-5.03) 12/02/19 12:57 Hgb 12.2 gm/dl (10.1-14.3) 12/02/19 12:57 Hct 38.2 % (30.3-42.9) 12/02/19 12:57 MCV 77 fl (79-97) L 12/02/19 12:57 MCH 25 pg (28-32) L 12/02/19 12:57 MCHC 32 % (30-34) 12/02/19 12:57 RDW 15.9 % (13.2-15.2) H 12/02/19 12:57 Plt Count 304 K/mm3 (140-440) 12/02/19 12:57 Lymph % (Auto) 13.1 % (13.4-35.0) L 12/02/19 12:57 Maverick % (Auto) 7.8 % (0.0-7.3) H 12/02/19 12:57 Eos % (Auto) 1.7 % (0.0-4.3) 12/02/19 12:57 Baso % (Auto) 0.6 % (0.0-1.8) 12/02/19 12:57 Lymph # 1.8 K/mm3 (1.2-5.4) 12/02/19 12:57 Maverick # 1.1 K/mm3 (0.0-0.8) H 12/02/19 12:57 Eos # 0.2 K/mm3 (0.0-0.4) 12/02/19 12:57 Baso # 0.1 K/mm3 (0.0-0.1) 12/02/19 12:57 Seg Neutrophils % 76.8 % (40.0-70.0) H 12/02/19 12:57 Seg Neutrophils # 10.8 K/mm3 (1.8-7.7) H 12/02/19 12:57 Sodium 143 mmol/L (137-145) 12/03/19 04:18 Potassium 3.6 mmol/L (3.6-5.0) 12/03/19 04:18 Chloride 104.3 mmol/L (98-107) 12/03/19 04:18 Carbon Dioxide 25 mmol/L (22-30) 12/03/19 04:18 Anion Gap 17 mmol/L 12/03/19 04:18 BUN 14 mg/dL (7-17) 12/03/19 04:18 Creatinine 0.5 mg/dL (0.7-1.2) L 12/03/19 04:18 Estimated GFR > 60 ml/min 12/03/19 04:18 BUN/Creatinine Ratio 28 % 12/03/19 04:18 Glucose 202 mg/dL (65-100) H 12/03/19 04:18 Calcium 9.4 mg/dL (8.4-10.2) 12/03/19 04:18 Total Bilirubin 0.20 mg/dL (0.1-1.2) 12/03/19 04:18 Direct Bilirubin < 0.2 mg/dL (0-0.2) 12/02/19 12:57 Indirect Bilirubin 0.0 mg/dL 12/02/19 12:57 AST 18 units/L (5-40) 12/03/19 04:18 ALT 15 units/L (7-56) 12/03/19 04:18 Alkaline Phosphatase 101 units/L (35-129) 12/03/19 04:18 Troponin T < 0.010 ng/mL (0.00-0.029) 12/02/19 12:57 NT-Pro-B Natriuret Pep 36.53 pg/mL (0-900) 12/02/19 12:57 Total Protein 7.3 g/dL (6.3-8.2) 12/03/19 04:18 Albumin 3.8 g/dL (3.9-5) L 12/03/19 04:18 Albumin/Globulin Ratio 1.1 % 12/03/19 04:18 Active Medications - Current Medications Current Medications: Generic Name Dose Route Start Last Admin Trade Name Freq PRN Reason Stop Dose Admin Acetaminophen 650 mg 12/02/19 23:26 12/03/19 07:01 Tylenol PO 650 mg Q4H PRN Administration Pain MILD(1-3)/Fever >100.5/YODER Albuterol 2.5 mg 12/03/19 00:07 12/03/19 01:08 Proventil IH 2.5 mg Q4HRT PRN Administration SOB/ WHEEZING Albuterol/Ipratropium 1 ampul 12/03/19 08:00 12/03/19 21:22 Duoneb *Not For Prn Use* IH 1 ampul QIDRT BELEN Administration Amlodipine Besylate 10 mg 12/03/19 10:00 12/03/19 10:00 Amlodipine PO 10 mg QDAY BELEN Administration Arformoterol Tartrate 15 mcg 12/03/19 08:00 12/03/19 21:22 Brovana Nebu IH 15 mcg Q12HRT BELEN Administration Budesonide 1 mg 12/03/19 08:00 12/03/19 21:22 Pulmicort IH 1 mg Q12HRT BELEN Administration Cetirizine HCl 10 mg 12/03/19 10:00 12/03/19 10:00 Cetirizine PO 10 mg DAILY BELEN Administration Famotidine 20 mg 12/03/19 10:00 12/03/19 22:06 Pepcid PO 20 mg BID BELEN Administration Fluticasone Propionate 50 mcg 12/03/19 10:00 12/03/19 09:59 Flonase NS 50 mcg QDAY [facility] Administration Hydromorphone HCl 0.5 mg 12/02/19 23:26 Dilaudid IV Q3H PRN Pain , Severe (7-10) Levofloxacin/Dextrose 750 mg in 150 mls @ 100 mls/hr 12/03/19 10:00 12/03/19 09:59 Levaquin 750mg/150ml IV 100 mls/hr Q24HR [facility] Administration Protocol Methylprednisolone Sodium Succinate 60 mg 12/04/19 07:39 Solu-Medrol IV Q8HR [facility] Metoclopramide HCl 10 mg 12/02/19 23:26 Reglan IV Q6H PRN Nausea And Vomiting Ondansetron HCl 4 mg 12/02/19 23:26 Zofran IV Q8H PRN Nausea And Vomiting Oxycodone/Acetaminophen 1 tab 12/02/19 23:26 Percocet 5/325 PO Q6H PRN Pain, Moderate (4-6) Sodium Chloride 10 ml 12/03/19 10:00 12/03/19 22:06 Sodium Chloride Flush Syringe 10 Ml IV 10 ml BID BELEN Administration Sodium Chloride 10 ml 12/02/19 23:26 Sodium Chloride Flush Syringe 10 Ml IV PRN PRN LINE FLUSH
[2019-12-04 08:13] VITALS: BP 130/65
[2019-12-04] MEDS: BUDESONIDE 0.5 MG/2 ML NEBU IH SCH (08:14)
[2019-12-04] MEDS: ARFORMOTEROL 15 MCG/2 ML NEBU IH SCH (08:15)
[2019-12-04] MEDS: IPRATROPIUM/ALBUTEROL SULFATE 3 ML AMPUL.NEB IH SCH ×2 (08:15→16:43)
[2019-12-04] MEDS ORDERED: HEPARIN 5,000 UNIT/1 ML VIAL SUB-Q SCH (10:00)
[2019-12-04] MEDS: FLUTICASONE PROPIONATE NASAL SPRAY 16 GM NS SCH (10:09)
[2019-12-04] MEDS: CETIRIZINE 10 MG TAB PO SCH (10:10)
[2019-12-04] MEDS: FAMOTIDINE 20 MG TAB PO SCH (10:10)
[2019-12-04] MEDS: amLODIPine 10 MG TAB PO SCH (10:10)
--- NOTE | 2019-12-04 10:27 | Discharge Summary ---
Providers - Providers Date of Admission: 12/02/19 18:44 Attending physician: JCARLOS GAN MD 12/04/19 10:08 Physical Therapy Evaluation and Treat [CONS] Routine Comment: Reason For Exam: weakness Primary care physician: BAG VALVER Hospitalization Reason for admission: COPD exacerbation Condition: Stable Hospital course: 74-year-old female with history of multiple hospitalizations secondary to obesity, severe persistent eosinophilic asthma and COPD, on chronic steroid therapy, obstructive sleep apnea on CPAP presents to the ER with a complaint of shortness of breath, cough, wheezing, with associated chest wall tightness. Per ED documentation she is treated aggressively with albuterol, Atrovent, steroids, magnesium, and is still wheezing, short of breath and symptomatic. Patient is on a Novel therapy Nucala outpatient. * Patient was started on high-dose steroids with Solu-Medrol 125 every 6 showed remarkable improvement and close discussion with the patient it appears that she has not been taking her nebulizers the way she should due to almost running out. I did provide extensive counseling to the patient on need to be compliant. * She is asking to be discharged I did advise the rapid taper of steroids. She reports that her commercial hvac technician is currently tapering her steroids review of records in the past shows that pulmonary was concerning that if the patient comes off steroids that she would have exacerbation. Discussed with the patient need to Close a follow-up with her commercial hvac technician. * She reports that her peak flow meter is not working but is about to get a new one from the commercial hvac technician. * Patient improved faster than expected and is stable for discharge at this time Acute hypoxemic respiratory failure Eosinophilic Asthma with exacerbation Obstructive Sleep Apnea Morbid Obesity COPD with acute exacerbation Steroid-dependent HTN (hypertension) Hypokalemia Current Visit: No Status: Acute Disposition: DC/[place]-06 HOME [facility] Time spent for discharge: 35 mins Core Measure Documentation - Palliative Care Palliative Care/ Comfort Measures: Not Applicable - Core Measures Any of the following diagnoses?: none Exam - Physical Exam Narrative exam: VITAL SIGNS: Reviewed. GENERAL: The patient appears normally developed, morbid obesity vital signs as documented. HEAD: No signs of head trauma. EYES: Pupils are equal. Extraocular motions intact. EARS: Hearing grossly intact. MOUTH: Oropharynx is normal, missing dentition. NECK: No adenopathy, no JVD. CHEST: Chest with c diminished r breath sounds bilaterally. No wheezes, rales, or rhonchi. CARDIAC: Regular rate and rhythm. S1 and S2, without murmurs, gallops, or rubs. VASCULAR: No Edema. Peripheral pulses normal and equal in all extremities. ABDOMEN: Soft, non tender and non distended. No rebound or guarding, and no masses palpated. Bowel Sounds normal. MUSCULOSKELETAL: Good range of motion of all major joints. Extremities without clubbing, cyanosis or edema. NEUROLOGIC EXAM: Alert and oriented x 3 No focal sensory or strength deficits. Speech normal. Follows commands. PSYCHIATRIC: Mood normal. SKIN: detial exam as documented in skin assessment - Constitutional Vitals: Temp Pulse Resp BP Pulse Ox 97.6 F 83 18 130/65 95 12/04/19 07:56 12/04/19 10:10 12/04/19 08:00 12/04/19 10:10 12/04/19 07:56 Plan Activity: advance as tolerated, fall precautions Diet: low fat Special Instructions: record daily BP diary Follow up with: OTMMIE TIM MD [Staff Physician] - 7 Days JERZY SAXENA MD [Referring] - 7 Days Prescriptions: predniSONE [Deltasone] 50 mg PO QDAY #5 tab Ipratropium/Albuterol Sulfate [DUONEB *Not for PRN Use*] 1 ampul IH Q4HR PRN 30 Days #100 ampul.neb PRN Reason: Shortness Of Breath Albuterol Sulfate [Proventil Hfa] 2 puff IH Q4HR PRN #1 hfa.aer.ad PRN Reason: Wheezing Budesonide/Formoterol Fumarate [Symbicort 160-4.5 Mcg Inhaler] 10.2 gm IH BID #1 hfa.aer.ad Azithromycin [Zithromax Z-TIFFANIE] 250 mg PO DAILY #6 tablet
== END 2019-12-04 13:38 | disposition home health service (06) ==
LOC: ED 12:12 → 2B-ACE 18:44
PROVIDERS: ADMIT Internal Medicine; ATTEND Internal Medicine
DX: J44.1 Chronic obstructive pulmonary disease with (acute) exacerbation (principal); J96.01 Acute respiratory failure with hypoxia; G47.33 Obstructive sleep apnea (adult) (pediatric); I10 Essential (primary) hypertension; E87.6 Hypokalemia; E66.01 Morbid (severe) obesity due to excess calories; Z79.51 Long term (current) use of inhaled steroids; Z99.89 Dependence on other enabling machines and devices; Z79.899 Other long term (current) drug therapy; Z68.42 Body mass index [BMI] 45.0-49.9, adult
CPT/HCPCS: 36415; 71046; 80048; 80053; 80076; 83880; 84484; 85025; 93005; 93010; 94640; 94644; 96365; 96366; 96367; 96375; 96376; 99291; G0378; J1644; J1956; J2930; J3475

== ENCOUNTER 2020-01-08 13:59 | Emergency (ER) | payer MEDICARE ==
--- NOTE | 2020-01-08 14:05 | Emergency Department Report ---
Blank Doc - Documentation Documentation: 74-year-old female that presents with SOB and chest pains. This initial assessment/diagnostic orders/clinical plan/treatment(s) is/are subject to change based on patient's health status, clinical progression and re- assessment by fellow clinical providers in the ED. Further treatment and workup at subsequent clinical providers discretion. Patient/guardians urged not to elope from the ED as their condition may be serious if not clinically assessed and managed. Initial orders include: 1- Patient sent to MAIN ED for further evaluation and treatment 2- cardiac workup
[2020-01-08 14:23] LABS: Basophils # (Auto) 0.1 K/mm3 (0.0-0.1); Basophils % (Auto) 0.6 % (0.0-1.8); Eosinophils # (Auto) 0.3 K/mm3 (0.0-0.4); Eosinophils % (Auto) 2.4 % (0.0-4.3); Hematocrit 38.3 % (30.3-42.9); Hemoglobin 12.5 gm/dl (10.1-14.3); Lymphocytes # (Auto) 1.8 K/mm3 (1.2-5.4); Lymphocytes % (Auto) 14.2 % (13.4-35.0); Mean Corpuscular HGB Conc 33 % (30-34); Mean Corpuscular Volume 78 fl (79-97); Monocytes # (Auto) 0.7 K/mm3 (0.0-0.8); Monocytes % (Auto) 5.8 % (0.0-7.3); Platelet Count 266 K/mm3 (140-440); Red Blood Count 4.91 M/mm3 (3.65-5.03); Red Cell Distribution Width 16.2 % (13.2-15.2)
[2020-01-08 14:33] LABS: INR 0.91 (0.87-1.13)
[2020-01-08 14:34] LABS: Partial Thromboplastin Time 26.2 Sec. (24.2-36.6)
[2020-01-08 15:06] LABS: Alanine Aminotransferase 17 units/L (7-56); Albumin 3.8 g/dL (3.9-5); BUN/Creatinine Ratio 17; Blood Urea Nitrogen 12 mg/dL (7-17); Calcium 9.5 mg/dL (8.4-10.2); Hemolysis Index 14
[2020-01-08] MEDS ORDERED: IPRATROPIUM/ALBUTEROL SULFATE 3 ML AMPUL.NEB IH ONE (15:34)
--- NOTE | 2020-01-08 15:59 | XRay Report ---
CHEST 2 VIEWS INDICATION: Chest Pain. COMPARISON: 12/02/2019 FINDINGS: Support devices: None. Heart: Within normal limits. Lungs/pleura: No acute air space or interstitial disease. No pneumothorax. Additional findings: None. IMPRESSION: No acute findings. Signer Name: Lauri Varela Jr, MD Signed: 01/08/2020 3:54 PM Workstation Name: [id number]
[2020-01-08] MEDS ORDERED: MAGNESIUM SULFATE 2 GM/50 ML BAG IV ONE (17:57)
[2020-01-08] MEDS ORDERED: ACETAMINOPHEN 325 MG TAB PO PRN (17:57)
[2020-01-08] MEDS ORDERED: IPRATROPIUM 0.02% NEBU 2.5 ML IH ONE (17:57)
[2020-01-08] MEDS ORDERED: EPINEPHrine/PF (1:1,000) 1 MG/1 ML INJ SUB-Q ONE (17:57)
[2020-01-08] MEDS ORDERED: ALBUTEROL 2.5 MG/3 ML NEBU IH ONE (17:57)
[2020-01-08] MEDS ORDERED: methylPREDNISolone Sod Succinate 125 MG/2 ML INJ IV ONE (17:57)
[2020-01-08] MEDS ORDERED: SODIUM CHLORIDE 0.9% 250ML 250 ML IV ONE (17:58)
[2020-01-08] MEDS ORDERED: POTASSIUM CHLORIDE ER 20 MEQ TAB PO ONE (18:01)
--- NOTE | 2020-01-08 18:03 | Emergency Department Report ---
ED General Adult HPI - General Chief complaint: Dyspnea/Respdistress Stated complaint: COPD Time Seen by Provider: 01/08/20 14:04 Source: patient Mode of arrival: Ambulatory Limitations: No Limitations - History of Present Illness Initial comments: Primary care doctor: Dr. Gomes Pulmonology: Dr. Norwood Past medical history: Obesity, eosinophilic asthma and COPD, chronic steroid therapy, obstructive sleep apnea on CPAP, multiple hospitalizations secondary to COPD and asthma. The patient is a 74-year-old female presenting to the ER with a complaint of cough, chest wall tightness, wheezing and shortness of breath. Symptoms present for the past 3 to 4 days. She has been using her nebulizers at home with minimal improvement in symptoms. She has chest wall pressure with coughing, which does not radiate to the back, arms or neck. There is no vomiting or diaphoresis. There is no posterior leg swelling which is different from usual. Today, she has had 1 bowel movement. There is no complaint of headache, neck pain, abdominal pain or urinary symptoms. She reports a few episodes of nonbloody diarrhea over the past 48 hours this has resolved this morning -: Gradual Consistency: intermittent Improves with: medication, rest Worsens with: movement - Related Data Previous Rx's Medication Instructions Recorded Last Taken Type amLODIPine 10 mg PO QDAY #30 tablet 08/16/18 07/01/19 Rx Cetirizine HCl [ZyrTEC 10mg cap] 10 mg PO DAILY #30 capsule 09/01/19 Unknown Rx Azithromycin [Zithromax Z-TIFFANIE] 250 mg PO DAILY #6 tablet 12/04/19 Unknown Rx Albuterol Sulfate [Proventil Hfa] 2 puff IH Q4HR PRN #1 hfa.aer.ad 01/08/20 Unknown Rx Budesonide/Formoterol Fumarate 10.2 gm IH BID #1 hfa.aer.ad 01/08/20 Unknown Rx [Symbicort 160-4.5 Mcg Inhaler] Fluticasone [Flonase] 1 spray NS QDAY #1 bottle 01/08/20 Unknown Rx Ipratropium/Albuterol Sulfate 1 ampul IH Q4HR PRN 30 Days #100 01/08/20 Unknown Rx [DUONEB *Not for PRN Use*] ampul.neb Potassium Chloride [K-Dur] 20 meq PO QDAY #10 tablet 01/08/20 Unknown Rx predniSONE [Deltasone] 50 mg PO QDAY #5 tab 01/08/20 Unknown Rx Allergies Allergy/AdvReac Type Severity Reaction Status Date / Time No Known Allergies Allergy Verified 11/19/18 11:24 ED Review of Systems ROS: Stated complaint: COPD Other details as noted in HPI Constitutional: malaise. denies: fever Eyes: denies: eye discharge ENT: congestion. denies: epistaxis Respiratory: cough, shortness of breath, wheezing Cardiovascular: denies: syncope Gastrointestinal: denies: nausea, vomiting, constipation, hematemesis Genitourinary: denies: dysuria Musculoskeletal: as per HPI Skin: as per HPI Neurological: as per HPI Psychiatric: as per HPI Hematological/Lymphatic: as per HPI ED Past Medical Hx - Past Medical History Previous Medical History?: Yes Hx Hypertension: Yes Hx Heart Attack/AMI: No Hx Congestive Heart Failure: No Hx Diabetes: No (steroid elevated BS per pt) Hx Deep Vein Thrombosis: No Hx Pulmonary Embolism: No Hx Sickle Cell Disease: No Hx Asthma: Yes Hx COPD: Yes Hx Tuberculosis: No Hx HIV: No Additional medical history: post-menopausal bleeding, bronchitis 12/05. Obesity - Surgical History Hx Coronary Stent: No Hx Pacemaker: No Hx Internal Defibrillator: No - Social History Smoking Status: Never Smoker Substance Use Type: None - Medications Home Medications: Home Medications Medication Instructions Recorded Confirmed Last Taken Type amLODIPine 10 mg PO QDAY #30 tablet 08/16/18 12/03/19 07/01/19 Rx Cetirizine HCl [ZyrTEC 10mg cap] 10 mg PO DAILY #30 capsule 09/01/19 12/03/19 Unknown Rx Azithromycin [Zithromax Z-TIFFANIE] 250 mg PO DAILY #6 tablet 12/04/19 Unknown Rx Albuterol Sulfate [Proventil Hfa] 2 puff IH Q4HR PRN #1 hfa.aer.ad 01/08/20 Unknown Rx Budesonide/Formoterol Fumarate 10.2 gm IH BID #1 hfa.aer.ad 01/08/20 Unknown Rx [Symbicort 160-4.5 Mcg Inhaler] Fluticasone [Flonase] 1 spray NS QDAY #1 bottle 01/08/20 Unknown Rx Ipratropium/Albuterol Sulfate 1 ampul IH Q4HR PRN 30 Days #100 01/08/20 Unknown Rx [DUONEB *Not for PRN Use*] ampul.neb Potassium Chloride [K-Dur] 20 meq PO QDAY #10 tablet 01/08/20 Unknown Rx predniSONE [Deltasone] 50 mg PO QDAY #5 tab 01/08/20 Unknown Rx ED Physical Exam - General Limitations: No Limitations General appearance: alert, in no apparent distress, obese - Head Head exam: Present: atraumatic, normocephalic - Eye Eye exam: Present: normal appearance, EOMI. Absent: nystagmus - ENT ENT exam: Present: normal exam, normal orophraynx, mucous membranes moist, normal external ear exam - Neck Neck exam: Present: normal inspection, full ROM. Absent: tenderness, meningismus - Respiratory Respiratory exam: Present: wheezes, rhonchi. Absent: respiratory distress - Cardiovascular Cardiovascular Exam: Present: normal rhythm, tachycardia, normal heart sounds. Absent: systolic murmur, diastolic murmur, rubs, gallop - GI/Abdominal GI/Abdominal exam: Present: soft. Absent: distended, tenderness, guarding, rebound, rigid, pulsatile mass - Extremities Exam Extremities exam: Present: normal inspection, full ROM, pedal edema, other (2+ pulses noted in the bilateral upper and lower extremities. There is no palpable cord. negative Homans sign. Muscular compartments are soft. The pelvis is stable.). Absent: calf tenderness - Back Exam Back exam: Present: normal inspection, full ROM. Absent: tenderness, CVA tenderness (L), paraspinal tenderness, vertebral tenderness - Neurological Exam Neurological exam: Present: alert, normal gait, other (There is no facial droop. The tongue is midline. Extraocular movements are intact bilaterally. There is 5 out of 5 strength in bilateral upper and lower extremities. Sensation is intact to light touch bilateral upper and lower extremities. There is a normal gait.). Absent: motor sensory deficit - Psychiatric Psychiatric exam: Present: normal affect, normal mood - Skin Skin exam: Present: warm, dry, intact, normal color. Absent: rash ED Course Vital Signs 01/08/20 01/08/20 01/08/20 14:05 19:36 19:39 Temperature 97.9 F 98.5 F Pulse Rate 111 H 97 H 95 H Respiratory 18 22 14 Rate Blood Pressure 155/77 Blood Pressure 150/63 [Left] O2 Sat by Pulse 88 100 100 Oximetry 01/08/20 01/08/20 01/08/20 19:46 19:47 20:00 Temperature 98.3 F Pulse Rate 99 H 97 H Respiratory 20 14 18 Rate Blood Pressure 150/63 160/62 Blood Pressure 168/78 [Left] O2 Sat by Pulse 100 100 Oximetry - Reevaluation(s) Reevaluation #1: 01/08/20 18:02 Differential diagnosis, including but not limited to: Bronchitis, costochondritis, pneumonia, COPD exacerbation Assessment and plan: 74-year-old female with 3 days of cough, chest wall tightness, shortness of breath. I have evaluated this patient for similar symptoms in the past. I personally witnessed the patient to be ambulating without significant difficulty. When I walked into the room to examine the patient, she is speaking on her cellular phone and does not appear to be in significant distress. However, on physical exam, she does have coarse rhonchorous wheezing. Suspect that this is an exacerbation of her chronic underlying medical conditions. Troponin is sent x2 prior to my personal evaluation. We will treat the patient with albuterol, Atrovent, steroids, magnesium, subcutaneous epinephrine, obtain EKG, and reassess. Age and cardiovascular risk factor profile are reviewed and appreciated, however, based off of the history, physical, and prior evaluations, this is most likely costochondritis with superimposed bronchitis/COPD exacerbation. Reevaluation #2: 01/08/20 20:33 Patient reassessed. Feels much improved. Walking with a steady gait. Wheezing improved. Hypoxia improved. Tachycardia resolved. Work of breathing much improved. Endorses readiness for discharge. ED Medical Decision Making - Lab Data Result diagrams: 01/08/20 14:07 01/08/20 14:07 Vital Signs 01/08/20 14:05 Temperature 97.9 F Pulse Rate 111 H Respiratory 18 Rate Blood Pressure 155/77 O2 Sat by Pulse 88 Oximetry Lab Results 01/08/20 01/08/20 01/08/20 Range/Units 14:07 14:07 14:07 WBC 13.0 H (4.5-11.0) K/mm3 RBC 4.91 (3.65-5.03) M/mm3 Hgb 12.5 (10.1-14.3) gm/dl Hct 38.3 (30.3-42.9) % MCV 78 L (79-97) fl MCH 26 L (28-32) pg MCHC 33 (30-34) % RDW 16.2 H (13.2-15.2) % Plt Count 266 (140-440) K/mm3 Lymph % (Auto) 14.2 (13.4-35.0) % [place] % (Auto) 5.8 (0.0-7.3) % Eos % (Auto) 2.4 (0.0-4.3) % Baso % (Auto) 0.6 (0.0-1.8) % Lymph # 1.8 (1.2-5.4) K/mm3 [place] # 0.7 (0.0-0.8) K/mm3 Eos # 0.3 (0.0-0.4) K/mm3 Baso # 0.1 (0.0-0.1) K/mm3 Seg Neutrophils % 77.0 H (40.0-70.0) % Seg Neutrophils # 10.0 H (1.8-7.7) K/mm3 PT 12.3 (12.2-14.9) Sec. INR 0.91 (0.87-1.13) APTT 26.2 (24.2-36.6) Sec. Sodium 140 (137-145) mmol/L Potassium 3.0 L (3.6-5.0) mmol/L Chloride 97.4 L (98-107) mmol/L Carbon Dioxide 26 (22-30) mmol/L Anion Gap 20 mmol/L BUN 12 (7-17) mg/dL Creatinine 0.7 (0.7-1.2) mg/dL Estimated GFR > 60 ml/min BUN/Creatinine Ratio 17 % Glucose 123 H (65-100) mg/dL Calcium 9.5 (8.4-10.2) mg/dL Total Bilirubin 0.70 (0.1-1.2) mg/dL AST 17 (5-40) units/L ALT 17 (7-56) units/L Alkaline Phosphatase 108 (35-129) units/L Troponin T < 0.010 (0.00-0.029) ng/mL NT-Pro-B Natriuret Pep (0-900) pg/mL Total Protein 7.1 (6.3-8.2) g/dL Albumin 3.8 L (3.9-5) g/dL Albumin/Globulin Ratio 1.2 % 01/08/20 01/08/20 Range/Units 14:07 16:40 WBC (4.5-11.0) K/mm3 RBC (3.65-5.03) M/mm3 Hgb (10.1-14.3) gm/dl Hct (30.3-42.9) % MCV (79-97) fl MCH (28-32) pg MCHC (30-34) % RDW (13.2-15.2) % Plt Count (140-440) K/mm3 Lymph % (Auto) (13.4-35.0) % [place] % (Auto) (0.0-7.3) % Eos % (Auto) (0.0-4.3) % Baso % (Auto) (0.0-1.8) % Lymph # (1.2-5.4) K/mm3 [place] # (0.0-0.8) K/mm3 Eos # (0.0-0.4) K/mm3 Baso # (0.0-0.1) K/mm3 Seg Neutrophils % (40.0-70.0) % Seg Neutrophils # (1.8-7.7) K/mm3 PT (12.2-14.9) Sec. INR (0.87-1.13) APTT (24.2-36.6) Sec. Sodium (137-145) mmol/L Potassium (3.6-5.0) mmol/L Chloride (98-107) mmol/L Carbon Dioxide (22-30) mmol/L Anion Gap mmol/L BUN (7-17) mg/dL Creatinine (0.7-1.2) mg/dL Estimated GFR ml/min BUN/Creatinine Ratio % Glucose (65-100) mg/dL Calcium (8.4-10.2) mg/dL Total Bilirubin (0.1-1.2) mg/dL AST (5-40) units/L ALT (7-56) units/L Alkaline Phosphatase (35-129) units/L Troponin T < 0.010 (0.00-0.029) ng/mL NT-Pro-B Natriuret Pep 41.27 (0-900) pg/mL Total Protein (6.3-8.2) g/dL Albumin (3.9-5) g/dL Albumin/Globulin Ratio % Vital Signs 01/08/20 01/08/20 01/08/20 14:05 19:36 19:39 Temperature 97.9 F 98.5 F Pulse Rate 111 H 97 H 95 H Respiratory 18 22 14 Rate Blood Pressure 155/77 Blood Pressure 150/63 [Left] O2 Sat by Pulse 88 100 100 Oximetry 01/08/20 01/08/20 01/08/20 19:46 19:47 20:00 Temperature 98.3 F Pulse Rate 99 H 97 H Respiratory 20 14 18 Rate Blood Pressure 150/63 160/62 Blood Pressure 168/78 [Left] O2 Sat by Pulse 100 100 Oximetry - EKG Data -: EKG Interpreted by Hi EKG shows normal: sinus rhythm Rate: normal - EKG Data 01/08/20 20:33 Sinus rhythm, 98 bpm, normal axis, QTC 459 ms, not a STEMI, appears unchanged from prior EKG from December 02, 2019 - Radiology Data Radiology results: report reviewed, image reviewed Print Report Referring Physician: SUSAN REGAN Patient Name: DANAE MONIQUE Date of : 1945 Sex: Female Report Date: 2020-01-08 Report Status: Finalized Findings [address] [address] XRay Report Signed Patient: DANAE MONIQUE MR#: [id number] : 1945 Acct:[id number] Age/Sex: 74 / F ADM Date: 01/08/20 Loc: ED Attending Dr: Ordering Physician: SUSAN REGAN NP Date of Service: 01/08/20 Procedure(s): XR chest routine 2V Accession Number(s): [id number] cc: SUSAN REGAN NP Fluoro Time In Minutes: CHEST 2 VIEWS INDICATION: Chest Pain. COMPARISON: 12/02/2019 FINDINGS: Support devices: None. Heart: Within normal limits. Lungs/pleura: No acute air space or interstitial disease. No pneumothorax. Additional findings: None. IMPRESSION: No acute findings. Signer Name: Lauri Varela Jr, MD Signed: 01/08/2020 3:54 PM Workstation Name: [email or web address] Transcribed By: TTR Dictated By: LAURI VARELA JR, MD Electronically Authenticated By: LAURI VARELA JR, MD Signed Date/Time: 01/08/201553 DD/ 53 Critical Care Time: Yes Critical care time in (mins) excluding proc time.: 35 Critical care attestation.: If time is entered above; I have spent that time in minutes in the direct care of this critically ill patient, excluding procedure time. ED Disposition Clinical Impression: COPD (chronic obstructive pulmonary disease) Disposition: - TO HOME OR SELFCARE Is pt being admited?: No Does the pt Need Aspirin: No Condition: Stable Instructions: Chronic Obstructive Pulmonary Disease (ED), COVID-19 Additional Instructions: Recommend that patient remain indoors, at least for the next 14 days, recommend copious handwashing with gentle soap and water, and avoidance of sick contacts. Take the prescribed medications as needed and directed. Advance diet as tolerated. Recommend follow-up with outpatient primary care doctor or sign erector within the next 5 to 7 days. Return to the emergency room right away with new, worsened or different symptoms, or symptoms not present on the initial emergency room evaluation. Referrals: CLARY GOMES MD [Staff Physician] - 3-5 Days YOLA MICHEL MD [Staff Physician] - 3-5 Days
[2020-01-08] MEDS: POTASSIUM CHLORIDE 10 MEQ 10 MEQ/100 ML BAG IV SCH ×2 (19:54→21:17)
[2020-01-08 21:27] VITALS: BP 173/89
== END 2020-01-08 21:27 | disposition home or self-care (01) ==
LOC: ED 13:59
DX: J44.9 Chronic obstructive pulmonary disease, unspecified (principal); I10 Essential (primary) hypertension
CPT/HCPCS: 36415; 71046; 80053; 83880; 84484; 85025; 85610; 85730; 93005; 93010; 94640; 96365; 96372; 96375; 99285; J0171; J2930; J3475; J3480; J7050; 94644

== ENCOUNTER 2020-06-23 19:33 | Observation (INO) | payer MEDICARE ==
[2020-06-23] MEDS ORDERED: levoFLOXacin 750 MG TAB PO ONE (19:47)
[2020-06-23] MEDS ORDERED: ALBUTEROL 2.5 MG/3 ML NEBU IH ONE ×2 (19:47→23:02)
[2020-06-23] MEDS ORDERED: methylPREDNISolone Sod Succinate 125 MG/2 ML INJ IV ONE (19:47)
[2020-06-23] MEDS ORDERED: IPRATROPIUM 0.02% NEBU 2.5 ML IH ONE ×2 (19:47→23:02)
--- NOTE | 2020-06-23 19:54 | Emergency Department Report ---
ED Asthma HPI - General Chief Complaint: Dyspnea/Respdistress Stated Complaint: SOB Time Seen by Provider: 06/23/20 19:43 Source: patient Mode of arrival: Ambulatory Limitations: No Limitations - History of Present Illness Initial Comments: This is a 75-year-old female with history of severe persistent asthma, hypertension, obesity, obstructive sleep apnea, type 2 diabetes who presents with shortness of breath wheezing and productive cough for 3 days. She is not oxygen dependent. She is to aerosol treatments today without relief. She recently finished steroid taper. Currently not on antibiotics. No sick contacts. No history of tobacco smoke exposure. Her sputum is brownish. Patient has had several ED visits and multiple hospitalization for asthma exacerbation. She drove herself via her private auto to the emergency department. After walking from parking lot to triage room, pulse ox is 88% on room air which is hypoxic. At rest patient's pulse ox is 83% on room air which is yet hypoxic. MD Complaint: "asthma attack", shortness of breath, wheezing -: Gradual, days(s) (3) Asthma History: history of frequent attac, history of prior ED visit, followed by specialist Severity: moderate Context: none known Associated Symptoms: productive cough Treatments Prior to Arrival: inhaled bronchodilator - Related Data Previous Rx's Medication Instructions Recorded Last Taken Type amLODIPine 10 mg PO QDAY #30 tablet 08/16/18 07/01/19 Rx Cetirizine HCl [ZyrTEC 10mg cap] 10 mg PO DAILY #30 capsule 09/01/19 Unknown Rx Azithromycin [Zithromax Z-TIFFANIE] 250 mg PO DAILY #6 tablet 12/04/19 Unknown Rx Fluticasone [Flonase] 1 spray NS QDAY #1 bottle 01/08/20 Unknown Rx Potassium Chloride [K-Dur] 20 meq PO QDAY #10 tablet 01/08/20 Unknown Rx Albuterol Sulfate [Proventil Hfa] 2 puff IH Q4HR PRN #1 hfa.aer.ad 05/01/20 Unknown Rx Budesonide/Formoterol Fumarate 10.2 gm IH BID #1 hfa.aer.ad 05/01/20 Unknown Rx [Symbicort 160-4.5 Mcg Inhaler] DOXYCYCLINE Hyclate [Vibramycin 100 mg PO Q12HR 10 Days #20 capsule 05/01/20 Unknown Rx CAP] Ipratropium/Albuterol Sulfate 1 ampul IH Q4HR PRN 30 Days #100 05/01/20 Unknown Rx [DUONEB *Not for PRN Use*] ampul.neb predniSONE [Deltasone] 50 mg PO QDAY #5 tab 05/01/20 Unknown Rx Allergies Allergy/AdvReac Type Severity Reaction Status Date / Time No Known Allergies Allergy Verified 11/19/18 11:24 ED Review of Systems ROS: Stated complaint: SOB Other details as noted in HPI Comment: All other systems reviewed and negative Constitutional: denies: fever, malaise ENT: denies: throat pain Respiratory: cough, shortness of breath, wheezing Cardiovascular: denies: chest pain Gastrointestinal: denies: abdominal pain, nausea, vomiting Musculoskeletal: denies: back pain Neurological: denies: headache ED Past Medical Hx - Past Medical History Previous Medical History?: Yes Hx Hypertension: Yes Hx Heart Attack/AMI: No Hx Congestive Heart Failure: No Hx Diabetes: No (steroid elevated BS per pt) Hx Deep Vein Thrombosis: No Hx Pulmonary Embolism: No Hx Sickle Cell Disease: No Hx Asthma: Yes Hx COPD: Yes Hx Tuberculosis: No Hx HIV: No Additional medical history: post-menopausal bleeding, bronchitis 12/05. Obesity - Surgical History Hx Coronary Stent: No Hx Pacemaker: No Hx Internal Defibrillator: No - Family History Family history: hypertension - Social History Smoking Status: Never Smoker Substance Use Type: None - Medications Home Medications: Home Medications Medication Instructions Recorded Confirmed Last Taken Type amLODIPine 10 mg PO QDAY #30 tablet 08/16/18 12/03/19 07/01/19 Rx Cetirizine HCl [ZyrTEC 10mg cap] 10 mg PO DAILY #30 capsule 09/01/19 12/03/19 Unknown Rx Azithromycin [Zithromax Z-TIFFANIE] 250 mg PO DAILY #6 tablet 12/04/19 Unknown Rx Fluticasone [Flonase] 1 spray NS QDAY #1 bottle 01/08/20 Unknown Rx Potassium Chloride [K-Dur] 20 meq PO QDAY #10 tablet 01/08/20 Unknown Rx Albuterol Sulfate [Proventil Hfa] 2 puff IH Q4HR PRN #1 hfa.aer.ad 05/01/20 Unknown Rx Budesonide/Formoterol Fumarate 10.2 gm IH BID #1 hfa.aer.ad 05/01/20 Unknown Rx [Symbicort 160-4.5 Mcg Inhaler] DOXYCYCLINE Hyclate [Vibramycin 100 mg PO Q12HR 10 Days #20 capsule 05/01/20 Unknown Rx CAP] Ipratropium/Albuterol Sulfate 1 ampul IH Q4HR PRN 30 Days #100 05/01/20 Unknown Rx [DUONEB *Not for PRN Use*] ampul.neb predniSONE [Deltasone] 50 mg PO QDAY #5 tab 05/01/20 Unknown Rx ED Physical Exam - General Limitations: No Limitations General appearance: alert, in distress, other (Audible wheezing, frequent cough. Speaking to 3 word sentences with severe work of breathing) - Head Head exam: Present: atraumatic, normocephalic - Eye Eye exam: Present: normal appearance - ENT ENT exam: Present: mucous membranes moist - Neck Neck exam: Present: normal inspection, full ROM - Respiratory Respiratory exam: Present: respiratory distress, wheezes, accessory muscle use, prolonged expiratory, other (loud expiratory wheezes). Absent: rales, rhonchi, stridor - Cardiovascular Cardiovascular Exam: Present: normal rhythm, tachycardia, normal heart sounds. Absent: systolic murmur, diastolic murmur, rubs, gallop - GI/Abdominal GI/Abdominal exam: Present: soft, normal bowel sounds. Absent: distended, tenderness, guarding - Extremities Exam Extremities exam: Present: normal inspection - Neurological Exam Neurological exam: Present: alert, oriented X3 - Psychiatric Psychiatric exam: Present: normal affect, normal mood - Skin Skin exam: Present: warm, dry, intact, normal color. Absent: rash ED Course Vital Signs 06/23/20 06/23/20 06/23/20 19:37 19:46 20:01 Temperature 97.9 F Pulse Rate 127 H 105 H Pulse Rate [ Anterior Bilateral Throughout] Respiratory 24 20 Rate Respiratory Rate [Anterior Bilateral Throughout] Blood Pressure 224/86 165/79 O2 Sat by Pulse 88 94 94 Oximetry 06/23/20 06/23/20 06/23/20 20:03 20:10 20:15 Temperature Pulse Rate 106 H Pulse Rate [ 105 H Anterior Bilateral Throughout] Respiratory 20 16 Rate Respiratory 24 Rate [Anterior Bilateral Throughout] Blood Pressure 166/82 O2 Sat by Pulse 94 95 Oximetry 06/23/20 06/23/20 06/23/20 20:31 20:45 21:01 Temperature Pulse Rate 112 H 113 H Pulse Rate [ Anterior Bilateral Throughout] Respiratory 22 24 Rate Respiratory Rate [Anterior Bilateral Throughout] Blood Pressure 166/82 166/82 165/79 O2 Sat by Pulse 95 94 93 Oximetry 06/23/20 06/23/20 06/23/20 21:15 21:24 21:31 Temperature Pulse Rate 122 H 111 H Pulse Rate [ 115 H Anterior Bilateral Throughout] Respiratory 26 H 29 H Rate Respiratory 20 Rate [Anterior Bilateral Throughout] Blood Pressure 165/79 165/79 O2 Sat by Pulse 92 93 Oximetry - Reevaluation(s) Reevaluation #1: 06/23/20 23:02 On reexamination, patient has mild work of breathing, expiratory wheezing. Second nebulizer therapy ordered. I asked area secretary to contact respiratory therapist. ED Medical Decision Making - Lab Data Result diagrams: 06/23/20 19:58 06/23/20 19:58 - Radiology Data Radiology results: report reviewed CHEST 1 VIEW 06/23/2020 7:59 PM INDICATION / CLINICAL INFORMATION: Dyspnea copd productive cough wheezing. COMPARISON: 05/01/2020 FINDINGS: SUPPORT DEVICES: None. HEART / MEDIASTINUM: No significant abnormality. LUNGS / PLEURA: No significant pulmonary or pleural abnormality. No pneumothorax. ADDITIONAL FINDINGS: No significant additional findings. IMPRESSION: No acute cardiopulmonary abnormality. - Medical Decision Making Acute respiratory failure hypoxia, history of severe persistent asthma. Patient has required multiple ED visits and hospitalizations. Patient was treated with IV steroids, p.o. antibiotics, Bronchodilator therapy. As well as IV magnesium. Patient is admitted to the hospital service in fair condition. Pulse oximetry 92% on room air which is hypoxic. Patient continues to have work of breathing and wheezing. Critical Care Time: Yes Critical care time in (mins) excluding proc time.: 40 Critical care attestation.: If time is entered above; I have spent that time in minutes in the direct care of this critically ill patient, excluding procedure time. 40 minutes of critical care time excluding procedures were used in the care of the patient. I came immediately to the bedside upon patient's arrival. I was concerned for tachycardia and hypoxia seen on triage vitals. Also concern for imminent airway compromise with history of severe persistent asthma. I I discu ssed treatment plan with the nursing team members. I reviewed electronic record. Patient required multiple interventions and reassessments. ED Disposition Clinical Impression: Acute respiratory failure with hypoxia, Acute asthma exacerbation Disposition: OP ADMIT IP TO THIS HOSP Is pt being admited?: Yes Does the pt Need Aspirin: No Condition: Fair
[2020-06-23] MEDS ORDERED: MAGNESIUM SULFATE 2 GM/50 ML BAG IV ONE (19:55)
[2020-06-23 20:13] LABS: Basophils # (Auto) 0.1 K/mm3 (0.0-0.1); Basophils % (Auto) 0.6 % (0.0-1.8); Eosinophils # (Auto) 0.7 K/mm3 (0.0-0.4); Eosinophils % (Auto) 5.2 % (0.0-4.3); Hematocrit 36.3 % (30.3-42.9); Lymphocytes # (Auto) 1.8 K/mm3 (1.2-5.4); Lymphocytes % (Auto) 14.1 % (13.4-35.0); Mean Corpuscular HGB Conc 33 % (30-34); Mean Corpuscular Volume 78 fl (79-97); Monocytes % (Auto) 7.4 % (0.0-7.3); Platelet Count 261 K/mm3 (140-440); Red Blood Count 4.68 M/mm3 (3.65-5.03); Red Cell Distribution Width 17.3 % (13.2-15.2)
[2020-06-23 20:39] LABS: BUN/Creatinine Ratio 12; Blood Urea Nitrogen 11 mg/dL (7-17); Calcium 9.7 mg/dL (8.4-10.2); Hemolysis Index 9
[2020-06-23] MEDS ORDERED: POTASSIUM CHLORIDE ER 20 MEQ TAB PO ONE (20:48)
--- NOTE | 2020-06-23 21:03 | XRay Report ---
CHEST 1 VIEW 06/23/2020 7:59 PM INDICATION / CLINICAL INFORMATION: Dyspnea copd productive cough wheezing. COMPARISON: 05/01/2020 FINDINGS: SUPPORT DEVICES: None. HEART / MEDIASTINUM: No significant abnormality. LUNGS / PLEURA: No significant pulmonary or pleural abnormality. No pneumothorax. ADDITIONAL FINDINGS: No significant additional findings. IMPRESSION: No acute cardiopulmonary abnormality. Signer Name: Shaheen Lselie MD Signed: 06/23/2020 8:58 PM Workstation Name: [id number]
[2020-06-23] MEDS ORDERED: MAGNESIUM HYDROXIDE (MOM) ORAL LIQD UDC PO PRN (23:15)
[2020-06-23] MEDS ORDERED: ACETAMINOPHEN 325 MG TAB PO PRN (23:15)
[2020-06-23] MEDS ORDERED: ONDANSETRON 4 MG/2 ML INJ IV PRN (23:15)
--- NOTE | 2020-06-23 23:26 | History and Physical Report ---
History of Present Illness Date of examination: 06/23/20 Date of admission: 06/23/2020 Chief complaint: Shortness of Breath Cough History of present illness: 75-year-old female with known history of hypertension, obesity, obstructive sleep apnea, diabetes mellitus and asthma presenting to the emergency room today complaining of shortness of breath and wheezing which has been ongoing for about 3 days. She has also been having a slight cough which is productive of some brownish sputum. She denies any chest pain, she denies any fever or chills, no nausea or vomiti ng, no headache or dizziness. Patient denies any sick contacts and no recent travel, denies any exposure to tobacco or smoke. She denies any contact with anyone with COVID-19. Patient used and nebulizing treatments without any significant improvement. She also indicates that she recently finished a with some improvement taper and was not on any antibiotics. Upon arrival in the emergency room oxygen saturation was was 88% on room air. Work-up in the emergency room reveals hypokalemia on chemistry, chest x-ray was unremarkable. Patient follows up with the millinery teacher Dr. Duarte. She was placed on nebulizing treatments and steroid with some improvement. Past History Past Medical History: hypertension, other (Asthma) Past Surgical History: No surgical history Social history: no significant social history Family history: hypertension Medications and Allergies Allergies Allergy/AdvReac Type Severity Reaction Status Date / Time No Known Allergies Allergy Verified 11/19/18 11:24 Home Medications Medication Instructions Recorded Confirmed Last Taken Type Fluticasone [Flonase] 1 spray NS QDAY #1 bottle 01/08/20 06/24/20 Unknown Rx Albuterol Sulfate [Proventil Hfa] 2 puff IH Q4HR PRN #1 hfa.aer.ad 05/01/20 06/24/20 Unknown Rx Ipratropium/Albuterol Sulfate 1 ampul IH Q4HR PRN 30 Days #100 05/01/20 06/24/20 Unknown Rx [DUONEB *Not for PRN Use*] ampul.neb Cyclobenzaprine [Flexeril] 10 mg PO DAILY 06/24/20 06/24/20 Unknown History Ergocalciferol [Vitamin D2] 1 cap PO Q2W 06/24/20 06/24/20 06/15/20 History Fluticasone/Umeclidin/Vilanter 1 each IH DAILY 06/24/20 06/24/20 Unknown History [Trelegy Ellipta 100-62.5-25] Montelukast [Singulair] 10 mg PO QHS 06/24/20 06/24/20 Unknown History amLODIPine 2.5 mg PO QDAY 06/24/20 06/24/20 Unknown History metFORMIN [Glucophage] 500 mg PO BID 06/24/20 06/24/20 Unknown History Active Meds: Active Medications Acetaminophen (Tylenol) 650 mg PO Q4H PRN PRN Reason: Pain MILD(1-3)/Fever >100.5/YODER Heparin Sodium (Porcine) (Heparin) 5,000 unit SUB-Q Q8HR BELEN Levofloxacin/Dextrose (Levaquin 750mg/150ml) 750 mg in 150 mls @ 100 mls/hr IV Q24HR BELEN; Protocol Magnesium Hydroxide (Milk Of Magnesia) 30 ml PO Q4H PRN PRN Reason: Constipation Methylprednisolone Sodium Succinate (Solu-Medrol) 40 mg IV Q8HR BELEN Ondansetron HCl (Zofran) 4 mg IV Q8H PRN PRN Reason: Nausea And Vomiting Sodium Chloride (Sodium Chloride Flush Syringe 10 Ml) 10 ml IV BID BELEN Sodium Chloride (Sodium Chloride Flush Syringe 10 Ml) 10 ml IV PRN PRN PRN Reason: LINE FLUSH Review of Systems Constitutional: no fever, no chills Ears, nose, mouth and throat: no nasal congestion, no sore throat Cardiovascular: no chest pain, no palpitations Respiratory: cough, shortness of breath, wheezing Gastrointestinal: no abdominal pain, no nausea, no vomiting, no diarrhea Genitourinary Female: no pelvic pain, no flank pain, no dysuria Musculoskeletal: no neck pain, no low back pain Integumentary: no rash, no pruritis Neurological: no headaches, no confusion Psychiatric: no anxiety, no depression Exam - Constitutional Vitals: Temp Pulse Resp BP Pulse Ox 97.9 F 120 H 20 165/79 92 06/23/20 19:37 06/23/20 23:12 06/23/20 23:12 06/23/20 23:01 06/23/20 23:01 General appearance: Present: no acute distress, well-nourished, obese - EENT Eyes: Present: PERRL, EOM intact ENT: hearing intact, clear oral mucosa, dentition normal - Neck Neck: Present: supple, normal ROM - Respiratory Respiratory effort: normal Respiratory: bilateral: wheezing - Cardiovascular Rhythm: regular Heart Sounds: Present: S1 & S2. Absent: gallop, systolic murmur, diastolic murmur, rub - Extremities Extremities: no ischemia, pulses intact, pulses symmetrical, No edema, Full ROM Peripheral Pulses: within normal limits - Abdominal General gastrointestinal: Present: soft, non-tender, non-distended, normal bowel sounds - Integumentary Integumentary: Present: clear, warm, dry - Musculoskeletal Musculoskeletal: strength equal bilaterally - Psychiatric Psychiatric: appropriate mood/affect, intact judgment & insight, memory intact, cooperative - Neurologic Neurologic: CNII-XII intact, no focal deficits, moves all extremities Results - Labs CBC & Chem 7: 06/23/20 19:58 06/23/20 19:58 Labs: Abnormal lab results 06/23/20 06/23/20 Range/Units 19:58 19:58 WBC 12.8 H (4.5-11.0) K/mm3 MCV 78 L (79-97) fl MCH 26 L (28-32) pg RDW 17.3 H (13.2-15.2) % Franklin % (Auto) 7.4 H (0.0-7.3) % Eos % (Auto) 5.2 H (0.0-4.3) % Franklin # 1.0 H (0.0-0.8) K/mm3 Eos # 0.7 H (0.0-0.4) K/mm3 Seg Neutrophils % 72.7 H (40.0-70.0) % Seg Neutrophils # 9.3 H (1.8-7.7) K/mm3 Potassium 2.9 L* (3.6-5.0) mmol/L Carbon Dioxide 31 H (22-30) mmol/L Assessment and Plan - Patient Problems (1) Acute asthma exacerbation Current Visit: Yes Status: Acute Plan to address problem: Patient placed on nebulizing treatments and IV steroid. (2) Acute respiratory failure with hypoxia Current Visit: Yes Status: Acute Plan to address problem: We will place on oxygen and keep O2 saturation greater or equal to 92%. May request pulmonology consult if needed during this admission. Patient follows up with Dr. Duarte. (3) Bronchitis Current Visit: No Status: Acute Plan to address problem: Patient has been placed on empiric IV antibiotics. (4) Hypokalemia Current Visit: No Status: Acute Plan to address problem: Potassium will be repleted and will monitor chemistry. (5) Hypertension Current Visit: No Status: Chronic Qualifiers: Hypertension type: essential hypertension Qualified Code(s): I10 - Essential (primary) hypertension Plan to address problem: We will resume routine home medications and monitor vital signs closely. (6) DVT prophylaxis Current Visit: No Status: Acute Plan to address problem: Patient placed on subcutaneous heparin. (7) Full code status Current Visit: Yes Status: Acute
[2020-06-24] MEDS ORDERED: methylPREDNISolone Sod Succinate 40 MG/1 ML INJ IV SCH (06:00)
[2020-06-24] MEDS ORDERED: HEPARIN 5,000 UNIT/1 ML VIAL SUB-Q SCH (06:00)
[2020-06-24 06:06] LABS: Hematocrit 37.1 % (30.3-42.9); Hemoglobin 12.1 gm/dl (10.1-14.3); Mean Corpuscular HGB Conc 33 % (30-34); Mean Corpuscular Volume 78 fl (79-97); Platelet Count 264 K/mm3 (140-440); Red Blood Count 4.75 M/mm3 (3.65-5.03); Red Cell Distribution Width 16.9 % (13.2-15.2)
[2020-06-24 06:13] LABS: INR 0.85 (0.87-1.13)
[2020-06-24 06:14] LABS: Basophils % (Auto) 0.3 % (0.0-1.8); Lymphocytes # (Auto) 0.5 K/mm3 (1.2-5.4); Lymphocytes % (Auto) 13.8 % (13.4-35.0); Monocytes # (Auto) 0.1 K/mm3 (0.0-0.8); Monocytes % (Auto) 0.8 % (0.0-7.3)
[2020-06-24 06:22] LABS: Blood Urea Nitrogen 12 mg/dL (7-17); Calcium 9.4 mg/dL (8.4-10.2); Hemolysis Index 2
[2020-06-24 06:25] LABS: BUN/Creatinine Ratio 17
[2020-06-24] MEDS ORDERED: ALBUTEROL 2.5 MG/3 ML NEBU IH PRN (06:29)
[2020-06-24] MEDS: IPRATROPIUM/ALBUTEROL SULFATE 3 ML AMPUL.NEB IH SCH ×3 (06:33→14:09)
[2020-06-24] MEDS ORDERED: ARFORMOTEROL 15 MCG/2 ML NEBU IH SCH (08:00)
[2020-06-24] MEDS ORDERED: BUDESONIDE 0.5 MG/2 ML NEBU IH SCH (08:00)
[2020-06-24] MEDS ORDERED: FLUTICASONE PROPIONATE NASAL SPRAY 16 GM NS SCH (10:00)
[2020-06-24] MEDS ORDERED: CYCLOBENZAPRINE 10 MG TAB PO SCH (10:00)
[2020-06-24] MEDS ORDERED: amLODIPine 5 MG TAB PO SCH (10:00)
--- NOTE | 2020-06-24 15:34 | Discharge Summary ---
Providers - Providers Date of Admission: 06/23/20 23:04 Attending physician: EDEN MILES Primary care physician: BUYER TOBACCO HEAD Hospitalization Condition: Stable Pertinent studies: 06/23 CXR shows no acute cardiopulmonary abnormality Hospital course: 75-year-old female with hypertension, obesity, obstructive sleep apnea, diabetes mellitus and asthma presented to the emergency room on 06/23 complaining of shortness of breath and wheezing which has been ongoing for about 3 days and she has been having a slight cough which is productive of some brownish sputum. Patient used nebulizing treatments without any significant improvement. She also indicates that she recently finished a steroid taper with some improvement and was not on any antibiotics. Upon arrival in the emergency room oxygen saturation was was 88% on room air. Work-up in the emergency room reveals hypokalemia and her chest x-ray was unremarkable. She was placed on nebulizing treatments and steroid with some improvement. She will be discharged with PO Levaquin for 7 days and a steroid taper. She is to follow-up with a Dr. Tim and her primary care physician within 1 to 2 weeks of discharge. (1) Acute asthma exacerbation Current Visit: Yes Status: Acute Plan to address problem: - Continue steroid taper - Resume home pulmonary medications - Follow-up with Dr. Norwood out patient (2) Acute respiratory failure with hypoxia Current Visit: Yes Status: Resolved Plan to address problem: - 06/24 ambulatory oxygenation 92% on room air (3) Bronchitis Current Visit: No Status: Acute Plan to address problem: - Will be discharged on antibiotic therapy for 7 days (4) Hypokalemia Current Visit: No Status: Resolved Plan to address problem: - Admission potassium 2.9, repleted and discharge potassium 4.1 (5) Hypertension Current Visit: No Status: Chronic Qualifiers: Hypertension type: essential hypertension Qualified Code(s): I10 - Essential (primary) hypertension Plan to address problem: - Resume home antihypertensive therapy - Blood pressure monitoring as instructed by primary care physician Disposition: -01 TO HOME OR SELFCARE Time spent for discharge: 35 Core Measure Documentation - Palliative Care Palliative Care/ Comfort Measures: Not Applicable - Core Measures Any of the following diagnoses?: none Exam - Constitutional Vitals: Temp Pulse Resp BP Pulse Ox 97.3 F L 94 H 18 149/73 92 06/24/20 11:13 06/24/20 14:18 06/24/20 14:18 06/24/20 11:13 06/24/20 11:13 General appearance: Present: no acute distress - EENT Eyes: Present: PERRL, EOM intact ENT: hearing intact - Neck Neck: Present: supple, normal ROM - Respiratory Respiratory effort: normal Respiratory: bilateral: CTA - Cardiovascular Rhythm: regular Heart Sounds: Present: S1 & S2. Absent: systolic murmur, diastolic murmur - Extremities Extremities: no ischemia, pulses intact, pulses symmetrical, No edema, normal temperature, normal color, Full ROM Peripheral Pulses: within normal limits - Abdominal General gastrointestinal: Present: soft, non-tender, non-distended, normal bowel sounds - Integumentary Integumentary: Present: clear, warm, dry - Musculoskeletal Musculoskeletal: strength equal bilaterally - Psychiatric Psychiatric: cooperative - Neurologic Neurologic: CNII-XII intact, no focal deficits, moves all extremities - Allied Health Allied health notes reviewed: nursing, social work, case management Plan Activity: advance as tolerated Diet: diabetic Special Instructions: record daily BP diary, record blood sugar diary Additional Instructions: Please contact your primary care physician or report to the nearest emergency department if you experience worsening symptoms. Please follow-up with a primary care physician within 1 to 2 weeks of discharge. Please follow-up with Dr. Tim within 1 to 2 weeks of discharge Follow up with: APOLLO HARDY MD [Primary Care Provider] - 7 Days TOMMIE TIM MD [Staff Physician] - 7 Days Prescriptions: Montelukast [Singulair] 10 mg PO QHS #30 tablet amLODIPine 2.5 mg PO QDAY #30 tablet Arformoterol Nebu [Brovana Nebu] 15 mcg IH Q12HRT #60 neb levoFLOXacin [Levaquin TAB] 750 mg PO QDAY #7 tablet Prednisone [predniSONE (Juliette) ER TAB] 10 mg PO QDAY #6 tab ALBUTEROL NEB's [Proventil 0.083% NEBS] 2.5 mg IH Q4HRT PRN #30 nebu PRN Reason: Shortness Of Breath Budesonide [Pulmicort Respules] 0.5 mg IH Q12HRT #60 nebu Ipratropium/Albuterol Sulfate [DUONEB *Not for PRN Use*] 1 ampul IH TIDRT #90 ampul.neb
[2020-06-24 16:54] VITALS: BP 150/61
[2020-06-24] MEDS ORDERED: MONTELUKAST 10 MG TAB PO SCH (22:00)
[2020-06-29] MEDS ORDERED: ERGOCALCIFEROL (VIT D2) 50,000 UNIT CAP PO SCH (10:00)
== END 2020-06-24 18:15 | disposition home or self-care (01) ==
LOC: ED 19:33 → 3A 23:04
PROVIDERS: ADMIT Internal Medicine Geriatric Medicine; ATTEND Internal Medicine
DX: J45.901 Unspecified asthma with (acute) exacerbation (principal); J96.01 Acute respiratory failure with hypoxia; E87.6 Hypokalemia; I10 Essential (primary) hypertension; E66.9 Obesity, unspecified; E11.9 Type 2 diabetes mellitus without complications; G47.33 Obstructive sleep apnea (adult) (pediatric); Z79.84 Long term (current) use of oral hypoglycemic drugs; Z79.51 Long term (current) use of inhaled steroids; Z79.899 Other long term (current) drug therapy; Z68.41 Body mass index [BMI] 40.0-44.9, adult
CPT/HCPCS: 36415; 71045; 80048; 82962; 85025; 85610; 94640; 94644; 96365; 96367; 96375; 96376; 99291; G0378; J1956; J2920; J2930; J3475

== ENCOUNTER 2021-04-07 11:03 | Observation (INO) | payer MEDICARE ==
[2021-04-07] MEDS ORDERED: IPRATROPIUM 0.02% NEBU 2.5 ML IH ONE (11:22)
[2021-04-07] MEDS ORDERED: ALBUTEROL 2.5 MG/3 ML NEBU IH ONE (11:22)
[2021-04-07] MEDS ORDERED: MAGNESIUM SULFATE 2 GM/50 ML BAG IV ONE (11:22)
[2021-04-07] MEDS ORDERED: methylPREDNISolone Sod Succinate 125 MG/2 ML INJ IV ONE (11:27)
--- NOTE | 2021-04-07 11:27 | Emergency Department Report ---
ED Shortness of Breath HPI - General Chief Complaint: Dyspnea/Respdistress Stated Complaint: COPD, SOP Time Seen by Provider: 04/07/21 11:13 Source: patient Mode of arrival: Wheelchair Limitations: No Limitations - History of Present Illness Initial Comments: Chief complaint: Shortness of breath wheezing cough This is an 75-year-old female with history of COPD, asthma, obstructive sleep apnea, hypertension, BMI 48 who presents with shortness of breath wheezing cough. Patient has productive cough with thick white sputum. Symptoms began 2 to 3 days ago. She takes daily prednisone 10 to 20 mg. She is not on home oxygen. Patient is not vaccinated. Patient had positive COVID-19 PCR test at this hospital in October 2020.. Patient denies fever, chest pain, abdominal pain. Patient lives with daughter. No known sick contacts. MD Complaint: shortness of breath, cough -: Gradual, days(s) (2 to 3 days prior) Severity: severe Consistency: constant Improves With: nothing Worsens With: exertion Known History Of: COPD, other (Obstructive sleep apnea) Context: other (Patient called her personal heavy equipment service manager office Dr. Norwood prior to arrival) Associated Symptoms: cough, sputum production - Related Data Home Medications Medication Instructions Recorded Confirmed Last Taken Cyclobenzaprine [Flexeril 10 MG 10 mg PO DAILY 06/24/20 10/22/20 Unknown TAB] Ergocalciferol [Vitamin D2] 1 cap PO Q2W 06/24/20 10/22/20 06/15/20 Fluticasone/Umeclidin/Vilanter 1 each IH DAILY 06/24/20 10/22/20 Unknown [[place] 100-62.5-25] metFORMIN [Glucophage] 500 mg PO BID 06/24/20 10/22/20 Unknown Previous Rx's Medication Instructions Recorded Last Taken Type Fluticasone [Flonase] 1 spray NS QDAY #1 bottle 01/08/20 Unknown Rx Albuterol Sulfate [Proventil Hfa] 2 puff IH Q4HR PRN #1 hfa.aer.ad 05/01/20 Unknown Rx Ipratropium/Albuterol Sulfate 1 ampul IH Q4HR PRN 30 Days #100 05/01/20 Unknown Rx [DUONEB *Not for PRN Use*] ampul.neb ALBUTEROL NEB's [Proventil 0.083% 2.5 mg IH Q4HRT PRN #30 nebu 06/24/20 Unknown Rx NEBS] Acetaminophen [Acetaminophen TAB] 650 mg PO Q4H PRN tablet 06/24/20 Unknown Rx Arformoterol Nebu [Brovana Nebu] 15 mcg IH Q12HRT #60 neb 06/24/20 Unknown Rx Budesonide [Pulmicort Respules] 0.5 mg IH Q12HRT #60 nebu 06/24/20 Unknown Rx Ipratropium/Albuterol Sulfate 1 ampul IH TIDRT #90 ampul.neb 06/24/20 Unknown Rx [DUONEB *Not for PRN Use*] Magnesium Hydroxide [Milk of 30 ml PO Q4H PRN oral.liqd 06/24/20 Unknown Rx Magnesia] Montelukast [Singulair] 10 mg PO QHS #30 tablet 06/24/20 Unknown Rx amLODIPine 2.5 mg PO QDAY #30 tablet 06/24/20 Unknown Rx levoFLOXacin [Levaquin TAB] 750 mg PO QDAY #7 tablet 06/24/20 Unknown Rx Benzonatate [Tessalon Perles] 100 mg PO Q8HR PRN #15 capsule 10/22/20 Unknown Rx predniSONE 10 mg PO QDAY #48 tab 10/22/20 Unknown Rx Allergies Allergy/AdvReac Type Severity Reaction Status Date / Time No Known Allergies Allergy Verified 11/19/18 11:24 ED Review of Systems ROS: Stated complaint: COPD, SOP Other details as noted in HPI Comment: All other systems reviewed and negative Constitutional: denies: fever, malaise ENT: denies: throat pain Respiratory: cough, shortness of breath, wheezing Cardiovascular: denies: chest pain Gastrointestinal: denies: abdominal pain, nausea, vomiting ED Past Medical Hx - Past Medical History Previous Medical History?: Yes Hx Hypertension: Yes Hx Heart Attack/AMI: No Hx Congestive Heart Failure: No Hx Diabetes: No (steroid elevated BS per pt) Hx Deep Vein Thrombosis: No Hx Pulmonary Embolism: No Hx Sickle Cell Disease: No Hx Asthma: Yes Hx COPD: Yes Hx Tuberculosis: No Hx HIV: No Additional medical history: post-menopausal bleeding, bronchitis 2/18. Obesity - Surgical History Past Surgical History?: No Hx Coronary Stent: No Hx Pacemaker: No Hx Internal Defibrillator: No - Social History Smoking Status: Never Smoker - Medications Home Medications: Home Medications Medication Instructions Recorded Confirmed Last Taken Type Fluticasone [Flonase] 1 spray NS QDAY #1 bottle 01/08/20 10/22/20 Unknown Rx Albuterol Sulfate [Proventil Hfa] 2 puff IH Q4HR PRN #1 hfa.aer.ad 05/01/20 10/22/20 Unknown Rx Ipratropium/Albuterol Sulfate 1 ampul IH Q4HR PRN 30 Days #100 05/01/20 10/22/20 Unknown Rx [DUONEB *Not for PRN Use*] ampul.neb ALBUTEROL NEB's [Proventil 0.083% 2.5 mg IH Q4HRT PRN #30 nebu 06/24/20 10/22/20 Unknown Rx NEBS] Acetaminophen [Acetaminophen TAB] 650 mg PO Q4H PRN tablet 06/24/20 10/22/20 Unknown Rx Arformoterol Nebu [Brovana Nebu] 15 mcg IH Q12HRT #60 neb 06/24/20 10/22/20 Unknown Rx Budesonide [Pulmicort Respules] 0.5 mg IH Q12HRT #60 nebu 06/24/20 10/22/20 Unknown Rx Cyclobenzaprine [Flexeril 10 MG 10 mg PO DAILY 06/24/20 10/22/20 Unknown History TAB] Ergocalciferol [Vitamin D2] 1 cap PO Q2W 06/24/20 10/22/20 06/15/20 History Fluticasone/Umeclidin/Vilanter 1 each IH DAILY 06/24/20 10/22/20 Unknown History [Trelegy Ellipta 100-62.5-25] Ipratropium/Albuterol Sulfate 1 ampul IH TIDRT #90 ampul.neb 06/24/20 10/22/20 Unknown Rx [DUONEB *Not for PRN Use*] Magnesium Hydroxide [Milk of 30 ml PO Q4H PRN oral.liqd 06/24/20 10/22/20 Unknown Rx Magnesia] Montelukast [Singulair] 10 mg PO QHS #30 tablet 06/24/20 10/22/20 Unknown Rx amLODIPine 2.5 mg PO QDAY #30 tablet 06/24/20 10/22/20 Unknown Rx levoFLOXacin [Levaquin TAB] 750 mg PO QDAY #7 tablet 06/24/20 10/22/20 Unknown Rx metFORMIN [Glucophage] 500 mg PO BID 06/24/20 10/22/20 Unknown History Benzonatate [Tessalon Perles] 100 mg PO Q8HR PRN #15 capsule 10/22/20 Unknown Rx predniSONE 10 mg PO QDAY #48 tab 10/22/20 Unknown Rx ED Physical Exam - General Limitations: No Limitations General appearance: alert, other (Moderate work of breathing, takes significant effort to complete a sentence) - Head Head exam: Present: atraumatic, normocephalic - Eye Eye exam: Present: normal appearance - ENT ENT exam: Present: mucous membranes moist - Neck Neck exam: Present: normal inspection, full ROM - Respiratory Respiratory exam: Present: respiratory distress, wheezes, prolonged expiratory, other (Inspiratory expiratory wheezing). Absent: rales, rhonchi - Cardiovascular Cardiovascular Exam: Present: normal rhythm, tachycardia, normal heart sounds. Absent: systolic murmur, diastolic murmur, rubs, gallop - GI/Abdominal GI/Abdominal exam: Present: soft, normal bowel sounds. Absent: distended, tenderness, guarding, rebound - Extremities Exam Extremities exam: Present: normal inspection - Neurological Exam Neurological exam: Present: alert, oriented X3 - Psychiatric Psychiatric exam: Present: normal affect, normal mood - Skin Skin exam: Present: warm, dry, intact, normal color. Absent: rash ED Course Vital Signs 04/07/21 11:10 Temperature 99.4 F Pulse Rate 114 H Respiratory 24 Rate Blood Pressure 184/97 O2 Sat by Pulse 93 Oximetry ED Medical Decision Making - Lab Data Result diagrams: 04/07/21 12:03 04/07/21 12:03 - Radiology Data Radiology results: report reviewed Patient Name: DANAE MONIQUE Gender: Female Date of : 1945 Referring Provider: AGNES PINEDA Organization: [facility] Accession Number: [id number] Requested Date: April 07, 2021 11:20 Report Status: Final Requested Procedure: 1 Procedure Description: XR chest 1V ap Modality: XR Findings Reporting MD: Kenny Beckett Dictation Time: April 07, 2021 10:43 Rip Tailer: Not available Peace Officer Date: CHEST 1 VIEW 04/07/2021 11:16 AM INDICATION / CLINICAL INFORMATION: Dyspnea. COMPARISON: 10/20/2020 FINDINGS: SUPPORT DEVICES: None. HEART / MEDIASTINUM: No significant abnormality. LUNGS / PLEURA: No significant pulmonary or pleural abnormality. No pneumothorax. ADDITIONAL FINDINGS: No significant additional findings. IMPRESSION: No acute abnormality. Signer Name: Kenny Beckett MD Signed: 04/07/2021 10:43 AM Workstation Name: [id number] - Medical Decision Making Acute COPD exacerbation respiratory failure hypoxia oxygen saturation 93% with transition: Patient treated with IV steroids, IV antibiotics, IV magnesium. Also continuous nebulizer therapy. Chest x-ray without evidence of pneumothorax or infiltrate. I consulted Dr. Bauer heavy equipment service manager who graciously agreed to see patient while admitted to the hospital service. CBC chemistry within normal limits with exception of mild hypokalemia Critical Care Time: Yes Critical care time in (mins) excluding proc time.: 40 Critical care attestation.: If time is entered above; I have spent that time in minutes in the direct care of this critically ill patient, excluding procedure time. 40 minutes of critical care time excluding procedures were used in the care of the patient. I came immediately to the bedside upon patient's arrival to treatment room. I was concerned for imminent respiratory failure. I discussed treatment plan with the nursing team members. I reviewed electronic record. Patient required multiple interventions and reassessments. ED Disposition Clinical Impression: Acute respiratory failure with hypoxia, COPD with acute exacerbation Disposition: OP ADMIT IP TO THIS HOSP Is pt being admited?: Yes Does the pt Need Aspirin: No Condition: Stable Instructions: Chronic Obstructive Pulmonary Disease (ED)
[2021-04-07] MEDS ORDERED: cefTRIAXone/NS 1 GM/50 ML 1 GM/50 ML BAG IV ONE (11:31)
--- NOTE | 2021-04-07 11:47 | XRay Report ---
CHEST 1 VIEW 04/07/2021 11:16 AM INDICATION / CLINICAL INFORMATION: Dyspnea. COMPARISON: 10/20/2020 FINDINGS: SUPPORT DEVICES: None. HEART / MEDIASTINUM: No significant abnormality. LUNGS / PLEURA: No significant pulmonary or pleural abnormality. No pneumothorax. ADDITIONAL FINDINGS: No significant additional findings. IMPRESSION: No acute abnormality. Signer Name: Kenny Beckett MD Signed: 04/07/2021 11:43 AM Workstation Name: [id number]
[2021-04-07 12:39] LABS: Basophils # (Auto) 0.1 K/mm3 (0.0-0.1); Eosinophils % (Auto) 0.1 % (0.0-4.3); Monocytes # (Auto) 1.1 K/mm3 (0.0-0.8)
[2021-04-07 12:54] LABS: Blood Urea Nitrogen 15 mg/dL (7-17); Calcium 9.1 mg/dL (8.4-10.2); Hemolysis Index 16
[2021-04-07 13:18] LABS: BUN/Creatinine Ratio 21
[2021-04-07 13:49] LABS: Hematocrit 39.1 % (30.3-42.9); Hemoglobin 12.9 gm/dl (10.1-14.3); Lymphocytes % (Auto) 13.5 % (13.4-35.0); Mean Corpuscular HGB Conc 33 % (30-34); Mean Corpuscular Volume 78 fl (79-97); Mean Platelet Volume 8.5 fl (6-12); Platelet Count 223 K/mm3 (140-440); Red Blood Count 5.02 M/mm3 (3.65-5.03); Red Cell Distribution Width 15.8 % (13.2-15.2)
[2021-04-07 13:50] LABS: Basophils % (Auto) 0.6 % (0.0-1.8); Lymphocytes # (Auto) 1.2 K/mm3 (1.2-5.4); Monocytes % (Auto) 11.5 % (0.0-7.3)
--- NOTE | 2021-04-07 15:34 | Consultation ---
History of Present Illness Consult date: 04/07/21 Requesting physician: AGNES PINEDA Reason for consult: COPD History of present illness: 75 y/o female, with known asthma/copd overlap admitted with worsening shortness of breath Past History Past Medical History: COPD Medications and Allergies Allergies Allergy/AdvReac Type Severity Reaction Status Date / Time No Known Allergies Allergy Verified 11/19/18 11:24 Home Medications Medication Instructions Recorded Confirmed Last Taken Type Fluticasone [Flonase] 1 spray NS QDAY #1 bottle 01/08/20 04/08/21 Unknown Rx Albuterol Sulfate [Proventil Hfa] 2 puff IH Q4HR PRN #1 hfa.aer.ad 05/01/20 04/08/21 Unknown Rx ALBUTEROL NEB's [Proventil 0.083% 2.5 mg IH Q4HRT PRN #30 nebu 06/24/20 04/08/21 Unknown Rx NEBS] Acetaminophen [Acetaminophen TAB] 650 mg PO Q4H PRN tablet 06/24/20 04/08/21 Unknown Rx Cyclobenzaprine [Flexeril 10 MG 10 mg PO DAILY 06/24/20 04/08/21 Unknown History TAB] Ergocalciferol [Vitamin D2] 1 cap PO Q2W 06/24/20 04/08/21 06/15/20 History Fluticasone/Umeclidin/Vilanter 1 each IH DAILY 06/24/20 04/08/21 Unknown History [Trelegy Ellipta 100-62.5-25] Magnesium Hydroxide [Milk of 30 ml PO Q4H PRN oral.liqd 06/24/20 04/08/21 Unknown Rx Magnesia] Montelukast [Singulair] 10 mg PO QHS #30 tablet 06/24/20 04/08/21 Unknown Rx amLODIPine 2.5 mg PO QDAY #30 tablet 06/24/20 04/08/21 Unknown Rx metFORMIN [Glucophage] 500 mg PO BID 06/24/20 04/08/21 Unknown History Benzonatate [Tessalon Perles] 100 mg PO Q8HR PRN #15 capsule 10/22/20 04/08/21 Unknown Rx Fluticasone/Umeclidin/Vilanter 1 each IH DAILY #1 blst.w.dev 04/08/21 Unknown Rx [Trelegy Ellipta 100-62.5-25] Ipratropium/Albuterol Sulfate 1 ampul IH Q4HR PRN 30 Days #100 04/08/21 Unknown Rx [DUONEB *Not for PRN Use*] ampul.neb Prednisone [predniSONE 10 mg 10 mg PO .TAPER #1 tab.ds.pk 04/08/21 Unknown Rx (6-Day Pack, 21 Tabs)] Active Meds: Active Medications Arformoterol Tartrate (Arformoterol 15 Mcg/2 Ml Nebu) 15 mcg IH Q12HRT BELEN Budesonide (Budesonide 0.5 Mg/2 Ml Nebu) 0.5 mg IH Q12HRT BELEN Methylprednisolone Sodium Succinate (Methylprednisolone Sod Succinate 125 Mg/2 Ml Inj) 60 mg IV Q6HR BELEN Review of Systems All systems: negative Physical Examination Vital signs: Vital Signs Temp Pulse Resp BP Pulse Ox 99.4 F 114 H 24 184/97 93 04/07/21 11:10 04/07/21 11:10 04/07/21 11:10 04/07/21 11:10 04/07/21 11:10 General appearance: no acute distress, alert Eyes: non-icteric ENT: oropharynx moist Neck: supple, no JVD Effort: normal Ascultation: Bilateral: diminished breath sounds Percussion: Bilateral: not dull Tactile fremitus: Bilateral: normal Cardiovascular: regular rate and rhythm Gastrointestinal: normoactive bowel sounds, soft, non-tender Integumentary: normal Extremities: no edema, pink and warm, pulses normal normal mental status, non-focal exam mood appropriate Results - Laboratory Findings CBC and BMP: 04/08/21 06:57 04/08/21 06:57 Abnormal lab findings: Abnormal Labs 04/07/21 04/07/21 12:03 12:03 MCV 78 L MCH 26 L RDW 15.8 H [place] % (Auto) 11.5 H [place] # (Auto) 1.1 H Seg Neutrophils % 74.3 H Potassium 3.4 L Glucose 115 H - Diagnostic Findings Chest x-ray: report reviewed, image reviewed Assessment and Plan 75 y/o female with asthma/copd exacerbation 1. Patient readily admits to noncompliance with therapy. Discussed the importance of this. She also is noncompliant with PETER therapy and is no suffering from not being able to work behind this. 2. Prednisone 60 daily for 3 days, 40 daily for 3 days, 20 daily for 3 days then stop 3. Resume home Trelegy 100 (she was not compliant with this before, so technically has not had treatment failure so can wait on the 200) and please give script for ant. 4. has follow up with Gerald next week.
[2021-04-07] MEDS: methylPREDNISolone Sod Succinate 125 MG/2 ML INJ IV SCH ×2 (19:26→22:38)
[2021-04-07] MEDS ORDERED: IPRATROPIUM/ALBUTEROL SULFATE 3 ML AMPUL.NEB IH PRN (19:53)
--- NOTE | 2021-04-07 19:53 | History and Physical Report ---
History of Present Illness Date of examination: 04/07/21 Date of admission: 04/07/21 13:57 Chief complaint: Increasing shortness of breath since morning History of present illness: 75-year-old female with history of COPD/asthma and hypertension comes in for increasing shortness of breath for last 2 to 3 days. Patient is on prednisone 10 mg a day. And is using no nebulizers on a regular basis. Patient was Covid positive in October 2020. Continues to be very short of breath and wheezing. Not vaccinated. No fever or chills. No recent exposure to Covid. Patient needing multiple breathing treatments in the emergency room. And still wheezing. Hence the admission. Patient is tachypneic. Initially was hypoxic. Not on home oxygen. - Past Medical History Previous Medical History?: Yes --Hypertension: Yes --Asthma: Yes --COPD: Yes Additional medical history: post-menopausal bleeding, bronchitis 12/05. Obesity - Surgical History No - Social History Smoking Status: Never Smoker Review of Systems ROS: Stated complaint: COPD, SOP Other details as noted in HPI Comment: All other systems reviewed and negative Constitutional: denies: fever, malaise ENT: denies: throat pain Respiratory: cough, shortness of breath, wheezing Cardiovascular: denies: chest pain Gastrointestinal: denies: abdominal pain, nausea, vomiting Medications and Allergies Allergies Allergy/AdvReac Type Severity Reaction Status Date / Time No Known Allergies Allergy Verified 11/19/18 11:24 Home Medications Medication Instructions Recorded Confirmed Last Taken Type Fluticasone [Flonase] 1 spray NS QDAY #1 bottle 01/08/20 04/08/21 Unknown Rx Albuterol Sulfate [Proventil Hfa] 2 puff IH Q4HR PRN #1 hfa.aer.ad 05/01/20 04/08/21 Unknown Rx Ipratropium/Albuterol Sulfate 1 ampul IH Q4HR PRN 30 Days #100 05/01/20 04/08/21 Unknown Rx [DUONEB *Not for PRN Use*] ampul.neb ALBUTEROL NEB's [Proventil 0.083% 2.5 mg IH Q4HRT PRN #30 nebu 06/24/20 04/08/21 Unknown Rx NEBS] Acetaminophen [Acetaminophen TAB] 650 mg PO Q4H PRN tablet 06/24/20 04/08/21 Unknown Rx Arformoterol Nebu [Brovana Nebu] 15 mcg IH Q12HRT #60 neb 06/24/20 04/08/21 Unknown Rx Budesonide [Pulmicort Respules] 0.5 mg IH Q12HRT #60 nebu 06/24/20 04/08/21 Unknown Rx Cyclobenzaprine [Flexeril 10 MG 10 mg PO DAILY 06/24/20 04/08/21 Unknown History TAB] Ergocalciferol [Vitamin D2] 1 cap PO Q2W 06/24/20 04/08/21 06/15/20 History Fluticasone/Umeclidin/Vilanter 1 each IH DAILY 06/24/20 04/08/21 Unknown History [Trelekarin Ellipta 100-62.5-25] Ipratropium/Albuterol Sulfate 1 ampul IH TIDRT #90 ampul.neb 06/24/20 04/08/21 Unknown Rx [DUONEB *Not for PRN Use*] Magnesium Hydroxide [Milk of 30 ml PO Q4H PRN oral.liqd 06/24/20 04/08/21 Unknown Rx Magnesia] Montelukast [Singulair] 10 mg PO QHS #30 tablet 06/24/20 04/08/21 Unknown Rx amLODIPine 2.5 mg PO QDAY #30 tablet 06/24/20 04/08/21 Unknown Rx levoFLOXacin [Levaquin TAB] 750 mg PO QDAY #7 tablet 06/24/20 04/08/21 Unknown Rx metFORMIN [Glucophage] 500 mg PO BID 06/24/20 04/08/21 Unknown History Benzonatate [Tessalon Perles] 100 mg PO Q8HR PRN #15 capsule 10/22/20 04/08/21 Unknown Rx predniSONE 10 mg PO QDAY #48 tab 10/22/20 04/08/21 Unknown Rx Active Meds: Active Medications Arformoterol Tartrate (Arformoterol 15 Mcg/2 Ml Nebu) 15 mcg IH Q12HRT BELEN Budesonide (Budesonide 0.5 Mg/2 Ml Nebu) 0.5 mg IH Q12HRT BELEN Methylprednisolone Sodium Succinate (Methylprednisolone Sod Succinate 125 Mg/2 Ml Inj) 60 mg IV Q6HR BELEN Last Admin: 04/07/21 19:26 Dose: 60 mg Documented by: Exam - Constitutional Vitals: Temp Pulse Resp BP Pulse Ox 99.4 F 93 H 21 140/64 97 04/07/21 11:10 04/07/21 19:00 04/07/21 19:00 04/07/21 19:00 04/07/21 19:00 General appearance: Present: severe distress, well-nourished - EENT Eyes: Present: PERRL ENT: hearing intact, clear oral mucosa - Neck Neck: Present: supple, normal ROM - Respiratory Respiratory effort: normal Respiratory: bilateral: diminished, rhonchi, wheezing - Cardiovascular Heart rate: 78 Rhythm: regular Heart Sounds: Present: S1 & S2. Absent: rub, click - Extremities Extremities: pulses symmetrical, No edema Peripheral Pulses: within normal limits - Abdominal General gastrointestinal: Present: soft, non-tender, non-distended, normal bowel sounds Female genitourinary: Present: normal - Rectal Rectal Exam: deferred - Integumentary Integumentary: Present: clear, warm, dry - Musculoskeletal Musculoskeletal: gait normal, strength equal bilaterally - Psychiatric Psychiatric: appropriate mood/affect, intact judgment & insight - Neurologic Neurologic: CNII-XII intact, moves all extremities - Allied Health Allied health notes reviewed: nursing, case management HEART Score - HEART Score History: Slightly suspicious Risk factors: 1-2 risk factors Troponin: < normal limit - Critical Actions Critical Actions: 0-3 pts:0.9-1.7%risk of adverse cardiac event.Candidate for discharge Results - Labs CBC & Chem 7: 04/07/21 12:03 04/07/21 12:03 Labs: Laboratory Last Values WBC 9.2 K/mm3 (4.5-11.0) 04/07/21 12:03 RBC 5.02 M/mm3 (3.65-5.03) 04/07/21 12:03 Hgb 12.9 gm/dl (10.1-14.3) 04/07/21 12:03 Hct 39.1 % (30.3-42.9) 04/07/21 12:03 MCV 78 fl (79-97) L 04/07/21 12:03 MCH 26 pg (28-32) L 04/07/21 12:03 MCHC 33 % (30-34) 04/07/21 12:03 RDW 15.8 % (13.2-15.2) H 04/07/21 12:03 Plt Count 223 K/mm3 (140-440) 04/07/21 12:03 Lymph % (Auto) 13.5 % (13.4-35.0) 04/07/21 12:03 [place] % (Auto) 11.5 % (0.0-7.3) H 04/07/21 12:03 Eos % (Auto) 0.1 % (0.0-4.3) 04/07/21 12:03 Baso % (Auto) 0.6 % (0.0-1.8) 04/07/21 12:03 Lymph # (Auto) 1.2 K/mm3 (1.2-5.4) 04/07/21 12:03 [place] # (Auto) 1.1 K/mm3 (0.0-0.8) H 04/07/21 12:03 Eos # (Auto) 0.0 K/mm3 (0.0-0.4) 04/07/21 12:03 Baso # (Auto) 0.1 K/mm3 (0.0-0.1) 04/07/21 12:03 Seg Neutrophils % 74.3 % (40.0-70.0) H 04/07/21 12:03 Seg Neutrophils # 6.9 K/mm3 (1.8-7.7) 04/07/21 12:03 Sodium 141 mmol/L (137-145) 04/07/21 12:03 Potassium 3.4 mmol/L (3.6-5.0) L 04/07/21 12:03 Chloride 101.5 mmol/L (98-107) 04/07/21 12:03 Carbon Dioxide 28 mmol/L (22-30) 04/07/21 12:03 Anion Gap 15 mmol/L 04/07/21 12:03 BUN 15 mg/dL (7-17) 04/07/21 12:03 Creatinine 0.7 mg/dL (0.6-1.2) 04/07/21 12:03 Estimated GFR > 60 ml/min 04/07/21 12:03 BUN/Creatinine Ratio 21 % 04/07/21 12:03 Glucose 115 mg/dL (65-100) H 04/07/21 12:03 Calcium 9.1 mg/dL (8.4-10.2) 04/07/21 12:03 Short CBC 04/07/21 Range/Units 12:03 WBC 9.2 (4.5-11.0) K/mm3 Hgb 12.9 (10.1-14.3) gm/dl Hct 39.1 (30.3-42.9) % Plt Count 223 (140-440) K/mm3 [facility] 04/07/21 12:03 Sodium 141 Potassium 3.4 L Chloride 101.5 Carbon Dioxide 28 BUN 15 Creatinine 0.7 Glucose 115 H Calcium 9.1 Short CBC 04/07/21 Range/Units 12:03 WBC 9.2 (4.5-11.0) K/mm3 Hgb 12.9 (10.1-14.3) gm/dl Hct 39.1 (30.3-42.9) % Plt Count 223 (140-440) K/mm3 [facility] 04/07/21 12:03 Sodium 141 Potassium 3.4 L Chloride 101.5 Carbon Dioxide 28 BUN 15 Creatinine 0.7 Glucose 115 H Calcium 9.1 Microbiology: Microbiology 04/07/21 12:03 Peripheral/Venous Blood Culture - Preliminary Culture in Progress 04/07/21 12:03 Peripheral/Venous Blood Culture - Preliminary Culture in Progress - Imaging and Cardiology EKG: report reviewed (Normal sinus rhythm no acute ST-T wave changes) Chest x-ray: report reviewed (No acute findings) Assessment and Plan Assessment and plan: Full code Advance Directives: Yes VTE prophylaxis?: Chemical, Not ordered Plan of care discussed with patient/family: Yes - Patient Problems (1) Acute respiratory failure with hypoxia Current Visit: Yes Status: Acute Plan to address problem: Patient initially hypoxic and tachypneic Patient IV Solu-Medrol IV Levaquin and DuoNeb's [id number] and as needed BiPAP if necessary Intubation if necessary (2) COPD with acute exacerbation Current Visit: Yes Status: Acute Plan to address problem: Patient initiated on IV Solu-Medrol at 80 mg every 8, IV Levaquin 750 mg every 24 and duo nebs [id number] and as needed Patient also on Pulmicort and Symbicort. Oral prednisone on hold for the time being (3) Hypertension Current Visit: Yes Status: Chronic Qualifiers: Hypertension type: essential hypertension Qualified Code(s): I10 - Essential (primary) hypertension Plan to address problem: Continue antihypertensives (4) Asthma Current Visit: Yes Status: Chronic Plan to address problem: Patient on Singulair for prevention of asthma Continue Singulair (5) DVT prophylaxis Current Visit: Yes Status: Acute Plan to address problem: On heparin and GI prophylaxis
[2021-04-07] MEDS ORDERED: BENZONATATE 100 MG CAP PO PRN (19:54)
[2021-04-07] MEDS ORDERED: MAGNESIUM HYDROXIDE (MOM) ORAL LIQD UDC PO PRN (19:54)
[2021-04-07] MEDS ORDERED: ACETAMINOPHEN 325 MG TAB PO PRN ×2 (19:54→19:57)
[2021-04-07] MEDS ORDERED: ONDANSETRON 4 MG/2 ML INJ IV PRN (19:57)
[2021-04-07] MEDS ORDERED: MORPHINE 2 MG/1 ML INJ IV PRN (19:57)
[2021-04-07] MEDS ORDERED: oxyCODONE /ACETAMINOPHEN 5-325MG TAB PO PRN (19:57)
[2021-04-07] MEDS ORDERED: BUDESONIDE 0.5 MG/2 ML NEBU IH SCH (20:00)
[2021-04-07] MEDS ORDERED: ARFORMOTEROL 15 MCG/2 ML NEBU IH SCH (20:00)
[2021-04-07] MEDS ORDERED: NON-FORMULARY EACH (Fluticasone/Umeclidin/Vilanter [Trelegy Ellipta 100-62.5-25] 1 EACH Bl IH SCH (20:00)
[2021-04-07] MEDS ORDERED: SODIUM CHLORIDE 0.9% 1000 ML 1,000 ML IV SCH (20:00)
[2021-04-07] MEDS ORDERED: ALBUTEROL 2.5 MG/3 ML NEBU IH PRN (20:13)
[2021-04-07] MEDS: BUDESONIDE 0.5 MG/2 ML NEBU IH SCH (20:32)
[2021-04-07] MEDS: ARFORMOTEROL 15 MCG/2 ML NEBU IH SCH (20:32)
[2021-04-07] MEDS: IPRATROPIUM/ALBUTEROL SULFATE 3 ML AMPUL.NEB IH SCH (20:33)
[2021-04-07] MEDS ORDERED: metFORMIN 500 MG TAB PO SCH (22:00)
[2021-04-07] MEDS ORDERED: MONTELUKAST 10 MG TAB PO SCH (22:00)
[2021-04-07] MEDS ORDERED: FAMOTIDINE 20 MG/2 ML INJ IV SCH (22:00)
[2021-04-07] MEDS: HEPARIN 5,000 UNIT/1 ML VIAL SUB-Q SCH (22:37)
[2021-04-07] MEDS: amLODIPine 5 MG TAB PO SCH (22:43)
[2021-04-08] MEDS: methylPREDNISolone Sod Succinate 125 MG/2 ML INJ IV SCH ×4 (01:22→12:31)
[2021-04-08] MEDS ORDERED: POTASSIUM CHLORIDE ER 20 MEQ TAB PO ONE (06:54)
[2021-04-08 07:33] LABS: Basophils % (Auto) 0.2 % (0.0-1.8); Hematocrit 38.8 % (30.3-42.9); Hemoglobin 12.7 gm/dl (10.1-14.3); Lymphocytes # (Auto) 0.8 K/mm3 (1.2-5.4); Lymphocytes % (Auto) 8.9 % (13.4-35.0); Mean Corpuscular HGB Conc 33 % (30-34); Mean Corpuscular Volume 77 fl (79-97); Monocytes # (Auto) 0.4 K/mm3 (0.0-0.8); Monocytes % (Auto) 4.7 % (0.0-7.3); Platelet Count 252 K/mm3 (140-440); Red Blood Count 5.02 M/mm3 (3.65-5.03); Red Cell Distribution Width 15.8 % (13.2-15.2)
[2021-04-08 07:47] LABS: Alanine Aminotransferase 31 units/L (7-56); Blood Urea Nitrogen 16 mg/dL (7-17); Hemolysis Index 0
[2021-04-08] MEDS ORDERED: metFORMIN 500 MG TAB PO SCH (08:00)
[2021-04-08 08:35] LABS: BUN/Creatinine Ratio 27
[2021-04-08] MEDS: ARFORMOTEROL 15 MCG/2 ML NEBU IH SCH (09:23)
[2021-04-08] MEDS: IPRATROPIUM/ALBUTEROL SULFATE 3 ML AMPUL.NEB IH SCH ×2 (09:23→14:00)
[2021-04-08] MEDS: BUDESONIDE 0.5 MG/2 ML NEBU IH SCH (09:23)
[2021-04-08] MEDS ORDERED: FAMOTIDINE 20 MG TAB PO SCH (10:00)
[2021-04-08] MEDS ORDERED: CYCLOBENZAPRINE 10 MG TAB PO SCH (10:00)
[2021-04-08] MEDS ORDERED: FLUTICASONE PROPIONATE NASAL SPRAY 16 GM NS SCH (10:00)
--- NOTE | 2021-04-08 10:52 | Progress Note ---
Assessment and Plan 75 y/o female with asthma/copd exacerbation 1. Patient readily admits to noncompliance with therapy. Discussed the importance of this. She also is noncompliant with PETER therapy and is no suffering from not being able to work behind this. 2. Prednisone 60 daily for 3 days, 40 daily for 3 days, 20 daily for 3 days then stop 3. Resume home Trelegy 100 (she was not compliant with this before, so technically has not had treatment failure so can wait on the 200) and please give script for ant. 4. has follow up with Gerald next week. Subjective Date of service: 04/08/21 Interval history: Feels better, wants to go home Objective Vital Signs - 12hr 04/08/21 04/08/21 04/08/21 01:11 04:30 09:27 Temperature 97.6 F Pulse Rate 96 H Pulse Rate [ 84 Anterior Bilateral Throughout] Respiratory 18 20 Rate Respiratory 18 Rate [Anterior Bilateral Throughout] Blood Pressure 157/74 O2 Sat by Pulse 97 Oximetry CBC and BMP: 04/08/21 06:57 04/08/21 06:57 Abnormal lab findings: Abnormal Labs 04/07/21 04/07/21 04/07/21 12:03 12:03 13:08 MCV 78 L MCH 26 L RDW 15.8 H Lymph % (Auto) [place] % (Auto) 11.5 H Lymph # (Auto) [place] # (Auto) 1.1 H Seg Neutrophils % 74.3 H Seg Neutrophils # Potassium 3.4 L Chloride Carbon Dioxide Glucose 115 H Hemoglobin A1c 6.5 H 04/08/21 04/08/21 06:57 06:57 MCV 77 L MCH 25 L RDW 15.8 H Lymph % (Auto) 8.9 L [place] % (Auto) Lymph # (Auto) 0.8 L [place] # (Auto) Seg Neutrophils % 86.2 H Seg Neutrophils # 7.9 H Potassium 3.2 L Chloride 96.3 L Carbon Dioxide 31 H Glucose 200 H Hemoglobin A1c
--- NOTE | 2021-04-08 11:18 | Discharge Summary ---
Providers - Providers Date of Admission: 04/07/21 13:57 Attending physician: JCARLOS GAN MD 04/07/21 12:24 Consult to Physician [CONS] Stat Comment: Consulting Provider: CARLOS DUPONT Physician Instructions: Reason For Exam: copd exacerbation Primary care physician: BLASTING MINER Hospitalization Reason for admission: Shortness of breath Condition: Stable Hospital course: 75-year-old female with history of COPD/asthma and hypertension comes in for increasing shortness of breath for last 2 to 3 days. Patient is on prednisone 10 mg a day. And is using no nebulizers on a regular basis. Patient was Covid positive in October 2020. Continues to be very short of breath and wheezing. Not vaccinated. No fever or chills. No recent exposure to Covid. Patient needing multiple breathing treatments in the emergency room. And still wheezing. Hence the admission. Patient is tachypneic. Initially was hypoxic. Not on home oxygen. Patient today was seen by pulmonary with the following recommendations below 1. Patient readily admits to noncompliance with therapy. Discussed the importance of this. She also is noncompliant with PETER therapy and is no suffering from not being able to work behind this. 2. Prednisone 60 daily for 3 days, 40 daily for 3 days, 20 daily for 3 days then stop 3. Resume home Trelegy 100 (she was not compliant with this before, so technically has not had treatment failure so can wait on the 200) and please give script for duonebs. 4. has follow up with Gerald next week. Her clinical status is indeed improved and she is clinically stable for discharge with counseling as noted above. She verbalized understanding medications have been renewed also. Also recommended a home O2 eval prior to discharge. (1) Acute respiratory failure with hypoxia (2) COPD with acute exacerbation (3) Hypertension (4) Asthma Disposition: DC- TO HOME OR SELFCARE Final Discharge Diagnosis (Prints w/discharge instructions): Acute hypoxic respiratory failure Time spent for discharge: 30 mins Core Measure Documentation - Palliative Care Palliative Care/ Comfort Measures: Not Applicable - Core Measures Any of the following diagnoses?: none Exam - Physical Exam Narrative exam: VITAL SIGNS: Reviewed. GENERAL: The patient appears morbidly obese vital signs as documented. HEAD: No signs of head trauma. EYES: Pupils are equal. Extraocular motions intact. EARS: Hearing grossly intact. MOUTH: Oropharynx is normal. NECK: No adenopathy, no JVD. CHEST: Chest with diminished breath sounds bilaterally. No wheezes, rales, or rhonchi. CARDIAC: Regular rate and rhythm. S1 and S2, without murmurs, gallops, or rubs. VASCULAR: No Edema. Peripheral pulses normal and equal in all extremities. ABDOMEN: Soft, non tender and non distended. No rebound or guarding, and no masses palpated. Bowel Sounds normal. MUSCULOSKELETAL: Good range of motion of all major joints. Extremities without clubbing, cyanosis or edema. NEUROLOGIC EXAM: Alert and oriented x 3 No focal sensory or strength deficits. Speech normal. Follows commands. PSYCHIATRIC: Mood normal. SKIN: detail exam as documented in skin assessment - Constitutional Vitals: Temp Pulse Resp BP Pulse Ox 97.6 F 84 18 157/74 97 04/08/21 04:30 04/08/21 09:27 04/08/21 09:27 04/08/21 04:30 04/08/21 04:30 Plan Activity: advance as tolerated, fall precautions Diet: low fat Special Instructions: record daily weights, record daily BP diary, record blood sugar diary Follow up with: PRIMARY CARE, [Primary Care Provider] - 3-5 Days CARLOS DUPONT MD [Staff Physician] - 7 Days Prescriptions: Ipratropium/Albuterol Sulfate [DUONEB *Not for PRN Use*] 1 ampul IH Q4HR PRN 30 Days #100 ampul.neb PRN Reason: Shortness Of Breath Prednisone [predniSONE 10 mg (6-Day Pack, 21 Tabs)] 10 mg PO .TAPER #1 tab.ds.pk Fluticasone/Umeclidin/Vilanter [Trelegy Ellipta 100-62.5-25] 1 each IH DAILY #1 blst.w.dev
[2021-04-08 11:58] VITALS: BP 151/64
[2021-04-08] MEDS: amLODIPine 5 MG TAB PO SCH (12:07)
[2021-04-08] MEDS: HEPARIN 5,000 UNIT/1 ML VIAL SUB-Q SCH (12:07)
== END 2021-04-08 17:12 | disposition home or self-care (01) ==
LOC: ED 11:03 → 3A 13:57
PROVIDERS: ADMIT Internal Medicine; ATTEND Internal Medicine
DX: J96.01 Acute respiratory failure with hypoxia (principal); J44.1 Chronic obstructive pulmonary disease with (acute) exacerbation; I10 Essential (primary) hypertension; E66.9 Obesity, unspecified; G47.33 Obstructive sleep apnea (adult) (pediatric); Z79.899 Other long term (current) drug therapy; Z98.890 Other specified postprocedural states
CPT/HCPCS: 36415; 71045; 80048; 80053; 83036; 85025; 87040; 94640; 96361; 96365; 96366; 96367; 96372; 96375; 96376; 99291; G0378; J0696; J1644; J1956; J2930; J3475; J7030; 94644

== ENCOUNTER 2022-02-16 12:47 | Emergency (ER) | payer MEDICARE ==
[2022-02-16] MEDS ORDERED: ALBUTEROL 2.5 MG/3 ML NEBU IH ONE (13:11)
[2022-02-16] MEDS ORDERED: IPRATROPIUM 0.02% NEBU 2.5 ML IH ONE (13:11)
[2022-02-16] MEDS ORDERED: methylPREDNISolone Sod Succinate 125 MG/2 ML INJ IV ONE (13:18)
--- NOTE | 2022-02-16 13:44 | XRay Report ---
CHEST 1 VIEW 02/16/2022 1:24 PM INDICATION / CLINICAL INFORMATION: Dyspnea. COMPARISON: 04/07/2021 FINDINGS: SUPPORT DEVICES: None. HEART / MEDIASTINUM: No significant abnormality. LUNGS / PLEURA: Mild increased pulmonary vascularity No pneumothorax. ADDITIONAL FINDINGS: No significant additional findings. IMPRESSION: 1. No acute findings. Mild increased pulmonary vascularity Signer Name: Ramón Marti MD Signed: 02/16/2022 1:40 PM Workstation Name: [id number]
[2022-02-16 14:28] LABS: Basophils # (Auto) 0.1 K/mm3 (0.0-0.1); Basophils % (Auto) 0.5 % (0.0-1.8); Eosinophils # (Auto) 0.2 K/mm3 (0.0-0.4); Eosinophils % (Auto) 1.3 % (0.0-4.3); Hematocrit 37.1 % (30.3-42.9); Hemoglobin 11.9 gm/dl (10.1-14.3); Lymphocytes # (Auto) 1.9 K/mm3 (1.2-5.4); Lymphocytes % (Auto) 14.3 % (13.4-35.0); Mean Corpuscular HGB Conc 32 % (30-34); Mean Corpuscular Volume 78 fl (79-97); Monocytes # (Auto) 0.5 K/mm3 (0.0-0.8); Monocytes % (Auto) 4.1 % (0.0-7.3); Platelet Count 240 K/mm3 (140-440); Red Blood Count 4.77 M/mm3 (3.65-5.03); Red Cell Distribution Width 15.5 % (13.2-15.2)
[2022-02-16 14:45] LABS: Creatine Kinase MB 1.6 ng/mL (0.0-4.0)
[2022-02-16 14:46] LABS: Alanine Aminotransferase 15 units/L (7-56); Albumin 3.9 g/dL (3.9-5); Blood Urea Nitrogen 15 mg/dL (7-17); Calcium 8.8 mg/dL (8.4-10.2); Hemolysis Index 4
[2022-02-16 14:50] LABS: BUN/Creatinine Ratio 21
[2022-02-16] MEDS ORDERED: POTASSIUM CHLORIDE ER 20 MEQ TAB PO ONE (14:56)
[2022-02-16] MEDS ORDERED: dexAMETHasone 4 MG/ML VIAL IM ONE (15:28)
--- NOTE | 2022-02-16 16:20 | Emergency Department Report ---
ED Shortness of Breath HPI - General Chief Complaint: Dyspnea/Respdistress Stated Complaint: COPD Time Seen by Provider: 02/16/22 13:15 Source: patient Mode of arrival: Wheelchair Limitations: Physical Limitation - History of Present Illness Initial Comments: Family dropped pt off, states she has been wheezing/SOB x 3 days Complaint: shortness of breath -: Gradual Improves With: oxygen Worsens With: exertion Treatments Prior to Arrival: oxygen - Related Data Home Oxygen Therapy: No Home Medications Medication Instructions Recorded Confirmed Last Taken Cyclobenzaprine [Flexeril 10 MG 10 mg PO DAILY 06/24/20 04/08/21 Unknown TAB] Ergocalciferol [Vitamin D2] 1 cap PO Q2W 06/24/20 04/08/21 06/15/20 Fluticasone/Umeclidin/Vilanter 1 each IH DAILY 06/24/20 04/08/21 Unknown [Trelegy Ellipta 100-62.5-25(Nf)] metFORMIN [Glucophage] 500 mg PO BID 06/24/20 04/08/21 Unknown Previous Rx's Medication Instructions Recorded Last Taken Type Fluticasone [Flonase] 1 spray NS QDAY #1 bottle 01/08/20 Unknown Rx Albuterol Sulfate [Proventil Hfa] 2 puff IH Q4HR PRN #1 hfa.aer.ad 05/01/20 Unknown Rx ALBUTEROL NEB's [Proventil 0.083% 2.5 mg IH Q4HRT PRN #30 nebu 06/24/20 Unknown Rx NEBS] Acetaminophen [Acetaminophen TAB] 650 mg PO Q4H PRN tablet 06/24/20 Unknown Rx Magnesium Hydroxide [Milk of 30 ml PO Q4H PRN oral.liqd 06/24/20 Unknown Rx Magnesia] Montelukast [Singulair] 10 mg PO QHS #30 tablet 06/24/20 Unknown Rx amLODIPine 2.5 mg PO QDAY #30 tablet 06/24/20 Unknown Rx Benzonatate [Tessalon Perles] 100 mg PO Q8HR PRN #15 capsule 10/22/20 Unknown Rx Fluticasone/Umeclidin/Vilanter 1 each IH DAILY #1 blst.w.dev 04/08/21 Unknown Rx [Trelegy Ellipta 100-62.5-25] Ipratropium/Albuterol Sulfate 1 ampul IH Q4HR PRN 30 Days #100 04/08/21 Unknown Rx [DUONEB *Not for PRN Use*] ampul.neb Prednisone [predniSONE 10 mg 10 mg PO .TAPER #1 tab.ds.pk 04/08/21 Unknown Rx (6-Day Pack, 21 Tabs)] Albuterol Mdi (or & Nicu Only) 2 puff IH QID PRN #8.5 gram 02/16/22 Unknown Rx [ProAir HFA Inhaler] levoFLOXacin [Levaquin TAB] 500 mg PO QDAY #7 tablet 02/16/22 Unknown Rx methylPREDNISolone [Medrol 4MG 4 mg PO DAILY #1 02/16/22 Unknown Rx DOSEPAK (21 tabs)] Allergies Allergy/AdvReac Type Severity Reaction Status Date / Time No Known Allergies Allergy Verified 11/19/18 11:24 ED Review of Systems ROS: Stated complaint: COPD Other details as noted in HPI Constitutional: denies: chills, fever Eyes: denies: eye pain, eye discharge, vision change ENT: denies: ear pain, throat pain Respiratory: denies: cough, shortness of breath, wheezing Cardiovascular: denies: chest pain, palpitations Endocrine: no symptoms reported Gastrointestinal: denies: abdominal pain, nausea, diarrhea Genitourinary: denies: urgency, dysuria, discharge Musculoskeletal: denies: back pain, joint swelling, arthralgia Skin: denies: rash, lesions Neurological: denies: headache, weakness, paresthesias Psychiatric: denies: anxiety, depression Hematological/Lymphatic: denies: easy bleeding, easy bruising ED Past Medical Hx - Past Medical History Hx Hypertension: Yes Hx Heart Attack/AMI: No Hx Congestive Heart Failure: No Hx Diabetes: No (steroid elevated BS per pt) Hx Deep Vein Thrombosis: No Hx Pulmonary Embolism: No Hx Sickle Cell Disease: No Hx Asthma: Yes Hx COPD: Yes Hx Tuberculosis: No Hx HIV: No Additional medical history: post-menopausal bleeding, bronchitis 12/05. Obesity - Surgical History Hx Coronary Stent: No Hx Pacemaker: No Hx Internal Defibrillator: No - Social History Smoking Status: Never Smoker - Medications Home Medications: Home Medications Medication Instructions Recorded Confirmed Last Taken Type Fluticasone [Flonase] 1 spray NS QDAY #1 bottle 01/08/20 04/08/21 Unknown Rx Albuterol Sulfate [Proventil Hfa] 2 puff IH Q4HR PRN #1 hfa.aer.ad 05/01/20 04/08/21 Unknown Rx ALBUTEROL NEB's [Proventil 0.083% 2.5 mg IH Q4HRT PRN #30 nebu 06/24/20 04/08/21 Unknown Rx NEBS] Acetaminophen [Acetaminophen TAB] 650 mg PO Q4H PRN tablet 06/24/20 04/08/21 Unknown Rx Cyclobenzaprine [Flexeril 10 MG 10 mg PO DAILY 06/24/20 04/08/21 Unknown History TAB] Ergocalciferol [Vitamin D2] 1 cap PO Q2W 06/24/20 04/08/21 06/15/20 History Fluticasone/Umeclidin/Vilanter 1 each IH DAILY 06/24/20 04/08/21 Unknown History [Trelegy Ellipta 100-62.5-25(Nf)] Magnesium Hydroxide [Milk of 30 ml PO Q4H PRN oral.liqd 06/24/20 04/08/21 Unknown Rx Magnesia] Montelukast [Singulair] 10 mg PO QHS #30 tablet 06/24/20 04/08/21 Unknown Rx amLODIPine 2.5 mg PO QDAY #30 tablet 06/24/20 04/08/21 Unknown Rx metFORMIN [Glucophage] 500 mg PO BID 06/24/20 04/08/21 Unknown History Benzonatate [Tessalon Perles] 100 mg PO Q8HR PRN #15 capsule 10/22/20 04/08/21 Unknown Rx Fluticasone/Umeclidin/Vilanter 1 each IH DAILY #1 blst.w.dev 04/08/21 Unknown Rx [Trelegy Ellipta 100-62.5-25] Ipratropium/Albuterol Sulfate 1 ampul IH Q4HR PRN 30 Days #100 04/08/21 Unknown Rx [DUONEB *Not for PRN Use*] ampul.neb Prednisone [predniSONE 10 mg 10 mg PO .TAPER #1 tab.ds.pk 04/08/21 Unknown Rx (6-Day Pack, 21 Tabs)] Albuterol Mdi (or & Nicu Only) 2 puff IH QID PRN #8.5 gram 02/16/22 Unknown Rx [ProAir HFA Inhaler] levoFLOXacin [Levaquin TAB] 500 mg PO QDAY #7 tablet 02/16/22 Unknown Rx methylPREDNISolone [Medrol 4MG 4 mg PO DAILY #1 02/16/22 Unknown Rx DOSEPAK (21 tabs)] ED Physical Exam - General Limitations: Physical Limitation General appearance: alert, in no apparent distress, anxious - Head Head exam: Present: atraumatic, normocephalic - Eye Eye exam: Present: normal appearance - ENT ENT exam: Present: mucous membranes moist - Neck Neck exam: Present: normal inspection - Respiratory Respiratory exam: Present: normal lung sounds bilaterally, respiratory distress, wheezes - Cardiovascular Cardiovascular Exam: Present: regular rate, normal rhythm. Absent: systolic murmur, diastolic murmur, rubs, gallop - GI/Abdominal GI/Abdominal exam: Present: soft, normal bowel sounds - Extremities Exam Extremities exam: Present: normal inspection - Back Exam Back exam: Present: normal inspection - Neurological Exam Neurological exam: Present: alert, oriented X3 - Psychiatric Psychiatric exam: Present: normal affect, normal mood - Skin Skin exam: Present: warm, dry, intact, normal color. Absent: rash ED Course Vital Signs 02/16/22 02/16/22 12:50 14:10 Temperature 98.2 F Pulse Rate 81 Pulse Rate [ 90 Anterior Bilateral Throughout] Respiratory 24 Rate Respiratory 18 Rate [Anterior Bilateral Throughout] Blood Pressure 133/58 [Right] O2 Sat by Pulse 97 Oximetry ED Medical Decision Making - Lab Data Result diagrams: 02/16/22 13:40 02/16/22 13:40 - Radiology Data Radiology results: report reviewed, image reviewed - Medical Decision Making work up showed hypokalemia, replaced, rt given steriods x ray is negative o2 sat 96 on RA rt given feels better Critical care attestation.: If time is entered above; I have spent that time in minutes in the direct care of this critically ill patient, excluding procedure time. ED Disposition Clinical Impression: SOB (shortness of breath), COPD (chronic obstructive pulmonary disease) Disposition: HOME / SELF CARE / HOMELESS Is pt being admited?: No Does the pt Need Aspirin: No Condition: Stable Instructions: Chronic Obstructive Pulmonary Disease (ED), Shortness of Breath, Adult, [id number]
[2022-02-16 17:00] VITALS: BP 143/58
== END 2022-02-16 17:30 | disposition home or self-care (01) ==
LOC: ED 12:47
DX: J44.9 Chronic obstructive pulmonary disease, unspecified (principal); I10 Essential (primary) hypertension; Z79.899 Other long term (current) drug therapy
CPT/HCPCS: 36415; 71045; 80053; 82550; 82553; 83690; 83735; 84484; 85025; 94644; 96372; 99284; J1100

== ENCOUNTER 2022-05-09 16:27 | Emergency (ER) | payer MEDICARE ==
[2022-05-09 17:22] VITALS: BP 144/73
[2022-05-09] MEDS ORDERED: ALBUTEROL 2.5 MG/3 ML NEBU IH ONE ×2 (18:24→23:56)
[2022-05-09 19:31] LABS: Basophils # (Auto) 0.1 K/mm3 (0.0-0.1); Basophils % (Auto) 0.6 % (0.0-1.8); Eosinophils # (Auto) 0.1 K/mm3 (0.0-0.4); Eosinophils % (Auto) 0.9 % (0.0-4.3); Hematocrit 39.3 % (30.3-42.9); Hemoglobin 12.3 gm/dl (10.1-14.3); Lymphocytes # (Auto) 2.8 K/mm3 (1.2-5.4); Lymphocytes % (Auto) 22.3 % (13.4-35.0); Mean Corpuscular HGB Conc 31 % (30-34); Mean Corpuscular Volume 79 fl (79-97); Monocytes # (Auto) 0.9 K/mm3 (0.0-0.8); Monocytes % (Auto) 7.3 % (0.0-7.3); Platelet Count 209 K/mm3 (140-440); Red Blood Count 4.96 M/mm3 (3.65-5.03); Red Cell Distribution Width 16.1 % (13.2-15.2)
[2022-05-09 19:47] LABS: Alanine Aminotransferase 12 units/L (7-56); Albumin 3.7 g/dL (3.9-5); BUN/Creatinine Ratio 15; Blood Urea Nitrogen 12 mg/dL (7-17); Calcium 9.1 mg/dL (8.4-10.2); Hemolysis Index 4
--- NOTE | 2022-05-09 20:06 | XRay Report ---
CHEST 2 VIEWS INDICATION / CLINICAL INFORMATION: CARLITOS. COMPARISON: 02/16/22. FINDINGS: SUPPORT DEVICES: None. HEART / MEDIASTINUM: The heart size and pulmonary vasculature are normal. LUNGS / PLEURA: No significant pulmonary or pleural abnormality. No pneumothorax. ADDITIONAL FINDINGS: No significant additional findings. IMPRESSION: No acute abnormality. Signer Name: Zachary Peterson MD Signed: 05/09/2022 8:02 PM Workstation Name: [id number]
[2022-05-09] MEDS ORDERED: IPRATROPIUM 0.02% NEBU 2.5 ML IH ONE (23:56)
[2022-05-10] MEDS ORDERED: IPRATROPIUM 0.02% NEBU 2.5 ML IH ONE (00:05)
[2022-05-10] MEDS ORDERED: ALBUTEROL 2.5 MG/3 ML NEBU IH ONE (00:05)
[2022-05-10] MEDS ORDERED: methylPREDNISolone Sod Succinate 125 MG/2 ML INJ IV ONE (01:20)
[2022-05-10] MEDS ORDERED: MAGNESIUM SULFATE 2 GM/50 ML BAG IV ONE (01:24)
--- NOTE | 2022-05-10 01:24 | Emergency Department Report ---
ED Shortness of Breath HPI - General Chief Complaint: Dyspnea/Respdistress Stated Complaint: DIFFICULTY BREATHING Time Seen by Provider: 05/10/22 01:19 Source: patient Mode of arrival: Wheelchair Limitations: No Limitations - History of Present Illness Initial Comments: 76-year-old female with a history of COPD never smoked who now presented with shortness of breath that been going on for about a week progressively getting worse. Patient also reports some minimally productive cough. No fever or chills reported. No palpitation noted. No other modifying or associated factors reported. MD Complaint: shortness of breath - Related Data Home Medications Medication Instructions Recorded Confirmed Last Taken Cyclobenzaprine [Flexeril 10 MG 10 mg PO DAILY 06/24/20 04/08/21 Unknown TAB] Ergocalciferol [Vitamin D2] 1 cap PO Q2W 06/24/20 04/08/21 06/15/20 Fluticasone/Umeclidin/Vilanter 1 each IH DAILY 06/24/20 04/08/21 Unknown [Trelekarin Ellipta 100-62.5-25(Nf)] metFORMIN [Glucophage] 500 mg PO BID 06/24/20 04/08/21 Unknown Previous Rx's Medication Instructions Recorded Last Taken Type Fluticasone [Flonase] 1 spray NS QDAY #1 bottle 01/08/20 Unknown Rx Albuterol Sulfate [Proventil Hfa] 2 puff IH Q4HR PRN #1 hfa.aer.ad 05/01/20 Unknown Rx ALBUTEROL NEB's [Proventil 0.083% 2.5 mg IH Q4HRT PRN #30 nebu 06/24/20 Unknown Rx NEBS] Acetaminophen [Acetaminophen TAB] 650 mg PO Q4H PRN tablet 06/24/20 Unknown Rx Magnesium Hydroxide [Milk of 30 ml PO Q4H PRN oral.liqd 06/24/20 Unknown Rx Magnesia] Montelukast [Singulair] 10 mg PO QHS #30 tablet 06/24/20 Unknown Rx amLODIPine 2.5 mg PO QDAY #30 tablet 06/24/20 Unknown Rx Benzonatate [Tessalon Perles] 100 mg PO Q8HR PRN #15 capsule 10/22/20 Unknown Rx Fluticasone/Umeclidin/Vilanter 1 each IH DAILY #1 blst.w.dev 04/08/21 Unknown Rx [Trelegy Ellipta 100-62.5-25] Ipratropium/Albuterol Sulfate 1 ampul IH Q4HR PRN 30 Days #100 04/08/21 Unknown Rx [DUONEB *Not for PRN Use*] ampul.neb Prednisone [predniSONE 10 mg 10 mg PO .TAPER #1 tab.ds.pk 04/08/21 Unknown Rx (6-Day Pack, 21 Tabs)] Albuterol Mdi (or & Nicu Only) 2 puff IH QID PRN #8.5 gram 02/16/22 Unknown Rx [ProAir HFA Inhaler] methylPREDNISolone [Medrol 4MG 4 mg PO DAILY #1 02/16/22 Unknown Rx DOSEPAK (21 tabs)] levoFLOXacin [Levaquin TAB] 500 mg PO QDAY #7 tablet 05/10/22 Unknown Rx predniSONE [Deltasone] 20 mg PO QDAY 7 Days #7 tab NS 05/10/22 Unknown Rx Allergies Allergy/AdvReac Type Severity Reaction Status Date / Time No Known Allergies Allergy Verified 11/19/18 11:24 ED Review of Systems ROS: Stated complaint: DIFFICULTY BREATHING Other details as noted in HPI Comment: All other systems reviewed and negative Respiratory: shortness of breath, wheezing ED Past Medical Hx - Past Medical History Hx Hypertension: Yes Hx Heart Attack/AMI: No Hx Congestive Heart Failure: No Hx Diabetes: No (steroid elevated BS per pt) Hx Deep Vein Thrombosis: No Hx Pulmonary Embolism: No Hx Sickle Cell Disease: No Hx Asthma: Yes Hx COPD: Yes Hx Tuberculosis: No Hx HIV: No Additional medical history: post-menopausal bleeding, bronchitis 12/05. Obesity - Surgical History Hx Coronary Stent: No Hx Pacemaker: No Hx Internal Defibrillator: No - Social History Smoking Status: Never Smoker - Medications Home Medications: Home Medications Medication Instructions Recorded Confirmed Last Taken Type Fluticasone [Flonase] 1 spray NS QDAY #1 bottle 01/08/20 04/08/21 Unknown Rx Albuterol Sulfate [Proventil Hfa] 2 puff IH Q4HR PRN #1 hfa.aer.ad 05/01/20 04/08/21 Unknown Rx ALBUTEROL NEB's [Proventil 0.083% 2.5 mg IH Q4HRT PRN #30 nebu 06/24/20 04/08/21 Unknown Rx NEBS] Acetaminophen [Acetaminophen TAB] 650 mg PO Q4H PRN tablet 06/24/20 04/08/21 Unknown Rx Cyclobenzaprine [Flexeril 10 MG 10 mg PO DAILY 06/24/20 04/08/21 Unknown History TAB] Ergocalciferol [Vitamin D2] 1 cap PO Q2W 06/24/20 04/08/21 06/15/20 History Fluticasone/Umeclidin/Vilanter 1 each IH DAILY 06/24/20 04/08/21 Unknown History [Trelegy Ellipta 100-62.5-25(Nf)] Magnesium Hydroxide [Milk of 30 ml PO Q4H PRN oral.liqd 06/24/20 04/08/21 Unknown Rx Magnesia] Montelukast [Singulair] 10 mg PO QHS #30 tablet 06/24/20 04/08/21 Unknown Rx amLODIPine 2.5 mg PO QDAY #30 tablet 06/24/20 04/08/21 Unknown Rx metFORMIN [Glucophage] 500 mg PO BID 06/24/20 04/08/21 Unknown History Benzonatate [Tessalon Perles] 100 mg PO Q8HR PRN #15 capsule 10/22/20 04/08/21 Unknown Rx Fluticasone/Umeclidin/Vilanter 1 each IH DAILY #1 blst.w.dev 04/08/21 Unknown Rx [Trelegy Ellipta 100-62.5-25] Ipratropium/Albuterol Sulfate 1 ampul IH Q4HR PRN 30 Days #100 04/08/21 Unknown Rx [DUONEB *Not for PRN Use*] ampul.neb Prednisone [predniSONE 10 mg 10 mg PO .TAPER #1 tab.ds.pk 04/08/21 Unknown Rx (6-Day Pack, 21 Tabs)] Albuterol Mdi (or & Nicu Only) 2 puff IH QID PRN #8.5 gram 02/16/22 Unknown Rx [ProAir HFA Inhaler] methylPREDNISolone [Medrol 4MG 4 mg PO DAILY #1 02/16/22 Unknown Rx DOSEPAK (21 tabs)] levoFLOXacin [Levaquin TAB] 500 mg PO QDAY #7 tablet 05/10/22 Unknown Rx predniSONE [Deltasone] 20 mg PO QDAY 7 Days #7 tab NS 05/10/22 Unknown Rx ED Physical Exam - General Limitations: No Limitations General appearance: alert, in no apparent distress - Head Head exam: Present: normal inspection - Eye Eye exam: Present: normal appearance Pupils: Present: normal accommodation - ENT ENT exam: Present: normal exam, normal orophraynx, mucous membranes moist - Neck Neck exam: Present: normal inspection, full ROM. Absent: tenderness - Respiratory Respiratory exam: Present: wheezes. Absent: chest wall tenderness - Cardiovascular Cardiovascular Exam: Present: regular rate, normal rhythm, normal heart sounds - GI/Abdominal GI/Abdominal exam: Present: soft, normal bowel sounds. Absent: distended, tenderness - Extremities Exam Extremities exam: Present: normal inspection. Absent: tenderness, pedal edema - Back Exam Back exam: Absent: tenderness - Neurological Exam Neurological exam: Present: alert, oriented X3 - Psychiatric Psychiatric exam: Present: normal affect, normal mood - Skin Skin exam: Present: warm, normal color ED Course Vital Signs 05/09/22 05/10/22 16:40 00:08 Temperature 99.1 F Pulse Rate 109 H Pulse Rate [ 100 H Bilateral] Respiratory 26 H Rate Respiratory 22 Rate [Bilateral ] Blood Pressure 144/73 [Left] O2 Sat by Pulse 96 Oximetry ED Medical Decision Making - Lab Data Result diagrams: 05/09/22 19:01 05/09/22 19:01 - Medical Decision Making Here with shortness of breath--among differential diagnosis could be but not limited to acute exacerbation of COPD, myocardiac infarction, pulmonary embolism, acute exacerbation of asthma, pneumothorax, pneumonia or Viral or Bacterial Upper/Lower respiratory tract infection or other systemic infection.--To rule out the above will go ahead and order EKG, cardiac enzyme including troponin, BNP, CKMB, chest x-ray, CBC, CMP, UA and or D-dimer. In the meantime we will go ahead and treat with DuoNeb, 125 mg of Solu-Medrol, magnesium sulfate 2 g IV, and will make a case for antibiotics Levaquin considering likely cause to be acute COPD exacerbation and continue to monitor the patient. Lab reviewed and noted with K+ 3.1 given Potassium 20 mEq PO x 1-- otherwise with normal labs -- symptoms is likely COPD exacerbation-- pt reassured and d/c home on prednisone and Levaquin x 7 days -- with close follow u[p with PCP Critical care attestation.: If time is entered above; I have spent that time in minutes in the direct care of this critically ill patient, excluding procedure time. ED Disposition Clinical Impression: COPD with exacerbation Dyspnea Qualifiers: Dyspnea type: unspecified Qualified Code(s): R06.00 - Dyspnea, unspecified Disposition: 01 HOME / SELF CARE / HOMELESS Is pt being admited?: No Does the pt Need Aspirin: No Condition: Stable Instructions: Chronic Obstructive Pulmonary Disease (ED), Shortness of Breath, Adult, [id number], Chronic Obstructive Pulmonary Disease Exacerbation, [id number] Additional Instructions: Take your prednisone and antibiotics as prescribed to continue to help your symptoms Call and schedule follow-up with your primary doctor in the next 3 to 5 days for progress Please do not hesitate to call or return to emergency room if your symptoms worsen Prescriptions: predniSONE [Deltasone] 20 mg PO QDAY 7 Days #7 tab NS levoFLOXacin [Levaquin TAB] 500 mg PO QDAY #7 tablet Referrals: CHELSIE GILBERT MD [Primary Care Provider] - 3-5 Days Time of Disposition: 04:12
[2022-05-10] MEDS ORDERED: POTASSIUM CHLORIDE ER 20 MEQ TAB PO ONE (03:52)
== END 2022-05-10 05:10 | disposition home or self-care (01) ==
LOC: ED 16:27
DX: J44.9 Chronic obstructive pulmonary disease, unspecified (principal); J45.901 Unspecified asthma with (acute) exacerbation; R06.00 Dyspnea, unspecified; I10 Essential (primary) hypertension
CPT/HCPCS: 36415; 71046; 80053; 84484; 85025; 94644; 96365; 96368; 96375; 99284; J1956; J2930; J3475